=== PATIENT | female | born 1940 | race Caucasian/White ===

== ENCOUNTER 2016-09-22 23:35 | Inpatient (IN) | payer OTHER, MEDICARE ==
[~2016-09-22] VITALS: Ht 160 cm; Wt 118.4 kg
--- NOTE | 2016-09-22 23:45 | NUR ---
76 YO FEMALE BIBRA WITH C/C ABD PAIN FOR 2 DAYS. PATIENT IS ALERT ORIENTED X3, REPORTING SEVERE SHARP PAIN ON LOWER ABDL AREA. TENDER UPON PALPATION AND AGGRAVATED WITH MOVEMENT. GOWNED PATIENT UP. PLACED ON MONITOR. INITIATED COMFORT MEASURES.
--- NOTE | 2016-09-22 23:45 | NUR ---
DR CROWELL AT BEDSIDE FOR EVAL. IV ACCESS PLACED ON RIGHT FOREARM G18, GOOD BLOOD RETURN NOTED.
--- NOTE | 2016-09-22 23:46 | NUR ---
LAB AT BEDSIDE
[2016-09-22] MEDS ORDERED: IV SET PRIMARY PUMP SET 1 EA INFUS.SET MC ONE (23:52)
[2016-09-22] MEDS ORDERED: ONDANSETRON HCL/PF 4 MG/2 ML VIAL ONE (23:53)
[2016-09-22] MEDS ORDERED: HYDROMORPHONE 1 MG/1 ML DISP.SYRIN ONE (23:53)
[2016-09-23] VITALS (59 sets, daily range): BP systolic 37–167; BP diastolic 17–87
[2016-09-23] MEDS ORDERED: HYDROMORPHONE INJ 2 MG/ML DISP.SYRIN IV ONE
[2016-09-23] MEDS ORDERED: ONDANSETRON HCL/PF 4 MG/2 ML VIAL IVP ONE
--- NOTE | 2016-09-23 00:02 | NUR ---
MEDICATED ORDERED BY DR CROWELL.
[2016-09-23 00:10] LABS: BASOPHILS % (AUTO) 0.1 % (0.0-2.0); EOSINOPHILS % (AUTO) 0.1 % (0.0-6.0); HEMATOCRIT 40 % (33-45); HEMOGLOBIN 13.3 g/dL (11.5-14.8); LYMPHOCYTES # (AUTO) 0.9 /CMM (0.8-4.8); LYMPHOCYTES % (AUTO) 6.2 % (20.0-44.0); MEAN CORPUSCULAR HEMOGLOBIN 30 PG (26.0-33.0); MEAN CORPUSCULAR HGB CONC 34 g/dl (31.0-36.0); MEAN CORPUSCULAR VOLUME 89 fL (82-100); MONOCYTES # (AUTO) 0.5 /CMM (0.1-1.30); MONOCYTES % (AUTO) 3.3 % (2.0-12.0); NEUTROPHILS # (AUTO) 12.7 /CMM (1.8-8.9); NEUTROPHILS % (AUTO) 90.3 % (43.0-81.0); PLATELET COUNT (AUTO) 442 /CMM (150-450); RDW COEFFICIENT OF VARIATION 14.8 (11.5-15.0); RED BLOOD CELL COUNT(AUTO) 4.44 MIL/uL (4.0-5.2)
--- NOTE | 2016-09-23 00:11 | NUR ---
patient to ct
[2016-09-23 00:19] LABS: CALCIUM, SERUM 8.9 mg/dL (8.5-10.1); CREATININE 1.7 mg/dL (0.6-1.3); POTASSIUM 4.2 mmol/L (3.5-5.1)
[2016-09-23 00:24] LABS: ALBUMIN 2.6 g/dL (3.4-5.0); BILIRUBIN,TOTAL 2.2 mg/dL (0.2-1.0); TOTAL PROTEIN, SERUM 6.2 g/dL (6.4-8.2)
--- NOTE | 2016-09-23 00:27 | NUR ---
BACK FROM CT
[2016-09-23 00:30] LABS: INR 0.94 (0.87-1.13); PROTHROMBIN TIME 10.1 SECS (9.5-12.7)
[2016-09-23 00:44] LABS: BAND % (MANUAL) 2 % (0.0-5.0); LYMPHOCYTES % (MANUAL) 7 % (16-48); MONOCYTES % (MANUAL) 4 % (0-11.0); NEUTROPHILS % (MANUAL) 87 (42-76)
[2016-09-23 00:45] LABS: PLATELET ESTIMATE ADEQUATE
--- NOTE | 2016-09-23 00:46 | NUR ---
Soo brooks in [facility] - 09/23/16 at 0228 by JOSEP [phone]
--- NOTE | 2016-09-23 00:47 | NUR ---
Soo brooks in [facility] - 09/23/16 at 0228 by OJSEP [phone]
[2016-09-23] MEDS ORDERED: CEFTRIAXONE 1GM BAG (ER ONLY) 1 GM/50 ML PIGGYBACK IV ONE (01:00)
[2016-09-23] MEDS ORDERED: CEFTRIAXONE 1GM BAG (ER ONLY) 50 ML IV ONE (01:07)
[2016-09-23] MEDS ORDERED: SECONDARY IV SET 1 EA INFUS.SET MC ONE ×2 (01:07→04:16)
[2016-09-23] MEDS ORDERED: IV SET PRIMARY PUMP SET 1 EA INFUS.SET MC ONE ×9 (01:10→20:46)
[2016-09-23] MEDS ORDERED: IV NS 0.9% 1,000 ML BAG IV ONE ×3 (01:30→06:30)
[2016-09-23] MEDS ORDERED: HYDROMORPHONE 1 MG/1 ML DISP.SYRIN IV ONE (01:30)
[2016-09-23] MEDS ORDERED: HYDROMORPHONE 1 MG/1 ML DISP.SYRIN ONE (01:33)
[2016-09-23] MEDS ORDERED: IV NS 0.9% 1,000 ML IV PRN ×2 (01:38→21:30)
--- NOTE | 2016-09-23 01:42 | NUR ---
EKG TAKEN AT BEDSIDE.
[2016-09-23] MEDS ORDERED: IV NS 0.9% 1,000 ML ONE ×3 (02:18→20:46)
[2016-09-23] MEDS ORDERED: IV SET PRIMARY 1 EA INFUS.SET MC ONE (02:18)
--- NOTE | 2016-09-23 02:30 | NUR ---
4TH NS BOLUS GIVEN PER VERBAL ORDER OF DR CROWELL BP IS 88/55
--- NOTE | 2016-09-23 02:30 | NUR ---
Report given to CDL B DRIVER in ICU for ALYCE.
--- NOTE | 2016-09-23 02:38 | NUR ---
INSERTED RUIZ CATHETER 16G, URINE SAMPLE COLLECTED.
--- NOTE | 2016-09-23 02:50 | NUR ---
Trasported to ICU Rm 255 under als protocol. No incident noted.
[2016-09-23 03:11] LABS: APPEARANCE,URINE CLEAR (CLEAR); BILIRUBIN,URINE NEGATIVE (NEGATIVE); BLOOD, URINE NEGATIVE Ery/uL (NEGATIVE); COLOR,URINE YELLOW (YELLOW); KETONES,URINE TRACE (NEGATIVE); LEUKOCYTE ESTERASE ,URINE NEGATIVE (NEGATIVE); NITRITE, URINE NEGATIVE (NEGATIVE); PROTEIN,URINE TRACE mg/dl (NEGATIVE); UGLUCOSE NEGATIVE (NEGATIVE)
[2016-09-23 03:20] LABS: ADD URINE CULTURE NO; BACTERIA,URINE Rare /HPF (None Seen); RBC,URINE 0-2 /HPF (0-2); SQUAMOUS EPITHELIAL CELL,UR Few /HPF (None Seen)
[2016-09-23] MEDS: MORPHINE SULFATE INJ 2 MG/ML DISP.SYRIN IV PRN ×3 (03:43→17:53)
[2016-09-23] MEDS ORDERED: IV D5W 50 ML IV ONE (04:15)
[2016-09-23] MEDS ORDERED: PIPERACILLIN /TAZOBACTAM 2.25 G VIAL IV ONE (04:15)
[2016-09-23] MEDS ORDERED: PIPERACILLIN /TAZOBACTAM 4.5 G in IV D5W 50 ML IV SCH (05:00)
--- NOTE | 2016-09-23 05:50 | NUR ---
ACCOUNTS COLLECTOR PT WAS ADMITTED FROM ER WITH DIAGNOSIS OF PERFORATED VISCUS. PT IS AWAKE, ALERT, ORIENTED X 3. SPEECH IS CLEAR, MOVES ALL EXTREMITIES, LEFT LEG IS WEAK-2 WEEKS AGO PT GOT LEFT KNEE ARTHROPLASTY SURGERY. PT C/O SEVERE ABDOMINAL PAIN, MOSTLY IN RIGHT UPPER QUADRANT. ABDOMEN IS DISTENDED,TENDER WITH MUSCLE GUARDING AND REBOUND SYNDROME. NO BOWEL SOUNDS. 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 PT RECEIVED 4 L IV NS BOLUS IN ER. MAIN IV NS @ 125 ML/H. ZOSYN 4.5 G IVPB GIVEN. PT GOT HYPOTENSIVE. SBP DROPPED TO LOW 80'S. AFEBRILE. SCOPE-SR-ST. F/C WAS INSERTED AND DRAINS SUFFICIENT AMT. OF CLEAR URINE. FOR PAIN PT WAS GIVEN MORPHINE 2 MG IVP. PAIN LEVEL REDUCED FROM 10/10 TO 5/10. PT IS NPO. PT IS SUPPOSED TO HAVE SURGERY PERFORMED BY Ahsan WADSWORTH AT 8 A.M. Ahsan CHUN [facility] WAS CALLED TWICE FOR PT'S LOW BP- NO RESPONSE. WILL FOLLOW CLOSE MONITORING.
[2016-09-23] MEDS ORDERED: NOREPINEPHRINE 4 MG/4 ML AMPUL IV ONE (06:03)
[2016-09-23] MEDS ORDERED: IV D5W 500 ML IV ONE (06:04)
--- NOTE | 2016-09-23 06:19 | NUR ---
SVP PROGRAMMATIC TV Ahsan CHUN GAVE ORDER FOR LEVOPHED DRIP. I MIXED, LABELED AND STARTED REGULAR CONCENTRATION LEVOPHED DRIP. TITRATED TO KEEP SBP >90. PT IS STILL IN ABDOMINAL PAIN. MEDICATED ORDERED.
[2016-09-23] MEDS ORDERED: MORPHINE SULFATE INJ 2 MG/ML DISP.SYRIN ONE (06:29)
[2016-09-23] MEDS ORDERED: NOREPINEPHRINE 8 MG in IV D5W 500 ML IV PRN (06:30)
--- NOTE | 2016-09-23 07:10 | NUR ---
COOLER TENDER PT HAS A SEVERE SEPSIS D/T PERITONITIS. LEVOPHED DRIP TITRATED UP TO 12 MCG/KG/MIN TO KEEP SBP>90. ABDOMEN IS DISTENDED, REBOUND SYNDROME IS POSITIVE, NO BOWEL SOUNDS. C/O SEVERE ABDOMINAL PAIN. MORPHINE 2 MG IVP IS NOT EFFECTIVE. PT GOT OLIGURIC. SMALL AMT. OF HOSEA URINE. REMAINS TACHYCARDIC, HYPOTENSIVE. PT NEEDS STAT ABDOMINAL SURGERY TO BE DONE. SURGEON & ANESTHESIOLOGIST DID NOT DISCUSS WITH PATIENT AND CONSENT FOR SURGERY WAS NOT SIGNED YET. REPORT GIVEN TO NESTOR CALVERT, DAY SHIFT RN.
[2016-09-23] MEDS ORDERED: LIDOCAINE HCL/PF 1% 30 ML SDV ONE (07:15)
[2016-09-23] MEDS ORDERED: BUPIVACAINE MPF W/EPI 0.25% 30 ML VIAL ONE (07:15)
--- NOTE | 2016-09-23 07:30 | NUR ---
THREAD REELER; ASSESSMENT RECEIVED PT AWAKE AND ORIENTED X4. PT C/O RIGHT UPPER ABDOMINAL PAIN 04/30. MEDICATIONS REVIEWED LAST MORPHINE GIVEN AT 0630. DISCUSSED WITH PT REGARDING MEDIACTION NOT DUE YET AND SHE UNDERSTANDS. PT IS CONSERN TO WHEN SURGERY WILL HAPPEN. WILL F/U WITH SURGERY REGARDING TIME. PT ON LEVOPHED AT 12MCH/MIN INFUSING INTO RIGHT WRIST 18G. MARÍA TO OBTAIN CONSENT FOR PICC LINE INSERTION. RUIZ CATH INTACT DRAINING TO GRAVITY HOSEA COLOR URINE. WILL CONTINUE TO MONITOR CLOSELY, AND F/U WITH SURGERY.
[2016-09-23] MEDS ORDERED: SUCCINYLCHOLINE CHLORIDE 20 MG/ML VIAL ONE (07:52)
[2016-09-23] MEDS ORDERED: FENTANYL PF 250MCG/5ML AMPUL ONE (07:53)
[2016-09-23] MEDS ORDERED: CALCIUM CHLORIDE 1,000 MG/10 ML DISP.SYRIN ONE (07:53)
[2016-09-23] MEDS ORDERED: ROCURONIUM BROMIDE 50 MG/5 ML ONE ×4 (07:53→11:17)
--- NOTE | 2016-09-23 08:02 | NUR ---
FRAME TABLE OPERATOR HELPER; OR OR TEAM AT BEDSIDE TO TRANSFER PT TO OR. 0745: I WAS ABLE TO OBTAIN CONSENT FOR BLOOD TRANSFUSION AND ANESTHESIA DR. OQUENDO AT BEDSIDE EXPLAINED THE RISK AND BENEFITS OF ANESTHESIA. PT WAS ABLE TO GIVE VERBALIZE CONSENT, Edna MARTINEZ RN WITNESS WELL.
[2016-09-23] MEDS ORDERED: ALBUMIN 5% 250 ML IV ONE ×3 (08:25→09:17)
[2016-09-23] MEDS ORDERED: PIPERACILLIN /TAZOBACTAM 3.375 G in IV D5W 50 ML IV SCH (09:00)
[2016-09-23 09:11] LABS: ABG BASE EXCESS -5.6 mmol/L; ABG OXYGEN SATURATION 97.1 % (92.0-98.5); ABG PCO2 42.1 mmHg (35.0-45.0); ABG PH 7.304 (7.350-7.450); ABG PO2 111.3 mmHg (75.0-100.0); ABG TOTAL HEMOGLOBIN 12.3 G/dL (12.0-16.0); AaDO2 559.6 mmHg; COHb 1.2 % (0.5-1.5); MetHb 1.1 % (0.0-1.5); O2Hb 94.9 % (94.0-97.0); PEEP,BG 9 cm H2O; SITE, ABG A-Line; VT, ABG 475 mL
[2016-09-23] MEDS ORDERED: MIDAZOLAM HCL 2 MG/2ML VIAL ONE ×2 (09:56→12:37)
[2016-09-23] MEDS ORDERED: VASOPRESSIN INJ 20 UNIT/ML VIAL IM ONE (10:30)
[2016-09-23] MEDS ORDERED: VASOPRESSIN INJ 50 UNIT in IV D5W 497.5 ML IV PRN ×2 (10:30→15:00)
[2016-09-23] MEDS ORDERED: LANOLIN/MIN OIL/PETROLAT,WHT 3.5 GM TUBE ONE (10:33)
[2016-09-23] MEDS ORDERED: BACITRACIN 50000 UNITS/VIAL ONE (11:28)
[2016-09-23] MEDS ORDERED: PIPERACILLIN /TAZOBACTAM 2.25 G in IV D5W 50 ML IV SCH (12:00)
--- NOTE | 2016-09-23 14:00 | NUR ---
ELECTRIC MOTOR REPAIRER; POST-OP RECEIVED PT POST OP VIA BED. PT VENTED VIA ETT, AC 14, TV 480, 100% PEEP 10. ETT AT 23CM AT LIP LINE, 7.5 TUBE. PT ON LEVOPHED AT 25MCG/MIN INFUSING INTO RIGHT SUBCLAVIAN TLC, KARRIE TO RIGHT RADIAL ARTERY. RUIZ CATH INTACT DRAINING MINIMAL AMOUNT OF HOSEA COLOR URINE. WILL CONTINUE TO MONITOR CLOSELY TO MAINTAIN KARRIE BP ABOVE 90.
[2016-09-23 14:08] LABS: ABG OXYGEN SATURATION 95.4 % (92.0-98.5); ABG PCO2 51.6 mmHg (35.0-45.0); ABG PH 7.137 (7.350-7.450); ABG PO2 94.1 mmHg (75.0-100.0); AaDO2 567.3 mmHg; O2Hb 93.5 % (94.0-97.0); PEEP,BG 10 cm H2O; SITE, ABG A-Line; VENT MODE, BG AC 14 480 +10; VT, ABG 480 mL
[2016-09-23] MEDS ORDERED: ANESTHESIA TRAY IN PYXIS 1 EA TRAY MC ONE (14:11)
[2016-09-23] MEDS ORDERED: SODIUM BICARBONATE SYR 50 MEQ/50 ML DISP.SYRIN IV ONE (14:30)
[2016-09-23] MEDS: IV NS 0.9% 1,000 ML IV PRN (14:41)
[2016-09-23] MEDS: Sodium Bicarbonate 100 MEQ in IV D5W 1,000 ML IV PRN (14:50)
[2016-09-23] MEDS ORDERED: CALCIUM CHLORIDE 1,000 MG/10 ML DISP.SYRIN IV ONE (14:56)
[2016-09-23] MEDS ORDERED: FEE EMEERGENCY 1 MIN EA MC ONE (14:56)
[2016-09-23] MEDS ORDERED: ENOXAPARIN SODIUM 30 MG/0.3 ML DISP.SYRIN SQ SCH (15:00)
[2016-09-23 15:30] LABS: HEMATOCRIT 35 % (33-45); HEMOGLOBIN 11.4 g/dL (11.5-14.8); LYMPHOCYTES # (AUTO) 0.5 /CMM (0.8-4.8); LYMPHOCYTES % (AUTO) 3.8 % (20.0-44.0); MEAN CORPUSCULAR HEMOGLOBIN 30 PG (26.0-33.0); MEAN CORPUSCULAR HGB CONC 33 g/dl (31.0-36.0); MEAN CORPUSCULAR VOLUME 92 fL (82-100); MONOCYTES # (AUTO) 0.5 /CMM (0.1-1.30); MONOCYTES % (AUTO) 3.8 % (2.0-12.0); NEUTROPHILS # (AUTO) 11.5 /CMM (1.8-8.9); NEUTROPHILS % (AUTO) 92.4 % (43.0-81.0); PLATELET COUNT (AUTO) 357 /CMM (150-450); RDW COEFFICIENT OF VARIATION 15.4 (11.5-15.0); RED BLOOD CELL COUNT(AUTO) 3.79 MIL/uL (4.0-5.2); WHITE BLOOD COUNT (AUTO) 12.4 K/uL (4.3-11.0)
[2016-09-23 15:33] LABS: CALCIUM, SERUM 8.1 mg/dL (8.5-10.1); CREATININE 1.5 mg/dL (0.6-1.3); POTASSIUM 4.6 mmol/L (3.5-5.1)
[2016-09-23] MEDS: PROPOFOL 100 ML IV PRN ×3 (15:35→21:41)
[2016-09-23] MEDS: PANTOPRAZOLE 40 MG VIAL IV SCH (15:42)
[2016-09-23] MEDS ORDERED: FEE PK DOSING 1 MIN EA MC ONE (16:14)
[2016-09-23 16:42] LABS: ABG BASE EXCESS -8.4 mmol/L; ABG OXYGEN SATURATION 98.8 % (92.0-98.5); ABG PCO2 25.9 mmHg (35.0-45.0); ABG PH 7.381 (7.350-7.450); ABG PO2 265.2 mmHg (75.0-100.0); ABG TOTAL HEMOGLOBIN 12.9 G/dL (12.0-16.0); AaDO2 421.9 mmHg; MetHb 0.9 % (0.0-1.5); O2Hb 96.9 % (94.0-97.0); PEEP,BG 10 cm H2O; SITE, ABG A-Line; VENT MODE, BG AC 20 600 +10 100%; VT, ABG 600 mL
--- NOTE | 2016-09-23 16:52 | NUR ---
SPUTUM COLLECTED VIA ETT PER ORDER.
[2016-09-23] MEDS ORDERED: DOPamine 400 MG in IV D5W 250 ML IV PRN (17:00)
[2016-09-23] MEDS: NOREPINEPHRINE 16 MG in IV D5W 500 ML IV PRN (17:04)
[2016-09-23] MEDS: VANCOMYCIN 1 GM in IV D5W 250 ML IV SCH (17:12)
[2016-09-23 17:21] LABS: BASOPHILS % (MANUAL) 1 % (0.0-2.0); LYMPHOCYTES % (MANUAL) 2 % (16-48); METAMYELOCYTES % 18 % (0-0); MONOCYTES % (MANUAL) 10 % (0-11.0); NEUTROPHILS % (MANUAL) 25 (42-76)
[2016-09-23 17:22] LABS: BAND % (MANUAL) 44 % (0.0-5.0)
[2016-09-23 17:23] LABS: ANISOCYTOSIS 1+; PLATELET ESTIMATE ADEQU
[2016-09-23] MEDS: MICAFUNGIN SODIUM 100 MG in IV NS 0.9% 100 ML IV SCH (18:26)
--- NOTE | 2016-09-23 18:30 | NUR ---
HEALTH INFORMATION ADMINISTRATOR; OUTPUT JPRATT MIDLINE 60ML JPRATT RIGHT UPPER QUAD 45ML. NG SUCTION 100ML
--- NOTE | 2016-09-23 19:00 | NUR ---
SCARFER; VASOPRESSOR PT NOW ON 3 PRESSORS. PT BLOOD PRESSURE FLUCTUATES FROM 80'S TO 160'S. DOPAMINE 1MCG/KG/MIN, LEVOPHED 40MCG/MIN, VASOPRESSIN 0.01UNITS. WILL ENDORSE TO GEOLOGY FACULTY MEMBER NURSE
[2016-09-23] MEDS ORDERED: IV D5W 250 ML IV ONE ×2 (19:36→23:16)
[2016-09-23] MEDS: PHENYLEPHRINE 80 MG in IV D5W 250 ML IV PRN ×2 (19:48→23:26)
[2016-09-23] MEDS: MEROPENEM 1 G in IV NS 0.9% 100 ML IV SCH (20:00)
[2016-09-23] MEDS ORDERED: IV NS 0.9% 1,000 ML IV ONE (21:00)
[2016-09-23] MEDS ORDERED: MEROPENEM 1 G in IV NS 0.9% 100 ML IV SCH (21:00)
--- NOTE | 2016-09-23 21:25 | NUR ---
ALTERATIONS SEWER. INITIAL ASSESSMENT. RECEIVED THE PT REST ON THE BED. ORALLY INTUBATED. SEDATED WITH DIPRIVAN. ETT 7.5CMS,LIP 23CMS,AC 20,TV 600,FIO2 100%, PEEP 10. SAT 99%. RESIDENT CARE AIDE SHOWING S TACH. IV RT IJ TRIPLE LUMEN RT RADIAL KARRIE. LT NARE NGT LOW INTERMITTENT SUCTION FC PATENT. SURGICAL INCISION INTACT. 2 YANIRA INTACT. FC PATENT. IV LEVOPHED 30MCG/MIN,ANA 300MCG/MIN, VASO 0.04U DIPRIVAN 30MCG/KG/MIN,IVF D5W WITH 2AMP BICAR 150 ML/H. PT IS UNSTABLE. WILL CONTINUE TO MONITOR.
[2016-09-23 21:26] LABS: ABG BASE EXCESS -7.7 mmol/L; ABG OXYGEN SATURATION 98.2 % (92.0-98.5); ABG PH 7.385 (7.350-7.450); ABG PO2 143.8 mmHg (75.0-100.0); ABG TOTAL HEMOGLOBIN 13.1 G/dL (12.0-16.0); AaDO2 542.2 mmHg; COHb 0.1 % (0.5-1.5); O2Hb 97.1 % (94.0-97.0); SITE, ABG Left Radial; VENT MODE, BG AC 20 600 100%
--- NOTE | 2016-09-23 21:44 | NUR ---
CUSTOMER EXPERIENCE SPECIALIST.DR HINSON CALLED. UP DATE GIVEN. ORDER IL NS BOLOS, 2 UNITS FFP , ABG STAT, CBC AND CMP
[2016-09-23 21:55] LABS: BASOPHILS % (AUTO) 0.1 % (0.0-2.0); HEMATOCRIT 37 % (33-45); HEMOGLOBIN 11.9 g/dL (11.5-14.8); LYMPHOCYTES # (AUTO) 0.9 /CMM (0.8-4.8); LYMPHOCYTES % (AUTO) 4.2 % (20.0-44.0); MEAN CORPUSCULAR HEMOGLOBIN 30 PG (26.0-33.0); MEAN CORPUSCULAR HGB CONC 33 g/dl (31.0-36.0); MEAN CORPUSCULAR VOLUME 92 fL (82-100); MONOCYTES # (AUTO) 0.2 /CMM (0.1-1.30); MONOCYTES % (AUTO) 0.8 % (2.0-12.0); NEUTROPHILS # (AUTO) 20.6 /CMM (1.8-8.9); NEUTROPHILS % (AUTO) 94.9 % (43.0-81.0); PLATELET COUNT (AUTO) 391 /CMM (150-450); RDW COEFFICIENT OF VARIATION 15.6 (11.5-15.0); RED BLOOD CELL COUNT(AUTO) 3.98 MIL/uL (4.0-5.2); WHITE BLOOD COUNT (AUTO) 21.7 K/uL (4.3-11.0)
--- NOTE | 2016-09-23 21:59 | NUR ---
CLAM DREDGE BOAT CAPTAIN.DR HINSON ORDERED NEPHRO CONSULT. I CALLED DR HOLCOMB. NO ORDER.
[2016-09-23 22:07] LABS: CALCIUM, SERUM 7.4 mg/dL (8.5-10.1); CREATININE 1.8 mg/dL (0.6-1.3); POTASSIUM 4.6 mmol/L (3.5-5.1)
--- NOTE | 2016-09-23 22:07 | NUR ---
AUTOMOTIVE POWER ELECTRONICS ENGINEER. G DONE.
[2016-09-23] MEDS ORDERED: IV NS 0.9% 250 ML IV ONE (22:12)
[2016-09-23 22:50] LABS: BAND % (MANUAL) 48 % (0.0-5.0); LYMPHOCYTES % (MANUAL) 4 % (16-48); MONOCYTES % (MANUAL) 9 % (0-11.0); NEUTROPHILS % (MANUAL) 20 (42-76)
[2016-09-23 22:51] LABS: ANISOCYTOSIS 1+; METAMYELOCYTES % 19 % (0-0); PLATELET ESTIMATE ADEQUATE
[2016-09-23] MEDS ORDERED: PHENYLEPHRINE 10 MG/ML VIAL ONE ×2 (23:15→23:16)
--- NOTE | 2016-09-23 23:42 | NUR ---
FOOD PREPARATION SUPERVISOR. PT NOT RESPONDING. FRANSICO TURNER
[2016-09-24] VITALS (78 sets, daily range): BP systolic 58–130; BP diastolic 42–97
[2016-09-24] MEDS ORDERED: FUROSEMIDE 40 MG/4 ML VIAL ONE (01:05)
[2016-09-24] MEDS ORDERED: NOREPINEPHRINE 4 MG/4 ML AMPUL IV ONE (01:20)
[2016-09-24] MEDS ORDERED: FUROSEMIDE 40 MG/4 ML VIAL IV SCH (01:30)
[2016-09-24] MEDS ORDERED: FUROSEMIDE 40 MG/4 ML VIAL IV ONE (01:30)
[2016-09-24] MEDS: NOREPINEPHRINE 16 MG in IV D5W 500 ML IV PRN ×2 (01:33→16:36)
[2016-09-24] MEDS: PROPOFOL 100 ML IV PRN ×5 (01:43→18:29)
--- NOTE | 2016-09-24 02:02 | NUR ---
GREEN HIDE INSPECTOR. DR HINSON CALLED. PT UPDATE GIVEN. NEW ORDER RECEIVED. LASIX 40 MG ONCE. WILL CONTINUE TO MONITOR.
--- NOTE | 2016-09-24 02:03 | NUR ---
SENIOR LOAN OFFICER. PT SABRA UPPER EXTREMITIES MOVING. DIPRIVAN RESTARTED
--- NOTE | 2016-09-24 02:26 | NUR ---
DIAGNOSTIC RADIOLOGIST. 2UNITS FFP GIVEN. DURING SHIFT NO COMPLICATION NOTED.
[2016-09-24] MEDS: Sodium Bicarbonate 100 MEQ in IV D5W 1,000 ML IV PRN ×2 (02:31→10:11)
--- NOTE | 2016-09-24 03:38 | NUR ---
TREER. AM CARE. ORAL CARE, BED BATH GIVEN. LINEN CHANGED. REMAINING SAME VENT SETTINGS TOLERATED WELL SAT 98 %. NO ACUTE DISTRESS NOTED. ELEVATOR BUILDER SHOWING S TACH. IV RT IJ. DIPRIVAN 30 MCG/KG/MIN, LEVO 15MCG/MIN, ANA 200MCG/ MIN. VASO 0.04UNITS/M,BICARB DRIP 150ML/H. RT RADIAL A LINE. RT IJ CVP LINE. LT NARE NGT LOW INTERMITTENT SUCTIONABDOMINAL DRESSING INTACT. LT LEG DRESSING INTACT. MID ABDOMEN YANIRA TUBE AND RT UPPER YANIRA INTACT. TEMPERATURE 99.9. NPO. TURN AND REPOSITION. VITALS UNSTABLE, FC PATENT, NO URINE OUT PUT. WILL CONTINUE TO MONITOR VITALS.
[2016-09-24 04:50] LABS: BASOPHILS % (AUTO) 0.2 % (0.0-2.0); HEMATOCRIT 34 % (33-45); HEMOGLOBIN 11.2 g/dL (11.5-14.8); LYMPHOCYTES # (AUTO) 1.1 /CMM (0.8-4.8); LYMPHOCYTES % (AUTO) 4.1 % (20.0-44.0); MEAN CORPUSCULAR HEMOGLOBIN 31 PG (26.0-33.0); MEAN CORPUSCULAR HGB CONC 33 g/dl (31.0-36.0); MEAN CORPUSCULAR VOLUME 92 fL (82-100); MONOCYTES # (AUTO) 0.6 /CMM (0.1-1.30); MONOCYTES % (AUTO) 2.2 % (2.0-12.0); NEUTROPHILS # (AUTO) 24.2 /CMM (1.8-8.9); NEUTROPHILS % (AUTO) 93.5 % (43.0-81.0); PLATELET COUNT (AUTO) 323 /CMM (150-450); RDW COEFFICIENT OF VARIATION 15.6 (11.5-15.0); RED BLOOD CELL COUNT(AUTO) 3.66 MIL/uL (4.0-5.2); WHITE BLOOD COUNT (AUTO) 25.9 K/uL (4.3-11.0)
[2016-09-24 05:15] LABS: BAND % (MANUAL) 51 % (0.0-5.0); NEUTROPHILS % (MANUAL) 18 (42-76)
[2016-09-24 05:16] LABS: LYMPHOCYTES % (MANUAL) 6 % (16-48); METAMYELOCYTES % 15 % (0-0); MONOCYTES % (MANUAL) 10 % (0-11.0); PLATELET ESTIMATE ADEQUATE
[2016-09-24 05:17] LABS: THYROID STIMULATING HORMONE 0.721 uIU/mL (0.358-3.74)
[2016-09-24 05:18] LABS: CALCIUM, SERUM 7.8 mg/dL (8.5-10.1); CREATININE 1.9 mg/dL (0.6-1.3); PHOSPHORUS 4.2 mg/dL (2.5-4.9); POTASSIUM 4.3 mmol/L (3.5-5.1)
[2016-09-24 05:20] LABS: MAGNESIUM 1.2 mg/dL (1.8-2.4)
--- NOTE | 2016-09-24 06:15 | NUR ---
PRODUCT TEST ENGINEER. YANIRA DRAIN MIDDLE 30ML RT YANIRA 10ML
--- NOTE | 2016-09-24 07:06 | NUR ---
DEPUTY SHERIFF CHIEF. LAB CALLED FOR MAGNESIUM 1.2, TROPONIN O.918. [address] DICKERSON NOT CALL BACK. ENDORSE TO DAY SHIFT.
[2016-09-24] MEDS: PHENYLEPHRINE 80 MG in IV D5W 250 ML IV PRN ×3 (07:41→20:35)
[2016-09-24] MEDS ORDERED: IV SET PRIMARY PUMP SET 1 EA INFUS.SET MC ONE ×3 (07:57→19:47)
--- NOTE | 2016-09-24 07:59 | NUR ---
RT PATIENT REC'D ORALLY INTUBATED WITH A 7.5 ETT SECURED AT 23CM MID LIP VIA ANCHOR FAST. ON [facility] VENTILATION WITH SETTINGS SET PER MD TOLERATED WELL. VENT ALARMS CHECKED + AUDIBLE. CUFF PRESSURE CHECKED MANAGER BEVERAGE. SX'D WITH SMALL AMT PALE SEMITHICK SECRETIONS. AMBU BAG AT HOB Addendum: 09/24/16 at 0803 by MAYTE ARELLANO RT Amended: Links added.
--- NOTE | 2016-09-24 08:00 | NUR ---
CARBON SETTER; ASSESSMENT RECEIVED PT VENTED VIA ETT, SEE FLOW SHEET FOR VENT SETTINGS. PT IS SEDATED ON DIPRIVAN DRIP AT 20MCG/KG/MIN, NOTED PT AWAKE, RESTLESS AND LIFTING SABRA ARMS, WILL INCREASE DIPRIVAN FOR PT SAFETY AND COMFORT. PT ON VASOPRESSIN 0.04 UNITS/HR WILL TITRATE TO KEEP SBP (KARRIE) ABOVE 90. LEVOPHED AT 10MCG/MIN, ANA-SYNEPHRINE AT 200MCG/MCG INFUSING INTO RIGHT IJ TLC. KARRIE INTO RIGHT RADIAL ARTERY. CVP MONITOR SHOWING 12. RUIZ CATH INTACT DRAINING TO GRAVITY CLEAR YELLOW URINE. NG TUBE TO LEFT NARE UNABLE TO AUSCULTATE NG TUBE PLACEMENT ATTEMPTED TO REPOSITION NG TUBE UNABLE TO. NEW NG TUBE PLACED TO RIGHT NARE VERIFIED WITH SECOND NURSE. Marysol PYLE RN POSITIVE FOR AUSCULTATION AND ASPIRATION. ABLE TO OBTAIN ABOUT 1L OF GREEN COLOR FLUID. WILL CONTINUE TO MONITOR CLOSELY. PT 1:1 NURSING CARE.
[2016-09-24] MEDS: PANTOPRAZOLE 40 MG VIAL IV SCH (08:03)
[2016-09-24] MEDS ORDERED: SECONDARY IV SET 1 EA INFUS.SET MC ONE ×2 (08:03→19:47)
[2016-09-24] MEDS: Magnesium 1GM/D5W 100ML PREMIX 100 ML IV SCH ×2 (08:03→09:11)
[2016-09-24] MEDS ORDERED: IV NS 0.9% 250 ML IV ONE (08:04)
[2016-09-24] MEDS: MEROPENEM 1 G in IV NS 0.9% 100 ML IV SCH ×2 (08:12→19:45)
[2016-09-24 08:36] LABS: ABG BASE EXCESS -4.6 mmol/L; ABG OXYGEN SATURATION 93.6 % (92.0-98.5); ABG PH 7.446 (7.350-7.450); ABG PO2 65.6 mmHg (75.0-100.0); ABG TOTAL HEMOGLOBIN 11.7 G/dL (12.0-16.0); AaDO2 260.5 mmHg; COHb 0.4 % (0.5-1.5); MetHb 0.8 % (0.0-1.5); O2Hb 92.5 % (94.0-97.0); PEEP,BG 0 cm H2O; SITE, ABG A-Line
--- NOTE | 2016-09-24 09:20 | NUR ---
DRUM STOCK CLERK; PRIMARY DR. JOSEPH CHUN AT BEDSIDE UPDATE WAS GIVEN DISCUSSED MAGNESIUM LEVEL OF 1.2 AND PT RECEIVING 2GM OF MAGNESIUM SULFATE IV. NO NEW ORDERS GIVEN WILL CONTINUE TO MONITOR
[2016-09-24] MEDS ORDERED: Z GUARD REMEDY 2 OZ OINT TP PRN (10:00)
--- NOTE | 2016-09-24 10:30 | NUR ---
SECOND CUTTER; PULMONARY DR. HALE AT BEDSIDE UPDATE WAS GIVEN. DISCUSSED ABG RESULTS.CHEST XRAY REVIEWED NEW ORDERS GIVEN TO PULL ETT OUT 2CM. ORDERS ENTERED AND RT NOTIFIED.
--- NOTE | 2016-09-24 11:12 | NUR ---
RT PER DR GEOFFREY OSBORNE ETT PULLED OUT 2CM AND SECURED AT 21CM TOP LIP Addendum: 09/24/16 at 1112 by MAYTE ARELLANO RT Amended: Links added.
--- NOTE | 2016-09-24 11:14 | NUR ---
ELECTRICIAN SUBSTATION SUPERVISOR; TEMP PT HAS LOW GRADE TEMP OF 100.6. COOLING MEASURES APPLIED. WILL CONTINUE TO MONITOR.
--- NOTE | 2016-09-24 11:30 | NUR ---
BILL CLERK; ANESTHESIOLOGIST DR. HUDSON AT BEDSIDE UPDATE WAS GIVEN. DISCUSSED REGARDING TLC CATH TIP ENTERING RIGHT ATRIUM. NO NEW ORDERS GIVEN. STATES THAT LONG PT IS NOT HAVING ANY DYSRHYTHMIAS HE WILL NOT ADJUST. WILL CONTINUE TO MONITOR CARDIAC RHYTHM.
[2016-09-24] MEDS: Z GUARD REMEDY 2 OZ OINT TP SCH (11:50)
--- NOTE | 2016-09-24 12:51 | NUR ---
TIPPING MACHINE OPERATOR AUTOMATIC; DRESSING SURGICAL DRESSING REMOVED PER ORDERS. PICTURES TAKEN. WOUND CARE DONE ORDERED. WET TO DRY DRESSING. ABLE TO NOTE PLACEMENT OF JPRATT JPRATT #1 RIGHT LOWER QUADRANT. JPRATT #2 RIGHT UPPER QUADRANT.
--- NOTE | 2016-09-24 13:00 | NUR ---
INSOLE COVERER; SURGEON DR. CAAL CALLED UPDATE WAS GIVEN NO NEW ORDERS GIVEN AT THIS TIME.
[2016-09-24] MEDS: IV NS 0.9% 1,000 ML IV PRN (14:09)
--- NOTE | 2016-09-24 15:00 | NUR ---
SEISMOGRAPH OBSERVER; BP WILL CONTINUE TO MONITOR KARRIE FOR B/P AND ADJUST VASOPRESSORS ACCORDING TO KARRIE READINGS. WILL CHECK AUTOMATIC B/P Q1HR.
[2016-09-24] MEDS: MICAFUNGIN SODIUM 100 MG in IV NS 0.9% 100 ML IV SCH (16:14)
[2016-09-24] MEDS: MORPHINE SULFATE INJ 2 MG/ML DISP.SYRIN IV PRN (16:47)
--- NOTE | 2016-09-24 16:50 | NUR ---
MANUFACTURING ENGINEER ASSEMBLY; PAIN NOTED PT HAVING SOME FACIAL GRIMACING, CLOSING EYES TIGHT, MORPHINE 2MG GIVEN IVP ORDERED. WILL CONTINUE TO MONITOR CLOSELY
--- NOTE | 2016-09-24 17:11 | NUR ---
REST ROOM ATTENDANT; OUTPUT JPRATT #1 RIGHT LOWER QUAD = 20ML OUTPUT JPRATT #2 RIGHT UPPER QUAD = 90ML OITPUT NGTUBE TOTAL OF 1150 ML OF GASTRIC CONTENT
[2016-09-24] MEDS ORDERED: IV NS 0.9% 500 ML IV ONE (17:21)
[2016-09-24] MEDS: VANCOMYCIN 1 GM in IV D5W 250 ML IV SCH (17:25)
[2016-09-24] MEDS: HEPARIN SODIUM, PORCINE 5000 UNITS/1 ML VIAL SQ SCH (19:46)
--- NOTE | 2016-09-24 20:00 | NUR ---
SENIOR ELECTRICAL ENGINEER: RECEIVED PT VENTED VIA ETT, SEE FLOW SHEET FOR VENT SETTINGS. PT IS SEDATED ON DIPRIVAN DRIP AT 20MCG/KG/MIN, . LEVOPHED AT 14 MCG/MIN, ANA-SYNEPHRINE AT 160MCG/MCG INFUSING INTO RIGHT IJ TLC. ART LINE INTO RIGHT RADIAL ARTERY. CVP MONITOR SHOWING 2. RUIZ CATH INTACT DRAINING TO GRAVITY CLEAR YELLOW URINE. NG TUBE TO LEFT NOSTRIL, POSITIVE FOR AUSCULTATION AND ASPIRATION. FULL ASSESSMENT SEE ON FLOW SHEET. ONGOING MONITORING.
[2016-09-25] VITALS (57 sets, daily range): BP systolic 86–145; BP diastolic 51–87
[2016-09-25] MEDS: PROPOFOL 100 ML IV PRN ×4 (01:24→17:14)
[2016-09-25] MEDS: IV NS 0.9% 1,000 ML IV PRN ×2 (02:34→11:45)
[2016-09-25] MEDS: PHENYLEPHRINE 80 MG in IV D5W 250 ML IV PRN ×3 (04:21→17:14)
[2016-09-25 04:39] LABS: HEMATOCRIT 37 % (33-45); HEMOGLOBIN 12.3 g/dL (11.5-14.8); LYMPHOCYTES # (AUTO) 0.7 /CMM (0.8-4.8); LYMPHOCYTES % (AUTO) 2.2 % (20.0-44.0); MEAN CORPUSCULAR HEMOGLOBIN 31 PG (26.0-33.0); MEAN CORPUSCULAR HGB CONC 34 g/dl (31.0-36.0); MEAN CORPUSCULAR VOLUME 91 fL (82-100); MONOCYTES # (AUTO) 0.2 /CMM (0.1-1.30); MONOCYTES % (AUTO) 0.6 % (2.0-12.0); NEUTROPHILS # (AUTO) 30.5 /CMM (1.8-8.9); NEUTROPHILS % (AUTO) 97.2 % (43.0-81.0); PLATELET COUNT (AUTO) 271 /CMM (150-450); RED BLOOD CELL COUNT(AUTO) 4.01 MIL/uL (4.0-5.2)
[2016-09-25 04:45] LABS: WHITE BLOOD COUNT (AUTO) 31.4 K/uL (4.3-11.0)
[2016-09-25 05:11] LABS: CALCIUM, SERUM 7.5 mg/dL (8.5-10.1); CREATININE 1.1 mg/dL (0.6-1.3); MAGNESIUM 1.7 mg/dL (1.8-2.4); PHOSPHORUS 2.9 mg/dL (2.5-4.9); POTASSIUM 3.6 mmol/L (3.5-5.1)
[2016-09-25 05:41] LABS: ANISOCYTOSIS 1+; BAND % (MANUAL) 58 % (0.0-5.0); LYMPHOCYTES % (MANUAL) 2 % (16-48); MONOCYTES % (MANUAL) 3 % (0-11.0); NEUTROPHILS % (MANUAL) 37 (42-76); PLATELET ESTIMATE ADEQUATE
--- NOTE | 2016-09-25 05:52 | NUR ---
YARN WORKER: YANIRA DRAINAGE # 1 OUTPUT 30 ML YANIRA DRAINAGE # 2 OUTPUT 60 ML
--- NOTE | 2016-09-25 07:05 | NUR ---
RN INITIAL NOTES RECEIVED PT [facility]UBATED. [facility] WITH FF SETTINGS: AC20, TV600, FI02 60%, PEEP 0. ETT IN PLACE. HOB ELEVATED. NGT, RIGHT NARE IN PLACE, CONNECTED TO LOW INTERMITTENT SUCTION. RIJ TLC IN PLACE. ON DIPRIVAN AT 20MCG/KG/MIN, ANA AT 160MCG/MIN AND LEVO AT 10MCG/MIN. BP CLOSELY MONITORED. RW G#[address] ON NS AT 100ML/HR. ABDOMINAL INCISION CLEAN AND DRY, DRESSING ON. NO SIGNS OF BLEEDING NOTED. 2 YANIRA DRAINS INTACT. FC IN PLACE. WILL MONITOR FOR OUTPUT. BLE ELEVATED. WILL CLOSELY MONITOR.
--- NOTE | 2016-09-25 07:55 | NUR ---
WOUND CARE CONSULT PATIENT SEEN AND SKIN INTEGRITY ASSESSMENT VERY LIMITED PATIENT ON 3 PRESSORS AND UNSTABLE TO TURN FOR ME TO ASSESS HER BACK. PATIENT PRESENTS WITH ABDOMINAL OPEN POST OP INCISION WHICH IS CURRENTLY PACKED AND HAS DRY DRESSING IN PLACE, DRESSING INTACT WITH NO DRAINAGE. WILL DEFER CARE OF THIS TO THE PRIMARY SURGEON THERE ARE CURRENT TREATMENT ORDERS IN PLACE BY SURGEON. PATIENT ALSO PRESENT WITH LEFT KNEE POST OP INCISION, THERE IS SMALL AMOUNT OF SEROUS DRNG NOTED TO THE DRY DRESSING. THERE ARE NO S/S OF INFECTION NOTED AT THIS TIME. RECOMMEND CONTINUE WITH DRY DRESSING TO THIS AREA. RECOMMEND TURNING SCHED Q 2 HOURS PATIENT CONDITION PERMITS, RECOMMEND BILATERAL HEEL FLOATING, RECOMMEND USE OF Z GUARD TO PERINEAL AND BUTTOCKS FOR MOISTURE MANAGEMENT. PATIENT CURRENTLY HAS RUIZ AND COLOSTOMY. CURRENT NOREEN AT 13. ALL DISCUSSED WITH NURSING AT THE BEDSIDE. GARY MAX 2 BED WITH ETS AIR IN PLACE FOR SKIN MANAGEMENT.
--- NOTE | 2016-09-25 08:00 | NUR ---
RN NOTES SEEN AND EXAMINED BY DR. CHERY. AWARE OF CURRENT LAB RESULTS. AWARE OF TROPONIN 14.109. MD AWARE PT IS ON LEVO AT 10MCG/MIN, ANA 160MCG/MIN AND DIPRIVAN AT 20MCG/KG/MIN. ON CVP MONITORING. A-LINE IN PLACE. MD ORDERED MAGNESIUM REPLACEMENT. WILL CONTINUE TO MONITOR HEMODYNAMIC STATUS
[2016-09-25] MEDS ORDERED: SECONDARY IV SET 1 EA INFUS.SET MC ONE (08:12)
[2016-09-25] MEDS: PANTOPRAZOLE 40 MG VIAL IV SCH (08:17)
[2016-09-25] MEDS: Magnesium 1GM/D5W 100ML PREMIX 100 ML IV SCH ×2 (08:17→09:18)
[2016-09-25] MEDS: Z GUARD REMEDY 2 OZ OINT TP SCH (08:18)
[2016-09-25] MEDS: HEPARIN SODIUM, PORCINE 5000 UNITS/1 ML VIAL SQ SCH ×2 (08:21→21:40)
[2016-09-25] MEDS: MEROPENEM 1 G in IV NS 0.9% 100 ML IV SCH ×2 (08:22→21:39)
--- NOTE | 2016-09-25 08:30 | NUR ---
RN NOTES SEDATION VACATION DONE. PT OPENED EYES, NO TRACKING. UNABLE TO FOLLOW SIMPLE COMMANDS. PLACED BACK ON SEDATION AFTER 15MINS
[2016-09-25 08:47] LABS: ABG OXYGEN SATURATION 95.6 % (92.0-98.5); ABG PCO2 24.9 mmHg (35.0-45.0); ABG PH 7.544 (7.350-7.450); ABG PO2 73.3 mmHg (75.0-100.0); ABG TOTAL HEMOGLOBIN 12.9 G/dL (12.0-16.0); AaDO2 255.2 mmHg; COHb 0.8 % (0.5-1.5); MetHb 0.6 % (0.0-1.5); O2Hb 94.3 % (94.0-97.0); SITE, ABG Right Radial; VT, ABG 600 mL
--- NOTE | 2016-09-25 09:55 | NUR ---
RN NOTES SEEN AND EXAMINED BY DR. JOSEPH PRASAD. AWARE OF CURRENT LABS WBC 31.4. ON IV ATB. WITH LOW GRADE TEMP-99.4. SODIUM 135, MAGNESIUM 1.7, REPLACED. TROPONIN 12.109, DR. CHERY AWARE. ALSO AWARE OF CXR AND ABG RESULT. ORDERED LABS IN AM. NOTED AND CARRIED OUT. WILL MONITOR.
[2016-09-25] MEDS ORDERED: Magnesium 1GM/D5W 100ML PREMIX 100 ML IV SCH (11:23)
[2016-09-25] MEDS ORDERED: IV NS 0.9% 500 ML IV ONE (11:39)
[2016-09-25] MEDS: NOREPINEPHRINE 16 MG in IV D5W 500 ML IV PRN (11:46)
[2016-09-25 14:22] LABS: HEPATITIS A AB, IgM Negative (Negative); HEPATITIS B CORE AB, IgM Negative (Negative); HEPATITIS C VIRUS AB <0.1 s/co ratio (0.0-0.9)
[2016-09-25] MEDS: MORPHINE SULFATE INJ 2 MG/ML DISP.SYRIN IV PRN (16:34)
[2016-09-25] MEDS: MICAFUNGIN SODIUM 100 MG in IV NS 0.9% 100 ML IV SCH (16:34)
[2016-09-25] MEDS: VANCOMYCIN 1 GM in IV D5W 250 ML IV SCH (17:13)
--- NOTE | 2016-09-25 18:55 | NUR ---
RN CLOSING NOTES PT REMAINS INTUBATED. TOLERATING VENT. NO RESPIRATORY DISTRESS NOTED. NO SOB NOTED. NO SIGNS OF PAIN NOTED. IV LINES IN PLACE. NGT IN PLACE. ON LEVO AND ANA, TITRATED. ON DIPRIVAN. DRESSING CHANGED ON ABDOMINAL INCISION SITE. KEPT CLEAN AND DRY. 2 YANIRA DRAINS INTACT. FC IN PLACE. KEPT CLEAN AND DRY. REPOSITIONED Q2. KEPT BLE ELEVATED. WILL ENDORSE FOR CONTINUITY OF CARE.
--- NOTE | 2016-09-25 20:00 | NUR ---
FLIGHT READINESS TECHNICIAN: RECEIVED PT INTUBATED. ON [facility] VENT WITH FF SETTINGS: AC 16, TV550, FI02 50%, PEEP 0. ETT IN PLACE. HOB ELEVATED. NGT, RIGHT NARE IN PLACE, CONNECTED TO LOW INTERMITTENT SUCTION. RIJ TLC IN PLACE. ON DIPRIVAN AT 20MCG/KG/MIN, ANA AT 110MCG/MIN AND LEVO AT 10MCG/MIN. BP CLOSELY MONITORED. RW G#[address] ON NS AT 100ML/HR. ABDOMINAL INCISION CLEAN AND DRY, DRESSING ON. NO SIGNS OF BLEEDING NOTED. 2 YANIRA DRAINS INTACT. FC IN PLACE. WILL MONITOR FOR OUTPUT. BLE ELEVATED. KEEP MONITORING.
[2016-09-25] MEDS ORDERED: IV SET PRIMARY PUMP SET 1 EA INFUS.SET MC ONE (21:43)
--- NOTE | 2016-09-25 23:43 | NUR ---
POST SECONDARY PROFESSIONAL: BEDSIDE REPORT GIVEN TO MINISTERIO/RN, MADE AWARE ALL ORDERS.
[2016-09-26] VITALS (57 sets, daily range): BP systolic 91–136; BP diastolic 50–77
[2016-09-26] MEDS: IV NS 0.9% 1,000 ML IV PRN ×2 (00:20→14:21)
[2016-09-26] MEDS: PROPOFOL 100 ML IV PRN ×4 (00:21→19:01)
[2016-09-26 05:02] LABS: BASOPHILS # (AUTO) 0.1 /CMM (0.0-0.2); BASOPHILS % (AUTO) 0.5 % (0.0-2.0); EOSINOPHILS # (AUTO) 0.1 /CMM (0.0-0.7); EOSINOPHILS % (AUTO) 0.4 % (0.0-6.0); HEMATOCRIT 33 % (33-45); HEMOGLOBIN 11.3 g/dL (11.5-14.8); LYMPHOCYTES # (AUTO) 1.1 /CMM (0.8-4.8); LYMPHOCYTES % (AUTO) 3.8 % (20.0-44.0); MEAN CORPUSCULAR HEMOGLOBIN 31 PG (26.0-33.0); MEAN CORPUSCULAR HGB CONC 34 g/dl (31.0-36.0); MEAN CORPUSCULAR VOLUME 89 fL (82-100); MONOCYTES # (AUTO) 0.9 /CMM (0.1-1.30); NEUTROPHILS # (AUTO) 27.1 /CMM (1.8-8.9); NEUTROPHILS % (AUTO) 92.3 % (43.0-81.0); PLATELET COUNT (AUTO) 243 /CMM (150-450); RDW COEFFICIENT OF VARIATION 14.8 (11.5-15.0); WHITE BLOOD COUNT (AUTO) 29.3 K/uL (4.3-11.0)
[2016-09-26 05:19] LABS: CALCIUM, SERUM 7.6 mg/dL (8.5-10.1); CREATININE 0.8 mg/dL (0.6-1.3); MAGNESIUM 2.2 mg/dL (1.8-2.4); PHOSPHORUS 2.9 mg/dL (2.5-4.9); POTASSIUM 3.4 mmol/L (3.5-5.1)
[2016-09-26] MEDS: VANCOMYCIN 0.75 GM in IV D5W 250 ML IV SCH ×2 (05:56→17:52)
[2016-09-26] MEDS: PHENYLEPHRINE 80 MG in IV D5W 250 ML IV PRN (06:00)
[2016-09-26 06:11] LABS: BAND % (MANUAL) 6 % (0.0-5.0); LYMPHOCYTES % (MANUAL) 3 % (16-48); MONOCYTES % (MANUAL) 5 % (0-11.0); NEUTROPHILS % (MANUAL) 85 (42-76); PLATELET ESTIMATE ADEQUATE; REACTIVE LYMPHOCYTES 1 % (0-0)
--- NOTE | 2016-09-26 06:50 | NUR ---
CAMPAIGN MANAGER - REC'D REPORT FROM HARLAN RN AT [place]. REC'D PT. S/P SB RESECTION/COLOSTOMY SURGERY W/ABD WOUND DEHEISENCED. (GAPED OPEN). SURGICAL WOUND DRSG CHANGED AT 5AM W/PARTIAL BEDBATH. CVP IS RANGING 4-6MMHG. RT.RADIAL KARRIE PRESSURES ARE READING IN THE LOW 90'S TO TEENS. NIBP PRESSURES ARE READING ALITTLE HIGHER. PT. IS ON LEVOPHED GTT. AT 6 MCG/MIN. & NEOSYNEPHRINE GTT. AT 90MCG/MIN. HEART MONITOR SHOWS ST/LOW 100'S. RIJ-TLC HAS ANA & LEVOPHED GTTS TO A PORT, DIPRIVAN GTT TO A SINGLE PORT (INFUSING AT 20 MCG/MIN. ). AND MIV OF 0.9%NS AND CVP TO 3RD PORT. CORE TEMPS ARE READING LOW 99'S. COOLING MEASURES NOTED. PT.IS OBESE W/LITTLE EDEMA. LEFT SIDED COLOSTOMY HAS VERY LITTLE CLEAR LIQUID STOOL EXPLELLING. RT.NARE NGT HAS VERY LITTLE GREEN FLUID EXPELLED. NGT TO LIWS. 2 YANIRA RT. ABD. YANIRA DRAINS ARE COMPRESSED TO BULB SX. REPORT GIVEN TO MICHELLE Rush CONT. POC.
--- NOTE | 2016-09-26 08:00 | NUR ---
BETTING CLERK NOTE: RECEIVED PT INTUBATED ETT 7.5. 21CMS AND ON [facility] VENT WITH FF SETTINGS: AC 16, TV550, FI02 50%, PEEP 0. PATIENT SEDATED ON 20MCG/KG/MIN OF DIPRIVAN. NGT, RIGHT NARE IN PLACE, CONNECTED TO LOW INTERMITTENT SUCTION RESIDUAL NOTED TO BE GREEN. RIJ TLC IN PLACE. ON DIPRIVAN AT 20MCG/KG/MIN, ANA AT 90MCG/MIN AND LEVO AT 6MCG/MIN. BP CLOSELY MONITORED. RW G#[address] ON NS AT 100ML/HR. RIGHT RADIAL KARRIE IN PLACE FOR BP MONITORING. CVP CHECKED AND NTOED TO BE 5. ABDOMINAL INCISION CLEAN AND DRY, DRESSING ON. NO SIGNS OF BLEEDING NOTED. 2 YANIRA DRAINS INTACT NOTED WITH SEROUS DRAINAGE. RUIZ CATHETER DRAINING TO GRAVITY. PATIENT TURNED AND REPOSITIONED AND EXTREMITIES OFFLOADED. ONGOING MONITORING
[2016-09-26] MEDS: PANTOPRAZOLE 40 MG VIAL IV SCH (08:30)
[2016-09-26] MEDS: POTASSIUM CL. PREMIX PERIPHER. 50 ML IV SCH ×2 (08:30→09:32)
[2016-09-26] MEDS: MEROPENEM 1 G in IV NS 0.9% 100 ML IV SCH ×2 (08:31→20:35)
[2016-09-26] MEDS: HEPARIN SODIUM, PORCINE 5000 UNITS/1 ML VIAL SQ SCH ×2 (08:31→20:39)
[2016-09-26] MEDS: Z GUARD REMEDY 2 OZ OINT TP SCH (08:32)
--- NOTE | 2016-09-26 08:45 | NUR ---
COMPUTER ARTIST NOTE: SEDATION VACATION PROVIDED. DIPRIVAN TITRATED DOWN AND TURNED OFF. PATIENT NOTED TO BE AWAKE AND ALERT TO SELF, ABLE TO FOLLOW COMMANDS HOWEVER NOTED TO BE WEAK. HR NOTED TO BE ELEVATED. BP STABLE. DR. HALE MADE AWARE. DIPRIVAN INITIATED AND TITRATED UP TO 25MCG/KG/MIN. ONGOING MONITORING
--- NOTE | 2016-09-26 09:00 | NUR ---
WATCH INSPECTOR FINAL MOVEMENT NOTE: NEOSYNEPHRINE TITRATED DOWN AND TURNED OFF. PATIENT ON LEVOPHED AT 6MCG/MIN. SBP MAINTAINED. VS STABLE AT THIS TIME. ONGOING MONITORING.
[2016-09-26] MEDS ORDERED: IV NS 0.9% 500 ML IV ONE (12:00)
--- NOTE | 2016-09-26 12:00 | NUR ---
COPY EDITOR NOTE: PATIENTS AND SISTER AT BEDSIDE, WOULD LIKE TO TALK TO DR. RUIZ REGARDING PATIENT STATUS. DR. RUIZ PAGED AND ON FLOOR TALKING TO FAMILY. ONGOING MONITORING.
[2016-09-26 12:04] LABS: ABG BASE EXCESS -0.7 mmol/L; ABG OXYGEN SATURATION 95.1 % (92.0-98.5); ABG PCO2 30.5 mmHg (35.0-45.0); ABG PH 7.477 (7.350-7.450); ABG PO2 78.8 mmHg (75.0-100.0); ABG TOTAL HEMOGLOBIN 11.7 G/dL (12.0-16.0); AaDO2 243.4 mmHg; COHb 0.7 % (0.5-1.5); MetHb 0.8 % (0.0-1.5); O2Hb 93.7 % (94.0-97.0); PEEP,BG 0 cm H2O; SITE, ABG Left Radial; VT, ABG 550 mL
[2016-09-26] MEDS ORDERED: IV SET PRIMARY PUMP SET 1 EA INFUS.SET MC ONE (12:14)
[2016-09-26] MEDS: NOREPINEPHRINE 16 MG in IV D5W 500 ML IV PRN ×2 (12:19→16:23)
--- NOTE | 2016-09-26 15:00 | NUR ---
FOUNDRY WORKER NOTE: DR. TEN LOJA (SURGEON) CALLED INFORMED HIM THAT PATIENT REMAINS AFEBRILE. CURRENTLY ON ONE PRESSOR- LEVOPHED, DRESSING CLEAN DRY AND INTACT, NGTUBE TO LIS RESIDUAL NOTED TO BE GREEN 900ML AT THIS TIME, VS AND LAB WORK RELAYED TO MD. DISCUSSED THAT PATIENT WILL HAVE ILUES FOR NEXT COUPLE OF DAYS AND SHOULD NOT BE FED. ONGOING MONITORING
[2016-09-26] MEDS: MICAFUNGIN SODIUM 100 MG in IV NS 0.9% 100 ML IV SCH (16:23)
--- NOTE | 2016-09-26 19:12 | NUR ---
GEOPHYSICAL ENGINEER NOTE: PATIENT IN BED, SEDATED ON 20MCG/KG/MIN OF DIPRIVAN, NOTED TO BE CALM AND COOPERATIVE, FOLLOWING COMMANDS. ANESTHESIOLOGIST AT BEDSIDE INFORMED ME THAT I MAY ADMINISTER MORPHINE AND TITRATE DIPRIVAN NEEDED FOR BP MAINTENANCE. RIJ TLC RUNNING DIPRIVAN, LEVOPHED AT 12MCG/MIN AND NS AT 100ML/HR. RIGHT RADIAL KARRIE DRESSING CHANGED, PATENT AND INTACT. RIGHT NGT RESIDUAL NOTED TO BE 1100ML, 2 YANIRA DRAINS NOTED, YANIRA #2 NOTED WITH 100ML OF OUTPUT. ALL DRESSINGS CHANGED. PATIENT KEPT CLEAN AND DRY, TURNED AND REPOSITIONED AND EXTREMITIES OFFLOADED. SAFETY MEASURES OBSERVED. VS STABLE NO DISTRESS NOTED. WILL ENDORSE FOR CONTINUITY OF CARE.
[2016-09-27] VITALS (53 sets, daily range): BP systolic 71–137; BP diastolic 39–96
[2016-09-27] MEDS: PROPOFOL 100 ML IV PRN ×4 (02:30→19:36)
[2016-09-27] MEDS ORDERED: IV SET PRIMARY PUMP SET 1 EA INFUS.SET MC ONE ×2 (02:35→13:48)
[2016-09-27] MEDS ORDERED: IV NS 0.9% 500 ML IV ONE (02:55)
[2016-09-27] MEDS: IV NS 0.9% 1,000 ML IV PRN ×2 (02:56→13:54)
[2016-09-27] MEDS: MORPHINE SULFATE INJ 2 MG/ML DISP.SYRIN IV PRN ×2 (03:30→16:39)
[2016-09-27] MEDS: VANCOMYCIN 0.75 GM in IV D5W 250 ML IV SCH ×2 (05:01→17:13)
[2016-09-27 05:04] LABS: BASOPHILS # (AUTO) 0.1 /CMM (0.0-0.2); BASOPHILS % (AUTO) 0.4 % (0.0-2.0); EOSINOPHILS # (AUTO) 0.1 /CMM (0.0-0.7); EOSINOPHILS % (AUTO) 0.6 % (0.0-6.0); HEMATOCRIT 32 % (33-45); HEMOGLOBIN 10.7 g/dL (11.5-14.8); LYMPHOCYTES % (AUTO) 4.8 % (20.0-44.0); MEAN CORPUSCULAR HEMOGLOBIN 31 PG (26.0-33.0); MEAN CORPUSCULAR HGB CONC 34 g/dl (31.0-36.0); MEAN CORPUSCULAR VOLUME 90 fL (82-100); MONOCYTES # (AUTO) 1.3 /CMM (0.1-1.30); MONOCYTES % (AUTO) 6.3 % (2.0-12.0); NEUTROPHILS # (AUTO) 18.3 /CMM (1.8-8.9); NEUTROPHILS % (AUTO) 87.9 % (43.0-81.0); PLATELET COUNT (AUTO) 228 /CMM (150-450); RDW COEFFICIENT OF VARIATION 15.2 (11.5-15.0); RED BLOOD CELL COUNT(AUTO) 3.51 MIL/uL (4.0-5.2); WHITE BLOOD COUNT (AUTO) 20.9 K/uL (4.3-11.0)
[2016-09-27 05:09] LABS: BILIRUBIN,URINE 1+ (NEGATIVE); BLOOD, URINE NEGATIVE Ery/uL (NEGATIVE); COLOR,URINE YELLOW (YELLOW); KETONES,URINE NEGATIVE (NEGATIVE); LEUKOCYTE ESTERASE ,URINE NEGATIVE (NEGATIVE); NITRITE, URINE NEGATIVE (NEGATIVE); PROTEIN,URINE 1+ mg/dl (NEGATIVE); UGLUCOSE NEGATIVE (NEGATIVE)
[2016-09-27 05:10] LABS: BILIRUBIN,TOTAL 1.5 mg/dL (0.2-1.0); CALCIUM, SERUM 7.5 mg/dL (8.5-10.1); CREATININE 0.7 mg/dL (0.6-1.3); MAGNESIUM 2.1 mg/dL (1.8-2.4); POTASSIUM 3.5 mmol/L (3.5-5.1); TOTAL PROTEIN, SERUM 4.4 g/dL (6.4-8.2)
[2016-09-27 05:29] LABS: ALBUMIN 1.1 g/dL (3.4-5.0)
[2016-09-27 05:55] LABS: APPEARANCE,URINE HAZY (CLEAR)
[2016-09-27 05:57] LABS: ADD URINE CULTURE NO; BACTERIA,URINE None seen /HPF (None Seen); MUCUS,URINE Rare /LPF (None Seen); RBC,URINE 0-2 /HPF (0-2); SQUAMOUS EPITHELIAL CELL,UR Rare /HPF (None Seen); WBC,URINE 0-2 /HPF (0-3)
[2016-09-27] MEDS ORDERED: ALBUMIN 25% 100 ML IV ONE (05:58)
[2016-09-27] MEDS ORDERED: ALBUMIN 25% 12.5 GM in PREMIX 1 EA IV SCH (06:00)
[2016-09-27] MEDS ORDERED: ALBUMIN 25% 25 GM in PREMIX 1 EA IV ONE (06:41)
--- NOTE | 2016-09-27 06:50 | NUR ---
LEARNING DESIGNER - NO CHANGES FROM PREVIOUS ASSESSMENTS. PT. REMAINS ON LEVOPHED AT 10 MCG/MIN. DIPRIVAN GTT. AT 20 MCG/ KG/MIN. AND 0.9%NS AT 100CC/HR. BRANDON BRODERICK PAINT PREPARER WAS NOTIFIED THIS AM OF ALBUMIN LEVEL AT 1.1. ORDERS REC'D AND 2 BOTTLES OF 25%/12.5 GM ALBUMIN WAS ADM. NIBP PRESSURES ARE HIGHER THAN RT.RADIAL KARRIE PRESSURES. PT.WAS ADM. A COMPLETE BEDBATH W/SURGICAL INCISION DRSG CHANGED. REPORT GIVEN TO MICHELLE BRENNER POC.
[2016-09-27 07:21] LABS: EOSINOPHIL,URINE None Seen
--- NOTE | 2016-09-27 08:00 | NUR ---
BEEF SPLITTER NOTE: RECEIVED PT INTUBATED ETT 7.5. 21CMS AND ON [facility] VENT WITH FF SETTINGS: AC 16, TV550, FI02 50%, PEEP 0. PATIENT SEDATED ON 20MCG/KG/MIN OF DIPRIVAN. NGT, RIGHT NARE IN PLACE, CONNECTED TO LOW INTERMITTENT SUCTION RESIDUAL NOTED TO BE GREEN. RIJ TLC IN PLACE. ON DIPRIVAN AT 20MCG/KG/MIN, LEVO AT 10MCG/MIN TITRATED DOWN TO 8MCG/MIN KARRIE PRESSURE WNL. BP CLOSELY MONITORED. ON NS AT 100ML/HR. RIGHT RADIAL KARRIE IN PLACE FOR BP MONITORING. CVP ZEROED AND NOTED. ABDOMINAL INCISION CLEAN AND DRY, DRESSING ON. NO SIGNS OF BLEEDING NOTED. 2 YANIRA DRAINS INTACT NOTED ON RIGHT SIDE OF ABDOMEN WITH SEROUS DRAINAGE. LEFT ABDOMEN COLOSTOMY NOTED BAG CLEAN AND DRY. RUIZ CATHETER DRAINING TO GRAVITY. PATIENT TURNED AND REPOSITIONED AND EXTREMITIES OFFLOADED. ONGOING MONITORING
[2016-09-27] MEDS: MEROPENEM 1 G in IV NS 0.9% 100 ML IV SCH ×2 (08:28→20:44)
[2016-09-27] MEDS: PANTOPRAZOLE 40 MG VIAL IV SCH (08:28)
[2016-09-27] MEDS: HEPARIN SODIUM, PORCINE 5000 UNITS/1 ML VIAL SQ SCH ×2 (08:29→20:45)
[2016-09-27] MEDS: Z GUARD REMEDY 2 OZ OINT TP SCH (08:29)
--- NOTE | 2016-09-27 09:00 | NUR ---
CONCRETE PRODUCTS MACHINE OPERATOR NOTE: PATIENT NOTED TO BE CALM AND COOPERATIVE ON 20 MCG/KG/MIN OF DIPRIVAN. PATIENT RESTING COMFORTABLE IN BED, HOWEVER UPON STIMULATION SHE FOLLOWS COMMANDS. SHE DENIES PAIN. AWARE. ONGOING MONITOR
[2016-09-27 09:38] LABS: ABG BASE EXCESS -0.8 mmol/L; ABG OXYGEN SATURATION 96.2 % (92.0-98.5); ABG PCO2 31.4 mmHg (35.0-45.0); ABG PH 7.469 (7.350-7.450); ABG PO2 86.3 mmHg (75.0-100.0); ABG TOTAL HEMOGLOBIN 10.7 G/dL (12.0-16.0); AaDO2 234.9 mmHg; COHb 0.3 % (0.5-1.5); MetHb 0.9 % (0.0-1.5); SITE, ABG Right Radial; VT, ABG 550 mL
[2016-09-27] MEDS: ALBUMIN 25% 25 GM in PREMIX 1 EA IV SCH ×2 (10:43→17:13)
--- NOTE | 2016-09-27 12:00 | NUR ---
CHYRON OPERATOR NOTE: PATIENTS AND SISTER AT BEDSIDE, UPDATED WITH PATIENT'S CONDITION. PATIENT IN STABLE CONDITION. ON LEVOPHED AT 4MCG/MIN, TOLERATING VENT SETTINGS WELL. PATIENT CLEAN AND DRY, TURNED AND REPOSITIONED AND EXTREMITIES OFFLOADED. ORAL CARE RENDERED. ONGOING MONITORING
--- NOTE | 2016-09-27 13:00 | NUR ---
OIL GAUGER NOTE: DR. PURVI CAAL AT BEDSIDE. SURGICAL DRESSING ASSESSED. YANIRA DRAIN #2 DRAINAGE SENT FOR URINE CREATINE PER ORDER. PATIENT AFEBRILE. VS STABLE. ONGOING MONITORING.
[2016-09-27] MEDS: NOREPINEPHRINE 16 MG in IV D5W 500 ML IV PRN (13:56)
--- NOTE | 2016-09-27 15:00 | NUR ---
CESSPOOL CLEANER NOTE: PATIENT NOTED TO WITH STABLE BP, LEVOPHED TITRATED AND TURNED. OFF. VITAL SIGNS STABLE. PATIENT RESTING COMFORTABLY IN BED. ONGOING MONITORING.
--- NOTE | 2016-09-27 16:00 | NUR ---
DEICER TESTER NOTE: BED BATH GIVEN, ABDOMINAL WOUND DRESSING WET TO DRY CHANGED. PATIENT IN STABLE CONDITION. TURNED AND REPOSITIONED. EXTREMITIES OFFLOADED. ONGOING MONITORING.
[2016-09-27] MEDS: MICAFUNGIN SODIUM 100 MG in IV NS 0.9% 100 ML IV SCH (16:16)
--- NOTE | 2016-09-27 18:00 | NUR ---
DRAFTER MARINE NOTE: 2ND DOSE OF ALBUMIN ADMINISTERED OF 3 DOSES. THIRD DOSE TO BE ADMINISTERED DURING COMPUTER SERVICE TECHNICIAN. WILL ENDORSE.
--- NOTE | 2016-09-27 19:00 | NUR ---
CHRONIC SPECIALIST NOTE: PATIENT IN BED, INTUBATED AND SEDATED ON 22MCG/KG/MIN OF DIPRIVAN, NOTED TO BE CALM AND COOPERATIVE, FOLLOWING COMMANDS. RIJ TLC RUNNING DIPRIVAN, LEVOPHED OFF AND NS AT 100ML/HR. RIGHT RADIAL KARRIE, PATENT AND INTACT. RIGHT NARE NGT RESIDUAL NOTED TO BE 300ML, 2 YANIRA DRAINS NOTED, YANIRA #2 NOTED WITH 375ML OF OUTPUT. LEFT ABDOMEN COLOSTOMY NOTED WITH 15ML DRAINAGE. ALL DRESSINGS CHANGED. PATIENT KEPT CLEAN AND DRY, TURNED AND REPOSITIONED AND EXTREMITIES OFFLOADED. SAFETY MEASURES OBSERVED. VS STABLE NO DISTRESS NOTED. WILL ENDORSE FOR CONTINUITY OF CARE.
--- NOTE | 2016-09-27 19:14 | NUR ---
RT RECEIVED PT INTUBATED WITH 7.5, 21 CM @ LIP ON MECHANICAL VENTILATOR. VENT SETTINGS PER MD. PT BREATH SOUNDS CLEAR ON AUSCULTATION. SUCTIONED MODERATE AMOUNT OF WHITE THICK SECRETIONS. ALARMS AUDIBLE AND FUNCTIONING. AMBU BAG AT BEDSIDE. WILL CONTINUE TO MONITOR PT. Addendum: 09/27/16 at 1930 by JASKARAN FLOOD RT Amended: Links added.
--- NOTE | 2016-09-27 20:00 | NUR ---
PRICING CLERK NOTES RECEIVED PT IN BED, SEDATED, CALM AND RELAXED. ABLE TO COMMUNICATE WITH HEAD NODS. DENIES PAIN AT THIS TIME. TELE READS ST AT 105 BPM. ON [facility] VENT SUPPORT VIA ETT 7.5 AT 21 CM AT LIP, SETTINGS OF AC 16 TV 550 FIO2 50% PEEP 0, DAMASO WELL. NGT AT RIGHT NARE TO LIS. RUIZ CATH IN PLACE, DRAINING TO [place] URINE. LEFT ABDOMINAL COLOSTOMY, VERTICAL SURGICAL INCISION AT MEDIAL ABDOMEN WITH PACKING. TWO YANIRA DRAINS AT RIGHT ABDOMINAL SIDE. HX OF RECENT LEFT TOTAL KNEE REPLACEMENT WITH DRESSING. CVC AT [facility] RUNNING DIPRIVAN AT 22 MCQ/KG/MIN, NS AT 100 ML/HR. CVP MONITORING Q4H. RIGHT RADIAL ART-LINE WITH BP MONITORING. ON BARIMAXX MATTRESS. HOB ELEVATED. CALL LIGHT WITHIN REACH.
[2016-09-28] VITALS (56 sets, daily range): BP systolic 96–142; BP diastolic 40–76
[2016-09-28] MEDS ORDERED: IV SET PRIMARY PUMP SET 1 EA INFUS.SET MC ONE (00:56)
[2016-09-28] MEDS: ALBUMIN 25% 25 GM in PREMIX 1 EA IV SCH (01:04)
[2016-09-28] MEDS: IV NS 0.9% 1,000 ML IV PRN (01:05)
[2016-09-28] MEDS: PROPOFOL 100 ML IV PRN ×4 (01:06→18:21)
[2016-09-28 04:51] LABS: BASOPHILS % (AUTO) 0.1 % (0.0-2.0); EOSINOPHILS # (AUTO) 0.2 /CMM (0.0-0.7); EOSINOPHILS % (AUTO) 1.1 % (0.0-6.0); HEMATOCRIT 27 % (33-45); HEMOGLOBIN 8.9 g/dL (11.5-14.8); LYMPHOCYTES % (AUTO) 6.5 % (20.0-44.0); MEAN CORPUSCULAR HEMOGLOBIN 30 PG (26.0-33.0); MEAN CORPUSCULAR HGB CONC 34 g/dl (31.0-36.0); MEAN CORPUSCULAR VOLUME 89 fL (82-100); MONOCYTES # (AUTO) 0.7 /CMM (0.1-1.30); MONOCYTES % (AUTO) 4.3 % (2.0-12.0); NEUTROPHILS # (AUTO) 14.1 /CMM (1.8-8.9); PLATELET COUNT (AUTO) 222 /CMM (150-450); RDW COEFFICIENT OF VARIATION 15.6 (11.5-15.0); RED BLOOD CELL COUNT(AUTO) 2.98 MIL/uL (4.0-5.2)
[2016-09-28] MEDS ORDERED: IV NS 0.9% 500 ML IV ONE (05:07)
[2016-09-28 05:09] LABS: ALBUMIN 2.1 g/dL (3.4-5.0); CALCIUM, SERUM 7.6 mg/dL (8.5-10.1); CREATININE 0.6 mg/dL (0.6-1.3); MAGNESIUM 2.2 mg/dL (1.8-2.4); PHOSPHORUS 3.1 mg/dL (2.5-4.9); POTASSIUM 3.6 mmol/L (3.5-5.1); TOTAL PROTEIN, SERUM 4.6 g/dL (6.4-8.2)
[2016-09-28] MEDS: VANCOMYCIN 0.75 GM in IV D5W 250 ML IV SCH ×2 (05:14→17:40)
[2016-09-28] MEDS: MORPHINE SULFATE INJ 2 MG/ML DISP.SYRIN IV PRN (05:14)
[2016-09-28] MEDS ORDERED: FUROSEMIDE 40 MG/4 ML VIAL IV SCH (08:00)
--- NOTE | 2016-09-28 08:00 | NUR ---
ASSISTANT SITE MANAGER NOTE: RECEIVED PT INTUBATED ETT 7.5. 21CMS AND ON MECH VENT WITH FF SETTINGS: AC 16, TV550, FI02 50%, PEEP 0. PATIENT SEDATED ON 24MCG/KG/MIN OF DIPRIVAN. NGT, RIGHT NARE IN PLACE, CONNECTED TO LOW INTERMITTENT SUCTION RESIDUAL NOTED TO BE GREEN. RIJ TLC IN PLACE. ON DIPRIVAN AT 24MCG/KG/MIN, ON NS AT 100ML/HR. RIGHT RADIAL KARRIE IN PLACE FOR BP MONITORING. CVP ZEROED AND NOTED. ABDOMINAL INCISION DRESSING CLEAN AND DRY. NO SIGNS OF BLEEDING NOTED. 2 YANIRA DRAINS INTACT NOTED ON RIGHT SIDE OF ABDOMEN WITH SEROUS DRAINAGE. LEFT ABDOMEN COLOSTOMY NOTED BAG INTACT, CLEAN AND DRY. RUIZ CATHETER DRAINING TO GRAVITY. PATIENT TURNED AND REPOSITIONED AND EXTREMITIES OFFLOADED. ONGOING MONITORING
--- NOTE | 2016-09-28 08:05 | NUR ---
LINER INSERTER NOTE: RECEIVED CRITICAL FROM LAB OF [facility] OF 1.931. DR. CHERY AWARE, TRENDING DOWN. ONGOING MONITORING
[2016-09-28] MEDS: POTASSIUM CL. PREMIX PERIPHER. 50 ML IV SCH ×4 (08:31→11:44)
[2016-09-28] MEDS: MEROPENEM 1 G in IV NS 0.9% 100 ML IV SCH ×2 (08:31→21:11)
[2016-09-28] MEDS: PANTOPRAZOLE 40 MG VIAL IV SCH (08:34)
[2016-09-28] MEDS: HEPARIN SODIUM, PORCINE 5000 UNITS/1 ML VIAL SQ SCH ×2 (08:36→21:11)
--- NOTE | 2016-09-28 08:40 | NUR ---
PURCHASING CLERK NOTE: PER DR. CHERY'S ORDER, LASIX 40MG ADMINISTERED IV NOW. UNABLE TO SCAN MEDICATION BEEN REMOVED FROM EMAR. CALL MADE TO PHARMACY AND BOWEN MADE AWARE. MEDICATION ADMINISTERED ORDERED. Addendum: 09/28/16 at 1835 by DEVIN FREGOSO RN IVF NS AT 100ML/HR STOPPED PER ORDER.
[2016-09-28] MEDS: Z GUARD REMEDY 2 OZ OINT TP SCH (09:00)
--- NOTE | 2016-09-28 10:00 | NUR ---
TAX ACCOUNTING ASSISTANT NOTE; SEDATION VACATION PROVIDED. PATIENT NOTED TO BE ALERT AND ORIENTED X3 ABLE TO FOLLOW COMMANDS. VS STABLE. AWAITING WEANING TRIALS. ONGOING MONITORING
--- NOTE | 2016-09-28 12:00 | NUR ---
TERRITORY REPRESENTATIVE NOTE; PER ORDER PATIENT PLACED ON SIMV 4 PS 12 PEEP [address] HOWEVER AFTER [address] HALE ASSESSED PATIENT AND REQUESTED FOR PATIENT TO BE PLACED BACK ON AC MODE. PATIENT PLACED BACK ON AC MODE, AND DIPRIVAN RESTARTED TO KEEP PATIENT CALM AND COMFORTABLE. VS STABLE. ONGOING MONITORING.
[2016-09-28] MEDS: MICAFUNGIN SODIUM 100 MG in IV NS 0.9% 100 ML IV SCH (17:40)
--- NOTE | 2016-09-28 18:40 | NUR ---
RADIO SALES ACCOUNT EXECUTIVE NOTE: PATIENT IN BED, INTUBATED AND SEDATED ON 20MCG/KG/MIN OF DIPRIVAN, TOLERATING VENT SETTINGS WELL. NOTED TO BE CALM AND COOPERATIVE, FOLLOWING COMMANDS. RIJ TLC RUNNING DIPRIVAN AT 20MCG/KG/MIN, RIGHT RADIAL KARRIE, PATENT AND INTACT. RIGHT NARE NGT RESIDUAL NOTED TO BE 300ML, 2 YANIRA DRAINS NOTED, YANIRA #2 NOTED WITH 550ML OF OUTPUT. LEFT ABDOMEN COLOSTOMY NOTED WITH MINIMAL DRAINAGE. ALL DRESSINGS CHANGED. PATIENT KEPT CLEAN AND DRY, TURNED AND REPOSITIONED AND EXTREMITIES OFFLOADED. SAFETY MEASURES OBSERVED. VS STABLE NO DISTRESS NOTED. WILL ENDORSE FOR CONTINUITY OF CARE.
--- NOTE | 2016-09-28 20:00 | NUR ---
HANDKERCHIEF MAKER NOTES RECEIVED PT IN BED, SEDATED, CALM AND RELAXED. ABLE TO COMMUNICATE WITH HEAD NODS. DENIES PAIN AT THIS TIME. TELE READS SR AT 98 BPM. [facility] VIA ETT 7.5 AT 21 CM AT LIP, SETTINGS OF AC 16 TV 550 FIO2 50% PEEP 0, DAMASO WELL. NGT AT RIGHT NARE TO LIS. RUIZ CATH IN PLACE, DRAINING TO HAZY HOSEA URINE. LEFT ABDOMINAL COLOSTOMY, VERTICAL SURGICAL INCISION AT MEDIAL ABDOMEN WITH PACKING. TWO YANIRA DRAINS AT RIGHT ABDOMINAL SIDE. HX OF RECENT LEFT TOTAL KNEE REPLACEMENT WITH DRESSING. CVC AT RIJ RUNNING DIPRIVAN AT 20 MCQ/KG/MIN, NS AT TKO. CONTINUOUS CVP MONITORING. RIGHT RADIAL ART-LINE WITH BP MONITORING. ON BARIMAXX MATTRESS. HOB ELEVATED. CALL LIGHT WITHIN REACH.
[2016-09-28] MEDS ORDERED: SECONDARY IV SET 1 EA INFUS.SET MC ONE (21:12)
[2016-09-29] VITALS (55 sets, daily range): BP systolic 72–127; BP diastolic 41–76
[2016-09-29] MEDS: MORPHINE SULFATE INJ 2 MG/ML DISP.SYRIN IV PRN ×2 (01:40→15:32)
[2016-09-29] MEDS: PROPOFOL 100 ML IV PRN ×4 (01:42→18:19)
--- NOTE | 2016-09-29 03:00 | NUR ---
HIDE SHAKER NOTES PT GIVEN PAIN MEDS PRIOR BED BATH. LINENS CHANGED. COLOSTOMY BAG CHANGED. VSS.
[2016-09-29] MEDS ORDERED: IV NS 0.9% 500 ML IV ONE (05:17)
[2016-09-29] MEDS ORDERED: IV NS 0.9% 250 ML IV ONE (05:17)
[2016-09-29] MEDS: VANCOMYCIN 0.75 GM in IV D5W 250 ML IV SCH ×2 (05:25→16:48)
[2016-09-29 05:29] LABS: BASOPHILS % (AUTO) 0.1 % (0.0-2.0); EOSINOPHILS # (AUTO) 0.1 /CMM (0.0-0.7); EOSINOPHILS % (AUTO) 0.6 % (0.0-6.0); HEMATOCRIT 29 % (33-45); HEMOGLOBIN 9.7 g/dL (11.5-14.8); LYMPHOCYTES # (AUTO) 1.2 /CMM (0.8-4.8); LYMPHOCYTES % (AUTO) 5.4 % (20.0-44.0); MEAN CORPUSCULAR HEMOGLOBIN 31 PG (26.0-33.0); MEAN CORPUSCULAR HGB CONC 34 g/dl (31.0-36.0); MEAN CORPUSCULAR VOLUME 89 fL (82-100); MONOCYTES # (AUTO) 1.1 /CMM (0.1-1.30); MONOCYTES % (AUTO) 4.7 % (2.0-12.0); NEUTROPHILS # (AUTO) 19.8 /CMM (1.8-8.9); NEUTROPHILS % (AUTO) 89.2 % (43.0-81.0); PLATELET COUNT (AUTO) 301 /CMM (150-450); RDW COEFFICIENT OF VARIATION 15.9 (11.5-15.0); RED BLOOD CELL COUNT(AUTO) 3.18 MIL/uL (4.0-5.2); WHITE BLOOD COUNT (AUTO) 22.2 K/uL (4.3-11.0)
[2016-09-29 05:42] LABS: CALCIUM, SERUM 7.7 mg/dL (8.5-10.1); CREATININE 0.6 mg/dL (0.6-1.3); PHOSPHORUS 3.6 mg/dL (2.5-4.9); POTASSIUM 3.8 mmol/L (3.5-5.1)
--- NOTE | 2016-09-29 06:50 | NUR ---
TOLL LINE MECHANIC NOTES PT REMAINS STABLE. VSS. NO ACUTE DISTRESS NOTED AT THIS TIME. WILL ENDORSE TO AM NURSE FOR CONTINUITY OF CARE IN STABLE CONDITION.
--- NOTE | 2016-09-29 07:58 | NUR ---
PATIENT REC'D ORALLY INTUBATED WITH A 7.5 ETT SECURED AT 23CM MID LIP ON [facility] VENTILATION WITH SETTINGS SET PER MD TOLERATED WELL. VENT ALARMS CHECKED + AUDIBLE. CUFF PRESSURE CHECKED PROFESSOR OF BUSINESS. SX'D WITH SMALL AMT PALE SEMITHICK SECRETIONS. AMBU BAG AT HOB Addendum: 09/29/16 at 0759 by KRISTY YEE RT Amended: Links added.
--- NOTE | 2016-09-29 08:00 | NUR ---
ICU/RN PT IS INTUBATED ON THE VENT AC MODE,FIO2-100%.SAT O2-100%.V/S STABLE ,AFEBRILE.OFF LEVOPHED.SEDATED ON 20 MCG OF PROPOFOL.RIGHT IJ TLC.CVP-12.RIGHT RADIAL A-LINE.RIGHT NG TUBE DRAINING WITH BROWN SECRETION.F/C DRAINING WITH HOSEA URINE.PT HAS 2 YANIRA DRAINING WITH YELLOW GASTRIC FLUIDS.PT HAS LEFT SIDE COLOSTOMY BAG.ABDOMINAL SURGICAL WOUND COVERED WITH DRESSING.LEFT KNEE HAS SURGICAL DRESSING.BRUISES NOTED ALL OVER THE BODY .LABS REVIEW MD NOTIFIED.
[2016-09-29] MEDS: MEROPENEM 1 G in IV NS 0.9% 100 ML IV SCH ×2 (08:14→20:07)
[2016-09-29] MEDS: PANTOPRAZOLE 40 MG VIAL IV SCH (08:16)
[2016-09-29] MEDS: HEPARIN SODIUM, PORCINE 5000 UNITS/1 ML VIAL SQ SCH ×2 (08:16→20:10)
[2016-09-29] MEDS: Z GUARD REMEDY 2 OZ OINT TP SCH (08:16)
[2016-09-29] MEDS ORDERED: BUMETANIDE INJ 0.25 MG/ML VIAL IV ONE (09:00)
--- NOTE | 2016-09-29 09:30 | NUR ---
ICU/RN DUE MEDS ARE GIVEN ORDERED,SEDATION VACATION PROVIDED.PROPOFOL STOP.PT IS AWAKE,ALERT FOLLOWS COMMANDS,VERY WEAK.UNABLE TO WEAN.
[2016-09-29] MEDS ORDERED: IV SET PRIMARY PUMP SET 1 EA INFUS.SET MC ONE (13:04)
[2016-09-29] MEDS ORDERED: SECONDARY IV SET 1 EA INFUS.SET MC ONE (16:41)
[2016-09-29] MEDS: MICAFUNGIN SODIUM 100 MG in IV NS 0.9% 100 ML IV SCH (16:49)
--- NOTE | 2016-09-29 17:00 | NUR ---
ICU/RN PM CARE PROVIDED.WOUND DRESSING DONE ORDERED.REPOSITION FOR COMFORT.
--- NOTE | 2016-09-29 18:00 | NUR ---
ICU/RN DUE MEDS ARE GIVEN ORDERED.PT IS SEDATED ON PROPOFOL.YANIRA DRAIN 300 ML.FOR 12 HRS.NG TUBE DRAINAGE 200 ML.F/C -700ML.SUCTION PROVIDED.REPOSITION FOR COMFORT.
--- NOTE | 2016-09-29 20:00 | NUR ---
ICU/RN- INITIAL NOTES RECEIVED PT IN BED SEDATED, OPENS EYES W/ NAME. NO ACUTE DISTRESS NOTED. ON MONITOR W/ TACHYCARDIA 103 BPM. PT IS ORALLY INTUBATED W/ 7.5/21CM. [facility]/ AC 16 TV 550 FIO2 50 P 0. RESP EVEN AND UNLABORED. SUCTION ETT FOR CLEARANCE. RIJ TLC PRESENT W/ DIPRIVAN AT 20MCG/KG MIN. TOLERATING WELL. WILL TITRATE FOR SEDATION. A-LINE IN R WRIST AND CVP ZEROED AND CALIBRATED. YANIRA DRAIN X 2 LOCATED IN RUQ AND RLQ OF ABD W/ CLEAR AND YELLOW SEROUS DRAINAGE. ABD DRESSING INTACT. WILL CHANGE ORDERED. R NGT TO LOW INT SUCTION. GREENISH SECRETION NOTED. REPOSITIONED PT. HI PRIORITY ALARMS CHECKED AND WORKING AT THIS TIME. WILL MONITOR PT ACCORDINGLY.
[2016-09-30] VITALS (58 sets, daily range): BP systolic 93–128; BP diastolic 40–77
[2016-09-30] MEDS ORDERED: IV SET PRIMARY PUMP SET 1 EA INFUS.SET MC ONE ×3 (00:54→23:52)
[2016-09-30] MEDS: PROPOFOL 100 ML IV PRN ×4 (01:18→17:51)
[2016-09-30 05:20] LABS: BASOPHILS % (AUTO) 0.1 % (0.0-2.0); EOSINOPHILS # (AUTO) 0.2 /CMM (0.0-0.7); EOSINOPHILS % (AUTO) 0.8 % (0.0-6.0); HEMATOCRIT 28 % (33-45); HEMOGLOBIN 9.3 g/dL (11.5-14.8); LYMPHOCYTES # (AUTO) 1.4 /CMM (0.8-4.8); LYMPHOCYTES % (AUTO) 5.5 % (20.0-44.0); MEAN CORPUSCULAR HEMOGLOBIN 29 PG (26.0-33.0); MEAN CORPUSCULAR HGB CONC 33 g/dl (31.0-36.0); MEAN CORPUSCULAR VOLUME 88 fL (82-100); MONOCYTES % (AUTO) 3.9 % (2.0-12.0); NEUTROPHILS # (AUTO) 23.3 /CMM (1.8-8.9); NEUTROPHILS % (AUTO) 89.7 % (43.0-81.0); PLATELET COUNT (AUTO) 387 /CMM (150-450); RDW COEFFICIENT OF VARIATION 15.9 (11.5-15.0); RED BLOOD CELL COUNT(AUTO) 3.19 MIL/uL (4.0-5.2)
[2016-09-30] MEDS: VANCOMYCIN 0.75 GM in IV D5W 250 ML IV SCH ×2 (05:32→17:04)
[2016-09-30 05:37] LABS: ALANINE AMINOTRANSFERASE 15 U/L (12-78); ALKALINE PHOSPHATASE 127 U/L (46-116); ASPARTATE AMINOTRANSFERASE 33 U/L (15-37); BILIRUBIN,TOTAL 1.4 mg/dL (0.2-1.0); CALCIUM, SERUM 7.7 mg/dL (8.5-10.1); CARBON DIOXIDE 27 mmol/L (21-32); CHLORIDE 108 mmol/L (98-107); CREATININE 0.5 mg/dL (0.6-1.3); GLUCOSE 81 mg/dL (74-106); PHOSPHORUS 4.1 mg/dL (2.5-4.9); POTASSIUM 3.8 mmol/L (3.5-5.1); SODIUM SERUM 141 mmol/L (136-145); TOTAL PROTEIN, SERUM 4.6 g/dL (6.4-8.2); UREA NITROGEN, BLOOD 26 mg/dL (7-18)
[2016-09-30 05:41] LABS: CHOLESTEROL 97 mg/dL (<200); HDL CHOLESTEROL < 10 mg/dL (40-60); LDL 46 mg/dL (0-99); TRIGLYCERIDES 214 mg/dL (30-150)
[2016-09-30 05:51] LABS: ALBUMIN 1.4 g/dL (3.4-5.0)
--- NOTE | 2016-09-30 06:46 | NUR ---
ICU/RN - CLOSING NOTES NO ACUTE DISTRESS NOTED AT THIS TIME. ALL NEEDS ATTENDED AND MET. WILL ENDORSE TO AM SHIFT FOR CONTINUATION OF CARE.
--- NOTE | 2016-09-30 08:00 | NUR ---
ICU/RN INITIAL NOTES,AM RECEIVED REPORT FROM NIGHT NURSE.PT INTUBATED ETT 7.5, 23 AT [facility]ON [facility] WITH SETTINGS ORDERED, NO ACUTE DISTRESS NOTED AT THIS TIME. PATIENT SEDATED ON 20MCG/KG/MIN OF DIPRIVAN. NGT, RIGHT NARE IN PLACE, CONNECTED TO LOW INTERMITTENT SUCTION RESIDUAL NOTED TO BE GREEN. RIGHT IJ TLC IN PLACE. RADIAL KARRIE IN PLACE FOR BP MONITORING. CVP AND KARRIE ZEROED AND CALIBRATED. ABDOMINAL INCISION DRESSING CLEAN AND DRY. NO SIGNS OF BLEEDING NOTED. [address] AND INTACT, SEROUS DRAINAGE NOTED/ LEFT ABDOMEN COLOSTOMY INTACT, CLEAN AND DRY. RUIZ CATHETER DRAINING HOSEA URINE.PATIENT TURNED AND REPOSITIONED AND EXTREMITIES OFFLOADED. ALL NEEDS WILL BE MET, SAFETY MEASURE TAKEN, BED IN LOW POSITION, SIDE RAILS UP, CALL LIGHT WITHIN REACH. WILL CONTINUE TO CARE AND MONITOR.
[2016-09-30] MEDS ORDERED: BUMETANIDE INJ 8 MG in IV NS 0.9% 48 ML IV ONE (08:30)
[2016-09-30] MEDS ORDERED: SECONDARY IV SET 1 EA INFUS.SET MC ONE (09:42)
[2016-09-30] MEDS: POTASSIUM CL. PREMIX PERIPHER. 50 ML IV SCH ×2 (09:48→12:25)
[2016-09-30] MEDS: MEROPENEM 1 G in IV NS 0.9% 100 ML IV SCH ×2 (09:48→20:26)
[2016-09-30] MEDS: HEPARIN SODIUM, PORCINE 5000 UNITS/1 ML VIAL SQ SCH ×2 (09:49→20:27)
[2016-09-30] MEDS: PANTOPRAZOLE 40 MG VIAL IV SCH (09:49)
[2016-09-30] MEDS: Z GUARD REMEDY 2 OZ OINT TP SCH (09:50)
--- NOTE | 2016-09-30 10:00 | NUR ---
ICU/RN MD ROUNDS PT SEEN AND ASSESSED BY . NO ACUTE DISTRESS NOTED AT THIS. ADDRESSED THE DRAINAGE NOTED FROM YANIRA DRAIN NUMBER 2. WILL FOLLOW UP WITH SURGEON.
--- NOTE | 2016-09-30 14:37 | NUR ---
ICU/RN: VENT CHANGES DONE, PT TOLERATING WELL, NO DISTRESS NOTED.
[2016-09-30 16:21] LABS: ABG BASE EXCESS -1.2 mmol/L; ABG OXYGEN SATURATION 97.7 % (92.0-98.5); ABG PCO2 28.9 mmHg (35.0-45.0); ABG PH 7.487 (7.350-7.450); ABG TOTAL HEMOGLOBIN 10.6 G/dL (12.0-16.0); COHb 0.6 % (0.5-1.5); MetHb 0.9 % (0.0-1.5); O2Hb 96.2 % (94.0-97.0); PEEP,BG 0 cm H2O; SITE, ABG A-Line; VT, ABG 550 mL
--- NOTE | 2016-09-30 16:32 | NUR ---
VENT CHANGES MADE PER MD ORDER: AC 12, VT 500 DUE TO PH 7.48, PCO2 28, PO2 115,HCO3 21 Addendum: 09/30/16 at 1633 by JESSA BEARD RT Amended: Links added.
[2016-09-30] MEDS: MICAFUNGIN SODIUM 100 MG in IV NS 0.9% 100 ML IV SCH (17:04)
--- NOTE | 2016-09-30 19:18 | NUR ---
ICU/RN ENDING NOTES,AM REPORT ENDORSED TO NIGHT NURSE. PT ON VENT SETTINGS ORDERED BY MD, NO ACUTE DISTRESS NOTED AT THIS TIME. PT SINUS ON TELE. CVP AND ART LINE INTACT, GOOD WAVE FORM NOTED. PT SEDATED ON DIPRIVAN, 20MCG. ABLE TO RESPOND TO STIMULI, FOLLOWS COMMANDS. COMPLETE WOUND CARE DONE, PT TURNED AND REPOSITIONED, ALL NEEDS MET, SAFETY MEASURES TAKEN,BED IN LOW POSITION, SIDE RAILS UP, CALL LIGHT WITHIN REACH. RUIZ DRAINING URINE.
--- NOTE | 2016-09-30 20:00 | NUR ---
ICU/RN- INITIAL NOTES RECEIVED PT IN BED SEDATED, OPENS EYES W/ NAME. NO ACUTE DISTRESS NOTED. ON MONITOR W/ TACHYCARDIA 103 BPM. PT IS ORALLY INTUBATED W/ 7.5/21CM. ON MECH VENT W/ AC 12 TV 500 FIO2 50 P 0. RESP EVEN AND UNLABORED. SUCTION ETT FOR CLEARANCE. RIJ TLC PRESENT W/ DIPRIVAN AT 20MCG/KG MIN. TOLERATING WELL. WILL TITRATE FOR SEDATION. A-LINE IN R WRIST AND CVP ZEROED AND CALIBRATED. YANIRA DRAIN X 2 LOCATED IN RUQ AND RLQ OF ABD W/ CLEAR AND YELLOW SEROUS DRAINAGE. ABD DRESSING INTACT. WILL CHANGE ORDERED. R NGT TO LOW INT SUCTION. GREENISH SECRETION NOTED. REPOSITIONED PT. HI PRIORITY ALARMS CHECKED AND WORKING AT THIS TIME. WILL MONITOR PT ACCORDINGLY.
[2016-10-01] VITALS (57 sets, daily range): BP systolic 91–150; BP diastolic 32–103
[2016-10-01] MEDS: PROPOFOL 100 ML IV PRN ×4 (00:03→18:11)
[2016-10-01] MEDS: MORPHINE SULFATE INJ 2 MG/ML DISP.SYRIN IV PRN ×2 (00:40→14:48)
[2016-10-01 05:05] LABS: CALCIUM, SERUM 7.2 mg/dL (8.5-10.1); CREATININE 0.6 mg/dL (0.6-1.3); POTASSIUM 3.8 mmol/L (3.5-5.1)
[2016-10-01] MEDS: VANCOMYCIN 0.75 GM in IV D5W 250 ML IV SCH ×2 (05:24→17:21)
[2016-10-01] MEDS ORDERED: IV SET PRIMARY PUMP SET 1 EA INFUS.SET MC ONE ×4 (06:00→21:12)
--- NOTE | 2016-10-01 06:00 | NUR ---
ICU/RN- STARTED PT ON LEVOPHED 1 MCG/MIN DUE TO A-LINE BP OF 87/38. WILL TITRATE PER PROTOCOL.
[2016-10-01] MEDS: NOREPINEPHRINE 16 MG in IV D5W 500 ML IV PRN (06:07)
[2016-10-01] MEDS ORDERED: IV NS 0.9% 250 ML IV ONE (06:46)
[2016-10-01] MEDS: IV NS 0.9% 250 ML IV PRN (07:06)
--- NOTE | 2016-10-01 07:30 | NUR ---
RT PATIENT REC'D ORALLY INTUBATED ON [facility] VENT WITH ORDERED SETTINGS SET PER MD TOLERATED WELL. VENT ALARMS CHECKED + AUDIBLE. PATIENT NON RESPONSIVE, NO DISTRESS NOTED. SX'D WITH SMALL AMT PALE SEMITHICK SECRETIONS. B/S DIM. CONDE BAG AT HOB Addendum: 10/01/16 at 1756 by MAYTE ARELLANO RT Amended: Links added.
--- NOTE | 2016-10-01 07:30 | NUR ---
ICU/RN - CLOSING NOTES NO ACUTE DISTRESS NOTED AT THIS TIME. ALL NEEDS ATTENDED AND MET. WILL ENDORSE TO AM SHIFT FOR CONTINUATION OF CARE.
--- NOTE | 2016-10-01 07:45 | NUR ---
ICU/RN - Initial Notes Received pt in bed, sedated. On tele SR 90's. Orally intubated 7.5, 21 at the lip to mechanical vent with settings as ordered. NG tube on right nare to low intermittent suction with dark greenish drainage noted. Left lower quadrant colostomy with colostomy bag intact. RLQ Ricardo drain #1 and RUQ Ricardo drain #2 intact with drainage noted. RIJ TLC in place, on Diprivan @ 20 mcg/kg/min and Levophed @ 2mcg/min infusing. CVP monitoring and A-Line on right wrist zero balanced and in place. Mckeon catheter draining urine to gravity. Abdominal wound dressing intact. Left knee dressing intact. Safety and comfort measures in place. Will continue to monitor pt closely.
[2016-10-01] MEDS: Z GUARD REMEDY 2 OZ OINT TP SCH (08:33)
[2016-10-01] MEDS: PANTOPRAZOLE 40 MG VIAL IV SCH (08:33)
[2016-10-01] MEDS: MEROPENEM 1 G in IV NS 0.9% 100 ML IV SCH ×3 (08:33→21:27)
[2016-10-01] MEDS: HEPARIN SODIUM, PORCINE 5000 UNITS/1 ML VIAL SQ SCH (08:34)
[2016-10-01] MEDS ORDERED: NOREPINEPHRINE 8 MG in IV D5W 500 ML IV PRN (10:00)
[2016-10-01 10:12] LABS: ABG OXYGEN SATURATION 97.3 % (92.0-98.5); ABG PCO2 32.1 mmHg (35.0-45.0); ABG PH 7.461 (7.350-7.450); ABG PO2 110.3 mmHg (75.0-100.0); ABG TOTAL HEMOGLOBIN 9.8 G/dL (12.0-16.0); AaDO2 210.1 mmHg; COHb 0.2 % (0.5-1.5); MetHb 1.2 % (0.0-1.5); O2Hb 95.9 % (94.0-97.0); SITE, ABG A-Line
--- NOTE | 2016-10-01 10:45 | NUR ---
ICU/RN - Notes Dr Cárdenas called and made aware for pt's follow up per Dr Minor. CT Abdomen with contrast ordered per .
[2016-10-01] MEDS ORDERED: IV NS 0.9% 1,000 ML IV ONE (11:00)
[2016-10-01] MEDS ORDERED: CELLULOSE,OXIDIZED 1 PKT EACH MC ONE (11:21)
[2016-10-01] MEDS ORDERED: IOHEXOL-300 100 ML VIAL IV ONE (11:21)
[2016-10-01] MEDS ORDERED: CT SWABBABLE VALVE TRANS SET 1 EA INFUS.SET MC ONE (11:21)
--- NOTE | 2016-10-01 12:30 | NUR ---
ICU/RN - Notes Pt accompanied to CT via ACLS protocol for CT scan of abdomen.
--- NOTE | 2016-10-01 14:48 | NUR ---
ICU/RN - Notes Pt medicated with Morphine 2mg IVP to ensure comfort as pt is orally intubated. Pt noted to be restless with increase in BP. Will continue to monitor.
--- NOTE | 2016-10-01 16:40 | NUR ---
ICU/RN - Notes Dr Cárdenas at bedside for evaluation. Bedside wound treatment done by MD. New orders received to start Reglan and TPN for pt. Will carry out MD orders.
[2016-10-01] MEDS: MICAFUNGIN SODIUM 100 MG in IV NS 0.9% 100 ML IV SCH (16:42)
[2016-10-01] MEDS ORDERED: TPN/PPN PER PHARMACY XX PRN (17:00)
[2016-10-01] MEDS: METOCLOPRAMIDE HCL 10 MG/2 ML VIAL IV SCH ×2 (17:21→23:49)
[2016-10-01] MEDS ORDERED: FEE TPN 1 MIN EA MC ONE (17:30)
[2016-10-01] MEDS ORDERED: TPN BAG #2 IV PRN ×7 (18:00)
[2016-10-01] MEDS ORDERED: IV NS 0.9% 500 ML IV ONE (18:06)
--- NOTE | 2016-10-01 19:30 | NUR ---
ICU/RN- INITIAL NOTES RECEIVED PT IN BED SEDATED, OPENS EYES W/ NAME. NO ACUTE DISTRESS NOTED. ON MONITOR W/ TACHYCARDIA 100'S. PT IS ORALLY INTUBATED W/ 7.5/21CM. [facility]/ AC 12 TV 500 FIO2 40 P 0. RESP EVEN AND UNLABORED. SUCTION ETT FOR CLEARANCE. RIJ TLC PRESENT W/ DIPRIVAN AT 20MCG/KG MIN. TOLERATING WELL. WILL TITRATE FOR SEDATION NS INFUSING @ 60ML/HR. . A-LINE IN R WRIST AND CVP ZEROED AND CALIBRATED. YANIRA DRAIN X 2 LOCATED IN RUQ AND RLQ OF ABD W/ CLEAR AND YELLOW SEROUS DRAINAGE. ABD DRESSING INTACT. WILL CHANGE ORDERED. R NGT TO LOW INT SUCTION. GREENISH SECRETION NOTED. REPOSITIONED PT. HI PRIORITY ALARMS CHECKED AND WORKING AT THIS TIME. WILL MONITOR PT ACCORDINGLY.
--- NOTE | 2016-10-01 19:42 | NUR ---
ICU/RN- TALKED W/ BRANDON BRODERICK ACNP TO CLARIFY ORDERS ABOUT IVF. ASKED IF IT IS OK TO DC NS @ 60ML/HR AND START ON TPN BAG #1. HOSPITALIST OK TO DISCONTINUE NS. ORDERS CARRIED OUT.
[2016-10-01] MEDS ORDERED: TPN BAG #1 IV PRN ×7 (20:00)
[2016-10-01] MEDS ORDERED: FILTER SET SAVER IV SET 1 EA INFUS.SET MC ONE (21:11)
[2016-10-01] MEDS ORDERED: SECONDARY IV SET 1 EA INFUS.SET MC ONE (21:18)
[2016-10-01] MEDS: BLOOD SUGAR DIAGNOSTIC 1 EACH STRIP IN SCH (23:49)
[2016-10-02] VITALS (40 sets, daily range): BP systolic 92–153; BP diastolic 39–105
[2016-10-02] MEDS ORDERED: INSULIN REGULAR, HUMAN 100 UNIT/ML 3 ML VIAL SQ PRN
[2016-10-02] MEDS: IV NS 0.9% 250 ML IV PRN (00:10)
[2016-10-02] MEDS: PROPOFOL 100 ML IV PRN ×5 (00:11→23:01)
[2016-10-02 04:36] LABS: BASOPHILS % (AUTO) 0.2 % (0.0-2.0); EOSINOPHILS # (AUTO) 0.2 /CMM (0.0-0.7); EOSINOPHILS % (AUTO) 0.8 % (0.0-6.0); HEMATOCRIT 26 % (33-45); HEMOGLOBIN 8.7 g/dL (11.5-14.8); LYMPHOCYTES # (AUTO) 1.1 /CMM (0.8-4.8); LYMPHOCYTES % (AUTO) 5.6 % (20.0-44.0); MEAN CORPUSCULAR HEMOGLOBIN 29 PG (26.0-33.0); MEAN CORPUSCULAR HGB CONC 34 g/dl (31.0-36.0); MEAN CORPUSCULAR VOLUME 88 fL (82-100); MONOCYTES # (AUTO) 1.2 /CMM (0.1-1.30); MONOCYTES % (AUTO) 6.3 % (2.0-12.0); NEUTROPHILS # (AUTO) 16.7 /CMM (1.8-8.9); NEUTROPHILS % (AUTO) 87.1 % (43.0-81.0); PLATELET COUNT (AUTO) 453 /CMM (150-450); RDW COEFFICIENT OF VARIATION 15.9 (11.5-15.0); RED BLOOD CELL COUNT(AUTO) 2.96 MIL/uL (4.0-5.2); WHITE BLOOD COUNT (AUTO) 19.2 K/uL (4.3-11.0)
[2016-10-02] MEDS: MEROPENEM 1 G in IV NS 0.9% 100 ML IV SCH ×3 (04:55→21:11)
[2016-10-02] MEDS: METOCLOPRAMIDE HCL 10 MG/2 ML VIAL IV SCH ×4 (04:55→22:29)
[2016-10-02 04:58] LABS: BILIRUBIN,TOTAL 1.2 mg/dL (0.2-1.0); CALCIUM, SERUM 7.4 mg/dL (8.5-10.1); CREATININE 0.6 mg/dL (0.6-1.3); MAGNESIUM 1.7 mg/dL (1.8-2.4); PHOSPHORUS 3.8 mg/dL (2.5-4.9); POTASSIUM 3.4 mmol/L (3.5-5.1); TOTAL PROTEIN, SERUM 4.7 g/dL (6.4-8.2)
[2016-10-02 05:06] LABS: ALBUMIN 1.2 g/dL (3.4-5.0)
[2016-10-02] MEDS: BLOOD SUGAR DIAGNOSTIC 1 EACH STRIP IN SCH ×4 (05:54→17:06)
[2016-10-02] MEDS: VANCOMYCIN 0.75 GM in IV D5W 250 ML IV SCH ×2 (05:54→17:28)
--- NOTE | 2016-10-02 06:52 | NUR ---
ICU/RN- ALL NEED ATTENDED AND MET. NO ACUTE DISTRESS NOTED. WILL ENDORSE TO AM ASHLEY T FOR CONTINUATION OF CARE.
--- NOTE | 2016-10-02 07:41 | NUR ---
ICU/RN - Initial Notes Received pt in bed, sedated. On tele SR 89. Orally intubated 7.5, 21 at the lip to mechanical vent with settings as ordered. NG tube on right nare to low intermittent suction with dark greenish drainage noted. Left lower quadrant colostomy with colostomy bag intact. RLQ Ricardo drain #1 and RUQ Ricardo drain #2 intact with drainage minimum noted. RIJ TLC in place, on Diprivan @ 25 mcg/kg/min. CVP monitoring and A-Line on right wrist zero balanced and in place. Mckeon catheter draining urine to gravity. Abdominal wound dressing intact. Left knee dressing intact. Safety and comfort measures in place. Will continue to monitor pt closely.
[2016-10-02] MEDS: PANTOPRAZOLE 40 MG VIAL IV SCH (08:40)
[2016-10-02] MEDS: Z GUARD REMEDY 2 OZ OINT TP SCH (08:40)
[2016-10-02] MEDS: Magnesium 1GM/D5W 100ML PREMIX 100 ML IV SCH ×2 (10:03→11:02)
--- NOTE | 2016-10-02 10:21 | NUR ---
WOUND CARE CONSULT: PT SEEN FOR ABDOMINAL WOUND. NO ODOR NOTED. PINK/RED GRANULATION TISSUE NOTED WITH SOME ADIPOSE TISSUE. RETENTION SUTURES NOTED TO LOWER PORTION OF WOUND WHICH ARE LOOSE. PT MAY BENEFIT FROM VAC THERAPY ONCE SUTURES ARE REMOVED. DISCUSSED WITH NURSING STAFF. CONTINUE PACKING ORDERED BY SURGEON. PT ON BARIMAX BED. WILL SEE PRN. Addendum: 10/02/16 at 1023 by SAKINA RAMIREZ WNDNU Amended: Links added.
--- NOTE | 2016-10-02 10:40 | NUR ---
ICU/RN - Notes Diprivan drip stopped to provide pt with sedation vacation per protocol. Pt awake and alert, able to nod yes or no, follows commands, able to churn operator margarine hands and move bilateral upper extremities purposefully. Denies pain and SOB. Spontaneous breathing trials in process per rubber vulcanizing machine operator. RT Frantz at bedside. Will continue to monitor.
[2016-10-02] MEDS ORDERED: DEXTROSE 50%-WATER 50 ML DISP.SYRIN IV PRN ×2 (12:00)
[2016-10-02] MEDS ORDERED: TPN BAG #2 IV PRN ×6 (12:00)
[2016-10-02 12:10] LABS: ABG BASE EXCESS 1.5 mmol/L; ABG OXYGEN SATURATION 94.5 % (92.0-98.5); ABG PCO2 34.7 mmHg (35.0-45.0); ABG PH 7.474 (7.350-7.450); ABG PO2 74.3 mmHg (75.0-100.0); ABG TOTAL HEMOGLOBIN 9.7 G/dL (12.0-16.0); AaDO2 134.9 mmHg; MetHb 1.4 % (0.0-1.5); O2Hb 92.2 % (94.0-97.0); PEEP,BG 5 cm H2O; SITE, ABG A-Line; VENT MODE, BG CPAP PSV 14
[2016-10-02] MEDS ORDERED: TPN BAG #3 IV PRN ×8 (12:30)
[2016-10-02] MEDS ORDERED: FUROSEMIDE 40 MG/4 ML VIAL IV SCH (13:00)
[2016-10-02] MEDS ORDERED: ALBUMIN 25% 25 GM in PREMIX 1 EA IV ONE (13:00)
--- NOTE | 2016-10-02 13:40 | NUR ---
ICU/RN - Notes Pt tolerating spontaneous breathing trial, in no respiratory acute distress. Denies pain or discomfort. Able to communicate needs, watching TV at this time.
[2016-10-02] MEDS ORDERED: IV SET PRIMARY PUMP SET 1 EA INFUS.SET MC ONE ×3 (13:53→22:56)
--- NOTE | 2016-10-02 15:14 | NUR ---
ICU/RN - Notes Per Dr Fritz, Sales Operations Specialist, place pt on SIMV mode and keep pt mildly sedated. RT Vanush at bedside. Diprivan drip resumed.
--- NOTE | 2016-10-02 15:55 | NUR ---
ICU/RN - Notes Retention sutures removed as instructed by Dr Cárdenas.
[2016-10-02] MEDS: MICAFUNGIN SODIUM 100 MG in IV NS 0.9% 100 ML IV SCH (16:00)
[2016-10-02] MEDS ORDERED: FILTER SET SAVER IV SET 1 EA INFUS.SET MC ONE (17:03)
[2016-10-02] MEDS: INSULIN REGULAR, HUMAN 100 UNIT/ML 3 ML VIAL SQ PRN (17:09)
--- NOTE | 2016-10-02 18:32 | NUR ---
ICU/RN - Notes Frantz Hess NP notified regarding CXR and central line retraction (still recommends 9cm of retraction), per DOT COMPLIANCE MANAGER will take care of it tomorrow. Pt resting comfortably in bed in no acute distress, tolerating vent settings well.
[2016-10-02] MEDS ORDERED: IV NS 0.9% 500 ML IV ONE (18:41)
--- NOTE | 2016-10-02 19:59 | NUR ---
RN/ICU- RECEIVED PT. POST SEDATED ON DIPRIVAN DRIP AT 25MCG/KG/MIN. NO BEDOYA, ON THE VENT PER ETT, ON AC MODE, SATS.-97%, EKG SR W/ HR-96, BP-116/48. W/ RIGHT RADIAL KARRIE INTACT W/ GOOD WAVEFORM THAT CORRELATES W/ NIBP. CVP-12.PT. W/ ABDOMINAL WOUND INTACT W/ OCCLUSIVE DRESSING.. NGT HOOKED UP TO LOW INTERMITTENT SUCTION DRAINING TO MODERATE AMOUNT OF GREENISH GI CONTENTS. U/O ADEQUATE PER FC.AFEBRILE. NO S/S OF DISTRESS OR PAIN.PT. IS A FULL CODE. Addendum: 10/03/16 at 0639 by JASKARAN EAST RN RN/ICU- PT. RECEIVED ON SIMV MODE.
--- NOTE | 2016-10-02 22:32 | NUR ---
RN/ICU- PT. REMAINS ON DIPRIVAN DRIP AT 25MCG/KG/MIN. [place]/ [place] OF 3. WILL CONTINUE TO MONITOR PT. CLOSELY AND WILL TITRATE DIPRIVAN NEEDED PER PROTOCOL.
[2016-10-03] VITALS (37 sets, daily range): BP systolic 91–200; BP diastolic 47–192
[2016-10-03] MEDS: BLOOD SUGAR DIAGNOSTIC 1 EACH STRIP IN SCH ×4 (00:23→18:46)
[2016-10-03] MEDS: MORPHINE SULFATE INJ 2 MG/ML DISP.SYRIN IV PRN (01:46)
--- NOTE | 2016-10-03 01:46 | NUR ---
RN/ICU- PT.PREMEDICATED W/ MORPHINE 2MG SIVP PRIOR TO ABDOMINAL DRESSING CHANGE.
--- NOTE | 2016-10-03 02:00 | NUR ---
RN/ICU- ABDOMINAL INCISION OPEN TO AIR, W/ PINKISH BASE AND LOWER PORTION BLACKISH, NO ODOR AND NO DRAINAGE NOTED. IRRIGATED W/ NS/BETADINE SOLUTION(50/50 CONCENTRATION.) PACKED W/ WET TO DRY DRESSING W/ KERLIX(NS/BETADINE-50/50 CONCENTRATION). COVERED W/ ABD. THEN PAPER TAPE.NO S/S OF PAIN.
[2016-10-03 04:18] LABS: BASOPHILS % (AUTO) 0.2 % (0.0-2.0); EOSINOPHILS # (AUTO) 0.2 /CMM (0.0-0.7); HEMATOCRIT 26 % (33-45); HEMOGLOBIN 8.7 g/dL (11.5-14.8); LYMPHOCYTES # (AUTO) 1.4 /CMM (0.8-4.8); LYMPHOCYTES % (AUTO) 9.1 % (20.0-44.0); MEAN CORPUSCULAR HEMOGLOBIN 30 PG (26.0-33.0); MEAN CORPUSCULAR HGB CONC 34 g/dl (31.0-36.0); MEAN CORPUSCULAR VOLUME 87 fL (82-100); MONOCYTES # (AUTO) 1.4 /CMM (0.1-1.30); MONOCYTES % (AUTO) 9.4 % (2.0-12.0); NEUTROPHILS # (AUTO) 12.3 /CMM (1.8-8.9); NEUTROPHILS % (AUTO) 80.3 % (43.0-81.0); PLATELET COUNT (AUTO) 479 /CMM (150-450); RED BLOOD CELL COUNT(AUTO) 2.92 MIL/uL (4.0-5.2); WHITE BLOOD COUNT (AUTO) 15.4 K/uL (4.3-11.0)
[2016-10-03] MEDS: PROPOFOL 100 ML IV PRN ×4 (04:24→23:13)
[2016-10-03] MEDS: MEROPENEM 1 G in IV NS 0.9% 100 ML IV SCH ×3 (04:25→20:43)
[2016-10-03] MEDS: METOCLOPRAMIDE HCL 10 MG/2 ML VIAL IV SCH ×4 (04:26→23:14)
[2016-10-03 05:22] LABS: CALCIUM, SERUM 7.8 mg/dL (8.5-10.1); POTASSIUM 3.5 mmol/L (3.5-5.1)
[2016-10-03 05:23] LABS: CREATININE 0.6 mg/dL (0.6-1.3); MAGNESIUM 2.1 mg/dL (1.8-2.4); PHOSPHORUS 3.2 mg/dL (2.5-4.9)
[2016-10-03] MEDS: VANCOMYCIN 0.75 GM in IV D5W 250 ML IV SCH ×2 (05:23→23:14)
[2016-10-03] MEDS: IV NS 0.9% 250 ML IV PRN ×2 (05:23→16:04)
[2016-10-03] MEDS: INSULIN REGULAR, HUMAN 100 UNIT/ML 3 ML VIAL SQ PRN (06:31)
[2016-10-03] MEDS ORDERED: TPN BAG #3 IV PRN ×8 (07:10)
[2016-10-03] MEDS ORDERED: TPN BAG #4 IV PRN ×8 (07:30)
--- NOTE | 2016-10-03 07:30 | NUR ---
ICU/RN: PT RECEIVED, INTUBATED ON SIMV 12, TV 500 FIO2 40% PEEP 5 PS 10; BREATHING EVEN AND UNLABORED WITH O2 SAT >98%. NGT SET TO LIS WITH GREENISH OUTPUT. AUSCULTATED WITH + PLACEMENT. HYPOACTIVE BS NOTED. RHONCHI AND DIMINISHED LUNG SOUNDS NOTED THROUGHOUT. FC DRAINING CLEAR HOSEA URINE TO GRAVITY. R RADIAL ART LINE AND CVP ZERO'D AND FLUSHED WITH GOOD WAVEFORM NOTED. DIPRIVAN AND TPN INFUSING WELL THROUGH R IJ TLC. ABD DRESSING C/D/I. L KNEE DRSG WITH SCANT SANGUINOUS DRAINAGE. BARIMAXXX BED SET TO CONTINUOUS TURNING FOR SKIN PROTECTION. BILAT HEELS OFFLOADED. ALARM SOUNDS AUDIBLE, SAFETY MEASURES IN PLACE, WILL CONT TO MONITOR PT. Addendum: 10/03/16 at 1056 by ALDEN FITCH RN NO BOWEL SOUNDS AUSCULTATED X5MINS
[2016-10-03] MEDS ORDERED: IV SET PRIMARY PUMP SET 1 EA INFUS.SET MC ONE ×3 (08:04→23:05)
[2016-10-03] MEDS: Z GUARD REMEDY 2 OZ OINT TP SCH (08:08)
[2016-10-03] MEDS: PANTOPRAZOLE 40 MG VIAL IV SCH (08:08)
--- NOTE | 2016-10-03 08:15 | NUR ---
ICU/RN: SEDATION VACATION; OFF DIPRIVAN, PT CALM, A&OX3, FOLLOWS SIMPLE COMMANDS, TRACKS, PERRLA, MILD BILAT UPPER EX WEAKNESS NOTED, ABLE TO MOVE ALL 4 EXTREMITIES. COUGH AND GAG REFLEX PRESENT. ORIENTED TO UNIT AND POC. ASSESSED FOR PAIN, SHAKES HEAD NO. DISCUSSED POC WITH PT, FOR POSSIBLE WEAN TRIAL TODAY. REQUESTED TO BE PLACED BACK ON MILD SEDATION. RE-STARTED DIPRIVAN AT PREVIOUS RATE.
--- NOTE | 2016-10-03 09:12 | NUR ---
ICU/RN: DR HUDDLESTON AT THE BEDSIDE FOR ID CONSULT; LABS, WOUNDS AND DRAINAGE DW WITH MD.
--- NOTE | 2016-10-03 09:32 | NUR ---
ICU/RN: BALJIT CURIEL NP AT THE BEDSIDE, NOTIFIED OF CXR RESULTS AND R IJ TRIPLE LUMEN CATH RETRACTION RECOMMENDATION, PER BUCKET OPERATOR "I ALREADY RETRACTED IT YESTERDAY BECAUSE IT WAS TOO CLOSE TO THE TRICUSPID VALVE, IT IS NOW IN THE R [facility], IT'S NOT CAUSING ANY ARRHYTHMIAS SO WE CAN JUST LEAVE IT IT IS." ABN LABS, WOUNDS, MEDS DW BUCKET OPERATOR. NEW ORDERS NOTED AND CARRIED OUT.
[2016-10-03] MEDS ORDERED: VASOPRESSIN INJ 50 UNIT in IV D5W 497.5 ML IV PRN (10:00)
[2016-10-03] MEDS ORDERED: FILTER SET SAVER IV SET 1 EA INFUS.SET MC ONE (10:04)
--- NOTE | 2016-10-03 11:13 | NUR ---
ICU/RN: DR VÁSQUEZ AT THE BEDSIDE; PT OFF SEDATION. ORDERS TO CHANGE SETTINGS TO C-PAP PS 10. PT AWAKE AND ALERT, RT AND RN EDUCATED PT ON WEANING TRIAL PT NODDED HEAD IN AGREEMENT
[2016-10-03] MEDS ORDERED: ACETAMINOPHEN 650 MG/SUPP.RECT RC PRN (12:30)
[2016-10-03 12:44] LABS: ABG BASE EXCESS 2.8 mmol/L; ABG OXYGEN SATURATION 97.2 % (92.0-98.5); ABG PCO2 28.8 mmHg (35.0-45.0); ABG PH 7.552 (7.350-7.450); ABG TOTAL HEMOGLOBIN 9.9 G/dL (12.0-16.0); AaDO2 153.1 mmHg; COHb 0.7 % (0.5-1.5); O2Hb 95.5 % (94.0-97.0); PEEP,BG 5 cm H2O; SITE, ABG Left Radial; VENT MODE, BG CPAP PS 10
--- NOTE | 2016-10-03 12:59 | NUR ---
ICU/RN: DR VÁSQUEZ NOTIFIED OF ABG RESULTS; PER MD, PLACE PT BACK ON PREVIOUS SIMV MODE. NOTED AND CARRIED OUT.
[2016-10-03] MEDS: MICAFUNGIN SODIUM 100 MG in IV NS 0.9% 100 ML IV SCH (16:05)
--- NOTE | 2016-10-03 18:11 | NUR ---
RT END OF THE SHIFT REPORT: PT. 76 Y OLD FEMALE REMAIN ORALLY INTUBATED ETT #7.5 @ 21CM LIP ON VENT WITH NOTED SIMV SETTING, ALARMS ARE SET AND FUNCTIONAL, NO DISTRESS NOTED T/O SHIFT, VENT PLUGGED INTO RED OUTLET EQUAL CHEST RISE NOTED CHIN'X FOR MINIMAL WHITE/POWELL SECRETIONS, B/S BILATERALLY RALES. (WEANING PER MD STARTED AND PLACED BACK ON SIMV PER MD ORDER ), HME CHANGED AMBU BAG REMAIN AT THE BEDSIDE. REPORT WILL PASS ON TO PM SHIFT Addendum: 10/03/16 at 1812 by GORDON CHIANG RT Amended: Links added.
--- NOTE | 2016-10-03 19:26 | NUR ---
ICU/RN: PT IN STABLE CONDITION, LIGHTLY SEDATED ON 25 MCG/MIN DIPRIVAN, BREATHING EVEN AND UNLABORED. DRESSINGS REMAIN C/D/I. FC DRAINING WELL TO GRAVITY. CVP AND A-LINE READINGS NOTED WITH GOOD WAVEFORM. REMAINS HEMODYNAMICALLY STABLE. CARE ENDORSED TO PM RN FOR ALYCE.
--- NOTE | 2016-10-03 20:50 | NUR ---
STOCK WORKER: PT RECEIVED, INTUBATED ON WANING MODE SIMV 12, TV 500 FIO2 40% PEEP 5 PS 10; BREATHING EVEN AND UNLABORED WITH O2 SAT 96-98%. NGT SET TO LIS WITH GREENISH OUTPUT. AUSCULTATED WITH + PLACEMENT. HYPOACTIVE BS NOTED. RHONCHI AND DIMINISHED LUNG SOUNDS NOTED THROUGHOUT. FC DRAINING CLEAR HOSEA URINE TO GRAVITY. R RADIAL ART LINE AND CVP ZERO'D AND FLUSHED WITH GOOD WAVEFORM NOTED. DIPRIVAN INFUSING AT 25 MCG/KG/MIN DECREASED TO 20 MCG DUE TO BP IN LOW SIDE. TPN INFUSING WELL THROUGH R IJ TLC. ABD DRESSING C/D/I. L KNEE DRSG WITH SCANT SANGUINOUS DRAINAGE. ON BARIATRIC BED SET TO CONTINUOUS TURNING FOR SKIN PROTECTION. BILAT HEELS OFFLOADED. SAFETY MEASURES IN PLACE, ONGOING MONITORING..
--- NOTE | 2016-10-03 21:33 | NUR ---
PT RECEIVED INTUBATED WITH 7.5 ETT SECURED AT 21CM AT THE LIP. NO DISTRESS NOTED. PT TOLERATING VENT SETTINGS. SX'D FOR MOD AMT OF THICK PALE SECREIONS. VENT ALARMS SET AND AUDIBLE. AMBU BAG AT BEDSIDE. VENT PLUGGED INTO RED OUTLET. WILL CONTINUE TO MONITOR. Addendum: 10/03/16 at 3224 by JAYDON WEI RT Amended: Links added.
[2016-10-04] VITALS (43 sets, daily range): BP systolic 89–147; BP diastolic 48–87
[2016-10-04] MEDS: BLOOD SUGAR DIAGNOSTIC 1 EACH STRIP IN SCH ×5 (00:28→23:15)
[2016-10-04] MEDS: IV NS 0.9% 250 ML IV PRN (04:00)
[2016-10-04] MEDS ORDERED: FILTER SET SAVER IV SET 1 EA INFUS.SET MC ONE (04:15)
[2016-10-04] MEDS ORDERED: IV SET PRIMARY PUMP SET 1 EA INFUS.SET MC ONE ×2 (04:15→08:30)
[2016-10-04] MEDS: MEROPENEM 1 G in IV NS 0.9% 100 ML IV SCH ×2 (04:16→13:35)
[2016-10-04 05:21] LABS: CALCIUM, SERUM 7.7 mg/dL (8.5-10.1); CREATININE 0.5 mg/dL (0.6-1.3); POTASSIUM 3.4 mmol/L (3.5-5.1)
[2016-10-04] MEDS: METOCLOPRAMIDE HCL 10 MG/2 ML VIAL IV SCH ×4 (05:28→23:15)
[2016-10-04] MEDS: PROPOFOL 100 ML IV PRN (05:29)
[2016-10-04 07:53] LABS: MAGNESIUM 1.9 mg/dL (1.8-2.4); PHOSPHORUS 3.3 mg/dL (2.5-4.9)
--- NOTE | 2016-10-04 08:00 | NUR ---
PRODUCT TEST SPECIALIST; ASSESSMENT RECEIVED PT VENTED VIA ETT, ON WEANING MODE SEE FLOWSHEET FOR VENT SETTINGS. PT IS ABLE TO OPEN EYES SPONTANEOUSLY AND ABLE TO FOLLOW SIMPLE COMMANDS. PT ON DIPRIVAN 15MCG/KG/MIN. NOTED KARRIE BP READING MID 80'S SBP. DIPRIVAN DECREASED TO 10MCG/KG/MIN. TPN RUNNING AT 60ML/HR INFUSING INTO RIGH IJ TLC. CVP TO RIGHT IJ ZEROED AND LEVELED READING 6. KARRIE TO RIGHT RADIAL ARTERY ZEROED. SEE FLOW SHEET FOR READINGS. RUIZ CATH INTACT DRAINING TO GRAVITY. HOSEA COLOR URINE. NOTED ABD INCISION INTACT WITH DRESSING. NOTED RIGHT UPPER AND LOWER QUAD JPRATT MINIMAL AMOUNT OF YELLOW FLUID. COLOSTOMY TO LEFT QUADRANT INTACT. NG TUBE TO RIGHT NARE INTACT POSITIVE FOR AUSCULTATION SET TO LOW INTERMEDIATE SUCTION, NOTED GREEN FLUID DRAINING. NO ACUTE DISTRESS AT THIS TIMPE PT MARÍA TO NOD NO FOR PAIN. WILL CONTINUE TO MONITOR CLOSELY
[2016-10-04 08:12] LABS: BASOPHILS # (AUTO) 0.1 /CMM (0.0-0.2); BASOPHILS % (AUTO) 0.7 % (0.0-2.0); EOSINOPHILS # (AUTO) 0.3 /CMM (0.0-0.7); EOSINOPHILS % (AUTO) 1.7 % (0.0-6.0); HEMATOCRIT 27 % (33-45); HEMOGLOBIN 8.8 g/dL (11.5-14.8); LYMPHOCYTES # (AUTO) 1.6 /CMM (0.8-4.8); LYMPHOCYTES % (AUTO) 9.9 % (20.0-44.0); MEAN CORPUSCULAR HEMOGLOBIN 30 PG (26.0-33.0); MEAN CORPUSCULAR HGB CONC 33 g/dl (31.0-36.0); MEAN CORPUSCULAR VOLUME 89 fL (82-100); MONOCYTES # (AUTO) 1.2 /CMM (0.1-1.30); MONOCYTES % (AUTO) 7.9 % (2.0-12.0); NEUTROPHILS # (AUTO) 12.6 /CMM (1.8-8.9); NEUTROPHILS % (AUTO) 79.8 % (43.0-81.0); PLATELET COUNT (AUTO) 506 /CMM (150-450); RDW COEFFICIENT OF VARIATION 16.3 (11.5-15.0); RED BLOOD CELL COUNT(AUTO) 2.98 MIL/uL (4.0-5.2); WHITE BLOOD COUNT (AUTO) 15.8 K/uL (4.3-11.0)
[2016-10-04] MEDS ORDERED: POTASSIUM CL. PREMIX PERIPHER. 50 ML IV SCH (08:30)
[2016-10-04] MEDS: POTASSIUM CL. PREMIX PERIPHER. 50 ML IV SCH ×2 (08:41→09:20)
[2016-10-04] MEDS: PANTOPRAZOLE 40 MG VIAL IV SCH (08:41)
[2016-10-04] MEDS: Z GUARD REMEDY 2 OZ OINT TP SCH (08:42)
[2016-10-04] MEDS ORDERED: DC PROPOFOL WHEN EXTUBATED XX PRN (09:00)
[2016-10-04] MEDS: FUROSEMIDE 40 MG/4 ML VIAL IV SCH ×2 (10:19→17:37)
--- NOTE | 2016-10-04 11:49 | NUR ---
VIVEK received a call from [place] [employer] requesting a verification of admission letter for a temporary visa for pt's 's family to visit from [place]. VIVEK met with pt' Meti. SW completed requested letter and gave it to pt's Meti.
[2016-10-04 12:11] LABS: ABG BASE EXCESS 5.5 mmol/L; ABG OXYGEN SATURATION 96.2 % (92.0-98.5); ABG PCO2 37.4 mmHg (35.0-45.0); ABG PH 7.505 (7.350-7.450); ABG PO2 85.3 mmHg (75.0-100.0); ABG TOTAL HEMOGLOBIN 10.5 G/dL (12.0-16.0); AaDO2 156.9 mmHg; COHb 0.7 % (0.5-1.5); MetHb 0.9 % (0.0-1.5); O2Hb 94.7 % (94.0-97.0); PEEP,BG 5 cm H2O; SITE, ABG Left Radial; VENT MODE, BG CPAP PSV 10
--- NOTE | 2016-10-04 12:20 | NUR ---
PT EXTUBATED PER MD ORDER ZERO DISTRESS NOTED.
[2016-10-04] MEDS ORDERED: TPN BAG #5 IV PRN ×7 (12:30)
[2016-10-04] MEDS ORDERED: TPN BAG #6 IV PRN ×9 (12:30)
--- NOTE | 2016-10-04 12:30 | NUR ---
DRIVABILITY TECHNICIAN; RESP MD DR. HALE AT BEDSIDE UPDATE WAS GIVEN. ABG RESULTS GIVEN FOR WEANING MODE AT CPAP SETTINGS. PT IS AWAKE AND FOLLOWING COMMANDS. NEW ORDERS GIVEN TO EXTUBATE PT. RT NOTIFIED. Delicia YEE RT AT BEDSIDE EXTUBATED PT AND PLACED PT ON NASAL CANULA AT 3L/MIN. PT IS ABLE TO COUGH. ENCOURAGING DEEP BREATHING AND COUGH. WILL CONTINUE TO MONITOR CLOSELY.
[2016-10-04] MEDS ORDERED: LEVOFLOXACIN 500 MG /D5W 100ML 500 MG in PREMIX 1 EA IV SCH (14:00)
[2016-10-04] MEDS: METRONIDAZOLE 500MG/ NS 100ML 500 MG in PREMIX 1 EA IV SCH ×2 (15:38→20:53)
[2016-10-04] MEDS: LEVOFLOXACIN 500 MG /D5W 100ML 500 MG in PREMIX 1 EA IV SCH (15:38)
[2016-10-04] MEDS: MORPHINE SULFATE INJ 2 MG/ML DISP.SYRIN IV PRN (16:04)
--- NOTE | 2016-10-04 16:15 | NUR ---
WAYS OPERATOR; WOUND CARE WOUND CARE DONE TO SURGICAL INCISION, ORDERED. PRE-MEDICATED PT WITH MORPHINE 2MG IVP PRIOR TO WOUND CARE. WILL CONTINUE TO MONITOR CLOSELY.
[2016-10-04] MEDS: VANCOMYCIN 0.75 GM in IV D5W 250 ML IV SCH (17:37)
[2016-10-04] MEDS: MICAFUNGIN SODIUM 100 MG in IV NS 0.9% 100 ML IV SCH (17:37)
[2016-10-04] MEDS: INSULIN REGULAR, HUMAN 100 UNIT/ML 3 ML VIAL SQ PRN (18:11)
--- NOTE | 2016-10-04 20:44 | NUR ---
received pt from day shift, alert, follows commands, s/p extubation, SR, CVP and A line, receiving TPN, on 3L 02sat well, lungs congested, pitting edema all extremities, NG to ILS, surgical mid abd incision noted, no bleeding dressing intact, [address], f/c OK good output, L side colostomy intact, v/s stable, no pain, pt turned and repositioned.
[2016-10-05] VITALS (25 sets, daily range): BP systolic 117–151; BP diastolic 64–106
--- NOTE | 2016-10-05 | NUR ---
pt is resting in the bed, v/s stable, no pain, pt turned and repositioned q2hs.
[2016-10-05] MEDS: MORPHINE SULFATE INJ 2 MG/ML DISP.SYRIN IV PRN ×2 (01:35→12:12)
[2016-10-05] MEDS ORDERED: IV NS 0.9% 250 ML IV ONE ×2 (01:41→20:29)
[2016-10-05] MEDS: METRONIDAZOLE 500MG/ NS 100ML 500 MG in PREMIX 1 EA IV SCH ×3 (02:26→20:17)
[2016-10-05 05:10] LABS: BASOPHILS # (AUTO) 0.2 /CMM (0.0-0.2); BASOPHILS % (AUTO) 1.1 % (0.0-2.0); EOSINOPHILS # (AUTO) 0.2 /CMM (0.0-0.7); HEMATOCRIT 28 % (33-45); HEMOGLOBIN 9.1 g/dL (11.5-14.8); LYMPHOCYTES # (AUTO) 1.5 /CMM (0.8-4.8); LYMPHOCYTES % (AUTO) 9.9 % (20.0-44.0); MEAN CORPUSCULAR HEMOGLOBIN 29 PG (26.0-33.0); MEAN CORPUSCULAR HGB CONC 33 g/dl (31.0-36.0); MEAN CORPUSCULAR VOLUME 88 fL (82-100); MONOCYTES # (AUTO) 1.3 /CMM (0.1-1.30); MONOCYTES % (AUTO) 8.8 % (2.0-12.0); NEUTROPHILS # (AUTO) 12.2 /CMM (1.8-8.9); NEUTROPHILS % (AUTO) 79.2 % (43.0-81.0); PLATELET COUNT (AUTO) 581 /CMM (150-450); RDW COEFFICIENT OF VARIATION 15.8 (11.5-15.0); RED BLOOD CELL COUNT(AUTO) 3.14 MIL/uL (4.0-5.2); WHITE BLOOD COUNT (AUTO) 15.4 K/uL (4.3-11.0)
[2016-10-05 05:16] LABS: BILIRUBIN,TOTAL 0.9 mg/dL (0.2-1.0); CALCIUM, SERUM 7.7 mg/dL (8.5-10.1); CREATININE 0.6 mg/dL (0.6-1.3); MAGNESIUM 1.7 mg/dL (1.8-2.4); POTASSIUM 3.5 mmol/L (3.5-5.1); TOTAL PROTEIN, SERUM 5.6 g/dL (6.4-8.2)
[2016-10-05 05:20] LABS: ALBUMIN 1.4 g/dL (3.4-5.0)
[2016-10-05] MEDS: BLOOD SUGAR DIAGNOSTIC 1 EACH STRIP IN SCH ×4 (05:26→23:28)
[2016-10-05] MEDS: METOCLOPRAMIDE HCL 10 MG/2 ML VIAL IV SCH ×4 (05:26→23:28)
--- NOTE | 2016-10-05 05:44 | NUR ---
pt is resting in the bed, alert, follows commands, v/s stable, no pain, pt cleaned, changed and repositioned q2hrs.
[2016-10-05] MEDS ORDERED: TPN BAG #6 IV PRN ×9 (07:10)
[2016-10-05] MEDS ORDERED: TPN BAG #7 IV PRN ×6 (07:30)
[2016-10-05] MEDS ORDERED: acetaZOLAMIDE SODIUM 500 MG/VIAL VIAL IV ONE (08:00)
--- NOTE | 2016-10-05 08:00 | NUR ---
GIS SOFTWARE DEVELOPER OPENING NOTES: RECEIVED IN BED ALERT ORIENTED X2, REORIENTED TO TIME. PATIENT ON O2 VIA NC, NO DISTRESS NOTED, SPO2 WNL, NOTED TO BE SINUS TACHYCARDIA ON TELE MONITOR HR 104. RIGHT NARE NGTUBE TO LIS, NOTED WITH GREEN BILE. RUIZ CATHETER DRAINING TO GRAVITY. RIJ TLC RUNNING NS TKO AT 5ML/HR AND TPN BAG #5 AT 70ML/HR. PATIENT NOTED WITH MID ABDOMEN SURGICAL INCISION DRESSING CLEAN DRY AND INTACT. NOTED WITH RIGHT UPPER AND LOWER QUADRANT YANIRA DRAINS WITH YELLOW FLUID IN DRAINS. NOTED WITH LEFT QUADRANT COLOSTOMY. PATIENT S/P LEFT KNEE TKR, DRESSING CLEAN DRY AND INTACT. PATIENT TURNED AND REPOSITIONED, EXTREMITIES OFFLOADED. ORAL CARE PROVIDED. SAFETY MAINTAINED, ALL NEEDS MET. CALL LIGHT WITHIN REACH, ONGOING MONITORING
[2016-10-05] MEDS: DAKINS HALF STRENGTH (0.25%) 480 ML BOTTLE TOP SCH (08:50)
[2016-10-05] MEDS: PANTOPRAZOLE 40 MG VIAL IV SCH (08:50)
[2016-10-05] MEDS: Z GUARD REMEDY 2 OZ OINT TP SCH (08:50)
[2016-10-05] MEDS: VANCOMYCIN 0.75 GM in IV D5W 250 ML IV SCH (11:00)
[2016-10-05] MEDS: INSULIN REGULAR, HUMAN 100 UNIT/ML 3 ML VIAL SQ PRN (11:06)
[2016-10-05] MEDS ORDERED: SECONDARY IV SET 1 EA INFUS.SET MC ONE ×2 (11:10→20:30)
[2016-10-05] MEDS ORDERED: IV SET PRIMARY PUMP SET 1 EA INFUS.SET MC ONE ×2 (12:40→20:29)
[2016-10-05] MEDS ORDERED: FILTER SET SAVER IV SET 1 EA INFUS.SET MC ONE (12:41)
--- NOTE | 2016-10-05 13:00 | NUR ---
EMERGENCY SERVICE RESTORER NOTE: ABDOMINAL SURGICAL INCISION DRESSING CHANGED. MORPHINE ADMINISTERED PRIOR TO DRESSING CHANGE FOR PAIN MANAGEMENT. CLEAN TECHNIQUE OBSERVED PATIENT TOLERATED WELL. ONGOING MONITORING.
[2016-10-05] MEDS: LEVOFLOXACIN 500 MG /D5W 100ML 500 MG in PREMIX 1 EA IV SCH (15:45)
--- NOTE | 2016-10-05 17:00 | NUR ---
STRETCHING MACHINE OPERATOR NOTE: PATIENT CLEANED, BEDDING CHANGED. ALL NEEDS MET, ALL MEDICATIONS ADMINISTERED. ORAL CARE PROVIDED EVERY 2 HOURS. RANGE OF MOTION PROVIDED. SAFETY MAINTAINED. CALL LIGHT WITHIN REACH. ONGOING MONITORING
[2016-10-05] MEDS: MICAFUNGIN SODIUM 100 MG in IV NS 0.9% 100 ML IV SCH (17:58)
[2016-10-05] MEDS ORDERED: diphenhydrAMINE HCL 50 MG/ML VIAL ONE (20:16)
[2016-10-05] MEDS ORDERED: diphenhydrAMINE HCL 50 MG/ML VIAL IV ONE (20:30)
--- NOTE | 2016-10-05 20:45 | NUR ---
RN DF RECEIVED PT TO ROOM#255 PT S/P EXPLORATORY LAP WITH COLOSTOMY ON 09/23/16 POST OP DAY #12. PT A/OX4, DENIES PAIN.C/O ITCHING TO BACK. I WILL CONTACT AND ORDER RECEIVED FOR ONE TIME ORDER OF BENADRYL 25 MG IV. PT ON N/C @ 4LPM WITH GOOD SATURATION RESP RATE WNL. PT S/P EXTUBATION ON 10/04/16. PT HAS OPEN MIDLINE ABDOMINAL INCISION COVERED WITH DRESSINGS C/D/I WITH 2 RIGHT SIDED YANIRA,S DRAINING SEROSAINGOUS FLUID MINIMAL AMOUNT. NGT TO LIS DRAINING GREEN DARK BILIOUS COLORED FLUID PT HAD 400 ML DRAINED DURING AM SHIFT AND SO FAR 25ML DRAINED. PT DENIES ABDOMINAL PAIN, VSS AFERBILE. NAD NOTED.
[2016-10-06] VITALS (26 sets, daily range): BP systolic 98–153; BP diastolic 49–104
--- NOTE | 2016-10-06 01:30 | NUR ---
RN DF PT C/O NAUSEA NGT ASSESSED PATENT DRAINING MIN TO MOD AMOUNT OF FLUID SO FAR 100 ML SINCE 10/05. I OFFERED ANT NAUSEA MEDS AND PT REFUSED. PT ASSESSED NO CHANGES NOTED FROM PREVIOUS ASSESSMENTS VSS NAD NOTED. PT DENIES PAIN AT THIS TIME. PT AGREES TO BE MEDICATED WITH MORPHINE/ZOFRAN PRN PRIOR TO WOUND CARE TREATMENT AND AM CARE.
[2016-10-06] MEDS: ONDANSETRON HCL/PF 4 MG/2 ML VIAL IVP PRN (02:23)
[2016-10-06] MEDS: MORPHINE SULFATE INJ 2 MG/ML DISP.SYRIN IV PRN ×2 (02:24→17:14)
--- NOTE | 2016-10-06 02:24 | NUR ---
SEO SPECIALIST DF PT PREMEDICATED WITH MORPHINE 2MG IVP/ZOFRAN 4MG IVP PRIOR TO WOUND CARE. DRESSING CHANGES TO MID ABD INCISION FOLLOWING WOUND CARE ORDERS WITH DAKINS WET TO DRY COVERED WITH ABD PADS. PT TOLERATED PROCEDURE WELL. MINIMAL OUTPUT NOTED FROM COLOSTOMY BAG. VSS.NAD NOTED.
[2016-10-06] MEDS: METRONIDAZOLE 500MG/ NS 100ML 500 MG in PREMIX 1 EA IV SCH ×3 (04:17→21:47)
[2016-10-06] MEDS: VANCOMYCIN 1 GM in IV D5W 250 ML IV SCH ×2 (04:17→23:06)
[2016-10-06] MEDS: METOCLOPRAMIDE HCL 10 MG/2 ML VIAL IV SCH ×4 (04:17→23:06)
[2016-10-06 04:54] LABS: CALCIUM, SERUM 8.1 mg/dL (8.5-10.1); CREATININE 0.6 mg/dL (0.6-1.3); MAGNESIUM 2.1 mg/dL (1.8-2.4); PHOSPHORUS 3.5 mg/dL (2.5-4.9); POTASSIUM 3.5 mmol/L (3.5-5.1)
[2016-10-06] MEDS: INSULIN REGULAR, HUMAN 100 UNIT/ML 3 ML VIAL SQ PRN ×2 (06:16→18:35)
[2016-10-06] MEDS: BLOOD SUGAR DIAGNOSTIC 1 EACH STRIP IN SCH ×4 (06:35→23:07)
--- NOTE | 2016-10-06 06:35 | NUR ---
RN DF PT ACCU CHECK OF 144 COVERED WITH 2 UNITS REGULAR INSULIN PER SS. PT A/OX3 DENIES PAIN AT THIS TIME. VSS. NAD NOTED.
[2016-10-06 07:34] LABS: BASOPHILS % (AUTO) 0.3 % (0.0-2.0); EOSINOPHILS # (AUTO) 0.2 /CMM (0.0-0.7); EOSINOPHILS % (AUTO) 1.2 % (0.0-6.0); HEMATOCRIT 27 % (33-45); LYMPHOCYTES # (AUTO) 1.8 /CMM (0.8-4.8); LYMPHOCYTES % (AUTO) 12.4 % (20.0-44.0); MEAN CORPUSCULAR HEMOGLOBIN 30 PG (26.0-33.0); MEAN CORPUSCULAR HGB CONC 33 g/dl (31.0-36.0); MEAN CORPUSCULAR VOLUME 89 fL (82-100); MONOCYTES # (AUTO) 1.5 /CMM (0.1-1.30); NEUTROPHILS # (AUTO) 11.2 /CMM (1.8-8.9); NEUTROPHILS % (AUTO) 76.1 % (43.0-81.0); PLATELET COUNT (AUTO) 588 /CMM (150-450); RED BLOOD CELL COUNT(AUTO) 3.03 MIL/uL (4.0-5.2); WHITE BLOOD COUNT (AUTO) 14.7 K/uL (4.3-11.0)
--- NOTE | 2016-10-06 07:56 | NUR ---
HOGSHEAD HOOPER; ASSESSMENT RECEIVED PT AWAKE AND ORIENTED X3. PT AT THIS TIME DENIES ANY PAIN. S/P EXPLORATORY LAP 09/23/16, S/P EXTUBATION ON 10/04. PT TOLERATING NASAL CANULA AT 4L. NOTED MID LINE ABD INCISION DRESSING INTACT, RIGHT UPPER AND RIGHT LOWER ABD JPRAT DRAINS WITH SEROUS FLUID. COLOSTOMY TO LEFT ABD QUADRANT NOTED BROWN LIQUID. RUIZ CATH INTACT DRAINING TO GRAVITY CLEAR YELLOW URINE. NGT TO RIGHT NARE AT LIS, GREEN BILE NOTED. NO ACUTE DISTRESS NOTED. WILL CONTINUE WITH POC.
[2016-10-06] MEDS: PANTOPRAZOLE 40 MG VIAL IV SCH (08:13)
[2016-10-06] MEDS: Z GUARD REMEDY 2 OZ OINT TP SCH (08:13)
[2016-10-06] MEDS: DAKINS HALF STRENGTH (0.25%) 480 ML BOTTLE TOP SCH (08:14)
[2016-10-06] MEDS ORDERED: BUMETANIDE INJ 8 MG in IV NS 0.9% 48 ML IV ONE (09:00)
[2016-10-06] MEDS ORDERED: IV SET PRIMARY PUMP SET 1 EA INFUS.SET MC ONE ×2 (09:50→16:23)
[2016-10-06] MEDS: POTASSIUM CL. PREMIX PERIPHER. 50 ML IV SCH ×6 (09:58→16:06)
[2016-10-06] MEDS ORDERED: TPN BAG #8 IV PRN ×7 (11:00)
[2016-10-06] MEDS ORDERED: TPN BAG #9 IV PRN ×5 (11:00)
--- NOTE | 2016-10-06 14:30 | NUR ---
SAP SENIOR DEVELOPER; MD SURGEON DR. CAAL AT BEDSIDE UPDATE WAS GIVEN. WOUND CARE TO ABD SURGICAL INCISION DONE ORDERED. DR. CAAL D/C NG TUBE OUT PUT WAS 50ML. NEW ORDERS GIVEN TO START FULL LIQUID DIET. WILL CONTINUE TO MONITOR CLOSELY
[2016-10-06] MEDS: LEVOFLOXACIN 500 MG /D5W 100ML 500 MG in PREMIX 1 EA IV SCH (15:52)
[2016-10-06] MEDS ORDERED: FILTER SET SAVER IV SET 1 EA INFUS.SET MC ONE (16:23)
[2016-10-06] MEDS: MICAFUNGIN SODIUM 100 MG in IV NS 0.9% 100 ML IV SCH (17:25)
--- NOTE | 2016-10-06 19:11 | NUR ---
RN IUC; OUTPUT JPRATT #2 OUT PUT 60ML. NO PUT PUT FROM #1
[2016-10-07] VITALS (26 sets, daily range): BP systolic 84–158; BP diastolic 47–137
[2016-10-07] MEDS: METOCLOPRAMIDE HCL 10 MG/2 ML VIAL IV SCH ×4 (04:30→23:07)
[2016-10-07] MEDS: METRONIDAZOLE 500MG/ NS 100ML 500 MG in PREMIX 1 EA IV SCH ×3 (04:30→21:39)
[2016-10-07] MEDS: MORPHINE SULFATE INJ 2 MG/ML DISP.SYRIN IV PRN ×3 (04:30→18:30)
[2016-10-07 04:50] LABS: CALCIUM, SERUM 7.9 mg/dL (8.5-10.1); CREATININE 0.7 mg/dL (0.6-1.3); PHOSPHORUS 3.9 mg/dL (2.5-4.9); POTASSIUM 3.9 mmol/L (3.5-5.1)
[2016-10-07] MEDS: INSULIN REGULAR, HUMAN 100 UNIT/ML 3 ML VIAL SQ PRN ×2 (05:54→11:16)
[2016-10-07] MEDS: BLOOD SUGAR DIAGNOSTIC 1 EACH STRIP IN SCH ×4 (05:57→23:08)
--- NOTE | 2016-10-07 07:35 | NUR ---
CONVEYOR TENDER RECEIVED PATIENT FROM THE PREVIOUS SHIFT. PATIENT IN BED. RESTING COMFORTABLY. AFEBRILE. ALERT AND ORIENTED X 4. NO ACUTE DISTRESS NOTED. ON 2L NASAL CANNULA. NO ACUTE RESPIRATORY DISTRESS. ELECTROLYTES MONITORED. TPN RUNNING AT THIS TIME.
[2016-10-07] MEDS ORDERED: IV NS 0.9% 250 ML IV ONE (08:02)
[2016-10-07] MEDS: Z GUARD REMEDY 2 OZ OINT TP SCH (08:06)
[2016-10-07] MEDS: PANTOPRAZOLE 40 MG VIAL IV SCH (08:06)
[2016-10-07] MEDS: DAKINS HALF STRENGTH (0.25%) 480 ML BOTTLE TOP SCH (08:07)
[2016-10-07] MEDS ORDERED: BUMETANIDE INJ 8 MG in IV NS 0.9% 48 ML IV ONE (09:00)
[2016-10-07] MEDS ORDERED: TPN BAG #11 IV PRN ×6 (13:30)
[2016-10-07] MEDS ORDERED: TPN BAG #10 IV PRN ×8 (13:30)
[2016-10-07] MEDS: LEVOFLOXACIN 500 MG /D5W 100ML 500 MG in PREMIX 1 EA IV SCH (14:04)
[2016-10-07] MEDS: MICAFUNGIN SODIUM 100 MG in IV NS 0.9% 100 ML IV SCH (18:16)
[2016-10-07] MEDS: VANCOMYCIN 1 GM in IV D5W 250 ML IV SCH (18:16)
[2016-10-07] MEDS ORDERED: IV SET PRIMARY PUMP SET 1 EA INFUS.SET MC ONE (18:31)
[2016-10-07] MEDS ORDERED: FILTER SET SAVER IV SET 1 EA INFUS.SET MC ONE (18:32)
--- NOTE | 2016-10-07 20:00 | NUR ---
received pt from day shift, alert, follows commands, ST, SR, receiving TPN at 75 cc/hr, SR, on 3L NC, sat well, lungs partially congested, pitting edema all extremities, f/c good output, L side colostomy intact, R side 2 JPs intact draining minimal amount or drainage, abdominal incision dressing intact, v/s stable, no pain, pt turned and repositioned.
[2016-10-08] VITALS (25 sets, daily range): BP systolic 91–151; BP diastolic 54–80
--- NOTE | 2016-10-08 00:45 | NUR ---
pt is resting in the bed, v/s stable, no pain, pt turned and repositioned q2hrs.
[2016-10-08] MEDS ORDERED: IV NS 0.9% 250 ML IV ONE (01:41)
[2016-10-08] MEDS: MORPHINE SULFATE INJ 2 MG/ML DISP.SYRIN IV PRN ×6 (02:02→20:42)
--- NOTE | 2016-10-08 04:27 | NUR ---
pt is resting in the bed, alert, follows commands, v/s stable, no pain, pt cleaned, changed and repositioned q2hrs.
[2016-10-08] MEDS: METRONIDAZOLE 500MG/ NS 100ML 500 MG in PREMIX 1 EA IV SCH ×3 (04:32→20:43)
[2016-10-08] MEDS: METOCLOPRAMIDE HCL 10 MG/2 ML VIAL IV SCH ×4 (04:32→22:40)
[2016-10-08 04:46] LABS: CREATININE 0.7 mg/dL (0.6-1.3); MAGNESIUM 1.7 mg/dL (1.8-2.4); PHOSPHORUS 4.6 mg/dL (2.5-4.9); POTASSIUM 3.8 mmol/L (3.5-5.1)
[2016-10-08] MEDS: BLOOD SUGAR DIAGNOSTIC 1 EACH STRIP IN SCH ×3 (05:12→17:10)
[2016-10-08 07:42] LABS: BASOPHILS # (AUTO) 0.1 /CMM (0.0-0.2); BASOPHILS % (AUTO) 0.5 % (0.0-2.0); EOSINOPHILS # (AUTO) 0.2 /CMM (0.0-0.7); EOSINOPHILS % (AUTO) 1.3 % (0.0-6.0); HEMATOCRIT 27 % (33-45); HEMOGLOBIN 8.7 g/dL (11.5-14.8); LYMPHOCYTES # (AUTO) 2.4 /CMM (0.8-4.8); LYMPHOCYTES % (AUTO) 13.3 % (20.0-44.0); MEAN CORPUSCULAR HEMOGLOBIN 29 PG (26.0-33.0); MEAN CORPUSCULAR HGB CONC 33 g/dl (31.0-36.0); MEAN CORPUSCULAR VOLUME 89 fL (82-100); MONOCYTES # (AUTO) 1.6 /CMM (0.1-1.30); MONOCYTES % (AUTO) 8.8 % (2.0-12.0); NEUTROPHILS # (AUTO) 13.5 /CMM (1.8-8.9); NEUTROPHILS % (AUTO) 76.1 % (43.0-81.0); PLATELET COUNT (AUTO) 559 /CMM (150-450); RDW COEFFICIENT OF VARIATION 15.9 (11.5-15.0); RED BLOOD CELL COUNT(AUTO) 2.99 MIL/uL (4.0-5.2); WHITE BLOOD COUNT (AUTO) 17.7 K/uL (4.3-11.0)
--- NOTE | 2016-10-08 07:45 | NUR ---
FRAME CATCHER RECEIVED PATIENT FROM THE PREVIOUS SHIFT. PATIENT IN BED. RESTING COMFORTABLY. NO DISTRESS. ON 3L NC AT THIS TIME. ALERT AND ORIENTED X 4. AFEBRILE. VITAL SINGS STABLE. SINUS TACH ON MONITOR. SURGICAL WOUND DRESSING INTACT. TURNED AND REPOSITIONED FOR COMFORT AND WOUND PREVENTION. WILL CONTINUE TO MONITOR AND PROVIDE CARE.
[2016-10-08] MEDS ORDERED: IV NS 0.9% 500 ML IV ONE (08:17)
[2016-10-08] MEDS ORDERED: BUMETANIDE INJ 8 MG in IV NS 0.9% 48 ML IV ONE (08:30)
[2016-10-08] MEDS: Z GUARD REMEDY 2 OZ OINT TP SCH (08:52)
[2016-10-08] MEDS ORDERED: SECONDARY IV SET 1 EA INFUS.SET MC ONE (08:53)
[2016-10-08] MEDS ORDERED: IV SET PRIMARY PUMP SET 1 EA INFUS.SET MC ONE (08:53)
[2016-10-08] MEDS: DAKINS HALF STRENGTH (0.25%) 480 ML BOTTLE TOP SCH (08:53)
[2016-10-08] MEDS: Magnesium 1GM/D5W 100ML PREMIX 100 ML IV SCH ×2 (08:57→10:10)
[2016-10-08] MEDS: PANTOPRAZOLE 40 MG VIAL IV SCH (08:57)
--- NOTE | 2016-10-08 09:27 | NUR ---
DIRECTOR STAFFING RN ENCOURAGED THE PATIENT TO EAT MORE. RN ENCOURAGED THE PATIENT TO USE INCENTIVE SPIROMETRY.
[2016-10-08] MEDS ORDERED: TPN BAG #11 IV PRN ×6 (10:15)
[2016-10-08] MEDS ORDERED: IV FILTER 5 MICRON 1 EA INFUS.SET MC ONE (11:05)
--- NOTE | 2016-10-08 11:14 | NUR ---
FABRIC CUTTER PATIENT NOW READY FOR WOUND VAC THERAPY PER SURGEON. WOUND CLEANSED WITH NS, PAT DRY, BLACK GRANUFOAM PLACED IN THE ABDOMINAL WOUND, 3 PIECES, SKIN PREP TO THE OUTSIDE EDGES OF THE WOUND, VAC DRAPE APPLIED, TRAC PAD APPLIED, VAC THERAPY ON CONTINUOUS AT 125MMHG WITH GOOD SEAL, NO LEAKS AND NO BLOCKAGE NOTED. VAC DEVICE WORKING WELL AT PRESCIRBED SETTINGS. THE ABDOMINAL WOUND MEASURES 25CM X 11CM X 11CM WITH 90% PINK/RED GRANULATION TISSUE WITH 10% NECROSIS WHICH IS YELLOW IN COLOR. THERE IS NO ODOR NOTED. SMALL AMOUNTS OF SEROUS DRAINAGE NOTED TO THE REMOVED DRESSING. PATIENT WAS GIVEN PRE-MEDICATION BY ICU NURSE IV (SEE ICU MEDICATION SHEET AND DOCUMENTATION) PRIOR TO THE PROCEDURE AND TOLERATED THE DRESSING PROCEDURE VERY WELL. WILL CHANGE DRESSINGS Q -- AND PRN SOILING/DISLODGEMENT. ALL DISCUSSED WITH NURSING AND THE PATIENT AT THE BEDSIDE WITH GOOD UNDERSTANDING VERBALIZED BY PATIENT.
[2016-10-08] MEDS: VANCOMYCIN 1 GM in IV D5W 250 ML IV SCH (11:15)
[2016-10-08] MEDS: INSULIN REGULAR, HUMAN 100 UNIT/ML 3 ML VIAL SQ PRN (11:23)
[2016-10-08 11:59] LABS: APPEARANCE,URINE CLEAR (CLEAR); BILIRUBIN,URINE NEGATIVE (NEGATIVE); BLOOD, URINE NEGATIVE Ery/uL (NEGATIVE); COLOR,URINE YELLOW (YELLOW); KETONES,URINE NEGATIVE (NEGATIVE); LEUKOCYTE ESTERASE ,URINE NEGATIVE (NEGATIVE); NITRITE, URINE NEGATIVE (NEGATIVE); PROTEIN,URINE NEGATIVE (NEGATIVE); UGLUCOSE NEGATIVE (NEGATIVE); UROBILINOGEN,URINE 0.2 EU/dL (0.2)
--- NOTE | 2016-10-08 12:45 | NUR ---
ZONING ADMINISTRATOR PATIENT IN BED. RESTING COMFORTABLY. NO DISTRESS. EVEN NON LABORED BREATHING PATTERN. RN ENCOURAGED THE PATIENT TO USE THE INCENTIVE SPIROMETRY. MODERATE COMPLIANCE. AFEBRILE. SINUS TACH ON MONITOR. STABLE BP. TPN AND BUMEX DRIP RUNNING. WOUND VAC WITHOUT COMPLICATIONS. TURNED AND REPOSITIONED FOR COMFORT AND WOUND PREVENTION. WILL CONTINUE TO MONITOR AND PROVIDE CARE.
[2016-10-08] MEDS ORDERED: TPN BAG #13 IV PRN ×5 (14:00)
[2016-10-08] MEDS ORDERED: TPN BAG #12 IV PRN ×7 (14:00)
--- NOTE | 2016-10-08 15:10 | NUR ---
TUBULAR SPLITTING MACHINE TENDER WITH PHYSICAL THERAPY, PATIENT SAT AT THE EDGE OF THE BED, DANGLED HER FEET FOR A FEW MINUTES. NO ACUTE DISTRESS NOTED DURING THERAPY.
[2016-10-08] MEDS: LEVOFLOXACIN 500 MG /D5W 100ML 500 MG in PREMIX 1 EA IV SCH (15:11)
[2016-10-08] MEDS: MICAFUNGIN SODIUM 100 MG in IV NS 0.9% 100 ML IV SCH (17:11)
--- NOTE | 2016-10-08 18:25 | NUR ---
CHAPERON PATIENT IN BED. RESTING COMFORTABLY. NO DISTRESS. AFEBRILE. SINUS TACH ON MONITOR. TURNED AND REPOSITIONED FOR COMFORT AND WOUND PREVENTION. WILL CONTINUE TO MONITOR AND PROVIDE CARE.
[2016-10-08] MEDS: BOOST FOOD- BERRY 237 ML BOX PO SCH (18:36)
--- NOTE | 2016-10-08 19:31 | NUR ---
PROJECT ENGINEERING DIRECTOR CALLED AND ASKED TO BRING PATIENT'S HOME MEDICATIONS PER SURGEON REQUEST TO RESTART THE PATIENT ON HOME MEDS.
[2016-10-08] MEDS ORDERED: LAMO200T39 PO (20:27)
[2016-10-08] MEDS ORDERED: URSO300C12 PO (20:29)
[2016-10-08] MEDS ORDERED: BENA40TA2 PO (20:30)
[2016-10-08] MEDS ORDERED: [UNRECOGNIZED DRUG - CODE] PO (20:33)
[2016-10-08] MEDS ORDERED: HYDR25TA4 PO (21:02)
[2016-10-08] MEDS ORDERED: LMFO1TAB PO (21:02)
[2016-10-08] MEDS ORDERED: ERGO400C PO (21:02)
[2016-10-08] MEDS ORDERED: LORA0.5T PO (21:03)
[2016-10-08] MEDS ORDERED: CETI-102 PO (21:04)
[2016-10-08] MEDS ORDERED: CARV20CP PO (21:05)
[2016-10-08] MEDS ORDERED: EZET10TA PO (21:05)
[2016-10-09] VITALS (24 sets, daily range): BP systolic 87–140; BP diastolic 36–73
--- NOTE | 2016-10-09 | NUR ---
FLAKEBOARD LINE TENDER - REC'D PT. A&O X 4. HERE ASSESSING PT. BROUGHT IN PT'S HOME MEDS. FLAME CUTTER - JASKARAN DID MED. RECON. PT.REC'D MORPHINE SULFATE 2 MG SLOW IVP AT 20:42 FOR GEN. DISCOMFORT. WOUND VAC TO ABD.SURGICAL SITE IS CDI. CVP ATTACHED TO RIJ-TLC IS READING 8-11. CVP IS ZEROED & CALIBRATED Q 4HRS. TPN IS INFUSING AT 75CC/HR. THIS IS BAG #11. VSS. AFEBRILE. PT.IS ON O2/4L/NC & IS SATTING >95%. PT.IS ON FLIQ DIET. 2 YANIRA'S TO ABD. ARE COMPRESSED TO BULB SX. RUIZ CATH TO GRAVITY. PT.IS OBESE, BUT CAN MOVE BUE'S WELL. BANDABE TO LEFT KNEE IS CDI FROM PREVIOUS TOTAL KNEE REPLACEMENT PRIOR TO ADMISSION. CONT. POC.
[2016-10-09] MEDS: INSULIN REGULAR, HUMAN 100 UNIT/ML 3 ML VIAL SQ PRN ×4 (00:24→23:59)
[2016-10-09] MEDS: BLOOD SUGAR DIAGNOSTIC 1 EACH STRIP IN SCH ×5 (00:27→23:57)
[2016-10-09] MEDS ORDERED: FILTER SET SAVER IV SET 1 EA INFUS.SET MC ONE ×2 (01:31→14:51)
[2016-10-09] MEDS ORDERED: IV SET PRIMARY PUMP SET 1 EA INFUS.SET MC ONE ×2 (01:32→14:51)
[2016-10-09] MEDS: METRONIDAZOLE 500MG/ NS 100ML 500 MG in PREMIX 1 EA IV SCH ×3 (04:25→20:40)
[2016-10-09] MEDS: METOCLOPRAMIDE HCL 10 MG/2 ML VIAL IV SCH ×4 (04:25→23:01)
[2016-10-09 04:33] LABS: BASOPHILS % (AUTO) 0.2 % (0.0-2.0); EOSINOPHILS # (AUTO) 0.1 /CMM (0.0-0.7); EOSINOPHILS % (AUTO) 0.8 % (0.0-6.0); HEMATOCRIT 26 % (33-45); HEMOGLOBIN 8.3 g/dL (11.5-14.8); MEAN CORPUSCULAR HEMOGLOBIN 28 PG (26.0-33.0); MEAN CORPUSCULAR HGB CONC 32 g/dl (31.0-36.0); MEAN CORPUSCULAR VOLUME 88 fL (82-100); MONOCYTES # (AUTO) 1.8 /CMM (0.1-1.30); MONOCYTES % (AUTO) 9.8 % (2.0-12.0); NEUTROPHILS # (AUTO) 14.3 /CMM (1.8-8.9); NEUTROPHILS % (AUTO) 78.2 % (43.0-81.0); PLATELET COUNT (AUTO) 547 /CMM (150-450); RED BLOOD CELL COUNT(AUTO) 2.92 MIL/uL (4.0-5.2); WHITE BLOOD COUNT (AUTO) 18.3 K/uL (4.3-11.0)
[2016-10-09 04:49] LABS: CREATININE 0.7 mg/dL (0.6-1.3); MAGNESIUM 1.7 mg/dL (1.8-2.4); POTASSIUM 3.6 mmol/L (3.5-5.1)
[2016-10-09 05:18] LABS: EOSINOPHILS % (MANUAL) 1 % (0-4); LYMPHOCYTES % (MANUAL) 12 % (16-48); MONOCYTES % (MANUAL) 6 % (0-11.0); NEUTROPHILS % (MANUAL) 80 (42-76); REACTIVE LYMPHOCYTES 1 % (0-0)
[2016-10-09 05:19] LABS: PLATELET ESTIMATE INCREASED
[2016-10-09 05:20] LABS: HYPOCHROMASIA 1+
[2016-10-09] MEDS: VANCOMYCIN 1 GM in IV D5W 250 ML IV SCH ×2 (05:46→23:03)
[2016-10-09] MEDS: MORPHINE SULFATE INJ 2 MG/ML DISP.SYRIN IV PRN ×4 (05:47→20:41)
[2016-10-09] MEDS: BOOST FOOD- BERRY 237 ML BOX PO SCH ×2 (08:42→17:33)
[2016-10-09] MEDS ORDERED: SECONDARY IV SET 1 EA INFUS.SET MC ONE ×3 (09:15→17:20)
[2016-10-09] MEDS: Magnesium 1GM/D5W 100ML PREMIX 100 ML IV SCH ×2 (09:22→10:27)
[2016-10-09] MEDS: PANTOPRAZOLE 40 MG TABLET.DR PO SCH (09:22)
[2016-10-09] MEDS: Z GUARD REMEDY 2 OZ OINT TP SCH (09:23)
--- NOTE | 2016-10-09 10:36 | NUR ---
BOWLING PIN SETTERS INSTALLER NOTE 0720: Received patient resting well, able to arouse easily. A/Ox4. No respiratory distress noted,on 3LPM of O2via NC tolerated well. No c/o any discomfort at this time. SR 90's on the monitor. Able to use IS, will encourage to do q2 while awake. With RIJ TLC intact, TPN infusing as ordered, also connected to CVP reading 7 at this time.. With right abdomen 2JP drains intact. With medial abdomen SP Sx site on wound vac, noted with serosanguineous drainage noted. Mckeon cath intact, noted with whitney colored urine drained to BSD. S/E by Dr. Persaud, with order for Mg 2 bags and ok to transfer to [facility], made CN aware. 0830: Noted patient with poor appetite, encouraged to drink boost. 0930: S/E by Dr. Franco, no new order at this time. S/E by Dr. Mancera, cultures still pending. 1030: S/E by PT, able to sit on the edge of the bed for 10min, per PT, better than yesterday,premedicated patient with Morphine, patient tolerated therapy well. With abdominal binder on while on PT.
[2016-10-09] MEDS ORDERED: Magnesium 1GM/D5W 100ML PREMIX 100 ML IV SCH (12:00)
[2016-10-09] MEDS ORDERED: TPN BAG #15 IV PRN ×20 (15:00→16:00)
[2016-10-09] MEDS ORDERED: SODIUM CHLORIDE IV PRN ×5 (15:00)
[2016-10-09] MEDS ORDERED: TPN BAG #14 IV PRN ×8 (15:00)
[2016-10-09] MEDS ORDERED: TPN ADDITIVES IV PRN ×5 (15:00)
[2016-10-09] MEDS ORDERED: POTASSIUM CHLORIDE IV PRN ×5 (15:00)
[2016-10-09] MEDS ORDERED: [UNRECOGNIZED DRUG - OTHER] IV PRN ×5 (15:00)
[2016-10-09] MEDS: LEVOFLOXACIN 500 MG /D5W 100ML 500 MG in PREMIX 1 EA IV SCH (15:05)
[2016-10-09] MEDS: MICAFUNGIN SODIUM 100 MG in IV NS 0.9% 100 ML IV SCH (17:21)
--- NOTE | 2016-10-09 20:00 | NUR ---
HOTEL AND DINING ROOM CASHIER - NOTES - PT RECEIVED IN BED, AWAKE ALERT ORIENTED X4, PT HAS SOME ABD PAIN. PT IS IN SR/ST 90S-100S, BP WNL. PT IS ON 4L NC TOLERATING WELL 02SAT 99%, PT ENCOURAGED TO USE INCENTIVE SPIROMETER Q2H. PT IS ON FULL LIQUID DIET PT WAS ABLE TO EAT JELLO WELL, PT IS ON TPN VIA RIJ TLC, ACCUCHECK Q6. PT HAS F/C DRAINING ADEQUATE URINE. PT HAS MID ABDOMEN INCISION AND LEFT KNEE SX INCISION. VSS, NAD, WILL CONTINUE TO MONITOR
[2016-10-09] MEDS ORDERED: POTASSIUM CL. PREMIX PERIPHER. 50 ML IV SCH (23:00)
[2016-10-10] VITALS (13 sets, daily range): BP systolic 60–136; BP diastolic 52–79
[2016-10-10] MEDS: MORPHINE SULFATE INJ 2 MG/ML DISP.SYRIN IV PRN ×5 (01:01→20:04)
[2016-10-10 04:29] LABS: BASOPHILS % (AUTO) 0.1 % (0.0-2.0); EOSINOPHILS # (AUTO) 0.2 /CMM (0.0-0.7); EOSINOPHILS % (AUTO) 1.2 % (0.0-6.0); HEMATOCRIT 25 % (33-45); HEMOGLOBIN 8.3 g/dL (11.5-14.8); LYMPHOCYTES # (AUTO) 1.8 /CMM (0.8-4.8); LYMPHOCYTES % (AUTO) 9.5 % (20.0-44.0); MEAN CORPUSCULAR HEMOGLOBIN 29 PG (26.0-33.0); MEAN CORPUSCULAR HGB CONC 33 g/dl (31.0-36.0); MEAN CORPUSCULAR VOLUME 88 fL (82-100); MONOCYTES # (AUTO) 2.1 /CMM (0.1-1.30); MONOCYTES % (AUTO) 10.9 % (2.0-12.0); NEUTROPHILS # (AUTO) 14.9 /CMM (1.8-8.9); NEUTROPHILS % (AUTO) 78.3 % (43.0-81.0); PLATELET COUNT (AUTO) 570 /CMM (150-450); RED BLOOD CELL COUNT(AUTO) 2.84 MIL/uL (4.0-5.2); WHITE BLOOD COUNT (AUTO) 19.1 K/uL (4.3-11.0)
[2016-10-10 04:45] LABS: CREATININE 0.6 mg/dL (0.6-1.3); PHOSPHORUS 3.8 mg/dL (2.5-4.9); POTASSIUM 4.3 mmol/L (3.5-5.1)
[2016-10-10] MEDS: METOCLOPRAMIDE HCL 10 MG/2 ML VIAL IV SCH ×4 (05:05→23:22)
[2016-10-10] MEDS: METRONIDAZOLE 500MG/ NS 100ML 500 MG in PREMIX 1 EA IV SCH ×3 (05:05→20:10)
[2016-10-10] MEDS ORDERED: FILTER SET SAVER IV SET 1 EA INFUS.SET MC ONE ×2 (05:17→20:31)
[2016-10-10] MEDS ORDERED: IV SET PRIMARY PUMP SET 1 EA INFUS.SET MC ONE ×2 (05:17→20:30)
[2016-10-10] MEDS: BLOOD SUGAR DIAGNOSTIC 1 EACH STRIP IN SCH ×4 (06:13→23:22)
[2016-10-10] MEDS: INSULIN REGULAR, HUMAN 100 UNIT/ML 3 ML VIAL SQ PRN ×3 (06:14→23:28)
[2016-10-10] MEDS ORDERED: BUMETANIDE INJ 16 MG in IV NS 0.9% 16 ML IV ONE (06:30)
[2016-10-10] MEDS: BOOST FOOD- BERRY 237 ML BOX PO SCH ×2 (07:56→16:16)
--- NOTE | 2016-10-10 08:05 | NUR ---
BOX BLANK MACHINE OPERATOR PATIENT GIVEN PRE-MEDICATION FOR PAIN PRIOR TO VAC DRESSING CHANGE PROCEDURE BY STAFF GROUNDS CLEANER. VAC DRESSING REMOVED, 3 PIECES OF BLACK GRANUFOAM REMOVED, WOUND CLEANSED WITH NS, PAT DRY, BLACK GRANUFOAM APPLIED TO THE WOUND BED (4 PIECES TOTAL) AND INTO THE DEPTH OF THE WOUND, SKIN PREP TO ALL JULIA WOUND EDGES WITH VAC DRAPE, ALL COVERED WITH VAC DRAPE, TRAC PAD APPLIED AND VAC THERAPY RESTARTED AT CONTINUOUS SETTING AT 125MMHG. PATIENT TOLERATED THE PROCEDURE WELL. WOUND MEASURED 25CM X 11CM X 11CM. THERE IS 80% RED GRANULATION,WITH APPROX 20% NECROTIC TISSUE. THERE WAS 350CC'S OF DRAINAGE IN THE CANNISTER WHICH WAS NOTED TO BE LIGHT SERO SANGUINOUS. DRAINAGE IS MODERATE. WOUND CARE WILL CONTINUE TO FOLLOW FOR VAC DRESSING CHANGES. Addendum: 10/10/16 at 0830 by BRADLEY HOWARD WNDNU BOX BLANK MACHINE OPERATOR CONTINUATION OF NOTE VAC FUNCTIONING WELL WITH NO LEAKS NOTED. PATIENT NOW TRANSFERRED TO [facility]. PHOTOS TAKEN OF THE WOUND AND PLACED IN CHART PRIOR TO THE DRESSING CHANGE.
--- NOTE | 2016-10-10 08:33 | NUR ---
FACILITY SERVICE MANAGER NOTE 0720: Received patient awake, A/Ox4. No respiratory distress noted at this time, tolerated 4LPM of O2 via NC. Morphine given for discomfort and will have abdominal wound vac dressing change. With RIJ TLC intact., on TPN infusing as ordered. With Mckeon cath intact, noted with whitney colored urine drained to BSD. With abdominal wound vac,noted with serosanguineous drainage. With right abdomen 2 YANIRA drains noted with serous drainage. With left abdomen colostomy, noted with soft greenish stool. With abdominal binder on. 0740: Wound nurses at bedside for mid abdomen wound vac dressing change. 0810: Patient tolerated dressing change, transferred patient via bed to [facility] and using ACLS protocol. No any changes during the transfer. Endorsed care to Lonnie WAGONER.
[2016-10-10] MEDS: Z GUARD REMEDY 2 OZ OINT TP SCH (08:34)
[2016-10-10] MEDS: PANTOPRAZOLE 40 MG TABLET.DR PO SCH (08:34)
--- NOTE | 2016-10-10 08:35 | NUR ---
[facility]/RN - Notes Received pt from ICU. Pt awake aox4. No acute distress. Respirations are even and unlabored. States that pain level is 5/10. On tele ST 103. Abdominal binder in place, wound vac to mid abdomen intact. 2 YANIRA drains noted with serous drainage. Colostomy on left side abdomen with brownish greenish stool. Mckeon catheter intact draining urine to gravity. RIJ TLC in place, TPN and Bumex drip infusing. Safety and comfort measures in place. Oriented pt to room. Will continue to monitor pt closely.
[2016-10-10] MEDS ORDERED: CT SWABBABLE VALVE TRANS SET 1 EA INFUS.SET MC ONE (11:14)
[2016-10-10] MEDS ORDERED: IV NS 0.9% 250 ML IV ONE (11:14)
[2016-10-10] MEDS ORDERED: IOHEXOL-300 100 ML VIAL IV ONE (11:15)
--- NOTE | 2016-10-10 11:42 | NUR ---
[facility]/RN - Notes Pt taken to radiology for CT scan and returned to room. Pt complains of abdominal pain, administered Morphine 2mg IVP as ordered for PRN pain. Comfort measures rendered. Will reassess pain accordingly.
[2016-10-10] MEDS: LEVOFLOXACIN 500 MG /D5W 100ML 500 MG in PREMIX 1 EA IV SCH (14:38)
[2016-10-10] MEDS: MICAFUNGIN SODIUM 100 MG in IV NS 0.9% 100 ML IV SCH (16:16)
[2016-10-10] MEDS: IV NS 0.9% 250 ML IV PRN (16:16)
--- NOTE | 2016-10-10 16:21 | NUR ---
[facility]/RN - Notes Pt complains of abdominal pain on pain scale 8 out of 10. Administered Morphine 2mg IVP as ordered for PRN pain. Comfort measures in place. Will reassess pain accordingly.
[2016-10-10] MEDS: VANCOMYCIN 1 GM in IV D5W 250 ML IV SCH (17:17)
--- NOTE | 2016-10-10 18:45 | NUR ---
[facility]/RN - Closing Notes PT at bedside for therapy. Pt in no acute distress. All needs met and attended. Safety and comfort measures in place. Will endorse to night nurse for continuity of care.
--- NOTE | 2016-10-10 19:00 | NUR ---
RN- PT IN THE STATION PACING, DEMANDING FOR PAIN MEDICATION. STATES "I NEED TWO ASPIRINS". WHEN ASKED WHERE PAIN IS, PT REPEATS DEMANDS. CALMING MEASURES RENDERED. INFORMED PT THAT HE IS STILL BEING PROCESSED W/ ADMISSION AND MEDICATIONS ARE NOT YET UPDATED W/ SYSTEM. CALLED ADMITTING, ADMITTING STATED THAT "WE ARE WORKING ON IT". CALLED ROADS AND PARKING LOTS SWEEPER OPERATOR AND INFORMED ABOUT SITUATION. ORDERS, PER AM NURSE, WERE FAXED TO PHARMACY ALREADY. UNABLE TO PULL PT'S INFORMATION IN COMPUTER AT THIS TIME. APOLOGIZED TO PT AND REQUESTED PT TO [facility] WAIT IN BED. Addendum: 10/10/16 at 2201 by LASHONDA BORGES RN PLEASE DISREGARD NOTE. INTENDED FOR DIFFERENT PATIENT.USER ERROR
[2016-10-10] MEDS ORDERED: FLUCONAZOLE IN NS 200 MG in PREMIX 1 EA IV SCH ×2 (21:30)
[2016-10-10] MEDS ORDERED: FLUCONAZOLE IN NS 100 ML IV ONE (21:54)
[2016-10-11] VITALS (10 sets, daily range): BP systolic 94–137; BP diastolic 37–83
[2016-10-11] MEDS: MORPHINE SULFATE INJ 2 MG/ML DISP.SYRIN IV PRN ×3 (00:04→22:28)
[2016-10-11] MEDS: BLOOD SUGAR DIAGNOSTIC 1 EACH STRIP IN SCH ×4 (05:29→23:43)
[2016-10-11] MEDS: METRONIDAZOLE 500MG/ NS 100ML 500 MG in PREMIX 1 EA IV SCH ×3 (05:31→21:06)
[2016-10-11] MEDS: METOCLOPRAMIDE HCL 10 MG/2 ML VIAL IV SCH ×4 (05:31→22:27)
[2016-10-11] MEDS: ONDANSETRON HCL/PF 4 MG/2 ML VIAL IVP PRN (06:20)
--- NOTE | 2016-10-11 06:39 | NUR ---
RN- PT CO NAUSEA, NO EMESIS NOTED. PRN ZOFRAN 4 MG GIVEN IVP FOR NAUSEA. TOLERATED WELL. NO S/SX OF ADVERSE REACTION NOTED. ALL NEEDS ATTENDED AND MET. WILL ENDORSE TO AM SHIFT FOR CONTINUATION OF CARE.
[2016-10-11 07:06] LABS: CALCIUM, SERUM 8.2 mg/dL (8.5-10.1); CREATININE 0.6 mg/dL (0.6-1.3); MAGNESIUM 1.7 mg/dL (1.8-2.4); PHOSPHORUS 4.5 mg/dL (2.5-4.9); POTASSIUM 3.9 mmol/L (3.5-5.1)
--- NOTE | 2016-10-11 07:30 | NUR ---
[facility]/RN: PT RECEIVED IN BED, ON O2 4L/MIN VIA NC, BREATHING EVEN AND UNLABORED, NO S/S DISTRESS NOTED. R IJ TLC FLUSHED, PATENT AND INTACT WITH GOOD BLOOD RETURN. AWAITING ORDERS FOR PICC LINE REPLACEMENT PER ID RECOMMENDATION PRIOR TO DC OF LINE. FC DRAINING CLEAR YELLOW URINE TO GRAVITY. PT DENIES PAIN AND DISCOMFORT TO ABD. WOUND VAC SET TO PRESCRIBED SETTINGS; NO AIR LEAKS NOTED, YANIRA DRAIN X2 WITH NO OUTPUT NOTED. ALARM SOUNDS AUDIBLE. SAFETY MEASURES IN PLACE. WILL CONT TO MONITOR PT.
[2016-10-11] MEDS: BOOST FOOD- BERRY 237 ML BOX PO SCH ×2 (08:00→16:15)
[2016-10-11 08:05] LABS: BASOPHILS # (AUTO) 0.1 /CMM (0.0-0.2); BASOPHILS % (AUTO) 0.4 % (0.0-2.0); EOSINOPHILS # (AUTO) 0.2 /CMM (0.0-0.7); HEMATOCRIT 24 % (33-45); HEMOGLOBIN 7.9 g/dL (11.5-14.8); LYMPHOCYTES # (AUTO) 1.6 /CMM (0.8-4.8); LYMPHOCYTES % (AUTO) 9.4 % (20.0-44.0); MEAN CORPUSCULAR HEMOGLOBIN 29 PG (26.0-33.0); MEAN CORPUSCULAR HGB CONC 33 g/dl (31.0-36.0); MEAN CORPUSCULAR VOLUME 87 fL (82-100); MONOCYTES # (AUTO) 1.9 /CMM (0.1-1.30); MONOCYTES % (AUTO) 11.1 % (2.0-12.0); NEUTROPHILS # (AUTO) 13.6 /CMM (1.8-8.9); NEUTROPHILS % (AUTO) 78.1 % (43.0-81.0); PLATELET COUNT (AUTO) 531 /CMM (150-450); RDW COEFFICIENT OF VARIATION 16.1 (11.5-15.0); RED BLOOD CELL COUNT(AUTO) 2.74 MIL/uL (4.0-5.2); WHITE BLOOD COUNT (AUTO) 17.5 K/uL (4.3-11.0)
[2016-10-11] MEDS: PANTOPRAZOLE 40 MG TABLET.DR PO SCH (08:14)
[2016-10-11] MEDS: Z GUARD REMEDY 2 OZ OINT TP SCH (08:51)
[2016-10-11] MEDS ORDERED: NALOXONE PREFILLED SYRINGE 2 MG/2 ML SYRINGE IV ONE (09:30)
[2016-10-11] MEDS ORDERED: NALOXONE HCL 0.4 MG/ML AMPUL IV PRN (09:30)
[2016-10-11] MEDS ORDERED: FENTANYL PF 100MCG/2ML AMPUL IV PRN (09:30)
[2016-10-11] MEDS ORDERED: MIDAZOLAM HCL 5MG/ML VIAL 25 MG/5 ML VIAL IV PRN (09:30)
[2016-10-11] MEDS ORDERED: MIDAZOLAM HCL 2 MG/2ML VIAL IV PRN (09:30)
[2016-10-11] MEDS ORDERED: NALOXONE PREFILLED SYRINGE 2 MG/2 ML SYRINGE IV PRN (09:30)
[2016-10-11] MEDS ORDERED: FENTANYL PF 250MCG/5ML AMPUL IV PRN (09:30)
[2016-10-11 10:10] LABS: INR 1.23 (0.87-1.13); PROTHROMBIN TIME 13.3 SECS (9.5-12.7)
--- NOTE | 2016-10-11 10:40 | NUR ---
RN/NOTE: Pt sent to Radiology in stable condition, no distress noted. All consents signed. Pt in agreement with POC.
[2016-10-11] MEDS ORDERED: LIDOCAINE HCL/PF 1% 30 ML SDV ONE (11:02)
--- NOTE | 2016-10-11 11:25 | NUR ---
RN/NOTE: Dr. Dotson updated on pt status, abn labs, increased R pleural effusion from 10/11/16. Pt undergoing CT and US guided drainage of hepatic abscess. Informed MD of Dr. Cárdenas's plan - D/C TPN; place on full liquid diet. MD in agreement. Per ok to "D/C the TLC and replace with PICC line." Noted and carried out.
[2016-10-11] MEDS ORDERED: BOOST PLUS FOOD-VANILLA 237 ML BOX PO SCH (12:00)
[2016-10-11] MEDS ORDERED: SECONDARY IV SET 1 EA INFUS.SET MC ONE (13:13)
[2016-10-11 13:15] LABS: RETICULOCYTE COUNT 3.3 % (0.6-2.5)
--- NOTE | 2016-10-11 13:20 | NUR ---
[facility]/RN: PT RECEIVED FROM PROCEDURE; NEW R LQ DRAIN PLACED, DRESSING C/D/I. VS WNL. DENIES PAIN AND DISCOMFORT. NEW ORDERS NOTED AND CARRIED OUT. LATE ADMIN FOR MEDS - PT OFF UNIT FOR PROCEDURE. WILL ADMINISTER ORDERED.
[2016-10-11] MEDS: VANCOMYCIN 1 GM in IV D5W 250 ML IV SCH (13:26)
[2016-10-11] MEDS: Magnesium 1GM/D5W 100ML PREMIX 100 ML IV SCH ×3 (13:26→15:34)
[2016-10-11] MEDS ORDERED: IV SET PRIMARY PUMP SET 1 EA INFUS.SET MC ONE ×2 (13:43→14:18)
[2016-10-11 14:02] LABS: THYROID STIMULATING HORMONE 6.487 uIU/mL (0.358-3.74); URIC ACID 4.7 mg/dL (2.6-7.2)
[2016-10-11] MEDS: LEVOFLOXACIN 500 MG /D5W 100ML 500 MG in PREMIX 1 EA IV SCH (15:15)
--- NOTE | 2016-10-11 16:00 | NUR ---
[facility]/RN: PT REFUSING BED BATH AT THIS TIME. PER PT "I JUST WANT TO REST RIGHT NOW, I'LL LET YOU KNOW WHEN IM READY." WOUND VAC REMAINS SET TO ORDERED SETTINGS, NO LEAKS NOTED, YANIRA X2 IN PLACE, BULB SET TO SUCTION, RLQ PERCUTANEOUS DRAIN PATENT AND INTACT. RUIZ CATH CARE RENDERED.
[2016-10-11] MEDS: MICAFUNGIN SODIUM 100 MG in IV NS 0.9% 100 ML IV SCH (16:15)
--- NOTE | 2016-10-11 17:00 | NUR ---
[facility]/RN: DUE MEDS ADMINISTERED. EDUCATED, VERBALIZED UNDERSTANDING. R IJ TRIPLE LUMEN CATH DC'D; BLUE CATHETER TIP INTACT. PRESSURE APPLIED [id number]; EDUCATED PT, VERBALIZED UNDERSTANDING. NO MORE ACTIVE BLEEDING NOTED.
[2016-10-11] MEDS ORDERED: IV NS 0.9% 250 ML IV ONE (17:58)
[2016-10-11] MEDS ORDERED: BLOOD IV SET 1 EA INFUS.SET MC ONE (17:58)
[2016-10-11] MEDS: IV NS 0.9% 250 ML IV PRN (18:04)
--- NOTE | 2016-10-11 18:44 | NUR ---
[facility]/RN: PT RESTING COMFORTABLY IN BED, NO S/S ACUTE DISTRESS, TOLERATING ONGOING BLOOD TRANSFUSION, NO AE NOTED. BREATHING EVEN AND UNLABORED, ENCOURAGE PT TO PERFORM INCENTIVE SPIROMETRY. DINNER TOLERATED WELL, 100% CONSUMED, NO N/V NOTED. COLOSTOMY WITH SMALL AMOUNT OF SOFT FORMED GREEN STOOL. DRAINS AND DRESSINGS REMAIN C/D/I. WOUND VAC SET TO ORDERED SETTINGS. PT WATCHING TV. DENIES DISCOMFORT. WILL ENDORSE CARE TO PM RN FOR ALYCE.
--- NOTE | 2016-10-11 20:00 | NUR ---
received pt from day shift, alert, follows commands, SR, on 4L 02 sat well, lungs partially congested, some edema all extremities, wound van mid abdomen intact, [address], Davol drain intact, f/c good output, L side colostomy intact, v/s stable, no pain, pt turned and repositioned. Family at the bedside. 1 unit PRBCs transfused, v/s stable, no transfusion reactions.
[2016-10-12] VITALS: BP 127/54
[2016-10-12] MEDS ORDERED: IV NS 0.9% 250 ML IV ONE (02:46)
[2016-10-12 04:00] VITALS: BP 128/56
[2016-10-12] MEDS: METOCLOPRAMIDE HCL 10 MG/2 ML VIAL IV SCH ×4 (04:07→23:35)
[2016-10-12] MEDS: METRONIDAZOLE 500MG/ NS 100ML 500 MG in PREMIX 1 EA IV SCH ×3 (04:07→21:11)
--- NOTE | 2016-10-12 04:28 | NUR ---
pt is resting in the bed, v/s stable, no pain, pt cleaned, changed and repositioned q2hrs.
[2016-10-12 04:37] LABS: BASOPHILS % (AUTO) 0.2 % (0.0-2.0); EOSINOPHILS # (AUTO) 0.1 /CMM (0.0-0.7); EOSINOPHILS % (AUTO) 0.6 % (0.0-6.0); HEMATOCRIT 26 % (33-45); HEMOGLOBIN 8.9 g/dL (11.5-14.8); LYMPHOCYTES # (AUTO) 1.6 /CMM (0.8-4.8); MEAN CORPUSCULAR HEMOGLOBIN 30 PG (26.0-33.0); MEAN CORPUSCULAR HGB CONC 34 g/dl (31.0-36.0); MEAN CORPUSCULAR VOLUME 88 fL (82-100); MONOCYTES # (AUTO) 1.9 /CMM (0.1-1.30); MONOCYTES % (AUTO) 11.8 % (2.0-12.0); NEUTROPHILS # (AUTO) 12.4 /CMM (1.8-8.9); NEUTROPHILS % (AUTO) 77.4 % (43.0-81.0); PLATELET COUNT (AUTO) 514 /CMM (150-450); RDW COEFFICIENT OF VARIATION 15.6 (11.5-15.0); RED BLOOD CELL COUNT(AUTO) 3.01 MIL/uL (4.0-5.2); WHITE BLOOD COUNT (AUTO) 16.1 K/uL (4.3-11.0)
[2016-10-12 04:51] LABS: CALCIUM, SERUM 8.1 mg/dL (8.5-10.1); CREATININE 0.6 mg/dL (0.6-1.3); MAGNESIUM 1.7 mg/dL (1.8-2.4); PHOSPHORUS 4.8 mg/dL (2.5-4.9); POTASSIUM 3.8 mmol/L (3.5-5.1)
[2016-10-12] MEDS: BLOOD SUGAR DIAGNOSTIC 1 EACH STRIP IN SCH ×3 (05:27→17:32)
[2016-10-12] MEDS: VANCOMYCIN 1 GM in IV D5W 250 ML IV SCH (05:27)
--- NOTE | 2016-10-12 07:15 | NUR ---
[facility]/RN: PT RECEIVED IN BED, NO S/S ACUTE DISTRESS, DENIES PAIN AND DISCOMFORT, A&OX4. NATALY ML PATENT AND INTACT, L WRIST #22 HL PATENT AND INTACT; FC DRAINING CLEAR YELLOW URINE TO GRAVITY. WOUND VAC SET TO ORDERED SETTINGS, NO LEAKS PRESENT. YANIRA X2 SET TO SUCTION, RLQ PERCUTANEOUS DRAIN WITH THICK SEROSANGUINEOUS DRAINAGE NOTED; BULB SET TO SUCTION. POC DW PT. ON BARIMAXX BED, SET TO CONTINUOUS TURNING FOR WOUND PREVENTION. ALARM SOUNDS SET AND AUDIBLE. WILL CONT TO MONITOR PT.
[2016-10-12 08:00] VITALS: BP 109/61
[2016-10-12] MEDS: PANTOPRAZOLE 40 MG TABLET.DR PO SCH (08:25)
[2016-10-12] MEDS: Z GUARD REMEDY 2 OZ OINT TP SCH (08:25)
[2016-10-12] MEDS: BOOST FOOD- BERRY 237 ML BOX PO SCH (08:25)
[2016-10-12] MEDS ORDERED: BUMETANIDE INJ 16 MG in IV NS 0.9% 16 ML IV ONE (09:30)
[2016-10-12 09:32] LABS: VIT D, 25-HYDROXY 21.4 ng/mL (30.0-100.0)
[2016-10-12] MEDS: POTASSIUM CHLORIDE 20 MEQ TAB.PRT.SR PO SCH ×3 (09:37→10:42)
[2016-10-12] MEDS: MORPHINE SULFATE INJ 2 MG/ML DISP.SYRIN IV PRN ×2 (09:52→12:52)
[2016-10-12] MEDS ORDERED: IV SET PRIMARY PUMP SET 1 EA INFUS.SET MC ONE ×2 (10:36→14:44)
--- NOTE | 2016-10-12 10:46 | NUR ---
BANBURY OPERATOR FOLLOW UP AND VAC DRESSING CHANGE PATIENT WAS GIVEN PRE-MEDICATION BY GAS TECHNICIAN PRIOR TO THIS PROCEDURE. SEE MEDICATION SHEET. VAC DRESSING REMOVED, 4 PIECES OF BLACK GRANUFOAM REMOVED, WOUND CLEANSED WITH NS, PAT DRY, APPLY SKIN PREP TO OUTSIDE EDGES OF THE WOUND, PHOTO TAKES, VAC DRAPE PLACED TO THE OUTER EDGES OF THE WOUND FOR PROTECTION, BLACK GRANUFOAM PLACED INTO THE WOUND TO THE DEPTH, USING 3 PIECES TOTAL, THEN COVERED WITH VAC DRAPE, TRAC PAD APPLIED AND VAC ON CONTINUOUS AT 125MMHG WITH GOOD SEAL, NO LEAK NOTED AND VAC FUNCTIONING WELL AT THIS TIME. THERE WAS 300CC' OF PINK SEROUS DRAINAGE IN THE CANISTER FROM THE LAST DRESSING CHANGE. THERE WAS NO ODOR NOTED. THE WOUND MEASURED 24CM X 11CM X 11CM WITH 95% GRANULATION TISSUE AND 5% YELLOW SLOUGH NOTED TO THE WOUND BED. PATIENT TOLERATED THE PROCEDURE WELL. WOUND CARE WILL CONTINUE TO FOLLOW AND MONITOR WOUND PROGRESS. PATIENT HAD CT GUIDED DRAINAGE OF HEPATIC ABSCESS YESTERDAY, DRAIN PRESENT AND DRAINING. ID IN TO SEE PATIENT.
--- NOTE | 2016-10-12 11:07 | NUR ---
MARKET MASTER WOULD RECOMMEND OVER HEAD BED TRAPEZE TO ASSIST PATIENT WITH MOVEMENT AND REPOSITIONING. PATIENT ABLE TO USE BILATERAL UPPER EXTREMITIES WELL. CALL PLACED TO SURGEON TO SEE IF WE CAN ORDER. MSG LEFT, WILL AWAIT CALL BACK FROM SURGEON FOR OK.
[2016-10-12] MEDS ORDERED: SECONDARY IV SET 1 EA INFUS.SET MC ONE ×2 (11:16→12:11)
[2016-10-12] MEDS: Magnesium 1GM/D5W 100ML PREMIX 100 ML IV SCH ×2 (11:21→12:16)
[2016-10-12 12:00] VITALS: BP 117/43
[2016-10-12] MEDS ORDERED: Magnesium 1GM/D5W 100ML PREMIX 100 ML IV SCH ×2 (13:00)
[2016-10-12] MEDS ORDERED: diphenhydrAMINE HCL 50 MG/ML VIAL IV PRN (13:30)
--- NOTE | 2016-10-12 13:30 | NUR ---
[facility]/RN: PT CO 04/30 ABD PAIN; PRN MORPHINE 2 MG IV ADMINISTERED ORDERED WITH LITTLE TO NO RELIEF. PROVIDED HOT PACK. DR POWERS AT THE BEDSIDE. UPDATED ON PT CO "HORRIBLE CRAMPS AND PAIN" TO LUQ NEAR COLOSTOMY SITE. PER MD "LET'S HOLD OFF AN US FOR NOW, WE'LL INCREASE YOUR PAIN MEDS AND GO FROM THERE." ABN LABS AND POOR PO INTAKE DW . KEEP ON FULL LIQUID DIET FOR NOW.
[2016-10-12] MEDS: MORPHINE SULFATE INJ 4 MG/ML DISP.SYRIN IV PRN ×2 (14:01→20:01)
[2016-10-12] MEDS: LEVOFLOXACIN 500 MG /D5W 100ML 500 MG in PREMIX 1 EA IV SCH (14:48)
[2016-10-12] MEDS: SOD FERRIC GLUC 125 MG in IV NS 0.9% 100 ML IV SCH (14:48)
--- NOTE | 2016-10-12 15:00 | NUR ---
[facility]/RN: PT REFUSED LAST DOSE OF PO POTASSIUM. DESPITE EDUCATION. WILL TRY AGAIN LATER. DR POWERS AWARE.
--- NOTE | 2016-10-12 15:14 | NUR ---
[facility]/RN: PAIN MANAGEMENT EFFECTIVE, PT EYES CLOSED, NO FACIAL GRIMACING NOTED. WILL CONT TO MONITOR PT
[2016-10-12 16:00] VITALS: BP 131/50
[2016-10-12] MEDS: BOOST PLUS FOOD-CHOCLATE 237 ML BOX PO SCH (17:21)
[2016-10-12] MEDS: MICAFUNGIN SODIUM 100 MG in IV NS 0.9% 100 ML IV SCH (17:32)
--- NOTE | 2016-10-12 19:13 | NUR ---
[facility]/RN: PT IN STABLE CONDITION, NO S/S ACUTE DISTRESS. CARE ENDORSED TO PM RN FOR ALYCE.
[2016-10-12 20:00] VITALS: BP 106/43
--- NOTE | 2016-10-12 20:03 | NUR ---
TELE-1/VAULT SERVICE MECHANIC DR. CAAL AT BEDSIDE TO EVAL PT. NEW ORDERS RECEIVED AND CARRIED OUT. WILL CONTINUE TO MONITOR.
[2016-10-12 20:29] LABS: BASOPHILS # (AUTO) 0.1 /CMM (0.0-0.2); BASOPHILS % (AUTO) 0.5 % (0.0-2.0); EOSINOPHILS # (AUTO) 0.2 /CMM (0.0-0.7); EOSINOPHILS % (AUTO) 1.1 % (0.0-6.0); HEMATOCRIT 29 % (33-45); HEMOGLOBIN 9.7 g/dL (11.5-14.8); LYMPHOCYTES # (AUTO) 1.5 /CMM (0.8-4.8); LYMPHOCYTES % (AUTO) 8.7 % (20.0-44.0); MEAN CORPUSCULAR HEMOGLOBIN 30 PG (26.0-33.0); MEAN CORPUSCULAR HGB CONC 34 g/dl (31.0-36.0); MEAN CORPUSCULAR VOLUME 87 fL (82-100); MONOCYTES # (AUTO) 1.9 /CMM (0.1-1.30); MONOCYTES % (AUTO) 10.6 % (2.0-12.0); NEUTROPHILS # (AUTO) 13.8 /CMM (1.8-8.9); NEUTROPHILS % (AUTO) 79.1 % (43.0-81.0); PLATELET COUNT (AUTO) 503 /CMM (150-450); RDW COEFFICIENT OF VARIATION 14.4 (11.5-15.0); RED BLOOD CELL COUNT(AUTO) 3.28 MIL/uL (4.0-5.2); WHITE BLOOD COUNT (AUTO) 17.5 K/uL (4.3-11.0)
--- NOTE | 2016-10-12 20:35 | NUR ---
MED NOTE: PER PHARMACY GIVE LOVENOX 40MG Q24H FOR DVT PROPHYLAXIS.
[2016-10-12 20:38] LABS: CALCIUM, SERUM 8.1 mg/dL (8.5-10.1); CREATININE 0.6 mg/dL (0.6-1.3); POTASSIUM 3.6 mmol/L (3.5-5.1)
[2016-10-12] MEDS ORDERED: ENOXAPARIN SODIUM 30 MG/0.3 ML DISP.SYRIN SQ SCH (21:00)
[2016-10-12] MEDS: ENOXAPARIN SODIUM 40 MG/0.4 ML DISP.SYRIN SQ SCH (21:12)
[2016-10-13] VITALS: BP 126/67
[2016-10-13] MEDS: MORPHINE SULFATE INJ 4 MG/ML DISP.SYRIN IV PRN ×2 (03:37→16:00)
[2016-10-13 04:00] VITALS: BP_SYST 111; BP_SYST 128; BP_DIAS 49; BP_DIAS 64
[2016-10-13] MEDS: METOCLOPRAMIDE HCL 10 MG/2 ML VIAL IV SCH ×4 (04:24→22:05)
[2016-10-13] MEDS: METRONIDAZOLE 500MG/ NS 100ML 500 MG in PREMIX 1 EA IV SCH ×3 (04:24→20:19)
[2016-10-13] MEDS: IV NS 0.9% 250 ML IV PRN (04:41)
[2016-10-13] MEDS: VANCOMYCIN 1 GM in IV D5W 250 ML IV SCH (05:40)
[2016-10-13] MEDS: BOOST PLUS FOOD-CHOCLATE 237 ML BOX PO SCH ×2 (07:55→17:43)
[2016-10-13 07:57] LABS: BASOPHILS % (AUTO) 0.3 % (0.0-2.0); EOSINOPHILS # (AUTO) 0.2 /CMM (0.0-0.7); EOSINOPHILS % (AUTO) 1.1 % (0.0-6.0); HEMATOCRIT 27 % (33-45); HEMOGLOBIN 9.1 g/dL (11.5-14.8); LYMPHOCYTES # (AUTO) 1.7 /CMM (0.8-4.8); LYMPHOCYTES % (AUTO) 10.9 % (20.0-44.0); MEAN CORPUSCULAR HEMOGLOBIN 29 PG (26.0-33.0); MEAN CORPUSCULAR HGB CONC 33 g/dl (31.0-36.0); MEAN CORPUSCULAR VOLUME 87 fL (82-100); MONOCYTES # (AUTO) 1.7 /CMM (0.1-1.30); NEUTROPHILS # (AUTO) 11.8 /CMM (1.8-8.9); NEUTROPHILS % (AUTO) 76.7 % (43.0-81.0); PLATELET COUNT (AUTO) 520 /CMM (150-450); RDW COEFFICIENT OF VARIATION 15.9 (11.5-15.0); RED BLOOD CELL COUNT(AUTO) 3.12 MIL/uL (4.0-5.2); WHITE BLOOD COUNT (AUTO) 15.4 K/uL (4.3-11.0)
[2016-10-13 08:00] VITALS: BP 102/42
[2016-10-13] MEDS: PANTOPRAZOLE 40 MG TABLET.DR PO SCH (08:02)
[2016-10-13] MEDS: Z GUARD REMEDY 2 OZ OINT TP SCH (08:05)
[2016-10-13 08:28] LABS: ALBUMIN 1.5 g/dL (3.4-5.0); BILIRUBIN,TOTAL 0.5 mg/dL (0.2-1.0); CALCIUM, SERUM 8.3 mg/dL (8.5-10.1); CREATININE 0.8 mg/dL (0.6-1.3); MAGNESIUM 1.4 mg/dL (1.8-2.4); PHOSPHORUS 4.7 mg/dL (2.5-4.9); POTASSIUM 3.8 mmol/L (3.5-5.1); TOTAL PROTEIN, SERUM 5.7 g/dL (6.4-8.2)
--- NOTE | 2016-10-13 09:10 | NUR ---
SURGICAL SCRUB TECH NOTE Pt resting in bed. AOx4. VSS on 4L NC. Wound vac at 125mmHg cont. Accordian drain drsg CDI, minimal output. 2 YANIRA drains with minimal output. NATALY midline TKO. Colostomy patent, brown stool. Mckeon patent with whitney urine. On full liquid diet, encourage pt to eat breakfast. No s/s distress. Had CXR done. Denies pain. Will cont to monitor. Addendum: 10/13/16 at 1048 by DARNELL SANTO RN Denies n/v. DVT pumps on.
[2016-10-13] MEDS ORDERED: IV SET PRIMARY PUMP SET 1 EA INFUS.SET MC ONE ×2 (10:58→13:27)
[2016-10-13] MEDS ORDERED: SECONDARY IV SET 1 EA INFUS.SET MC ONE ×3 (10:58→16:04)
[2016-10-13] MEDS ORDERED: acetaZOLAMIDE SODIUM 500 MG/VIAL VIAL IV ONE (11:00)
[2016-10-13] MEDS: Magnesium 1GM/D5W 100ML PREMIX 100 ML IV SCH ×6 (11:20→17:42)
[2016-10-13 12:00] VITALS: BP 108/51
[2016-10-13] MEDS ORDERED: Magnesium 1GM/D5W 100ML PREMIX 100 ML IV SCH (13:30)
[2016-10-13] MEDS: SOD FERRIC GLUC 125 MG in IV NS 0.9% 100 ML IV SCH (14:58)
[2016-10-13 16:00] VITALS: BP 93/23
[2016-10-13] MEDS: LEVOFLOXACIN 500 MG /D5W 100ML 500 MG in PREMIX 1 EA IV SCH (16:01)
[2016-10-13] MEDS: MICAFUNGIN SODIUM 100 MG in IV NS 0.9% 100 ML IV SCH (17:43)
--- NOTE | 2016-10-13 18:30 | NUR ---
MOTORBOAT MECHANIC NOTE All needs met. Minimal output in colostomy, liquid stool. About 100cc output in wound vac, <15ml in myriam and accordian drains. 600cc UO in cook. 1600 BP 93/23, MD aware, cont to monitor. Morphine 4mg IV given for pain. Pt requested home medication of emsam patch, pt's brought box of patches, sent to pharmacy. 6mg Mg replacement given. Diamox x1 given. Will endorse to next RN.
--- NOTE | 2016-10-13 19:30 | NUR ---
PLATE GRAINER APPRENTICE INITIAL NOTES RECEIVED PATIENT AWAKE A/OX3, ABLE TO MAKE NEEDS KNOWN. NO RESPIRATORY DISTRESS NOTED. DENIES PAIN OR DISCOMFORT. NO RESPIRATORY DISTRESS NOTED ON 4LPMO2 VIA NC. SKIN WARM AND DRY TO TOUCH. WITH NATALY MIDLINE PATENT AND INTACT, TKO. F/C DRAINING BY GRAVITY. WITH WOUND VAC PATENT AND INTACT. YANIRA DRAINS IN PLACE. ON TELE MONITOR SINUS RHYTHM WITH INVERTED TWAVES. HOB ELEVATED. SIDE RAILS UP AND LOCKED. BED KEPT AT LOWEST POSITION. CALL LIGHT KEPT WITHIN EASY REACH. WILL CONTINUE TO MONITOR.
[2016-10-13 20:00] VITALS: BP 118/42
[2016-10-13] MEDS: SIMETHICONE 80 MG TAB.CHEW PO PRN (20:19)
[2016-10-13] MEDS: ENOXAPARIN SODIUM 40 MG/0.4 ML DISP.SYRIN SQ SCH (20:23)
[2016-10-13] MEDS: LamoTRIgine 100 MG TABLET PO SCH (22:06)
[2016-10-14] VITALS: BP 136/57
[2016-10-14 04:00] VITALS: BP 125/45
[2016-10-14] MEDS: VANCOMYCIN 1 GM in IV D5W 250 ML IV SCH (04:47)
[2016-10-14] MEDS: METRONIDAZOLE 500MG/ NS 100ML 500 MG in PREMIX 1 EA IV SCH ×3 (04:47→21:08)
[2016-10-14] MEDS: METOCLOPRAMIDE HCL 10 MG/2 ML VIAL IV SCH ×4 (04:49→23:22)
[2016-10-14] MEDS: IV NS 0.9% 250 ML IV PRN (06:06)
[2016-10-14] MEDS: MORPHINE SULFATE INJ 2 MG/ML DISP.SYRIN IV PRN ×3 (06:11→20:43)
[2016-10-14 07:12] LABS: BASOPHILS # (AUTO) 0.1 /CMM (0.0-0.2); BASOPHILS % (AUTO) 0.4 % (0.0-2.0); EOSINOPHILS # (AUTO) 0.2 /CMM (0.0-0.7); EOSINOPHILS % (AUTO) 1.2 % (0.0-6.0); HEMATOCRIT 26 % (33-45); HEMOGLOBIN 8.5 g/dL (11.5-14.8); LYMPHOCYTES # (AUTO) 1.7 /CMM (0.8-4.8); LYMPHOCYTES % (AUTO) 10.5 % (20.0-44.0); MEAN CORPUSCULAR HEMOGLOBIN 29 PG (26.0-33.0); MEAN CORPUSCULAR HGB CONC 33 g/dl (31.0-36.0); MEAN CORPUSCULAR VOLUME 88 fL (82-100); MONOCYTES # (AUTO) 1.4 /CMM (0.1-1.30); MONOCYTES % (AUTO) 9.1 % (2.0-12.0); NEUTROPHILS # (AUTO) 12.4 /CMM (1.8-8.9); NEUTROPHILS % (AUTO) 78.8 % (43.0-81.0); PLATELET COUNT (AUTO) 478 /CMM (150-450); RDW COEFFICIENT OF VARIATION 16.1 (11.5-15.0); RED BLOOD CELL COUNT(AUTO) 2.95 MIL/uL (4.0-5.2); WHITE BLOOD COUNT (AUTO) 15.7 K/uL (4.3-11.0)
--- NOTE | 2016-10-14 07:29 | NUR ---
REGISTERED NURSE CARDIOVASCULAR ICU CLOSING NOTES NO SIGNIFICANT CHANGES OVERNIGHT. ALL NEEDS ANTICIPATED AND MET. PAIN MANAGED NEEDED. ALL DUE MEDS GIVEN. PATIENT HAD MINIMAL DRAINING AT YANIRA DRAINS. SINUS RHYTHM ON TELE. NO SOB. WOUND VAC DRAINING. F/C DRAINING. KEPT CLEAN AND DRY. TURNED AND REPOSITIONED Q2 AND PRN. CALL LIGHT KEPT WITHIN EASY REACH. CONTINUITY OF CARE ENDORSED TO AM NURSE.
[2016-10-14 08:00] VITALS: BP 122/58
--- NOTE | 2016-10-14 08:00 | NUR ---
RN INITIAL NOTE PT RECEIVED IN BED RESTING COMFORTABLY. NO S/S OF PAIN OR DISCOMFORT. NO S/S OF RESPIRATORY DISTRESS OR SOB. SKIN WARM AND DRY TO TOUCH. IV SITE FLUSHED AND PATENT. SAFETY MEASURES IMPLEMENTED. CALL LIGHT WITHIN REACH. WILL CONTINUE TO MONITOR.
[2016-10-14] MEDS: BOOST PLUS FOOD-CHOCLATE 237 ML BOX PO SCH ×2 (08:22→16:40)
[2016-10-14] MEDS: SELEGILINE 6 MG/24 HR MC SCH (08:22)
[2016-10-14] MEDS: PANTOPRAZOLE 40 MG TABLET.DR PO SCH (08:23)
[2016-10-14] MEDS: Z GUARD REMEDY 2 OZ OINT TP SCH (08:23)
[2016-10-14] MEDS ORDERED: SELEGILINE 6 MG/24 HR MC SCH (09:00)
[2016-10-14 09:09] LABS: CALCIUM, SERUM 8.2 mg/dL (8.5-10.1); CREATININE 0.7 mg/dL (0.6-1.3); PHOSPHORUS 4.9 mg/dL (2.5-4.9); POTASSIUM 3.4 mmol/L (3.5-5.1)
[2016-10-14] MEDS ORDERED: POTASSIUM CHLORIDE 20 MEQ TAB.PRT.SR PO ONE (11:30)
[2016-10-14 12:00] VITALS: BP 123/67
[2016-10-14] MEDS: POTASSIUM CHLORIDE 20 MEQ TAB.PRT.SR PO SCH ×3 (12:14→16:05)
[2016-10-14] MEDS: SOD FERRIC GLUC 125 MG in IV NS 0.9% 100 ML IV SCH (14:08)
[2016-10-14] MEDS: LEVOFLOXACIN 500 MG /D5W 100ML 500 MG in PREMIX 1 EA IV SCH (15:33)
[2016-10-14 16:00] VITALS: BP 144/70
[2016-10-14] MEDS ORDERED: POTASSIUM CHLORIDE 20 MEQ TAB.PRT.SR PO SCH (16:00)
[2016-10-14] MEDS: MICAFUNGIN SODIUM 100 MG in IV NS 0.9% 100 ML IV SCH (16:10)
--- NOTE | 2016-10-14 16:11 | NUR ---
RN NOTE KDUR 3/3 DOSES GIVE 20mEq. ORDER REENTERED BY PHARMACY. ORDER FELL OUT.
[2016-10-14 20:00] VITALS: BP 130/53
--- NOTE | 2016-10-14 20:40 | NUR ---
RN NOTES RECEIVED PX FROM APRIL CHARLES RN FOR CONTINUITY OF CARE; PX AWAKE, ALERT, ORIENTED X 3, ON NC A T 3 LPM, RT UA MIDLINE AND LEFT WRIST G22 BOTH PATENT AND INTACT; WITH WOUND VAC MID ABDOMEN TO SUCTION, DRESSING CLEAN, DRY, INTACT, 2 YANIRA'S ON THE RT ABDOMEN, BOTH SECURED WITH TAPE TO THE SIDE AND TO NEG SUCTION, RIGHT UPPER ABD ACORDION TO DRAINAGE WITH NEG SUCTION; RIUZ CATH TO GRAVITY; BOTH HEELS OFF BED; REPOSITIONED PX TO THE RIGHT SIDE WITH HOB AT 30 ANGLE, ON BARIATRIC BED; COMPLAINED OF ACHING 8/10 ABD PAIN, MORPHINE GIVEN, DISCUSSED PLAN OF CARE.
[2016-10-14] MEDS: ENOXAPARIN SODIUM 40 MG/0.4 ML DISP.SYRIN SQ SCH (21:07)
[2016-10-14] MEDS: LamoTRIgine 100 MG TABLET PO SCH (21:07)
[2016-10-15] MEDS: MORPHINE SULFATE INJ 4 MG/ML DISP.SYRIN IV PRN (03:26)
[2016-10-15 04:00] VITALS: BP 123/47
[2016-10-15] MEDS: IV NS 0.9% 250 ML IV PRN (04:45)
[2016-10-15] MEDS: VANCOMYCIN 1 GM in IV D5W 250 ML IV SCH (04:45)
[2016-10-15] MEDS: METRONIDAZOLE 500MG/ NS 100ML 500 MG in PREMIX 1 EA IV SCH ×3 (04:45→21:34)
[2016-10-15] MEDS: METOCLOPRAMIDE HCL 10 MG/2 ML VIAL IV SCH ×3 (04:51→16:09)
--- NOTE | 2016-10-15 05:09 | NUR ---
NOTES BED BATH AND PERICARE RENDERED, PROVIDED ORAL CARE, RUIZ CARE; NO PRESSURE ULCER NOTED, SKIN ON THE BACK INTACT; CLEANED SURGICAL CATHETERS USING STERILE SALINE THEN PAT DRY; ALL PROCEDURES TOLERATED.
--- NOTE | 2016-10-15 06:42 | NUR ---
RN NOTES CONDITION AND NEURO STATUS UNCHANGED; DENIED PAIN, SOB, N/V; REPOSITIONED; ON NC AT 2 LPM, RESP EVEN AND UNLABORED; SKIN REMAINED INTACT, SURGICAL DRAINS REMAINED INTACT AND SECURED; PIV AND MIDLINE PATENT AND INTACT; WILL ENDORSE TO NEXT RN.
[2016-10-15 07:06] LABS: CALCIUM, SERUM 8.2 mg/dL (8.5-10.1); CREATININE 0.7 mg/dL (0.6-1.3); POTASSIUM 4.1 mmol/L (3.5-5.1)
--- NOTE | 2016-10-15 07:10 | NUR ---
RN INITIAL NOTES RECEIVED PT IN BED, ASLEEP, EASY TO AROUSE, ABLE TO MAKE NEEDS KNOWN, PT IS ON 3L NC, SATING WELL, NO S/S OF RESP. DISTRESS OR SOB NOTED AT THIS TIME, BREATHING IS UNLABORED AND EVEN, PT HAS COLOSTOMY INTACT/PATENT, NO LEAKAGE, PT HAS F/C INTACT/PATENT, DRAINING HOSEA URINE TO GRAVITY, ALL DRAINS ARE INTACT/ PATENT, DRAINING FLUIDS, PT HAS WOUND VAC IN PLACE, PT HAS MULTIPLE SKIN ISSUES NOTED, PT HAS NATALY MIDLINE, TKO, C/D/I/PATENT, FLUSHING WELL, LT WRIST #22G,SL, C/D/I/PATENT, FLUSHING WELL, NO S/S OF INFECTION/ INFILTRATION NOTED AT THIS TIME, ALL SAFETY MEASURES IN PLACE AT ALL TIMES, CALL LIGHT WITHIN EASY REACH, ALL NEEDS MET AT THIS TIME, WILL CLOSELY MONITOR PT CLOSELY
[2016-10-15 08:00] VITALS: BP 130/60
[2016-10-15 08:33] LABS: BASOPHILS % (AUTO) 0.3 % (0.0-2.0); EOSINOPHILS # (AUTO) 0.2 /CMM (0.0-0.7); EOSINOPHILS % (AUTO) 1.1 % (0.0-6.0); HEMATOCRIT 26 % (33-45); HEMOGLOBIN 8.6 g/dL (11.5-14.8); LYMPHOCYTES # (AUTO) 1.7 /CMM (0.8-4.8); LYMPHOCYTES % (AUTO) 11.1 % (20.0-44.0); MEAN CORPUSCULAR HEMOGLOBIN 29 PG (26.0-33.0); MEAN CORPUSCULAR HGB CONC 33 g/dl (31.0-36.0); MEAN CORPUSCULAR VOLUME 89 fL (82-100); MONOCYTES # (AUTO) 1.4 /CMM (0.1-1.30); MONOCYTES % (AUTO) 8.9 % (2.0-12.0); NEUTROPHILS # (AUTO) 12.3 /CMM (1.8-8.9); NEUTROPHILS % (AUTO) 78.6 % (43.0-81.0); PLATELET COUNT (AUTO) 479 /CMM (150-450); RDW COEFFICIENT OF VARIATION 16.3 (11.5-15.0); RED BLOOD CELL COUNT(AUTO) 2.95 MIL/uL (4.0-5.2); WHITE BLOOD COUNT (AUTO) 15.6 K/uL (4.3-11.0)
[2016-10-15] MEDS: BOOST PLUS FOOD-CHOCLATE 237 ML BOX PO SCH ×2 (08:41→16:10)
[2016-10-15] MEDS: SELEGILINE 6 MG/24 HR MC SCH (08:42)
[2016-10-15] MEDS: PANTOPRAZOLE 40 MG TABLET.DR PO SCH (08:42)
[2016-10-15] MEDS: Z GUARD REMEDY 2 OZ OINT TP SCH (08:43)
[2016-10-15] MEDS: MORPHINE SULFATE INJ 2 MG/ML DISP.SYRIN IV PRN ×4 (10:08→21:55)
[2016-10-15] MEDS ORDERED: DAKINS QUARTER STRENGTH (0.125%) 480 ML BOTTLE TOP PRN (11:00)
[2016-10-15] MEDS ORDERED: HYDROGEL DRESSING 90 GM TUBE TP PRN (11:00)
[2016-10-15] MEDS ORDERED: SECONDARY IV SET 1 EA INFUS.SET MC ONE (12:10)
[2016-10-15] MEDS: SOD FERRIC GLUC 125 MG in IV NS 0.9% 100 ML IV SCH (13:37)
--- NOTE | 2016-10-15 13:49 | NUR ---
ORDER BUILDER PER SURGEON NOTES, HE WOULD LIKE TO EXAMINE THE ABDOMINAL WOUND. ORDER BUILDER LEFT MESSAGE WITH DR LOJA ON [employer], THAT PATIENT WAS DUE TO HAVE HER VAC DRESSING CHANGE DONE TODAY, WE WILL AWAIT HIS VISIT SO HE CAN REMOVE THE VAC DRESSING TO EXAMINE HER ABDOMINAL WOUND. VAC DRESSING NOTED TO BE INTACT, WITH GOOD SEAL, NO LEAK, 250CC'S OF SEROUS DRNG NOTED IN CANNISTER. WE WILL PLAN ON DOING VAC DRESSING CHANGE TOMORROW UNLESS SURGEON PLACES VAC DRESSING WITH HIS VISIT. ALL DISCUSSED WITH NURSING STAFF, IF NO VAC DRESSING CHANGE BY SURGEON, NURSING HAS ORDERS TO PACK THE WOUND WITH HYDROGEL AND 1/4STRENGTH DAKINS AND COVER WITH ABD UNTIL TOMORROW WHEN WOUND NURSES WILL REPLACE WOUND VAC DRESSING.
[2016-10-15] MEDS: LEVOFLOXACIN 500 MG /D5W 100ML 500 MG in PREMIX 1 EA IV SCH (14:51)
[2016-10-15 16:00] VITALS: BP 132/58
[2016-10-15] MEDS: MICAFUNGIN SODIUM 100 MG in IV NS 0.9% 100 ML IV SCH (16:10)
--- NOTE | 2016-10-15 18:29 | NUR ---
RN NOTES PT REMAINED STABLE DURING SHIFT, ALL ORDERS CARRIED OUT, ALL MEDICATIONS GIVEN, IV C/D/I/PATENT, PT KEPT CLEAN AND DRY, ALL TREATMENTS CARRIED OUT, WOUND VAC IN PLACE, ALL DRAINS INTACT/ PATENT, DRAINING WELL, F/C DRAINING WELL TO GRAVITY, ALL SAFETY MEASURES IN PLACE AT ALL TIMES, CALL LIGHT WITHIN EASY REACH, ALL NEEDS MET AT THIS TIME, REPORT WILL BE GIVEN TO PM RN FOR ALYCE
--- NOTE | 2016-10-15 19:15 | NUR ---
RN INITIAL NOTES RECEIVED PATIENT IN BED, AWAKE AND ALERT. PATIENT ON 3LPM OF O2 VIA NC, RESPIRATION IS EVEN AND UNLABORED WITH NO DISTRESS NOTED. PATIENT IS COMFORTABLY, NO C/O PAIN AND DISCOMFORT AT THIS TIME. NOTED PATIENT WITH L MEDIAL ABDOMINAL WOUND VAC, NOTED WITH TEAR ON WOUND VAC, REINFORCED NEEDED AT THIS TIME, WILL MONITOR FOR DRAINAGE. WOUND VAC SETTINGS CHECKED. WITH 2 YANIRA DRAIN ON R UPPER AND LOWER ABDOMINAL AREA, NOTED WITH SEROUS DRAINAGE AT THIS TIME. R UPPER, LATERAL ABDOMINAL AREA WITH ACCORDION DRAIN, INTACT, WILL MONITOR FOR ANY DRAINAGE. NATALY MIDLINE, FLUSHED AND PATENT, ON TKO. L WRIST G22, FLUSHED AND PATENT, NO SIGNS OF INFILTRATION. PATIENT'S NEEDS ANTICIPATED AND MET. SAFETY AND COMFORT ENSURED. CALL LIGHT IN REACH. WILL MONITOR CLOSELY.
[2016-10-15 20:00] VITALS: BP 127/54
--- NOTE | 2016-10-15 20:00 | NUR ---
RN NOTES PATIENT'S WOUND VAC REASSESSED. SECURED INTACT SEAL. NOTED WITH MINIMAL SEROUS DRAINAGE ON WOUND VAC TUBING AT THIS TIME. WILL MONITOR OUTPUT.
[2016-10-15] MEDS: LamoTRIgine 100 MG TABLET PO SCH (21:34)
[2016-10-15] MEDS: ENOXAPARIN SODIUM 40 MG/0.4 ML DISP.SYRIN SQ SCH (21:43)
--- NOTE | 2016-10-15 22:30 | NUR ---
RN NOTES PATIENT SEEN AND EXAMINED BY DR. CAAL. NO WOUND VAC CHANGE/REMOVAL DONE BY MD. WOUND CARE NURSE MAY CHANGE THE WOUND VAC SCHEDULED. MD REQUESTING FOR THE BASE OF THE WOUND BE IRRIGATED WITH BETADINE, DILUTED WITH NS; PICTURE OF THE BASE OF THE WOUND TO BE TAKEN AND SENT TO MD FOR REASSESSMENT. WILL ENDORSE ACCORDINGLY. PATIENT UPDATED WITH PLAN OF CARE.
--- NOTE | 2016-10-15 22:58 | NUR ---
RN NOTES PATIENT WAS MEDICATED FOR ABDOMINAL PAIN, 02/28, PER PATIENT'S REQUEST AT 2200. PATIENT AT THIS TIME REPORTS RELIEF FROM PAIN, NOT IN ANY DISTRESS. SAFETY AND COMFORT ENSURED. CALL LIGHT IN REACH.
--- NOTE | 2016-10-16 | NUR ---
RN NOTE RECEIVED PT FROM [facility] FOR CONTINUITY OF CARE. PT IS IN STABLE CONDITION.
[2016-10-16] MEDS: METOCLOPRAMIDE HCL 10 MG/2 ML VIAL IV SCH ×5 (00:10→22:10)
--- NOTE | 2016-10-16 01:54 | NUR ---
RN NOTES PATIENT IN BED, SLEEPING COMFORTABLY. NOT IN ANY FORM OF DISTRESS. ENDORSED PATIENT'S CARE TO CIARAN GILL.
[2016-10-16 04:00] VITALS: BP 143/64
[2016-10-16] MEDS: MORPHINE SULFATE INJ 2 MG/ML DISP.SYRIN IV PRN ×3 (04:16→23:26)
[2016-10-16] MEDS: METRONIDAZOLE 500MG/ NS 100ML 500 MG in PREMIX 1 EA IV SCH ×3 (04:16→21:07)
[2016-10-16] MEDS ORDERED: SECONDARY IV SET 1 EA INFUS.SET MC ONE ×3 (05:32→21:07)
[2016-10-16] MEDS: VANCOMYCIN 1 GM in IV D5W 250 ML IV SCH (05:45)
[2016-10-16] MEDS: MORPHINE SULFATE INJ 4 MG/ML DISP.SYRIN IV PRN (06:23)
[2016-10-16 07:13] LABS: CALCIUM, SERUM 8.9 mg/dL (8.5-10.1); CREATININE 0.7 mg/dL (0.6-1.3); POTASSIUM 4.1 mmol/L (3.5-5.1)
--- NOTE | 2016-10-16 07:42 | NUR ---
RN CLOSING NOTE PT REMAINS IN NO ACUTE DISTRESS IN BED. PT DID NOT HAVE ANY SIGNIFICANT CHANGE IN CONDITION DURING SHIFT. WILL ENDORSE CARE TO AM RN FOR CONTINUITY OF CARE.
[2016-10-16 08:00] VITALS: BP 153/66
--- NOTE | 2016-10-16 08:00 | NUR ---
MS RN NOTE PATENT IN BED , ON ESPINO MAX V BED, ALL NEEDS ATTENDED ON3L NC, NO SOB NOTED , WITH COLOSTOMY BAG IN ,PLACE KEEP CLEAN DRY , WITH F\C TO GRAVITY WITH YELLOW COLOR URINE , WITH ABD DRESSING WITH VAC WOUND INTACT, RT UPPER ABDOMEN WITH YANIRA AND RT LOWER ABDOMEN YANIRA DRAIN AND RT WITH ACCORDION DRAIN, KEEP CLEAN DRY , RT UPPER ARM MID LINE IN PLACE NO S\S INFECTION NOTED , LT WRIST HL INTACT , BED IN ,LOWEST AND LOCKED POSITION , SEEN BY PT, ABLE TO SIT AT EDGE OF BED , ALL NEEDS ATTENDED , PLAN OF CARE DISCUSSED WITH PATIENT WILL CONT TO HARRY CLOSELY
[2016-10-16 08:37] LABS: BASOPHILS # (AUTO) 0.1 /CMM (0.0-0.2); BASOPHILS % (AUTO) 0.4 % (0.0-2.0); EOSINOPHILS # (AUTO) 0.2 /CMM (0.0-0.7); HEMATOCRIT 32 % (33-45); HEMOGLOBIN 10.7 g/dL (11.5-14.8); LYMPHOCYTES # (AUTO) 1.8 /CMM (0.8-4.8); LYMPHOCYTES % (AUTO) 9.8 % (20.0-44.0); MEAN CORPUSCULAR HEMOGLOBIN 29 PG (26.0-33.0); MEAN CORPUSCULAR HGB CONC 33 g/dl (31.0-36.0); MEAN CORPUSCULAR VOLUME 87 fL (82-100); MONOCYTES # (AUTO) 1.7 /CMM (0.1-1.30); MONOCYTES % (AUTO) 9.6 % (2.0-12.0); NEUTROPHILS # (AUTO) 14.1 /CMM (1.8-8.9); NEUTROPHILS % (AUTO) 79.2 % (43.0-81.0); PLATELET COUNT (AUTO) 475 /CMM (150-450); RDW COEFFICIENT OF VARIATION 16.4 (11.5-15.0); WHITE BLOOD COUNT (AUTO) 17.9 K/uL (4.3-11.0)
[2016-10-16] MEDS: BOOST PLUS FOOD-CHOCLATE 237 ML BOX PO SCH ×2 (09:10→17:03)
[2016-10-16] MEDS: Z GUARD REMEDY 2 OZ OINT TP SCH (09:10)
[2016-10-16] MEDS: PANTOPRAZOLE 40 MG TABLET.DR PO SCH (09:10)
[2016-10-16] MEDS: SELEGILINE 6 MG/24 HR MC SCH (09:10)
--- NOTE | 2016-10-16 11:15 | NUR ---
MS RN NOTE TRANSFERRED TO ROOM 205 REQUESTED BY PATIENT, REPORT GIVEN TP CHRISTINE WAGONER
--- NOTE | 2016-10-16 11:28 | NUR ---
BALCONY WORKER WOUND VAC DRESSING REMOVED, 3 PIECES OF BLACK GRANUFOAM REMOVED, WOUND IRRIGATED WITH 1/4 STRENGTH DAKINS SOLUTION, PHOTO TAKEN AND PLACE IN CHART, SKIN PREP TO ALL OUTSIDE EDGES OF THE WOUND, VAC DRAPE TO OUTSIDE EDGES OF THE WOUND FOR SKIN PROTECTION, BLACK GRANUFOAM APPLIED TO THE WOUND 3 PIECES, COVERED WITH VAC DRAPE, TRAC PAD APPLIED, WOUND VAC ON AT 125MMHG CONTINUOUS WITH GOOD SEAL AND NO LEAK NOTED. PATIENT WAS GIVEN PAIN MEDICATION IV PRE-MED BY SEAM PRESSER. SEE MED PROFILE FOR THIS ADMINISTRATION. PATIENT DAMASO THE PROCEDURE WELL, NO S/S OF PAIN. I SPOKE TO SURGEON AND HE WOULD LIKE TO POSSIBLY PERFORM DEBRIDEMENT OF THE WOUND. HE WILL LET WOUND CARE KNOW WHEN HE WILL PERFORM. NEXT VAC DRESSING CHANGE TO BE DONE Saturday10/19/16 AND PRN SOILING/DISLODGEMENT. ALL DISCUSSED WITH NURSING STAFF. Addendum: 10/17/16 at 1215 by BRADLEY HOWARD WNLUISU LATE ENTRY ADDENDUM MEASUREMENTS DONE WITH VAC DRESSING CHANGE ON 10/16/16 WERE 23CM X 11CM X 10CM THERE WAS 90% GRANULATION TISSUE AND 10% NECROTIC SLOUGH TO BASE AND ONE SMALL AREA ON THE RIGHT OUTER EDGD. THERE WAS 250CC'S OF PINK TINGED SEROUS DRAINAGE IN THE CANNISTER. THERE WAS NO ODOR NOTED.
--- NOTE | 2016-10-16 11:28 | NUR ---
MS/sheep killer from MS[facility] Patient received from [facility], report given by Swathi. Oriented to new surroundings, educated front end web designer light and television remote use. Will continue to monitor and ensure safety.
[2016-10-16] MEDS: LEVOFLOXACIN 500 MG /D5W 100ML 500 MG in PREMIX 1 EA IV SCH (14:42)
[2016-10-16 16:00] VITALS: BP 136/74
[2016-10-16] MEDS ORDERED: SET RED CAP 1 EA INFUS.SET MC ONE (16:20)
[2016-10-16] MEDS: MICAFUNGIN SODIUM 100 MG in IV NS 0.9% 100 ML IV SCH (16:25)
[2016-10-16] MEDS: SOD FERRIC GLUC 125 MG in IV NS 0.9% 100 ML IV SCH (17:03)
--- NOTE | 2016-10-16 18:05 | NUR ---
MS/RN Drainage All drains emptied: -abdominal wound with vac - 25ml -right upper abdominal accordion drain - 10ml -right upper abdominal YANIRA - 5ml -right lower abdominal YANIRA - 5ml
--- NOTE | 2016-10-16 18:31 | NUR ---
MS/RN End note Patient remains comfortable, denies pain. updated as to plan of care, requesting that his be left alone to sleep as has not been resting well the last couple of nights. All needs attended, patient clean and dry, call light within reach. Will endorse to nightshift.
--- NOTE | 2016-10-16 19:30 | NUR ---
RN NOTE; RECEIVED PT IN BED SLEEPING, AROUSES EASILY. BREATHING EVENLY. NO SOB. NO DISTRESS. SKIN WARM AND DRY TO TOUCH. WOUND DRAINAGES IN PLACE DRAINING WELL. F/C IN PLACE DRAINING CLEAR YELLOW URINE. NO S/S OR C/O PAIN OR DISCOMFORT. BED LOW LOCKED. CALL LIGHT WITHIN REACH. WILL CONT TO MONITOR .
[2016-10-16 20:00] VITALS: BP 139/64
[2016-10-16] MEDS: ENOXAPARIN SODIUM 40 MG/0.4 ML DISP.SYRIN SQ SCH (21:07)
[2016-10-16] MEDS: LamoTRIgine 100 MG TABLET PO SCH (21:07)
[2016-10-16] MEDS ORDERED: ACETAMINOPHEN 325 MG TABLET ONE (21:29)
[2016-10-16] MEDS: ACETAMINOPHEN 325 MG TABLET PO PRN (21:33)
--- NOTE | 2016-10-16 21:40 | NUR ---
PT W/ C/O MILD ABD PAIN. REQUESTING TYLENOL. W/ AN EXISTING ORDER FOR TYLENOL SUPP. PLACED A CALL TO DR. EMERY AND GOT AN ORDER FOR PO TYLENOL PRN. NEW ORDER NOTED . MEDICATION F=GIVEN ORDERED. WILL CONT TO MONITOR
--- NOTE | 2016-10-16 23:26 | NUR ---
MORPHINE GIVEN FOR C/O SEVERE ABD PAIN. WILL CONT TO MONITOR
[2016-10-17] MEDS: METRONIDAZOLE 500MG/ NS 100ML 500 MG in PREMIX 1 EA IV SCH ×3 (04:39→20:32)
[2016-10-17] MEDS: METOCLOPRAMIDE HCL 10 MG/2 ML VIAL IV SCH ×4 (04:39→23:16)
[2016-10-17] MEDS: MORPHINE SULFATE INJ 4 MG/ML DISP.SYRIN IV PRN ×4 (05:47→16:40)
--- NOTE | 2016-10-17 05:48 | NUR ---
morphine 4mg given as ordered for c/o severe abd pain. will cont to monitor
[2016-10-17] MEDS ORDERED: SECONDARY IV SET 1 EA INFUS.SET MC ONE ×2 (05:49→20:30)
[2016-10-17] MEDS: VANCOMYCIN 1 GM in IV D5W 250 ML IV SCH (05:50)
--- NOTE | 2016-10-17 06:21 | NUR ---
RN NOTE; PT IN BED AWAKE AND ALERT. BREATHING EVENLY. NO SOB. NO DISTRESS. SKIN WARM AND DRY TO TOUCH. NO ACUTE CHANGES OVER THE NIGHT . DRAINAGES IN PLACE ON ABD AREA. WOUND VAC IN PLACE DRAINING WELL. NO LEAKAGE. F/C AND COLOSTOMY IN PLACE. PAIN MEDICATION GIVEN ORDERED PER PT'S REQUEST. CLEANED AND DRIED. BED BATH GIVEN . CALL LIGHT WITHIN REACH. WILL CONT TO MONITOR AND WILL ENDORSE TO AM SHIFT FOR ALYCE.
--- NOTE | 2016-10-17 07:05 | NUR ---
MS RN INITIAL NOTES REPORT RECEIVED AT THE BEDSIDE. PATIENT IS RESTING COMFORTABLY IN BED. NO SOB OR DISTRESS NOTED AT THIS TIME. PATIENT COMPLAINING OF CHRONIC PAIN IN THE LEFT LATERAL ABDOMEN. WILL FOLLOW UP WITH PAIN MEDICATIONS WHEN ABLE. IV FLUIDS INFUSING WELL. BED IN A LOW POSITION, CALL LIGHT WITHIN PATIENT REACH. WILL CONTINUE TO MONITOR.
--- NOTE | 2016-10-17 07:59 | NUR ---
DIRECTOR OF ACCOUNTING PER DISCUSSION WITH SURGEON YESTERDAY, WOUND VAC THERAPY TO BE PLACED ON HOLD AND ABDOMINAL WOUND TREATMENT ORDERS OBTAINED FROM SURGEON FOR BID TREATMENTS STARTING 10/17/16. SURGEON WANTS TO DEBRIDE THE WOUND AND THE BASE OF THE WOUND. WOUND TREATMENT AND ORDERS DISCUSSED WITH NURSING STAFF.
[2016-10-17] MEDS: Z GUARD REMEDY 2 OZ OINT TP SCH (08:05)
[2016-10-17] MEDS: BOOST PLUS FOOD-CHOCLATE 237 ML BOX PO SCH ×2 (08:05→17:30)
[2016-10-17] MEDS: SELEGILINE 6 MG/24 HR MC SCH (08:06)
[2016-10-17] MEDS: PANTOPRAZOLE 40 MG TABLET.DR PO SCH (08:06)
[2016-10-17 08:14] LABS: CALCIUM, SERUM 8.7 mg/dL (8.5-10.1); CREATININE 0.6 mg/dL (0.6-1.3)
[2016-10-17] MEDS: SIMETHICONE 80 MG TAB.CHEW PO PRN ×3 (08:35→20:58)
[2016-10-17 08:46] VITALS: BP 134/88
--- NOTE | 2016-10-17 09:08 | NUR ---
MS RN NOTES CALLED PHARMACY FOR GENTIMYCIN OINT FOR DRESSING CHANGE. STILL WAITING FOR MEDICATION. WILL CALL WOUND NURSE AND CHANGE DRESSINGS ONCE MEDICATION IS AVAILABLE.
[2016-10-17 11:24] LABS: ERYTHROPOIETIN 19.7 mIU/mL (2.6-18.5)
[2016-10-17] MEDS: GENTAMICIN 0.1% OINT 15 GM TUBE TP SCH ×2 (11:29→17:31)
--- NOTE | 2016-10-17 12:03 | NUR ---
MS RN NOTES REMOVED WOUND VAC DRESSING WITH SAKINA WOUND RN. WOUND CLEANSED WITH NS, GENTAMICIN CREAM APPLIED, AND DAKINS SOAKED KERLIX APPLIED. COVERED DAKINS SOAKED KERLIX WITH THREE 4X4 BERTO AND TWO ABD PADS. APPLIED PAPER TAPE TO ABD EDGES. DRESSING WILL BE CHANGED BID AND PRN SOILING. PATIENT TOLERATED PROCEDURE WELL. WILL CONTINUE TO MONITOR.
--- NOTE | 2016-10-17 14:13 | NUR ---
WOUND CARE: DRESSING CHANGE DONE TODAY WITH RN. 3 PIECES OF BLACK GRANUFOAM REMOVED DURING DRESSING CHANGE. PT TOLERATED WELL. Addendum: 10/17/16 at 1417 by SAKINA RAMIREZ WNDNU [facility] VAC NOW ON HOLD, SENT TO [facility]. CANISTER DISCARDED WITH 150cc SEROSANGUINOUS DRAINAGE.
[2016-10-17] MEDS: SOD FERRIC GLUC 125 MG in IV NS 0.9% 100 ML IV SCH (14:31)
[2016-10-17] MEDS: LEVOFLOXACIN 500 MG /D5W 100ML 500 MG in PREMIX 1 EA IV SCH (15:46)
[2016-10-17 16:00] VITALS: BP 143/79
[2016-10-17 16:42] VITALS: BP 143/79
[2016-10-17] MEDS: MICAFUNGIN SODIUM 100 MG in IV NS 0.9% 100 ML IV SCH (17:30)
--- NOTE | 2016-10-17 19:33 | NUR ---
MS RN CLOSING NOTES NO SIGNIFICANT CHANGES IN PATIENT CONDITION THROUGHOUT THE SHIFT. NO SOB OR DISTRESS NOTED AT THIS TIME. PATIENT DENIES PAIN. BED IN A LOW POSITION, CALL LIGHT WITHIN PATIENT REACH. WILL ENDORSE FOR ALYCE.
[2016-10-17 20:00] VITALS: BP 140/73
--- NOTE | 2016-10-17 21:00 | NUR ---
RN NOTES COMPLAINED OF GAS PAINA DN ASKED FOR SIMETHICONE- SIMETHICONE 1 TAB PO GIVEN ORDERED
--- NOTE | 2016-10-17 21:00 | NUR ---
RN NOTES COMPLAINED OF ABDOMINAL PAIN- MORPHINE 3MG IV GIVEN ORDERED, V/S STABLE
[2016-10-17] MEDS: LamoTRIgine 100 MG TABLET PO SCH (21:08)
[2016-10-17] MEDS: ENOXAPARIN SODIUM 40 MG/0.4 ML DISP.SYRIN SQ SCH (21:08)
[2016-10-17] MEDS: MORPHINE SULFATE INJ 2 MG/ML DISP.SYRIN IV PRN (21:19)
[2016-10-18] MEDS: SIMETHICONE 80 MG TAB.CHEW PO PRN ×3 (02:02→17:25)
[2016-10-18] MEDS: METOCLOPRAMIDE HCL 10 MG/2 ML VIAL IV SCH ×4 (04:26→23:34)
[2016-10-18] MEDS: METRONIDAZOLE 500MG/ NS 100ML 500 MG in PREMIX 1 EA IV SCH ×4 (04:26→21:29)
[2016-10-18] MEDS: MORPHINE SULFATE INJ 2 MG/ML DISP.SYRIN IV PRN ×3 (05:12→15:08)
--- NOTE | 2016-10-18 05:16 | NUR ---
RN NOTES COMPLAINED OF ABDOMINAL PAIN- MORPHINE 3MG IV GIVEN ORDERED, V/S STABLE
[2016-10-18] MEDS ORDERED: SECONDARY IV SET 1 EA INFUS.SET MC ONE (05:21)
[2016-10-18] MEDS: VANCOMYCIN 1 GM in IV D5W 250 ML IV SCH (05:54)
--- NOTE | 2016-10-18 05:54 | NUR ---
RN NOTES PT. COMPLAINED OF FEELING ANXIOUS-CALLED DR. RUPERT GOLDMAN AND GOT AN ORDER OF ATIVAN 1MG IV PRN ORDER NOTED AND CARRIED OUT
[2016-10-18] MEDS ORDERED: LORAZEPAM INJ 2 MG/ML VIAL ONE (05:56)
[2016-10-18] MEDS: LORAZEPAM INJ 2 MG/ML VIAL IV PRN (06:02)
--- NOTE | 2016-10-18 06:04 | NUR ---
RN NOTES COMPLAINED OF FEELING ANXIOUS- ATIVAN 1MG IV GIVEN ORDERED, V/S STABLE
--- NOTE | 2016-10-18 06:12 | NUR ---
RN NOTES RECEIVED PT. SLEEPING BUT AROUSABLE, F/C DRAINING CLEAR YELLOW URINE, WITH 2 YANIRA DRAINAGE, WELL DAVOL DRAINAGE, PICC LINE IN PLACE, A/OX4, PT IS IN BIG BOY BED, DRESSING ON THE ABDOMEN DRY AND INTACT, COLOSTOMY BAG IN PLACE, CALL LIGHT WITHIN REACH, SIDERAILS UPX2 CONTINUE TO MONITOR Addendum: 10/18/16 at 0615 by DORA CANTU RN RIGHT TIME 1929
--- NOTE | 2016-10-18 06:29 | NUR ---
RN NOTES SLEEPING BUT AROUSABLE, DRESSING DRY AND INTACT, P REFUSED TO CHANGE HER BED LINEN, BUT MORNING CARE WAS RENDERED, CALL LIGHT WITHIN REACH, SIDERAILS UPX2 , PT. NEEDS ATTENDED
[2016-10-18 07:17] LABS: BASOPHILS # (AUTO) 0.1 /CMM (0.0-0.2); BASOPHILS % (AUTO) 0.5 % (0.0-2.0); EOSINOPHILS # (AUTO) 0.2 /CMM (0.0-0.7); EOSINOPHILS % (AUTO) 1.1 % (0.0-6.0); HEMATOCRIT 24 % (33-45); LYMPHOCYTES # (AUTO) 1.4 /CMM (0.8-4.8); LYMPHOCYTES % (AUTO) 10.3 % (20.0-44.0); MEAN CORPUSCULAR HEMOGLOBIN 30 PG (26.0-33.0); MEAN CORPUSCULAR HGB CONC 33 g/dl (31.0-36.0); MEAN CORPUSCULAR VOLUME 90 fL (82-100); MONOCYTES # (AUTO) 1.4 /CMM (0.1-1.30); MONOCYTES % (AUTO) 9.7 % (2.0-12.0); NEUTROPHILS % (AUTO) 78.4 % (43.0-81.0); PLATELET COUNT (AUTO) 455 /CMM (150-450); RDW COEFFICIENT OF VARIATION 16.8 (11.5-15.0); RED BLOOD CELL COUNT(AUTO) 2.72 MIL/uL (4.0-5.2)
--- NOTE | 2016-10-18 07:30 | NUR ---
PT RECEIVED RESTING COMFORTABLY IN BED WITH EYES CLOSED. NO S/S OR C/O PAIN OR DISTRESS NOTED. SIDE RAILS UP X2, CALL LIGHT LEFT WITHIN REACH. WILL CONTINUE PLAN OF CARE.
[2016-10-18 08:00] VITALS: BP 135/64
[2016-10-18 08:44] LABS: CALCIUM, SERUM 8.2 mg/dL (8.5-10.1); CREATININE 0.6 mg/dL (0.6-1.3); MAGNESIUM 1.3 mg/dL (1.8-2.4); POTASSIUM 3.9 mmol/L (3.5-5.1)
[2016-10-18] MEDS ORDERED: IOHEXOL-300 100 ML VIAL IV ONE (08:45)
[2016-10-18] MEDS ORDERED: IV NS 0.9% 250 ML IV ONE (08:45)
[2016-10-18] MEDS ORDERED: CT SWABBABLE VALVE TRANS SET 1 EA INFUS.SET MC ONE (08:45)
[2016-10-18] MEDS: GENTAMICIN 0.1% OINT 15 GM TUBE TP SCH ×2 (09:35→16:44)
[2016-10-18] MEDS: PANTOPRAZOLE 40 MG TABLET.DR PO SCH (09:35)
[2016-10-18] MEDS: SELEGILINE 6 MG/24 HR MC SCH (09:35)
[2016-10-18] MEDS: BOOST PLUS FOOD-CHOCLATE 237 ML BOX PO SCH ×2 (09:35→16:46)
[2016-10-18] MEDS: Z GUARD REMEDY 2 OZ OINT TP SCH (09:44)
--- NOTE | 2016-10-18 11:59 | NUR ---
METAL MOCKUP MAKER PATIENT NOW S/P BEDSIDE DEBRIDEMENT OF ABDOMINAL SURGICAL WOUND BY SURGEON YESTERDAY 10/17/16. WOUND CARE WILL PLACE VAC BACK ON THIS Saturday10/19/16 TO RESUME NEGATIVE PRESSURE WOUND THERAPY. WILL CONTINUE WITH BID DRESSINGS CURRENTLY ORDERED WITH GENT AND DAKINS SOLUTION TO THE WOUND. DISCUSSED WITH NURSING STAFF.
[2016-10-18 12:23] LABS: EOSINOPHILS # (AUTO) 0.2 /CMM (0.0-0.7); EOSINOPHILS % (AUTO) 1.3 % (0.0-6.0); HEMATOCRIT 28 % (33-45); HEMOGLOBIN 9.6 g/dL (11.5-14.8); LYMPHOCYTES # (AUTO) 1.6 /CMM (0.8-4.8); LYMPHOCYTES % (AUTO) 9.8 % (20.0-44.0); MEAN CORPUSCULAR HEMOGLOBIN 30 PG (26.0-33.0); MEAN CORPUSCULAR HGB CONC 34 g/dl (31.0-36.0); MEAN CORPUSCULAR VOLUME 88 fL (82-100); MONOCYTES # (AUTO) 1.6 /CMM (0.1-1.30); MONOCYTES % (AUTO) 9.7 % (2.0-12.0); NEUTROPHILS # (AUTO) 12.9 /CMM (1.8-8.9); NEUTROPHILS % (AUTO) 79.2 % (43.0-81.0); PLATELET COUNT (AUTO) 566 /CMM (150-450); RDW COEFFICIENT OF VARIATION 16.8 (11.5-15.0); RED BLOOD CELL COUNT(AUTO) 3.22 MIL/uL (4.0-5.2); WHITE BLOOD COUNT (AUTO) 16.2 K/uL (4.3-11.0)
[2016-10-18] MEDS: LEVOFLOXACIN 500 MG /D5W 100ML 500 MG in PREMIX 1 EA IV SCH (15:08)
[2016-10-18 16:00] VITALS: BP 107/57
[2016-10-18] MEDS: SOD FERRIC GLUC 125 MG in IV NS 0.9% 100 ML IV SCH (16:41)
[2016-10-18] MEDS: MICAFUNGIN SODIUM 100 MG in IV NS 0.9% 100 ML IV SCH (17:59)
--- NOTE | 2016-10-18 18:59 | NUR ---
CHANGE OF SHIFT REPORT PT RESTING COMFORTABLY IN BED. NO S/S OR C/O PAIN OR DISTRESS NOTED. SIDE RAILS UP X2, CALL LIGHT LEFT WITHIN REACH. PT KEPT CLEAN, DRY, AND COMFORTABLE. NO SIGNIFICANT CHANGES FROM PREVIOUS SHIFT. WILL GIVE REPORT TO VERONICA WAGONER.
[2016-10-18 20:15] VITALS: BP 112/52
[2016-10-18] MEDS: LamoTRIgine 100 MG TABLET PO SCH (21:30)
[2016-10-18] MEDS: ENOXAPARIN SODIUM 40 MG/0.4 ML DISP.SYRIN SQ SCH (21:35)
[2016-10-18] MEDS: MORPHINE SULFATE INJ 4 MG/ML DISP.SYRIN IV PRN ×2 (22:11→23:29)
--- NOTE | 2016-10-18 23:30 | NUR ---
MS/RN NOTES PATIENT IN BED, ALERT ET ORIENTED. RESPIRATION EVEN ET UNLABORED, ON O2@ 2LPM VIA NC. REFUSED DRESSING CHANGED ON THE ABDOMEN. MEDICATED WITH MORPHINE SULFATE IVP NEEDED FOR ABDOMINAL PAIN. WITH GOOD RESULTS. PATIENT NOTED WITH REDNESS ON HER LEFT EYE. CALLED AND SPOKE WITH DR. EMERY, NEW ORDER GIVEN AND CARRIED OUT. BED BATH GIVEN PER REQUEST. KEPT COMFORTABLE IN BED. NO CUTE DISTRESS NOTED. ALL NEEDS ATTENDED. WILL CONT. TO MONITOR
[2016-10-19] MEDS: METRONIDAZOLE 500MG/ NS 100ML 500 MG in PREMIX 1 EA IV SCH ×3 (04:26→22:31)
[2016-10-19] MEDS: MORPHINE SULFATE INJ 2 MG/ML DISP.SYRIN IV PRN (04:26)
--- NOTE | 2016-10-19 04:30 | NUR ---
MS/RN NOTES PATIENT COMPLAINED OF ABDOMINAL PAIN . MEDICATED WITH MORPHINE SULFATE 3 MG IVP ORDERED. WILL CONTINUE TO MONITOR.
[2016-10-19] MEDS: VANCOMYCIN 1 GM in IV D5W 250 ML IV SCH (06:05)
[2016-10-19] MEDS: METOCLOPRAMIDE HCL 10 MG/2 ML VIAL IV SCH ×4 (06:05→22:31)
--- NOTE | 2016-10-19 06:30 | NUR ---
MS/RN NOTES PATIENT IN BED, ALERT ET ORIENTED. RESPIRATION EVEN ET UNLABORED. NO COMPLAINTS OF PAIN AT THIS TIME. RELIEVED BY MORPHINE . ADMINISTERED ALL MEDS ORDERED. ALL NEEDS ATTENDED. WILL ENDORSE ACCORDINGLY.
[2016-10-19 07:00] LABS: BASOPHILS % (AUTO) 0.3 % (0.0-2.0); EOSINOPHILS # (AUTO) 0.2 /CMM (0.0-0.7); EOSINOPHILS % (AUTO) 1.3 % (0.0-6.0); HEMATOCRIT 28 % (33-45); HEMOGLOBIN 9.4 g/dL (11.5-14.8); LYMPHOCYTES # (AUTO) 1.8 /CMM (0.8-4.8); LYMPHOCYTES % (AUTO) 11.5 % (20.0-44.0); MEAN CORPUSCULAR HEMOGLOBIN 31 PG (26.0-33.0); MEAN CORPUSCULAR HGB CONC 34 g/dl (31.0-36.0); MEAN CORPUSCULAR VOLUME 90 fL (82-100); MONOCYTES # (AUTO) 1.7 /CMM (0.1-1.30); MONOCYTES % (AUTO) 10.5 % (2.0-12.0); NEUTROPHILS # (AUTO) 12.1 /CMM (1.8-8.9); NEUTROPHILS % (AUTO) 76.4 % (43.0-81.0); PLATELET COUNT (AUTO) 536 /CMM (150-450); RDW COEFFICIENT OF VARIATION 16.7 (11.5-15.0); RED BLOOD CELL COUNT(AUTO) 3.05 MIL/uL (4.0-5.2); WHITE BLOOD COUNT (AUTO) 15.8 K/uL (4.3-11.0)
[2016-10-19 07:08] LABS: CALCIUM, SERUM 8.1 mg/dL (8.5-10.1); CREATININE 0.6 mg/dL (0.6-1.3); MAGNESIUM 1.3 mg/dL (1.8-2.4); PHOSPHORUS 3.8 mg/dL (2.5-4.9); POTASSIUM 3.8 mmol/L (3.5-5.1)
[2016-10-19 08:00] VITALS: BP 109/48
--- NOTE | 2016-10-19 08:00 | NUR ---
MS/RN - OPENING NOTE PT. IS LYING IN SEMI FOWLERS POSITION ON [facility] BED WITH 4 BED RAILS UP, BED ALARM ON. PT. IS A&OX4, C/O SHORTNESS OF BREATH, PT. ON O2 AT 2 L/MIN. VIA NASAL CANNULA. O2 SAT RANGE 96%. PT. TEACHING DONE TO USE SPIROMETER WITHIN REACH AT BED SIDE. PT. REPORTS ABDOMINAL PAIN IS SHARP AND IS A PAIN 3 OUT OF 10. RUIZ CATHETER IN PLACE WITH CLEAR , YELLOW URINE 700ML OUTPUT. 2 PEG J TUBES ON RIGHT SIDE, AND PT. COLOSTOMY BAG EMPTY. 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 TURNED AND REPOSITIONED EVERY 2 HOURS. CALL LIGHT WITHIN REACH. NEEDS ATTENDED.
[2016-10-19] MEDS: PANTOPRAZOLE 40 MG TABLET.DR PO SCH (08:58)
[2016-10-19] MEDS: SELEGILINE 6 MG/24 HR MC SCH (08:59)
[2016-10-19] MEDS: POLYVINYL ALCOHOL 15 ML BOTTLE EACHEYE SCH ×2 (09:03→17:39)
[2016-10-19] MEDS: BOOST PLUS FOOD-CHOCLATE 237 ML BOX PO SCH ×2 (09:05→17:00)
[2016-10-19] MEDS: Z GUARD REMEDY 2 OZ OINT TP SCH (09:08)
[2016-10-19] MEDS: GENTAMICIN 0.1% OINT 15 GM TUBE TP SCH ×2 (09:11→19:50)
[2016-10-19] MEDS: MORPHINE SULFATE INJ 4 MG/ML DISP.SYRIN IV PRN (09:43)
[2016-10-19] MEDS: SIMETHICONE 80 MG TAB.CHEW PO PRN (09:50)
--- NOTE | 2016-10-19 10:00 | NUR ---
SYDNEY,BOTH WOUND SENIOR INSTRUCTIONAL DESIGNER RNS CAME TO APPLY WOUND VAC AT 125 MM/HG TO MID ABDOMINAL SURGICAL INCISION.PAIN MGT DONE.WILL MONITOR.
--- NOTE | 2016-10-19 10:43 | NUR ---
ARBORIST PATIENT S/P EXCISIONAL DEBRIDEMENT OF THE ABDOMINAL WOUND BY SURGEON DR HENDERSON. OK FOR WOUND VAC TO BE RE-APPLIED PER SURGEON. DRESSING REMOVED, SMALL AMOUNT OF SEROUS DRNG TO THE REMOVED KERLIX PACKING, WOUND CLEANSED AND IRRIGATED WITH NS, PAT DRY, APPLY SKIN PREP TO ALL OUTSIDE EDGES OF THE WOUND TO PROTECT SKIN, ALSO APPLIED VAC DRAPE TO ALL OUTSIDE EDGES, BLACK GRANUFOAM 3 PIECES APPLIED TO THE WOUND, COVERED WITH VAC DRAPE TRAC PAD APPLIED AND VAC ON AT CONTINUOUS SETTING AT 125MMHG. VAC FUNCTIONING WELL WITH GOOD SEAL NOTED. PATIENT WAS GIVEN PRE-MED BY XEROX MACHINE ASSEMBLER PRIOR TO THE PROCEDURE AND TOLERATED THE PROCEDURE WELL. THE WOUND MEASURED 23CM X 11CM X 10CM, THERE WAS APPROX 10% NECROTIC TISSUE TO THE BASE OF THE WOUND, WITH 90% RED GRANULATION TISSUE TO THE REST OF THE WOUND. THERE WAS NO ODOR NOTED. WOUND CARE WILL FOLLOW UP ON SATURDAY.
--- NOTE | 2016-10-19 10:50 | NUR ---
P.T. CAME TO SEE THE PT AND DID EXERCISE IN BED.DR BANGURA CAME DURING P.T. TX AND DR BANGURA STATED THAT THE PT IS C/O SOB.CHECKED PT'S O2 SAT RANGING FROM 92-94%WITH O2 AT 2L/MIN VIA N/C.ENCOURAGED PT TO DO INCENTIVE SPIROMETER BREATHING EXERCISES TO IMPROVE HER BREATHING AND EXPAND HER LUNGS.
--- NOTE | 2016-10-19 11:38 | NUR ---
TRISTIN OF NUCLEAR MED CALLED AND STATED THAT DR LAKE WANTS NM WBC LOCALIZATION SCAN PROCEDURE FOR PERSISTENT ELEVATION IN WBC CANCELLED AND CARRIED OUT.
--- NOTE | 2016-10-19 12:30 | NUR ---
AFTER EATING LUNCH,INSTRUCTED PTTHAT WE NEED TO REPOSITION HER.PT REFUSED TO BE REPOSITIONED ON HER SIDE INSPITE OF EXPLAINING ITS RISKS AND BENEFITS.WILL TRY LATER.
[2016-10-19] MEDS: Magnesium 1GM/D5W 100ML PREMIX 100 ML IV SCH ×3 (12:33→23:53)
[2016-10-19] MEDS ORDERED: POTASSIUM CHLORIDE 20 MEQ TAB.PRT.SR PO ONE (13:00)
[2016-10-19] MEDS ORDERED: BUMETANIDE INJ 4 MG in IV NS 0.9% 24 ML IV ONE (13:00)
--- NOTE | 2016-10-19 14:00 | NUR ---
INSTRUCTED PT THAT WE NEED TO REPOSITION HER.PT REFUSED TO BE REPOSITIONED ON HER SIDE INSPITE OF EXPLAINING ITS RISKS AND BENEFITS.WILL TRY AGAIN LATER.PT WENT BACK TO SLEEP.
[2016-10-19 16:00] VITALS: BP 127/66
--- NOTE | 2016-10-19 16:00 | NUR ---
PT FINALLY AGREED TO BE TURNED.DAILY SKIN CARE DONE.TURNED TO HER RT SIDE.COLOSTOMY BAG REMAINED EMPTY.EMPTIED YANIRA#1 10 ML YELLOW OUTPUT, YANIRA #2 25 ML OUTPUT YELLOW IN COLOR,WOUND VAC HAS 75 ML SEROSANGUINOUS DRAINAGE AND DAVOL 25 ML SEROSANGUINOUS OUTPUT.PT C/O SOB.O2 SAT 95% ON O2 AT 2L/MIN VIA N/C.CALL LIGHT PLACED WITHIN REACH.
[2016-10-19 16:09] VITALS: BP 127/66
[2016-10-19] MEDS: LEVOFLOXACIN 500 MG /D5W 100ML 500 MG in PREMIX 1 EA IV SCH (17:24)
[2016-10-19] MEDS ORDERED: IV SET PRIMARY PUMP SET 1 EA INFUS.SET MC ONE ×2 (18:53→21:59)
[2016-10-19] MEDS: ACETAMINOPHEN 325 MG TABLET PO PRN (19:07)
[2016-10-19] MEDS: LORAZEPAM INJ 2 MG/ML VIAL IV PRN ×2 (19:13→23:42)
--- NOTE | 2016-10-19 19:30 | NUR ---
MS RN OPENING NOTES: PATIENT IN BED, AOX4, ON O2 AT 2 LPM VIA NC. BREATHING AT RATE OF 22-24 PER MIN, BREATH SOUNDS CLEAR TO AUSCULTATION OVER APICES, BUT DIMINISHED AT BASES. KEPT HOB ELEVATED. PATIENT HAS NATALY MIDLINE, INTACT AND INFUSING WELL WITH LEVOFLOXACIN IV AT THIS TIME. PATIENT HAS WOUND VAC AT 125 MMHG OVER MID ABDOMINAL WOUND, NOTED SEROUS DRAINAGE AT 75 CC. PATIENT HAS 2 YANIRA DRAINS OVER R SIDE OF ABDOMEN, DRAINING CLOUDY SEROUS DRAINAGE. ANOTHER ACCORDION DRAIN INSERTED OVER R SIDE OF ABDOMEN DRAINING MILKY BROWNISH FLUID, NOTED AT 75 CC LEVEL IN COLLECTION BAG. COLOSTOMY BAG PLACED OVER LEFT SIDE OF ABDOMEN, CURRENTLY WITHOUT ANY BM AT THIS TIME. PROVIDED FOR COMFORT AND SAFETY. WILL CONT TO MONITOR.
[2016-10-19 20:00] VITALS: BP 112/64
[2016-10-19 20:11] VITALS: BP 112/64
--- NOTE | 2016-10-19 21:00 | NUR ---
RN NOTES: SPOKE TO SAUL OF PHARMACY REGARDING NOT BEING ABLE TO TAKE OUT REMAINING 3 BAGS OF MAGNESIUM IV FOR PATIENT TIME IS PAST. PER SAUL, MAKE NEW ORDER. NEW ORDER PUT IN FOR 3 BAGS OF MAGNESIUM, FIRST BAG FROM DR LAKE'S ORDER EARLIER ( TOTAL 4 BAGS ORDERED) WAS ADMINSTERED BY AM SHIFT ALREADY.
[2016-10-19] MEDS: MICAFUNGIN SODIUM 100 MG in IV NS 0.9% 100 ML IV SCH (21:06)
[2016-10-19] MEDS ORDERED: SECONDARY IV SET 1 EA INFUS.SET MC ONE ×2 (21:13→21:59)
[2016-10-19] MEDS ORDERED: Magnesium 1GM/D5W 100ML PREMIX PIGGYBACK IV ONE (21:30)
[2016-10-19] MEDS ORDERED: IV NS 0.9% 250 ML IV ONE (21:59)
[2016-10-19] MEDS: SOD FERRIC GLUC 125 MG in IV NS 0.9% 100 ML IV SCH (22:00)
--- NOTE | 2016-10-19 22:15 | NUR ---
RN NOTES: CALLED DR EMERY TO ASK IF OK TO GIVE LOVENOX, PREVIOUS COAGULATION STUDIES ARE ALL ELEVATED. PER DR EMERY, OK TO GIVE. ADMINISTERED LOVENOX SCHEDULED.
[2016-10-19] MEDS: LamoTRIgine 100 MG TABLET PO SCH (22:30)
[2016-10-19] MEDS: ENOXAPARIN SODIUM 40 MG/0.4 ML DISP.SYRIN SQ SCH (22:32)
[2016-10-20] VITALS: BP 109/60
--- NOTE | 2016-10-20 00:12 | NUR ---
RN NOTES: MAGNESIUM 4 BAGS WERE EARLIER ORDERED BY DR LAKE, HOWEVER, 2ND BAG WAS ONLY STARTED NOW OTHER IV MEDS WERE BEING INFUSED. ATTEMPTED TO INSERT ANOTHER IV LINE AT L ARM, BUT PATIENT DECLINED TO HAVE ANOTHER ATTEMPT MADE. NATALY MIDLINE ONLY VIABLE IV ACCESS AT THIS TIME.
[2016-10-20] MEDS: Magnesium 1GM/D5W 100ML PREMIX 100 ML IV SCH ×2 (01:01→02:15)
[2016-10-20] MEDS ORDERED: SECONDARY IV SET 1 EA INFUS.SET MC ONE ×3 (01:02→23:02)
[2016-10-20 03:30] VITALS: BP 131/78
[2016-10-20] MEDS: LORAZEPAM INJ 2 MG/ML VIAL IV PRN ×3 (03:40→19:52)
--- NOTE | 2016-10-20 03:40 | NUR ---
RN NOTES: PATIENT REQUESTING FOR ATIVAN IV, STATING THAT SHE FEELS THAT SHE NEEDS TO BE MORE RELAXED. PER PATIENT, SHE FEELS ANXIOUS AT THIS TIME. ADMINISTERED ATIVAN 1 MG PRN IV. WILL CONT TO MONITOR.
[2016-10-20] MEDS: METOCLOPRAMIDE HCL 10 MG/2 ML VIAL IV SCH ×4 (05:13→22:58)
[2016-10-20] MEDS: METRONIDAZOLE 500MG/ NS 100ML 500 MG in PREMIX 1 EA IV SCH ×3 (05:14→21:13)
[2016-10-20] MEDS: VANCOMYCIN 1 GM in IV D5W 250 ML IV SCH (06:26)
[2016-10-20 06:32] LABS: BASOPHILS % (AUTO) 0.3 % (0.0-2.0); EOSINOPHILS # (AUTO) 0.2 /CMM (0.0-0.7); EOSINOPHILS % (AUTO) 1.2 % (0.0-6.0); HEMATOCRIT 29 % (33-45); HEMOGLOBIN 9.8 g/dL (11.5-14.8); LYMPHOCYTES # (AUTO) 1.9 /CMM (0.8-4.8); LYMPHOCYTES % (AUTO) 14.3 % (20.0-44.0); MEAN CORPUSCULAR HEMOGLOBIN 31 PG (26.0-33.0); MEAN CORPUSCULAR HGB CONC 34 g/dl (31.0-36.0); MEAN CORPUSCULAR VOLUME 90 fL (82-100); MONOCYTES # (AUTO) 1.5 /CMM (0.1-1.30); MONOCYTES % (AUTO) 11.3 % (2.0-12.0); NEUTROPHILS # (AUTO) 9.8 /CMM (1.8-8.9); NEUTROPHILS % (AUTO) 72.9 % (43.0-81.0); PLATELET COUNT (AUTO) 564 /CMM (150-450); RDW COEFFICIENT OF VARIATION 17.2 (11.5-15.0); RED BLOOD CELL COUNT(AUTO) 3.21 MIL/uL (4.0-5.2); WHITE BLOOD COUNT (AUTO) 13.4 K/uL (4.3-11.0)
[2016-10-20 07:12] LABS: CALCIUM, SERUM 8.7 mg/dL (8.5-10.1); CREATININE 0.6 mg/dL (0.6-1.3); PHOSPHORUS 3.9 mg/dL (2.5-4.9); POTASSIUM 4.2 mmol/L (3.5-5.1)
--- NOTE | 2016-10-20 07:44 | NUR ---
MS RN CLOSING NOTES: PATIENT IN BED, AOX4, ON ROOM AIR, BREATHING EVEN AND UNLABORED. NATALY MIDLINE INTACT AND INFUSING WELL WITH VANCOMYCIN IV. DUE MEDS GIVEN. PROVIDED FOR COMFORT AND SAFETY. ENDORSED TO AM RN FOR ALYCE.
--- NOTE | 2016-10-20 07:45 | NUR ---
MS RN OPENING NOTES: RECEIVED PATIENT IN STABLE LYING BED, AOX4, ON ROOM AIR, BREATHING EVEN AND UNLABORED. NATALY MIDLINE INTACT AND INFUSING WELL WITH VANCOMYCIN IV. SECOND IV ON LEFT HAND, DRY INTACT AND PATENT. NO INFILTRATION OR REDNESS NOTED AT THIS TIME. FC INTACT AND DRAINING CLEAR YELLOW URINE. PATIENT HAS WOUND VAC AT 125 MMHG OVER MID ABDOMINAL WOUND, NOTED SEROUS DRAINAGE AT 75 CC. PATIENT HAS 2 YANIRA DRAINS OVER R SIDE OF ABDOMEN, DRAINING CLOUDY SEROUS DRAINAGE. ANOTHER ACCORDION DRAIN INSERTED OVER R SIDE OF ABDOMEN DRAINING MILKY BROWNISH FLUID, NOTED AT 75 CC LEVEL IN COLLECTION BAG. COLOSTOMY BAG PLACED OVER LEFT SIDE OF ABDOMEN, CURRENTLY WITHOUT ANY BM AT THIS TIME. WILL CONTINUE TO MONITOR.
[2016-10-20 08:00] VITALS: BP 116/70
[2016-10-20] MEDS: BOOST PLUS FOOD-CHOCLATE 237 ML BOX PO SCH ×2 (08:24→17:36)
[2016-10-20] MEDS: SELEGILINE 6 MG/24 HR MC SCH (08:24)
[2016-10-20] MEDS: GENTAMICIN 0.1% OINT 15 GM TUBE TP SCH ×2 (08:25→17:37)
[2016-10-20] MEDS: POLYVINYL ALCOHOL 15 ML BOTTLE EACHEYE SCH ×2 (08:25→17:39)
[2016-10-20] MEDS: PANTOPRAZOLE 40 MG TABLET.DR PO SCH (08:26)
[2016-10-20] MEDS: Z GUARD REMEDY 2 OZ OINT TP SCH (08:27)
--- NOTE | 2016-10-20 12:00 | NUR ---
RN NOTES DR. CAAL IN UNIT, REMOVED [facility] SITES NO ASE NOTED, WILL CONTINUE TO MONITOR
[2016-10-20] MEDS: SOD FERRIC GLUC 125 MG in IV NS 0.9% 100 ML IV SCH (14:56)
[2016-10-20] MEDS: NEOMY SULF/BACITRAC ZN/POLY 15 GM TUBE TP SCH (15:06)
[2016-10-20] MEDS ORDERED: BUMETANIDE INJ 4 MG in IV NS 0.9% 24 ML IV ONE (15:20)
[2016-10-20 16:00] VITALS: BP 114/76
[2016-10-20] MEDS: LEVOFLOXACIN 500 MG /D5W 100ML 500 MG in PREMIX 1 EA IV SCH (16:22)
[2016-10-20] MEDS ORDERED: IV SET PRIMARY PUMP SET 1 EA INFUS.SET MC ONE (16:29)
--- NOTE | 2016-10-20 18:41 | NUR ---
MS RN CLOSING NOTES: PATIENT IN BED, AOX4, ON ROOM AIR, BREATHING EVEN AND UNLABORED. NATALY MIDLINE INTACT AND INFUSING BUMIX AT 10ML/PER. PT TOLERATING IT WELL. FAMILY AT BEDSIDE. ALL PT NEEDS AND ORDERS CARRIED OUT THROUGHOUT SHIFT. WILL ENDORSE TO HYDROGEN OPERATOR NURSE FOR ALYCE.
[2016-10-20] MEDS: MICAFUNGIN SODIUM 100 MG in IV NS 0.9% 100 ML IV SCH (19:03)
--- NOTE | 2016-10-20 19:30 | NUR ---
MS RN OPENING NOTES: PATIENT IN BED, AOX4, ON O2 AT 2 LPM VIA NC. BREATHING EVEN AND UNLABORED. BREATH SOUNDS CLEAR AT UPPER LUNG DELA CRUZ, DIMINISHED AT BASES. APPEARS CALM AND IN NO DISTRESS. DENIES PAIN AT THIS TIME. NATALY MIDLINE INTACT AND CURRENTLY INFUSING WITH MYCAMINE ATB IV. PATIENT HAS RUQ ACCORDION DRAIN, NOTED WITH MILKY BROWNISH DRAINAGE AT LEVEL OF ABOUT 75 CC. PATIENT HAS MID ABDOMINAL WOUND WITH WOUND VAC AT 125 MMHG, NOTED SEROUS FLUID IN FLUID COLLECTION CHAMBER AT LEVEL OF 220 CC. PATIETN ALSO HAS RUZI CATHETER DRAINING CLEAR YELLOW URINE. PROVIDED FOR COMFORT AND SAFETY. WILL CONT TO MONITOR.
[2016-10-20 20:00] VITALS: BP 116/65
--- NOTE | 2016-10-20 20:00 | NUR ---
RN NOTES: PATIENT STATED THAT SHE FELT THAT SHE NEEDED HER ATIVAN TO HELP CALM HER AND RELAX HER. PRN ATIVAN 1 MG IV GIVEN. WILL CONT TO MONITOR.
[2016-10-20 20:06] VITALS: BP 116/65
[2016-10-20] MEDS: LamoTRIgine 100 MG TABLET PO SCH (21:13)
[2016-10-20] MEDS: ENOXAPARIN SODIUM 40 MG/0.4 ML DISP.SYRIN SQ SCH (21:14)
[2016-10-20] MEDS: VANCOMYCIN 1.25 GM in IV D5W 500 ML IV SCH (22:58)
[2016-10-20] MEDS: SIMETHICONE 80 MG TAB.CHEW PO PRN (22:58)
[2016-10-21] MEDS ORDERED: IV SET PRIMARY PUMP SET 1 EA INFUS.SET MC ONE ×3 (04:35→17:10)
[2016-10-21] MEDS ORDERED: IV NS 0.9% 250 ML IV ONE ×2 (04:35→11:42)
[2016-10-21] MEDS: METOCLOPRAMIDE HCL 10 MG/2 ML VIAL IV SCH ×4 (04:43→22:15)
[2016-10-21] MEDS: METRONIDAZOLE 500MG/ NS 100ML 500 MG in PREMIX 1 EA IV SCH ×3 (04:44→21:05)
[2016-10-21] MEDS: SIMETHICONE 80 MG TAB.CHEW PO PRN ×2 (05:02→18:46)
--- NOTE | 2016-10-21 05:02 | NUR ---
RN NOTES: PATIENT STATED THAT SHE FELT GASSINESS, AND ASKED FOR CHEWABLE SIMETHICONE. ADMINISTERED MYLICON PO PRN. WILL CONT TO MONITOR.
[2016-10-21 06:44] LABS: BASOPHILS # (AUTO) 0.1 /CMM (0.0-0.2); BASOPHILS % (AUTO) 0.3 % (0.0-2.0); EOSINOPHILS # (AUTO) 0.1 /CMM (0.0-0.7); EOSINOPHILS % (AUTO) 0.9 % (0.0-6.0); HEMATOCRIT 28 % (33-45); HEMOGLOBIN 9.5 g/dL (11.5-14.8); LYMPHOCYTES # (AUTO) 1.9 /CMM (0.8-4.8); LYMPHOCYTES % (AUTO) 12.6 % (20.0-44.0); MEAN CORPUSCULAR HEMOGLOBIN 31 PG (26.0-33.0); MEAN CORPUSCULAR HGB CONC 35 g/dl (31.0-36.0); MEAN CORPUSCULAR VOLUME 90 fL (82-100); MONOCYTES # (AUTO) 1.8 /CMM (0.1-1.30); MONOCYTES % (AUTO) 11.5 % (2.0-12.0); NEUTROPHILS # (AUTO) 11.4 /CMM (1.8-8.9); NEUTROPHILS % (AUTO) 74.7 % (43.0-81.0); PLATELET COUNT (AUTO) 521 /CMM (150-450); RDW COEFFICIENT OF VARIATION 17.5 (11.5-15.0); RED BLOOD CELL COUNT(AUTO) 3.05 MIL/uL (4.0-5.2); WHITE BLOOD COUNT (AUTO) 15.3 K/uL (4.3-11.0)
--- NOTE | 2016-10-21 06:58 | NUR ---
MS RN CLOSING NOTES: PATIENT IN BED, AOX4, ON O2 AT 2 LPM VIA NC. BREATHING EVEN AND UNLABORED. DENIES PAIN, BUT STATES THAT SHE FEELS "GASSY", BUT THE SIMETHICONE WAS ABLE TO HELP. DUE MEDS GIVEN. NATALY MIDLINE INTACT AND PATENT TO FLUSH. RUIZ CATHETER IN PLACE DRAINING CLEAR YELLOW URINE. MID ABDOMINAL WOUND VAC AT 125 MMHG DRAINING SEROUS FLUID. PROVIDED FOR COMFORT AND SAFETY. MORNING CARE RENDERED. NO ACUTE CHANGE IN CONDITION NOTED THROUGH SHIFT. WILL ENDORSE TO AM RN FOR ALYCE.
[2016-10-21 07:07] LABS: CALCIUM, SERUM 8.2 mg/dL (8.5-10.1); CREATININE 0.6 mg/dL (0.6-1.3); MAGNESIUM 1.3 mg/dL (1.8-2.4); PHOSPHORUS 3.9 mg/dL (2.5-4.9); POTASSIUM 3.5 mmol/L (3.5-5.1)
--- NOTE | 2016-10-21 07:35 | NUR ---
MS RN OPENING NOTES: RECEIVED PATIENT IN STABLE LYING BED, AOX4, ON ROOM AIR, BREATHING EVEN AND UNLABORED. NATALY MIDLINE INTACT AND INFUSING WELL WITH VANCOMYCIN IV. SECOND IV ON LEFT HAND, DRY INTACT AND PATENT. NO INFILTRATION OR REDNESS NOTED AT THIS TIME. FC INTACT AND DRAINING CLEAR YELLOW URINE. PATIENT HAS WOUND VAC AT 125 MMHG OVER MID ABDOMINAL WOUND, NOTED SEROUS DRAINAGE AT 75 CC. PT WITH ACCORDION DRAIN INSERTED OVER R SIDE OF ABDOMEN DRAINING MILKY BROWNISH FLUID, NOTED AT 75 CC LEVEL IN COLLECTION BAG. COLOSTOMY BAG PLACED OVER LEFT SIDE OF ABDOMEN, CURRENTLY WITHOUT ANY BM AT THIS TIME. WILL CONTINUE TO MONITOR.
[2016-10-21 08:00] VITALS: BP 119/74
[2016-10-21] MEDS: SELEGILINE 6 MG/24 HR MC SCH (08:25)
[2016-10-21] MEDS: BOOST PLUS FOOD-CHOCLATE 237 ML BOX PO SCH ×2 (08:25→17:16)
[2016-10-21] MEDS: PANTOPRAZOLE 40 MG TABLET.DR PO SCH (08:26)
[2016-10-21] MEDS: POLYVINYL ALCOHOL 15 ML BOTTLE EACHEYE SCH ×2 (08:26→17:16)
[2016-10-21] MEDS: NEOMY SULF/BACITRAC ZN/POLY 15 GM TUBE TP SCH (08:29)
[2016-10-21] MEDS: Z GUARD REMEDY 2 OZ OINT TP SCH (08:29)
[2016-10-21] MEDS: GENTAMICIN 0.1% OINT 15 GM TUBE TP SCH ×2 (08:29→17:17)
[2016-10-21] MEDS ORDERED: SECONDARY IV SET 1 EA INFUS.SET MC ONE ×2 (11:42→21:07)
[2016-10-21] MEDS: LORAZEPAM INJ 2 MG/ML VIAL IV PRN ×2 (11:51→22:15)
[2016-10-21] MEDS: Magnesium 1GM/D5W 100ML PREMIX 100 ML IV SCH ×4 (11:51→19:19)
[2016-10-21] MEDS: SOD FERRIC GLUC 125 MG in IV NS 0.9% 100 ML IV SCH (14:32)
[2016-10-21] MEDS: LEVOFLOXACIN 500 MG /D5W 100ML 500 MG in PREMIX 1 EA IV SCH (15:40)
[2016-10-21 16:00] VITALS: BP 107/62
[2016-10-21] MEDS: MICAFUNGIN SODIUM 100 MG in IV NS 0.9% 100 ML IV SCH (17:14)
--- NOTE | 2016-10-21 18:27 | NUR ---
MS RN CLOSING NOTES: PATIENT IN BED, AOX4, ON ROOM AIR, BREATHING EVEN AND UNLABORED. NATALY MIDLINE INTACT AND INFUSING NO REDNESS OR INFILTRATION NOTED. PT TOLERATING IT WELL. IN NO APPARENT PAIN OR DISCOMFORT. PT WITH NEED OF ONE MORE MAGNESIUM BAG WILL ENDORSE TO NEXT SHIFT FOR CONTINUITY PT WITH MULTIPLE IV INFUSIONS. ALL PT NEEDS AND ORDERS CARRIED OUT THROUGHOUT SHIFT, NO ACUTE CHANGE IN CONDITION NOTED THROUGHOUT SHIFT. WILL CONTINUE TO MONITOR AND ENDORSE TO PHYSICAL EDUCATION PROFESSOR NURSE FOR ALYCE
--- NOTE | 2016-10-21 19:30 | NUR ---
RN NOTE; RECEIVED PT IN BED DOZING INTERMITTENTLY. BREATHING EVENLY. O2 SUPPLEMENTAL O2 VIA NC. DAMASO WELL. NO SOB. NO DISTRESS, NO C/O PAIN OR DISCOMFORT. WOUND VAC IN PLACE. DRAINING WELL. THE LAST BAG OF MG WAS HUNG. IV SITE INTACT. NEEDS ATTENDED. CALL LIGHT WITHIN REACH. WILL CONT TO MONITOR.
[2016-10-21 20:00] VITALS: BP 133/74
[2016-10-21] MEDS: LamoTRIgine 100 MG TABLET PO SCH (21:05)
[2016-10-21] MEDS: ENOXAPARIN SODIUM 40 MG/0.4 ML DISP.SYRIN SQ SCH (21:07)
[2016-10-21] MEDS: VANCOMYCIN 1.25 GM in IV D5W 500 ML IV SCH (22:15)
[2016-10-22] MEDS: MORPHINE SULFATE INJ 2 MG/ML DISP.SYRIN IV PRN (01:42)
--- NOTE | 2016-10-22 01:42 | NUR ---
MORPHINE GIVEN FOR C/O ABD. PAIN. WILL CONT TO MONITOR
[2016-10-22] MEDS: METOCLOPRAMIDE HCL 10 MG/2 ML VIAL IV SCH ×4 (04:03→22:43)
[2016-10-22] MEDS: METRONIDAZOLE 500MG/ NS 100ML 500 MG in PREMIX 1 EA IV SCH ×3 (04:03→20:32)
--- NOTE | 2016-10-22 06:24 | NUR ---
RN NOTE; PT IN BED SLEEPING, AROUSES EASILY. BREATHING EVENLY. NO SOB. NO DISTRESS. SKIN WARM AND DRY TO TOUCH. WOUND VAC IN PLACE. NO LEAKING. F/C IN PLACE. DRAINING CLEAR YELLOW URINE. WOUND DRAINAGE DRAINING SEROSANGUINEOUS DRAINAGE . NO C/O PAIN OR DISCOMFORT , NEEDS ATTENDED. BED BATH GIVEN. TURNED AND REPOSITIONED. CALL LIGHT WITHIN REACH,. WILL CONT TO MONITOR AND WILL ENDORSE TO AM SHIFT FOR ALYCE.
[2016-10-22 06:43] LABS: BASOPHILS # (AUTO) 0.1 /CMM (0.0-0.2); BASOPHILS % (AUTO) 0.4 % (0.0-2.0); EOSINOPHILS # (AUTO) 0.1 /CMM (0.0-0.7); EOSINOPHILS % (AUTO) 0.5 % (0.0-6.0); HEMATOCRIT 28 % (33-45); HEMOGLOBIN 9.2 g/dL (11.5-14.8); LYMPHOCYTES # (AUTO) 2.1 /CMM (0.8-4.8); LYMPHOCYTES % (AUTO) 14.3 % (20.0-44.0); MEAN CORPUSCULAR HEMOGLOBIN 30 PG (26.0-33.0); MEAN CORPUSCULAR HGB CONC 34 g/dl (31.0-36.0); MEAN CORPUSCULAR VOLUME 90 fL (82-100); MONOCYTES # (AUTO) 1.6 /CMM (0.1-1.30); MONOCYTES % (AUTO) 11.2 % (2.0-12.0); NEUTROPHILS # (AUTO) 10.8 /CMM (1.8-8.9); NEUTROPHILS % (AUTO) 73.6 % (43.0-81.0); PLATELET COUNT (AUTO) 550 /CMM (150-450); RDW COEFFICIENT OF VARIATION 17.6 (11.5-15.0); RED BLOOD CELL COUNT(AUTO) 3.06 MIL/uL (4.0-5.2); WHITE BLOOD COUNT (AUTO) 14.6 K/uL (4.3-11.0)
[2016-10-22 07:18] LABS: CREATININE 0.7 mg/dL (0.6-1.3); MAGNESIUM 1.9 mg/dL (1.8-2.4); PHOSPHORUS 3.5 mg/dL (2.5-4.9); POTASSIUM 3.5 mmol/L (3.5-5.1)
[2016-10-22 08:00] VITALS: BP 119/71
--- NOTE | 2016-10-22 08:00 | NUR ---
MS 2 RN AM NOTES PT IN BED ALERT,AWAKE AND VERBALLY RESPONSIVE.BREATHING EVENLY. NO SOB WITH O2 AT 2L/MIN VIA N/C. NO DISTRESS. SKIN WARM AND DRY TO TOUCH. WOUND VAC IN PLACE WITH CLOUDY PINK DRAINAGE. NOT LEAKING. F/C IN PLACE. DRAINING CLEAR YELLOW URINE. WOUND DRAINAGE(DAVOL/ACCORDION) DRAINING SEROSANGUINEOUS DRAINAGE . NO C/O PAIN OR DISCOMFORT , NEEDS ATTENDED. BED BATH GIVEN. TURNED AND REPOSITIONED. CALL LIGHT WITHIN REACH,. WILL CONT TO MONITOR
[2016-10-22] MEDS: BOOST PLUS FOOD-CHOCLATE 237 ML BOX PO SCH ×2 (08:50→17:17)
[2016-10-22] MEDS: SELEGILINE 6 MG/24 HR MC SCH (08:51)
[2016-10-22] MEDS: POLYVINYL ALCOHOL 15 ML BOTTLE EACHEYE SCH ×2 (08:51→17:27)
[2016-10-22] MEDS: SIMETHICONE 80 MG TAB.CHEW PO PRN ×2 (09:04→18:25)
[2016-10-22] MEDS: PANTOPRAZOLE 40 MG TABLET.DR PO SCH (09:04)
[2016-10-22] MEDS: Z GUARD REMEDY 2 OZ OINT TP SCH (09:54)
[2016-10-22] MEDS: GENTAMICIN 0.1% OINT 15 GM TUBE TP SCH ×2 (09:55→17:16)
[2016-10-22] MEDS: NEOMY SULF/BACITRAC ZN/POLY 15 GM TUBE TP SCH (09:56)
[2016-10-22] MEDS: LORAZEPAM INJ 2 MG/ML VIAL IV PRN (10:03)
[2016-10-22] MEDS: SOD FERRIC GLUC 125 MG in IV NS 0.9% 100 ML IV SCH (14:19)
--- NOTE | 2016-10-22 14:38 | NUR ---
WOUND CARE NOTE: ABDOMINAL WOUND WITH [employer] VAC FUNCTIONING WELL AT 125mmHg CONTINUOUS SETTING. 450cc PINK DRAINAGE IN CANISTER. CANISTER CHANGED. PLAN FOR VAC DRESSING CHANGE IN AM. DISCUSSED WITH NURSING STAFF.
[2016-10-22] MEDS: LEVOFLOXACIN 500 MG /D5W 100ML 500 MG in PREMIX 1 EA IV SCH (15:46)
[2016-10-22 16:00] VITALS: BP 145/78
[2016-10-22] MEDS: MICAFUNGIN SODIUM 100 MG in IV NS 0.9% 100 ML IV SCH (17:19)
--- NOTE | 2016-10-22 18:17 | NUR ---
MS2/RN - CLOSING NOTE PT. IS IN SEMI FOWLERS POSITION, 2 SIDE RAILS UP, A&OX4, BREATHING EVENLY AND UNLABORED, NO SIGNS OF DISTRESS, AND DOES NOT C/O OF PAIN. PT. HAS CALL LIGHT WITHIN REACH. PT. HAS RUIZ CATHETER, 2 DRAIN SITES PRESENT, A WOUND VAC, AND A DOVEL ON HER RIGHT SIDE. PT. HAS COLOSTOMY. PT. C/O BLOATING AND NAUSEA. ZOFRAN WAS OFFERED FOR NAUSEA, BUT REFUSED. SIMETHICONE WAS GIVEN.
--- NOTE | 2016-10-22 19:30 | NUR ---
RN NOTE; RECEIVED PT IN BED AWAKE AND ALERT. W/ FAMILY AT THE BED SIDE. BREATHING EVENLY. O SOB. NO DISTRESS. SKIN WARM AND DRY. F/C , COLOSTOMY, WOUND VAC AND DRAINAGE IN PLACE. NO C/O PAIN OR DISCOMFORT .NEEDS ATTENDED. BED LOW Gena HASTINGS SRX2. CALL LIGHT WITHIN REACH,. WILL CONT TO MONITOR .
[2016-10-22 20:00] VITALS: BP 139/70
[2016-10-22] MEDS ORDERED: BUMETANIDE INJ 4 MG in IV NS 0.9% 24 ML IV ONE (20:00)
--- NOTE | 2016-10-22 20:04 | NUR ---
SEEN AND EXAMINED BY DR. CAAL. W/ SOME NEW ORDERS FOR BUMEX AND LOVENOX.
[2016-10-22] MEDS ORDERED: SECONDARY IV SET 1 EA INFUS.SET MC ONE (20:31)
[2016-10-22] MEDS ORDERED: IV SET PRIMARY PUMP SET 1 EA INFUS.SET MC ONE (21:21)
[2016-10-22] MEDS: LamoTRIgine 100 MG TABLET PO SCH (21:21)
[2016-10-22] MEDS: ENOXAPARIN SODIUM 30 MG/0.3 ML DISP.SYRIN SQ SCH (21:22)
[2016-10-22] MEDS: VANCOMYCIN 1.25 GM in IV D5W 500 ML IV SCH (23:55)
[2016-10-23] MEDS: SIMETHICONE 80 MG TAB.CHEW PO PRN ×3 (00:03→19:34)
--- NOTE | 2016-10-23 00:05 | NUR ---
SIMETHICONE GIVEN PER PT'S REQUEST FOR C/O GAS PAIN. WILL CONT TO MONITOR
[2016-10-23] MEDS: LORAZEPAM INJ 2 MG/ML VIAL IV PRN ×2 (03:41→10:12)
--- NOTE | 2016-10-23 03:41 | NUR ---
ATIVAN GIVEN PER PT'S REQUEST FOR C/O ANXIETY . WILL CONT TO MONITOR
[2016-10-23] MEDS: MORPHINE SULFATE INJ 2 MG/ML DISP.SYRIN IV PRN ×2 (04:45→15:40)
--- NOTE | 2016-10-23 04:45 | NUR ---
MORPHINE GIVEN ORDERED PER PT'S REQUEST FOR C/O ABD PAIN. WILL CONT TO MONITOR
[2016-10-23] MEDS: METRONIDAZOLE 500MG/ NS 100ML 500 MG in PREMIX 1 EA IV SCH ×3 (04:48→21:45)
[2016-10-23] MEDS: METOCLOPRAMIDE HCL 10 MG/2 ML VIAL IV SCH ×4 (04:48→22:00)
[2016-10-23 06:09] LABS: BASOPHILS % (AUTO) 0.2 % (0.0-2.0); EOSINOPHILS # (AUTO) 0.1 /CMM (0.0-0.7); EOSINOPHILS % (AUTO) 0.7 % (0.0-6.0); HEMATOCRIT 27 % (33-45); HEMOGLOBIN 9.3 g/dL (11.5-14.8); LYMPHOCYTES # (AUTO) 1.7 /CMM (0.8-4.8); LYMPHOCYTES % (AUTO) 12.2 % (20.0-44.0); MEAN CORPUSCULAR HEMOGLOBIN 30 PG (26.0-33.0); MEAN CORPUSCULAR HGB CONC 34 g/dl (31.0-36.0); MEAN CORPUSCULAR VOLUME 90 fL (82-100); MONOCYTES # (AUTO) 1.7 /CMM (0.1-1.30); NEUTROPHILS # (AUTO) 10.8 /CMM (1.8-8.9); NEUTROPHILS % (AUTO) 74.9 % (43.0-81.0); PLATELET COUNT (AUTO) 468 /CMM (150-450); RDW COEFFICIENT OF VARIATION 16.9 (11.5-15.0); RED BLOOD CELL COUNT(AUTO) 3.06 MIL/uL (4.0-5.2); WHITE BLOOD COUNT (AUTO) 14.4 K/uL (4.3-11.0)
[2016-10-23 06:26] LABS: CALCIUM, SERUM 8.1 mg/dL (8.5-10.1); CREATININE 0.7 mg/dL (0.6-1.3); MAGNESIUM 1.3 mg/dL (1.8-2.4); PHOSPHORUS 3.8 mg/dL (2.5-4.9); POTASSIUM 3.3 mmol/L (3.5-5.1)
--- NOTE | 2016-10-23 06:28 | NUR ---
RN NOTE; PT IN BED DOZING INTERMITTENTLY. BREATHING EVENLY. NO SOB. NO DISTRESS. NO C/O PAIN OR DISCOMFORT AT THIS TIME. WOUND VAC IN PLACE. F/C IN PLACE DRAINING CLEAR BRIGHT YELLOW URINE. NEEDS ATTENDED. ASSISTED W/ ADLS. BED BATH GIVEN . ASSISTED W/ REPOSITIONING. CALL LIGHT WITHIN REACH. WILL CONT TO MONITOR AND WILL ENDORSE TO AM SHIFT FOR ALYCE.
--- NOTE | 2016-10-23 07:01 | NUR ---
SIMETHICONE GIVEN PER PT'S REQUEST FOR C/O GAS PAIN. WILL CONT TO MONITOR
[2016-10-23 07:34] VITALS: BP 130/72
[2016-10-23 08:07] VITALS: BP 130/72
[2016-10-23] MEDS: POLYVINYL ALCOHOL 15 ML BOTTLE EACHEYE SCH ×2 (08:08→16:52)
[2016-10-23] MEDS: SELEGILINE 6 MG/24 HR MC SCH (08:08)
[2016-10-23] MEDS: ENOXAPARIN SODIUM 30 MG/0.3 ML DISP.SYRIN SQ SCH ×2 (08:08→21:45)
[2016-10-23] MEDS: Z GUARD REMEDY 2 OZ OINT TP SCH (08:09)
[2016-10-23] MEDS: PANTOPRAZOLE 40 MG TABLET.DR PO SCH (08:09)
[2016-10-23] MEDS: GENTAMICIN 0.1% OINT 15 GM TUBE TP SCH ×2 (08:09→16:53)
[2016-10-23] MEDS: NEOMY SULF/BACITRAC ZN/POLY 15 GM TUBE TP SCH (08:10)
[2016-10-23] MEDS: BOOST PLUS FOOD-CHOCLATE 237 ML BOX PO SCH ×2 (08:11→16:52)
--- NOTE | 2016-10-23 10:46 | NUR ---
WOUND VAC CHANGE DONE TODAY BY WOUND NET PROGRAMMER ANALYST RNS,[place].WITH GOOD WOUND HEALING PROGRESS.CLARIFIED WITH DR RODRIGUES IF WE CAN DC PT'S RUIZ CATH SINCE THE RUIZ HAS NO INDICATION FOR USE.DR RODRIGUES STATED THAT IT DEPENDS ON THE PATIENT.CLARIFIED WITH PT ABOUT RUIZ BEING DC'D, PT STATED THAT IT'S UP TO THE DOCTOR.WILL DO BLADDER TRAINING.CLAMPED RUIZ FOR NOW AND WILL RECHECK AFTER 2 HRS PT'S URGE TO VOID.
--- NOTE | 2016-10-23 11:54 | NUR ---
SOLUTION SALES SENIOR EXECUTIVE PATIENT SEEN AND AND VAC DRESSING CHANGE DONE FOLLOWS: PATIENT WAS GIVEN PRE-MEDICATION OF ATIVAN IV PRIOR TO THE PROCEDURE, PATIENT ONLY WANTED ATIVAN, NOT ANY PAIN PRE-MEDS AT THE TIME OF THE DRESSING CHANGE. BLACK GRANUFOAM MOISTENED AND REMOVED X 3 PIECES, WOUND CLEANSED WITH NS, PAT DRY, SKIN PREP AND VAC DRAPE APPLIED TO ALL OUTSIDE EDGES, WOUND MEASURED 23CM X 11CM X 9CM, 95% GRANULATION TISSUE WITH 5% NECROTIC YELLOW SLOUGH TO THE BASE OF THE WOUND. SEE PHOTO. BLACK GRANUFOAM PACKED INTO THE WOUND USING 3 PEICES, COVERED WITH VAC DRAPE, TRAC PAD CONNECTED, VAC ON CONTINUOUSLY AT 125MMHG WITH GOOD SEAL NOTED, NO LEAKS. THERE WAS 50CC'S OF SEROUS POWELL DRNG IN THE CANNISTER AT TIME OF THE DRESSING CHANGE. NO ODOR TO THE WOUND. PATIENT TOLERATED THE PROCEDURE WELL, NO COMPLAINTS OF PAIN TO THE ABDOMEN OR THE WOUND. OK WITH SURGEON TO BEGIN 2X WEEKLY DRESSING CHANGES THIS WEEK AND ORDERS RECEIVED. WOUND CARE WILL CONTINUE TO FOLLOW. PATIENT ENCOURAGED TO CONTINUE TO TRY TO GET OOB WITH PHYSICAL THERAPY AND THAT SHE NEEDS TO WEAR HER ABDOMINAL BINDER AT ALL TIMES WHEN WORKING WITH PHYSICAL THERAPY. PATIENT VERBALIZED GOOD UNDERSTANDING. PATIENT FAMILY CAME IN FOR VISIT AND REMAIN AT THE BEDSIDE.
[2016-10-23] MEDS ORDERED: POTASSIUM CHLORIDE 20 MEQ TAB.PRT.SR PO SCH (12:30)
[2016-10-23] MEDS: Magnesium 1GM/D5W 100ML PREMIX 100 ML IV SCH ×4 (13:27→20:52)
[2016-10-23 15:35] VITALS: BP 134/70
[2016-10-23] MEDS: LEVOFLOXACIN 500 MG /D5W 100ML 500 MG in PREMIX 1 EA IV SCH (15:41)
[2016-10-23 16:16] VITALS: BP 134/70
[2016-10-23] MEDS: MICAFUNGIN SODIUM 100 MG in IV NS 0.9% 100 ML IV SCH (16:57)
[2016-10-23] MEDS ORDERED: VANCOMYCIN 1.25 GM in IV D5W 500 ML IV SCH (17:00)
[2016-10-23] MEDS: IV NS 0.9% 250 ML IV PRN (17:52)
--- NOTE | 2016-10-23 18:07 | NUR ---
PT WORKED WITH P.T. SITTING ON THE EDGE OF THE BED AND BEDSHEETS WAS CHANGED.FAMILY AT BEDSIDE AND PT TOLERATED WELL.SEEN BY DR CAAL WITH NO NEW ORDERS.
[2016-10-23] MEDS: SOD FERRIC GLUC 125 MG in IV NS 0.9% 100 ML IV SCH (18:27)
[2016-10-23 19:00] VITALS: BP 126/76
--- NOTE | 2016-10-23 19:25 | NUR ---
PT RESTING IN BED SURROUNDED BY HER LOVED ONES WITH ONGOING IV FERRLICITT INFUSING WELL AND ENDORSED TO BRANCH OPERATIONS COORDINATOR RN.XIMENA WOUND DRAINAGE HAS NO OUTPUT.WOUND VAC AT 125 MM HG PRESSURE DRAINED 150 ML DURING THE SHIFT.RUIZ CATH DRAINED 550 ML CLEAR YELLOW URINE OUTPUT.COLOSTOMY BAG CHANGED WITH MODERATE BROWN SOFT STOOL.KEPT CLEAN AND DRY.PT DENIES ANY PAIN OR DISTRESS.CALL LIGHT PLACED WITHIN REACH.
--- NOTE | 2016-10-23 19:50 | NUR ---
MS RN NOTE: PATIENT RESTING IN BED, NO ACUTE DISTRESS NOTED. BREATHING EVEN AND UNLABORED NO SOB NOTED. MIDLINE TO NATALY IN PLACE, INFUSING FERRLECIT AT 110 ML/HR. WOUND VAC IN PLACE WITH 150ML OF DRAINAGE AT THIS TIME. RUIZ CATHETER IN PLACE, DRAINING CLEAR YELLOW URINE. BED LOCKED AND IN LOWEST POSITION, CALL LIGHT IN REACH. WILL CONTINUE TO MONITOR.
[2016-10-23] MEDS ORDERED: SECONDARY IV SET 1 EA INFUS.SET MC ONE (20:00)
[2016-10-23] MEDS: LamoTRIgine 100 MG TABLET PO SCH (21:44)
[2016-10-24] MEDS: SIMETHICONE 80 MG TAB.CHEW PO PRN ×5 (01:12→21:43)
--- NOTE | 2016-10-24 01:15 | NUR ---
MS RN NOTE: PATIENT COMPLAINS OF GAS PAIN AND REQUESTING FOR MYLICON. MYLICON 80MG ORAL GIVEN PER MD ORDER. WILL CONTINUE TO MONITOR.
[2016-10-24] MEDS: LORAZEPAM INJ 2 MG/ML VIAL IV PRN ×3 (02:23→22:50)
--- NOTE | 2016-10-24 02:29 | NUR ---
MS RN NOTE: PATIENT COMPLAINS OF FEELING ANXIOUS AND REQUESTING FOR ATIVAN. ATIVAN 1MG IV GIVEN PER MD ORDER. WILL CONTINUE TO MONITOR.
[2016-10-24] MEDS: METRONIDAZOLE 500MG/ NS 100ML 500 MG in PREMIX 1 EA IV SCH (04:36)
[2016-10-24] MEDS: METOCLOPRAMIDE HCL 10 MG/2 ML VIAL IV SCH ×4 (04:36→22:51)
--- NOTE | 2016-10-24 06:05 | NUR ---
MS RN NOTE: PATIENT RESTING IN BED, NO ACUTE DISTRESS NOTED. BREATHING EVEN AND UNLABORED NO SOB NOTED. MIDLINE TO NATALY IN PLACE. WOUND VAC IN PLACE WITH TOTAL OF 200ML OF DRAINAGE RUIZ CATHETER IN PLACE, DRAINED 1175 ML OF CLEAR YELLOW URINE. COLOSTOMY BAG EMPTY, NO STOOL AT THIS TIME. ACCORDION DRAINAGE IN PLACE, WITH NO ADDITIONAL DRAINAGE NOTED. BED LOCKED AND IN LOWEST POSITION, CALL LIGHT IN REACH. WILL ENDORSE TO DAY NURSE TO CONTINUE WITH PLAN OF CARE.
[2016-10-24] MEDS: MORPHINE SULFATE INJ 4 MG/ML DISP.SYRIN IV PRN ×2 (06:39→19:37)
--- NOTE | 2016-10-24 06:50 | NUR ---
MS RN NOTE: PATIENT COMPLAINS OF SEVERE PAIN 10/10 TO ABDOMEN. MORPHINE 4MG IV GIVEN PER MD ORDER. WILL CONTINUE TO MONITOR.
[2016-10-24 07:20] LABS: CALCIUM, SERUM 8.3 mg/dL (8.5-10.1); CREATININE 0.6 mg/dL (0.6-1.3); MAGNESIUM 1.9 mg/dL (1.8-2.4); PHOSPHORUS 3.5 mg/dL (2.5-4.9)
[2016-10-24 07:28] LABS: BASOPHILS % (AUTO) 0.3 % (0.0-2.0); EOSINOPHILS # (AUTO) 0.2 /CMM (0.0-0.7); EOSINOPHILS % (AUTO) 1.3 % (0.0-6.0); HEMATOCRIT 29 % (33-45); HEMOGLOBIN 10.1 g/dL (11.5-14.8); LYMPHOCYTES # (AUTO) 1.9 /CMM (0.8-4.8); LYMPHOCYTES % (AUTO) 14.5 % (20.0-44.0); MEAN CORPUSCULAR HEMOGLOBIN 31 PG (26.0-33.0); MEAN CORPUSCULAR HGB CONC 35 g/dl (31.0-36.0); MEAN CORPUSCULAR VOLUME 90 fL (82-100); MONOCYTES # (AUTO) 1.7 /CMM (0.1-1.30); MONOCYTES % (AUTO) 13.2 % (2.0-12.0); NEUTROPHILS # (AUTO) 9.3 /CMM (1.8-8.9); NEUTROPHILS % (AUTO) 70.7 % (43.0-81.0); PLATELET COUNT (AUTO) 446 /CMM (150-450); RED BLOOD CELL COUNT(AUTO) 3.23 MIL/uL (4.0-5.2); WHITE BLOOD COUNT (AUTO) 13.1 K/uL (4.3-11.0)
[2016-10-24 08:00] VITALS: BP 146/92
[2016-10-24] MEDS: BOOST PLUS FOOD-CHOCLATE 237 ML BOX PO SCH ×2 (08:00→16:49)
--- NOTE | 2016-10-24 08:00 | NUR ---
MS 2 RN AM NOTES PT IN BED ALERT,AWAKE AND VERBALLY RESPONSIVE.BREATHING EVENLY. NO SOB WITH O2 AT 2L/MIN VIA N/C. NO DISTRESS. SKIN WARM AND DRY TO TOUCH. WOUND VAC IN PLACE WITH SEROUS PINK DRAINAGE. NOT LEAKING. F/C IN PLACE. DRAINING CLEAR YELLOW URINE. WOUND DRAINAGE(DAVOL/ACCORDION) HAS NO OUTPUT FOR THE PAST 3 DAYS AND REMAINS INTACT. NO C/O PAIN OR DISCOMFORT , NEEDS ATTENDED. BED BATH GIVEN. TURNED AND REPOSITIONED. CALL LIGHT WITHIN REACH,. WILL CONT TO MONITOR
[2016-10-24 08:04] VITALS: BP 146/92
[2016-10-24] MEDS: PANTOPRAZOLE 40 MG TABLET.DR PO SCH (08:29)
[2016-10-24] MEDS: POLYVINYL ALCOHOL 15 ML BOTTLE EACHEYE SCH ×2 (08:30→17:12)
[2016-10-24] MEDS: ENOXAPARIN SODIUM 30 MG/0.3 ML DISP.SYRIN SQ SCH ×2 (08:30→20:59)
[2016-10-24] MEDS: SELEGILINE 6 MG/24 HR MC SCH (08:31)
[2016-10-24] MEDS: Z GUARD REMEDY 2 OZ OINT TP SCH (08:31)
[2016-10-24] MEDS: NEOMY SULF/BACITRAC ZN/POLY 15 GM TUBE TP SCH (08:32)
[2016-10-24] MEDS: GENTAMICIN 0.1% OINT 15 GM TUBE TP SCH ×2 (08:32→17:13)
--- NOTE | 2016-10-24 10:00 | NUR ---
RUIZ CATHETER CHANGED TODAY WITH A NEW RUIZ FR 16/10 CC DRAINING CLEAR YELLOW URINE.PT TOLERATED WELL.
[2016-10-24] MEDS: METRONIDAZOLE 500 MG TABLET PO SCH ×2 (12:38→20:59)
[2016-10-24] MEDS: VANCOMYCIN 1.25 GM in IV D5W 500 ML IV SCH (12:44)
[2016-10-24] MEDS: MORPHINE SULFATE INJ 2 MG/ML DISP.SYRIN IV PRN (14:25)
--- NOTE | 2016-10-24 15:00 | NUR ---
PT WAS SEEN BY P.T. AND PT SAT ON THE SIDE OF THE BED WITH FAMILY AT BEDSIDE.PT TOLERATED WELL WITH ONGOING O2 AT 2L/MIN VIA N/C.
[2016-10-24] MEDS: LEVOFLOXACIN 500 MG /D5W 100ML 500 MG in PREMIX 1 EA IV SCH (15:01)
[2016-10-24] MEDS: SOD FERRIC GLUC 125 MG in IV NS 0.9% 100 ML IV SCH (16:29)
[2016-10-24 16:56] VITALS: BP 139/66
[2016-10-24] MEDS: MICAFUNGIN SODIUM 100 MG in IV NS 0.9% 100 ML IV SCH (17:37)
--- NOTE | 2016-10-24 18:07 | NUR ---
PT RESTING IN BED EATING HER DINNER.PROPPED UP WITH HOB ELEVATED.PT'S DARVOL(ACCORDION)DRAINAGE HAS NO OUTPUT.COLOSTOMY BAG EMPTY AND THE WOUND VAC HAS 100 ML SEROUS OUTPUT.PT DENIES ANY PAIN OR DISTRESS.TURNED EVERY TWO HRS.EMPTIED RUIZ CATHETER BAG WITH 1000 ML YELLOW URINE OUTPUT.
[2016-10-24 20:00] VITALS: BP 115/65
[2016-10-24] MEDS: LamoTRIgine 100 MG TABLET PO SCH (22:40)
[2016-10-25] MEDS: LORAZEPAM INJ 2 MG/ML VIAL IV PRN ×2 (02:53→10:09)
[2016-10-25] MEDS: MORPHINE SULFATE INJ 4 MG/ML DISP.SYRIN IV PRN (05:20)
[2016-10-25] MEDS: METRONIDAZOLE 500 MG TABLET PO SCH ×3 (05:21→22:18)
[2016-10-25] MEDS: METOCLOPRAMIDE HCL 10 MG/2 ML VIAL IV SCH ×2 (05:21→11:58)
--- NOTE | 2016-10-25 06:50 | NUR ---
MS RN NOTES AWAKE & RESPONSIVE. NOT IN ANY DISTRESS. NO SOB NOTED. DENIES ANY PAIN OR DISCOMFORT AT THIS TIME. WITH MIDLINE PATENT & INTACT. MONITORED ACCORDINGLY. CALL LIGHT WITHIN REACH. BED IN LOWEST POSITION. SR UP X 3 WITH BED ALARM ON FOR SAFETY. WILL ENDORSE TO NEXT SHIFT.
[2016-10-25 06:51] LABS: CALCIUM, SERUM 8.4 mg/dL (8.5-10.1); CREATININE 0.6 mg/dL (0.6-1.3); POTASSIUM 4.1 mmol/L (3.5-5.1)
--- NOTE | 2016-10-25 07:30 | NUR ---
MS OPENING NOTES RECEIVED REPORT FROM NIGHT NURSE. PATIENT IS SUPINE IN BED WITH BOTH SIDE RAILS UP. NO SIGNS OF DISTRESS OR SOB. CALL LIGHT WITHIN REACH. WILL CONTINUE TO MONITOR, ASSESS, AND IMPLEMENT PLAN OF CARE.
[2016-10-25 08:00] VITALS: BP 128/73
[2016-10-25] MEDS: BOOST PLUS FOOD-CHOCLATE 237 ML BOX PO SCH ×2 (08:00→17:00)
[2016-10-25] MEDS: ENOXAPARIN SODIUM 30 MG/0.3 ML DISP.SYRIN SQ SCH ×2 (09:44→22:19)
[2016-10-25] MEDS: SELEGILINE 6 MG/24 HR MC SCH (09:45)
[2016-10-25] MEDS: SIMETHICONE 80 MG TAB.CHEW PO PRN ×3 (09:45→20:29)
[2016-10-25] MEDS: POLYVINYL ALCOHOL 15 ML BOTTLE EACHEYE SCH ×2 (09:52→17:23)
[2016-10-25] MEDS: PANTOPRAZOLE 40 MG TABLET.DR PO SCH (09:59)
[2016-10-25] MEDS: NEOMY SULF/BACITRAC ZN/POLY 15 GM TUBE TP SCH (10:44)
[2016-10-25] MEDS: GENTAMICIN 0.1% OINT 15 GM TUBE TP SCH ×2 (10:45→21:04)
[2016-10-25] MEDS: VANCOMYCIN 1.25 GM in IV D5W 500 ML IV SCH (11:58)
[2016-10-25] MEDS ORDERED: SECONDARY IV SET 1 EA INFUS.SET MC ONE (11:59)
[2016-10-25] MEDS ORDERED: BISACODYL SUPP (10 MG) 10 MG/SUPP.RECT SUPP.RECT RC PRN (12:30)
[2016-10-25] MEDS ORDERED: IV NS 0.9% 250 ML IV ONE (14:55)
[2016-10-25 16:00] VITALS: BP 122/60
[2016-10-25] MEDS: LEVOFLOXACIN 500 MG /D5W 100ML 500 MG in PREMIX 1 EA IV SCH (17:07)
[2016-10-25] MEDS: MICAFUNGIN SODIUM 100 MG in IV NS 0.9% 100 ML IV SCH (17:22)
[2016-10-25] MEDS: Z GUARD REMEDY 2 OZ OINT TP SCH (18:06)
--- NOTE | 2016-10-25 19:30 | NUR ---
MS RN NOTES RECEIVED PT IN BED, AWAKE, A/O X 4. ABLE TO VERBALIZE NEEDS. NO DISTRESS, NO SOB NOTED AT THIS TIME. RESPIRATION IS EVEN AND UNLABORED. NO C/O PAIN OR DISCOMFORT AT THIS TIME. NATALY MIDLINE INTACT AND PATENT, NO S/S OF INFECTION NOTED. FC DRAINING WELL WITH CLEAR YELLOW URINE. COLOSTOMY IS INTACT. ABDOMINAL WOUND CONNECTED TO WOUND VAC WITH SEROSANGUINEOUS OUTPUT NOTED. ALL NEEDS ATTENDED AND METT. KEPT COMFORTABLE. SAFETY PRECAUTIONS OBSERVED. CALL LIGHT WITHIN REACH. WILL CONT TO MONITOR.
--- NOTE | 2016-10-25 19:50 | NUR ---
MS NURSE CLOSING NOTES GAVE REPORT TO NIGHT NURSE. PATIENT HAS NO SOB OR SIGNS OF DISTRESS. PATIENT WAS SLEEPING IN BED WITH CALL LIGHT WITHIN REACH, SIDE RAILS UP X2, AND BED IN LOWEST POSITION.
[2016-10-25 20:00] VITALS: BP 132/78
[2016-10-25] MEDS: MORPHINE SULFATE INJ 2 MG/ML DISP.SYRIN IV PRN (22:06)
[2016-10-25] MEDS: LamoTRIgine 100 MG TABLET PO SCH (22:18)
[2016-10-26] MEDS: METOCLOPRAMIDE HCL 10 MG/2 ML VIAL IV SCH ×5 (01:52→23:00)
--- NOTE | 2016-10-26 01:52 | NUR ---
REGLAN 10 MG IV Q 6 HOURS GIVEN @ 5322, AWARE, WILL FF UP WITH PHARMACY IN AM. PT INFORMED.
[2016-10-26] MEDS: SIMETHICONE 80 MG TAB.CHEW PO PRN ×3 (04:30→19:02)
[2016-10-26] MEDS: METRONIDAZOLE 500 MG TABLET PO SCH ×3 (05:41→21:49)
[2016-10-26 06:23] LABS: BASOPHILS # (AUTO) 0.1 /CMM (0.0-0.2); BASOPHILS % (AUTO) 0.4 % (0.0-2.0); EOSINOPHILS # (AUTO) 0.1 /CMM (0.0-0.7); HEMATOCRIT 26 % (33-45); HEMOGLOBIN 8.9 g/dL (11.5-14.8); LYMPHOCYTES # (AUTO) 1.8 /CMM (0.8-4.8); MEAN CORPUSCULAR HEMOGLOBIN 31 PG (26.0-33.0); MEAN CORPUSCULAR HGB CONC 34 g/dl (31.0-36.0); MEAN CORPUSCULAR VOLUME 91 fL (82-100); MONOCYTES # (AUTO) 1.5 /CMM (0.1-1.30); MONOCYTES % (AUTO) 11.5 % (2.0-12.0); NEUTROPHILS # (AUTO) 9.4 /CMM (1.8-8.9); NEUTROPHILS % (AUTO) 73.1 % (43.0-81.0); PLATELET COUNT (AUTO) 467 /CMM (150-450); RDW COEFFICIENT OF VARIATION 17.3 (11.5-15.0); RED BLOOD CELL COUNT(AUTO) 2.89 MIL/uL (4.0-5.2); WHITE BLOOD COUNT (AUTO) 12.9 K/uL (4.3-11.0)
[2016-10-26 06:46] LABS: CALCIUM, SERUM 8.2 mg/dL (8.5-10.1); CREATININE 0.7 mg/dL (0.6-1.3); MAGNESIUM 1.4 mg/dL (1.8-2.4); PHOSPHORUS 3.7 mg/dL (2.5-4.9); POTASSIUM 3.6 mmol/L (3.5-5.1)
--- NOTE | 2016-10-26 07:41 | NUR ---
MS RN NOTES PT IN BED, AWAKE, A/O X 4. ABLE TO VERBALIZE NEEDS. NO DISTRESS, NO SOB NOTED AT THIS TIME. RESPIRATION IS EVEN AND UNLABORED. NO C/O PAIN OR DISCOMFORT AT THIS TIME. NATALY MIDLINE INTACT AND PATENT, NO S/S OF INFECTION NOTED. FC DRAINING WELL WITH CLEAR YELLOW URINE. COLOSTOMY IS INTACT. ABDOMINAL WOUND CONNECTED TO WOUND VAC WITH SEROSANGUINEOUS OUTPUT NOTED. DAVOL/ ACCORDION INTACT, NO OUTPUT NOTED. ALL NEEDS ATTENDED AND MET. KEPT COMFORTABLE. SAFETY PRECAUTIONS OBSERVED. CALL LIGHT WITHIN REACH. WILL ENDORSE TO NEXT SHIFT FOR ALYCE.
--- NOTE | 2016-10-26 07:47 | NUR ---
MS NURSE OPENING NOTES RECEIVED PATIENT IN BED, AWAKE, HOB ELEVATED. NO SOB/DISTRESS NOTED. PT ON O2 2LPM VIA NC AND TOLERATED WELL. NATALY MIDLINE 18G INTACT AND PATENT. A & O X4. VERBALLY RESPONSIVE AND ABLE TO MAKE NEEDS KNOWN. PATIENT ON BEDREST. KEPT PT CLEAN AND COMFORTABLE IN BED. CALL LIGHT WITHIN PATIENT REACH. WILL CONTINUE TO MONITOR ACCORDINGLY.
[2016-10-26 08:00] VITALS: BP 149/69
--- NOTE | 2016-10-26 09:00 | NUR ---
MS RN NOTES PT REFUSED HER PROTONIX TAB 40MG.
[2016-10-26] MEDS: BOOST PLUS FOOD-CHOCLATE 237 ML BOX PO SCH ×2 (09:07→17:26)
[2016-10-26] MEDS: ENOXAPARIN SODIUM 30 MG/0.3 ML DISP.SYRIN SQ SCH ×2 (09:08→21:50)
[2016-10-26] MEDS: SELEGILINE 6 MG/24 HR MC SCH (09:10)
[2016-10-26] MEDS: MORPHINE SULFATE INJ 2 MG/ML DISP.SYRIN IV PRN (09:10)
[2016-10-26] MEDS: LORAZEPAM INJ 2 MG/ML VIAL IV PRN ×2 (09:11→14:12)
[2016-10-26] MEDS: PANTOPRAZOLE 40 MG TABLET.DR PO SCH (09:11)
[2016-10-26] MEDS: Z GUARD REMEDY 2 OZ OINT TP SCH (09:12)
[2016-10-26] MEDS: POLYVINYL ALCOHOL 15 ML BOTTLE EACHEYE SCH ×2 (09:13→17:27)
[2016-10-26] MEDS: GENTAMICIN 0.1% OINT 15 GM TUBE TP SCH ×2 (09:29→17:26)
[2016-10-26] MEDS: NEOMY SULF/BACITRAC ZN/POLY 15 GM TUBE TP SCH (09:29)
[2016-10-26] MEDS ORDERED: SECONDARY IV SET 1 EA INFUS.SET MC ONE ×4 (10:25→18:06)
[2016-10-26] MEDS: Magnesium 1GM/D5W 100ML PREMIX 100 ML IV SCH ×4 (10:31→14:50)
[2016-10-26] MEDS ORDERED: MORPHINE SULFATE INJ 2 MG/ML DISP.SYRIN IV ONE (11:00)
--- NOTE | 2016-10-26 11:00 | NUR ---
ms rn notes Wound nurse came and wound vac changed. silvio COLEMAN came and examined the patient and ordered CT abdomen and pelvis with contrast. Consent signed by the patient. Ordered Morphine 2mg IVP once. Will continue to monitor patient accordingly.
--- NOTE | 2016-10-26 11:25 | NUR ---
NCR OPERATOR PATIENT SEEN AND WOUND VAC DRESSING CHANGE PERFORMED. PATIENT WAS GIVE PRE-MEDICATION BY NYLON MENDER PRIOR TO PROCEDURE. VAC DRESSING REMOVED, 3 PIECES OF BLACK GRANUFOAM WERE REMOVED FOR THE ABDOMINAL WOUND, WOUND CLEANSED WITH NS, PAT DRY, APPLIED SKIN PREP TO ALL OUTSIDE EDGES OF THE WOUND WITH VAC DRAPE TO PROTECT SKIN FROM MOISTURE, BLACK GRANUFOAM CUT TO SIZE 3 PIECES PACKED INTO WOUND BED TO BASE, COVERED WITH VAC DRAPE, TRAC PAD ATTACHED, VAC THERAPY ON CONTINUOUS AT 125MMHG WITH GOOD SEAL NO LEAKS NOTED. PATIENT TOLERATED THE PROCEDURE WELL. PATIENT CONTINUES TO COMPLAIN OF RIGHT UPPER QUADRANT PAIN AND RIGHT SIDED ABDOMINAL PAIN, SURGEON DR HENDERSON AND PRIMARY ACNP NOTIFIED AND CT OF ABD/PELVIS ORDERED. PER SURGEON OK TO CONTINUE WOUND VAC SCHEDULED. ALL DISCUSSED WITH NURSING STAFF AT THE BEDSIDE. NEXT SCHEDULED VAC DRESSING CHANGE Saturday10/30/16. PATIENT WILL NEED TO CONTINUE WOUND VAC THERAPY(NEGATIVE PRESSURE WOUND THERAPY) ONCE SHE IS DISCHARGED. CASE MANAGEMENT IS AWARE OF THIS. FOR TRANSFER OF PATIENT TO THE FACILITY UPON DISCHARGE OK TO DISCONNECT FROM HOSPITAL VAC, REMOVE VAC DRESSING, AND PERFORM WOUND CARE PER CURRENT WOUND TREATMENT ORDERS WRITTEN IN ANTICIPATION OF DISCHARGE FOR DISCHARGE FROM HOSPITAL. THE NEW FACILITY CAN ARRANGE FOR VAC THERAPY TO CONTINUE ONCE SHE IS THERE. PATIENT MUST WEAR ABDOMINAL BINDER AT ALL TIMES WHEN OUT OF BED OR WORKING WITH PHYSICAL THERAPY. Addendum: 10/26/16 at 1223 by BRADLEY HOWARD WNDNU NCR OPERATOR ADDENDUM WOUND MEASUREMENTS FROM TODAY 23CM X 11CM X 9CM, THERE IS 95% GRANULATION TISSUE AND 5% NECROTIC YELLOW SLOUGH TO THE BASE OF THE WOUND, NO ODOR AND THERE WAS 60CC'S OF SEROUS CLEAR DRNG IN THE CANNISTER FROM LAST NIGHT.
[2016-10-26] MEDS ORDERED: IV NS 0.9% 250 ML IV ONE (13:59)
[2016-10-26] MEDS ORDERED: CT SWABBABLE VALVE TRANS SET 1 EA INFUS.SET MC ONE (13:59)
[2016-10-26] MEDS ORDERED: IOHEXOL-300 100 ML VIAL IV ONE (14:00)
[2016-10-26] MEDS: VANCOMYCIN 1.25 GM in IV D5W 500 ML IV SCH (14:15)
[2016-10-26] MEDS ORDERED: IOHEXOL-350 100 ML VIAL IV ONE (14:44)
[2016-10-26] MEDS: SOD FERRIC GLUC 125 MG in IV NS 0.9% 100 ML IV SCH (15:44)
[2016-10-26 16:00] VITALS: BP 128/70
[2016-10-26] MEDS: LEVOFLOXACIN 500 MG /D5W 100ML 500 MG in PREMIX 1 EA IV SCH (16:45)
[2016-10-26] MEDS: MICAFUNGIN SODIUM 100 MG in IV NS 0.9% 100 ML IV SCH (18:12)
--- NOTE | 2016-10-26 19:30 | NUR ---
MSRN FULLY AWAKE, NO SOB, PAIN TOLERABLE. RUIZ TO GRAVITY, OUTPUT MONITORED.COLOSTOMY INTACT, MID ABD WOUND CONNECTED TO WOUND VAC, WITH SCANTY DRAINAGE. V/S STABLE, REMAINS AFEBRILE. POSSIBLE DISCHARGE TODAY ONCE CLEARED BY .
--- NOTE | 2016-10-26 19:36 | NUR ---
ms rn closing notes All needs provided, attended, and anticipated. Kept patient clean and comfortable in bed, call light with in patient reach, will continue to monitor accordingly. cook output of 1050, zero output n the wound vac. Endorsed to next shift RN to continue care.
[2016-10-26 20:00] VITALS: BP 143/76
[2016-10-26] MEDS: LamoTRIgine 100 MG TABLET PO SCH (21:49)
--- NOTE | 2016-10-26 23:00 | NUR ---
MSRN DUE MEDS GIVEN. NO N/V. VERBALIZES STOMACH GAS, SIMETHICONE NOT DUE YET. REGLAN IV GIVEN EARLY
[2016-10-27] MEDS: SIMETHICONE 80 MG TAB.CHEW PO PRN ×2 (01:18→06:26)
--- NOTE | 2016-10-27 03:55 | NUR ---
MSRN AM CARE DONE BY STAFF. REPOSITIONED FOR COMFORT.
[2016-10-27] MEDS: METRONIDAZOLE 500 MG TABLET PO SCH ×3 (04:54→21:35)
[2016-10-27] MEDS: METOCLOPRAMIDE HCL 10 MG/2 ML VIAL IV SCH ×4 (05:06→23:50)
[2016-10-27 06:33] LABS: BASOPHILS % (AUTO) 0.3 % (0.0-2.0); EOSINOPHILS # (AUTO) 0.2 /CMM (0.0-0.7); EOSINOPHILS % (AUTO) 1.8 % (0.0-6.0); HEMATOCRIT 27 % (33-45); HEMOGLOBIN 9.2 g/dL (11.5-14.8); LYMPHOCYTES # (AUTO) 1.7 /CMM (0.8-4.8); LYMPHOCYTES % (AUTO) 13.2 % (20.0-44.0); MEAN CORPUSCULAR HEMOGLOBIN 31 PG (26.0-33.0); MEAN CORPUSCULAR HGB CONC 34 g/dl (31.0-36.0); MEAN CORPUSCULAR VOLUME 90 fL (82-100); MONOCYTES # (AUTO) 1.4 /CMM (0.1-1.30); MONOCYTES % (AUTO) 11.4 % (2.0-12.0); NEUTROPHILS # (AUTO) 9.2 /CMM (1.8-8.9); NEUTROPHILS % (AUTO) 73.3 % (43.0-81.0); PLATELET COUNT (AUTO) 454 /CMM (150-450); RDW COEFFICIENT OF VARIATION 17.9 (11.5-15.0); WHITE BLOOD COUNT (AUTO) 12.5 K/uL (4.3-11.0)
--- NOTE | 2016-10-27 06:35 | NUR ---
MSRN RESTING QUIETLY. NO NEEDS MADE.
[2016-10-27 06:53] LABS: CALCIUM, SERUM 8.3 mg/dL (8.5-10.1); CREATININE 0.6 mg/dL (0.6-1.3); MAGNESIUM 1.8 mg/dL (1.8-2.4); PHOSPHORUS 3.7 mg/dL (2.5-4.9); POTASSIUM 3.8 mmol/L (3.5-5.1)
[2016-10-27 08:00] VITALS: BP 152/85
--- NOTE | 2016-10-27 08:00 | NUR ---
MS RN NOTE PT. AWAKE, ALERT AND ORIENTED X4. DENIED PAIN AND SOB. COLOSTOMY BAG HAS BEEN LEAKING. CHANGED IT. WOUND VAC IN PLACED. SIDE RAILS UP. CALL LIGHT WITHIN REACH. MONITOR CLOSELY.
[2016-10-27] MEDS: PANTOPRAZOLE 40 MG TABLET.DR PO SCH (08:03)
[2016-10-27] MEDS: POLYVINYL ALCOHOL 15 ML BOTTLE EACHEYE SCH ×2 (08:04→17:05)
[2016-10-27] MEDS: SELEGILINE 6 MG/24 HR MC SCH (08:04)
[2016-10-27] MEDS: BOOST PLUS FOOD-CHOCLATE 237 ML BOX PO SCH (08:04)
[2016-10-27] MEDS: ENOXAPARIN SODIUM 30 MG/0.3 ML DISP.SYRIN SQ SCH ×2 (08:07→21:44)
[2016-10-27] MEDS: NEOMY SULF/BACITRAC ZN/POLY 15 GM TUBE TP SCH (09:00)
[2016-10-27] MEDS: GENTAMICIN 0.1% OINT 15 GM TUBE TP SCH ×2 (09:00→17:05)
[2016-10-27] MEDS: Z GUARD REMEDY 2 OZ OINT TP SCH (09:21)
--- NOTE | 2016-10-27 10:00 | NUR ---
REMOVED DRAIN CATHETER BY [place] BRODERICK. APPLIED DRESSING.
--- NOTE | 2016-10-27 12:00 | NUR ---
TRIED TO TRANSFER TO THE [facility]. BUT BED IS UNAVAILABLE. SPOKE WITH PHOTOGRAPHIC EQUIPMENT INSPECTOR ([place]). SHE WILL CONTACT TO [facility].
[2016-10-27] MEDS: VANCOMYCIN 1.25 GM in IV D5W 500 ML IV SCH (12:16)
[2016-10-27] MEDS ORDERED: MICA100V IV (12:41)
[2016-10-27] MEDS ORDERED: DIPH50VI14 IV (12:41)
[2016-10-27] MEDS ORDERED: LAMO100T2 PO (12:41)
[2016-10-27] MEDS ORDERED: METO5VIA6 IV (12:41)
[2016-10-27] MEDS ORDERED: LORA2VIA11 IV (12:41)
[2016-10-27] MEDS ORDERED: Gel Dressing TP (12:41)
[2016-10-27] MEDS ORDERED: Ondansetron Hcl/Pf IVP (12:41)
[2016-10-27] MEDS ORDERED: Simethicone PO (12:41)
[2016-10-27] MEDS ORDERED: METR500T PO (12:41)
[2016-10-27] MEDS ORDERED: Lactose-Free Food PO (12:41)
[2016-10-27] MEDS ORDERED: ENOX30DI SQ (12:41)
[2016-10-27] MEDS ORDERED: RXVAN XX (12:41)
[2016-10-27] MEDS ORDERED: SODI473S8 TOP (12:41)
[2016-10-27] MEDS ORDERED: Morphine Sulfate IV (12:41)
[2016-10-27] MEDS ORDERED: ACET325T53 PO (12:41)
[2016-10-27] MEDS ORDERED: PANT40TA2 PO (12:41)
[2016-10-27] MEDS ORDERED: Gentamicin Sulfate TP (12:41)
[2016-10-27] MEDS ORDERED: ALLA266C2 TP (12:41)
[2016-10-27] MEDS ORDERED: NEOM15OI3 TP (12:41)
[2016-10-27] MEDS: LORAZEPAM INJ 2 MG/ML VIAL IV PRN (13:25)
[2016-10-27] MEDS: SOD FERRIC GLUC 125 MG in IV NS 0.9% 100 ML IV SCH (14:49)
[2016-10-27 16:00] VITALS: BP 131/72
[2016-10-27] MEDS: LEVOFLOXACIN 500 MG /D5W 100ML 500 MG in PREMIX 1 EA IV SCH (16:04)
[2016-10-27] MEDS: MICAFUNGIN SODIUM 100 MG in IV NS 0.9% 100 ML IV SCH (17:08)
--- NOTE | 2016-10-27 18:39 | NUR ---
CLOSING SHIFT PT. AWAKE, ALERT AND ORIENTED X4. TOLERATED ABDOMINAL PAIN. CHANGED COLOSTOMY DRESSING TWICE. WOUND VAC IN PLACED. DRESSING DRY AND INTACT. VS STABLE. SIDE RAILS UP. CALL LIGHT WITHIN REACH. MONITOR CLOSELY.
--- NOTE | 2016-10-27 19:30 | NUR ---
RN NOTES RECEIVED PT. AWAKE ON BED, A/OX4, ON BARIATRIC BED, F/C DRAINING CLEAR YELLOW URINE, WOUND VAC IN PLACE, COLOSTOMY IN PLACE, DENIES PAIN, NO SOB, CALL LIGHT WITHIN REACH, SIDERAILS UPX2 CONTINUE TO MONITOR
[2016-10-27 20:00] VITALS: BP 137/71
[2016-10-27] MEDS: LamoTRIgine 100 MG TABLET PO SCH (21:35)
--- NOTE | 2016-10-28 | NUR ---
RN NOTES SNACK WAS GIVEN
[2016-10-28] MEDS: LORAZEPAM INJ 2 MG/ML VIAL IV PRN ×2 (04:01→09:26)
[2016-10-28] MEDS: METRONIDAZOLE 500 MG TABLET PO SCH ×3 (04:04→21:32)
--- NOTE | 2016-10-28 04:24 | NUR ---
RN NOTES COMPLAINED OF FEELING ANXIOUS- ATIVAN 1 MG IV GIVEN ORDERED, V/S STABLE
--- NOTE | 2016-10-28 06:45 | NUR ---
RN NOTES PT ASKED FOR SIMETHICONE, SIMETHICONE 1 TAB PO GIVEN ORDERED
[2016-10-28] MEDS: SIMETHICONE 80 MG TAB.CHEW PO PRN ×3 (06:49→18:38)
[2016-10-28] MEDS: METOCLOPRAMIDE HCL 10 MG/2 ML VIAL IV SCH ×4 (06:49→23:17)
--- NOTE | 2016-10-28 07:04 | NUR ---
RN NOTES AWAKE, MIDLINE IN PLACE, COLOSTOMY BAG CHANGED, F/C DRAINING CLEAR YELLOW URINE, WOUND VAC IN PLACE, CALL LIGHT WITHIN REACH, SIDERAILS UPX2 PT. NEEDS ATTENDED
[2016-10-28 07:24] LABS: CALCIUM, SERUM 8.2 mg/dL (8.5-10.1); CREATININE 0.6 mg/dL (0.6-1.3); POTASSIUM 4.1 mmol/L (3.5-5.1)
[2016-10-28 08:00] VITALS: BP 142/83
--- NOTE | 2016-10-28 08:00 | NUR ---
MS RN NOTES RECEIVED PATIENT AWAKE RESTING COMFORTABLY ON BED, AOX3, BREATHING EVEN AND NON LABORED. DENIES ANY PAIN AT THIS TIME. WITH O2 VIA NC @ 2LPM, WITH NATALY MIDLINE INTACT AND PATENT, WITH ABDOMINAL AREA WOUND VAC IN PLACED, FC DRAINING TO YELLOWISH URINE OUTPUT. CALL LIGHT WITHIN REACH, WILL CONTINUE TO MONITOR.
[2016-10-28] MEDS: POLYVINYL ALCOHOL 15 ML BOTTLE EACHEYE SCH ×2 (08:42→16:42)
[2016-10-28] MEDS: SELEGILINE 6 MG/24 HR MC SCH (08:42)
[2016-10-28] MEDS: PANTOPRAZOLE 40 MG TABLET.DR PO SCH (08:42)
[2016-10-28] MEDS: GENTAMICIN 0.1% OINT 15 GM TUBE TP SCH ×2 (08:44→17:04)
[2016-10-28] MEDS: NEOMY SULF/BACITRAC ZN/POLY 15 GM TUBE TP SCH (08:44)
[2016-10-28] MEDS: Z GUARD REMEDY 2 OZ OINT TP SCH (08:46)
[2016-10-28] MEDS: ENOXAPARIN SODIUM 30 MG/0.3 ML DISP.SYRIN SQ SCH ×2 (08:51→21:33)
--- NOTE | 2016-10-28 09:00 | NUR ---
MS RN NOTES ALL DUE MEDS GIVEN
--- NOTE | 2016-10-28 10:30 | NUR ---
MS RN NOTES S/B DRY HOUSE WHEELER BRANDON WITH NEW ORDERS MADE. PATIENT FOR PSYCH CONSULT WITH DR. CALIX RELATED TO DEPRESSION AND ANXIETY.
[2016-10-28] MEDS: VANCOMYCIN 1.25 GM in IV D5W 500 ML IV SCH (11:51)
[2016-10-28] MEDS: SOD FERRIC GLUC 125 MG in IV NS 0.9% 100 ML IV SCH (13:57)
[2016-10-28] MEDS ORDERED: SECONDARY IV SET 1 EA INFUS.SET MC ONE (14:03)
[2016-10-28] MEDS: ONDANSETRON HCL/PF 4 MG/2 ML VIAL IVP PRN (14:53)
[2016-10-28] MEDS: LEVOFLOXACIN 500 MG /D5W 100ML 500 MG in PREMIX 1 EA IV SCH (14:58)
--- NOTE | 2016-10-28 15:00 | NUR ---
MS RN NOTES TURN AND REPOSITION DONE Q2H AND NEEDED FOR COMFORT. ALL NEEDS ATTENDED AND ANTICIPATED. WILL CONTINUE TO MONITOR.
[2016-10-28 16:00] VITALS: BP 138/70
[2016-10-28] MEDS: MICAFUNGIN SODIUM 100 MG in IV NS 0.9% 100 ML IV SCH (16:41)
[2016-10-28] MEDS: ACETAMINOPHEN 325 MG TABLET PO PRN (16:41)
--- NOTE | 2016-10-28 19:21 | NUR ---
MS RN NOTES ENDORSED TO INCOMING SHIFT FOR CONTINUITY OF CARE.
--- NOTE | 2016-10-28 19:50 | NUR ---
MS RN NOTE: PATIENT RESTING IN BED, NO ACUTE DISTRESS NOTED, FAMILY AT BEDSIDE. BREATHING EVEN AND UNLABORED NO SOB NOTED. MIDLINE TO NATALY IN PLACE. WOUND VAC IN PLACE WITH 300ML OF DRAINAGE AT THIS TIME. RUIZ CATHETER IN PLACE, DRAINING CLEAR YELLOW URINE. COLOSTOMY BAG IN PLACE. BED LOCKED AND IN LOWEST POSITION, CALL LIGHT IN REACH. WILL CONTINUE TO MONITOR.
[2016-10-28 20:06] VITALS: BP 121/78
[2016-10-28] MEDS: LamoTRIgine 100 MG TABLET PO SCH (21:32)
[2016-10-28] MEDS: LORAZEPAM 1 MG TABLET PO PRN (23:23)
--- NOTE | 2016-10-28 23:30 | NUR ---
MS RN NOTE: PATIENT REQUESTING FOR SOMETHING TO HELP RELAX AND TO GO TO SLEEP. ATIVAN 1MG ORAL GIVEN PER MD ORDER. WILL CONTINUE TO MONITOR.
[2016-10-29] MEDS: SIMETHICONE 80 MG TAB.CHEW PO PRN ×3 (03:38→15:14)
--- NOTE | 2016-10-29 03:45 | NUR ---
MS RN NOTE: PATIENT COMPLAINS OF GAS PAIN AND REQUESTING FOR MYLICON. MYLICON 80MG ORAL GIVEN PER MD ORDER. WILL CONTINUE TO MONITOR.
[2016-10-29] MEDS: METRONIDAZOLE 500 MG TABLET PO SCH ×2 (05:46→12:17)
[2016-10-29] MEDS: METOCLOPRAMIDE HCL 10 MG/2 ML VIAL IV SCH ×2 (05:46→12:49)
[2016-10-29] MEDS: LORAZEPAM 1 MG TABLET PO PRN ×2 (05:47→12:49)
--- NOTE | 2016-10-29 06:05 | NUR ---
MS RN NOTE: PATIENT RESTING IN BED, NO ACUTE DISTRESS NOTED. BREATHING EVEN AND UNLABORED NO SOB NOTED. MIDLINE TO NATALY IN PLACE. WOUND VAC IN PLACE WITH 350ML OF DRAINAGE AT THIS TIME. RUIZ CATHETER IN PLACE, DRAINED 800ML OF CLEAR YELLOW URINE. COLOSTOMY BAG IN PLACE. PATIENT REQUESTING FOR MEDICATION TO HELP HER RELAX. ATIVAN 1MG ORAL GIVEN PER MD ORDER. BED LOCKED AND IN LOWEST POSITION, CALL LIGHT IN REACH. WILL ENDORSE TO DAY NURSE TO CONTINUE WITH PLAN OF CARE.
[2016-10-29 07:22] LABS: CALCIUM, SERUM 8.4 mg/dL (8.5-10.1); CREATININE 0.6 mg/dL (0.6-1.3); POTASSIUM 4.1 mmol/L (3.5-5.1)
--- NOTE | 2016-10-29 07:30 | NUR ---
RN MS NOTES PT IN BED, AWAKE, ALERT AND ORIENTED, NO COMPLAINT OF PAIN OR ANY DISCOMFORT, RESPIRATIONS NORMAL AND NOT LABORED, CALL LIGHT WITHIN REACH, KEPT COMFORTABLE IN BED.
[2016-10-29 08:00] VITALS: BP 131/89
[2016-10-29] MEDS: PANTOPRAZOLE 40 MG TABLET.DR PO SCH ×2 (09:00→09:02)
[2016-10-29] MEDS: SELEGILINE 6 MG/24 HR MC SCH (09:02)
[2016-10-29] MEDS: POLYVINYL ALCOHOL 15 ML BOTTLE EACHEYE SCH (09:02)
[2016-10-29] MEDS: Z GUARD REMEDY 2 OZ OINT TP SCH (09:03)
[2016-10-29] MEDS: ENOXAPARIN SODIUM 30 MG/0.3 ML DISP.SYRIN SQ SCH (09:24)
--- NOTE | 2016-10-29 12:06 | NUR ---
RN MS NOTES PT IN BED, AWAKE, WATCHING TV, NO COMPLAINT OF PAIN, RESPIRATIONS NORMAL, SEEN BY PHYSICAL THERAPIST, TOLERATED EXERCISES WELL, PT SEEN BY BRANDON COLEMAN, PLAN OF CARE DISCUSSED WITH PT, VERBALIZED UNDERSTANDING, ASSISTED IN TURNING AND REPOSITIONING Q2HRS.
[2016-10-29] MEDS: VANCOMYCIN 1.25 GM in IV D5W 500 ML IV SCH (12:17)
[2016-10-29] MEDS: NEOMY SULF/BACITRAC ZN/POLY 15 GM TUBE TP SCH (12:54)
[2016-10-29] MEDS: GENTAMICIN 0.1% OINT 15 GM TUBE TP SCH (14:23)
[2016-10-29] MEDS: MORPHINE SULFATE INJ 4 MG/ML DISP.SYRIN IV PRN (15:01)
[2016-10-29 16:00] VITALS: BP 132/62
--- NOTE | 2016-10-29 18:00 | NUR ---
RN MS NOTES PT IN BED, AWAKE, ALERT AND ORIENTED, NOT IN DISTRESS, PAIN MEDICATION GIVEN FOR PAIN MANAGEMENT, VERBALIZED RELIEF AFTER 30 MINUTES, BED AVAILABLE NOW AT [facility], PT AND FAMILY INFORMED, WOUND VAC TO ABDOMINAL WOUND REMOVED ORDERED, CLEANSED WOUND AND DRESSING CHANGE DONE ORDERED, PT TOLERATED PROCEDURE WELL, COLOSTOMY CARE DONE, COLOSTOMY BAG CHANGED, REPORT GIVEN TO [facility], DISCHARGE AND MEDICATION INSTRUCTIONS PROVIDED TO PT AND TO RECEIVING FACILITY, VERBALIZED UNDERSTANDING, BELONGINGS ACCOUNTED FOR, PICKED UP BY 2 AMBULANCE PERSONNEL VIA [facility], LEFT IN STABLE CONDITION.
== END 2016-10-29 18:52 | DRG 853 ==
LOC: ER 23:37 → ICU 09-23 02:15 → TELE-TD 10-10 08:03 → TELE1 10-12 17:54 → MEDSG1 10-14 14:34 → MEDSG2 10-16 10:56
PROVIDERS: ADMIT Internal Medicine; ATTEND Internal Medicine
PROC: 0BH17EZ Insertion of Endotracheal Airway into Trachea, Via Natural or Artificial Opening (ICD-10-PCS; 2016-09-23)
PROC: 5A1955Z Respiratory Ventilation, Greater than 96 Consecutive Hours (ICD-10-PCS; 2016-09-23)
PROC: 02HV33Z Insertion of Infusion Device into Superior Vena Cava, Percutaneous Approach (ICD-10-PCS; 2016-09-23)
PROC: 0DNE0ZZ Release Large Intestine, Open Approach (ICD-10-PCS; principal; 2016-09-23 07:56)
PROC: 0DBN0ZZ Excision of Sigmoid Colon, Open Approach (ICD-10-PCS; principal; 2016-09-23 07:56)
PROC: 0D1L0Z4 Bypass Transverse Colon to Cutaneous, Open Approach (ICD-10-PCS; principal; 2016-09-23 07:56)
PROC: 30233K1 Transfusion of Nonautologous Frozen Plasma into Peripheral Vein, Percutaneous Approach (ICD-10-PCS; 2016-09-24)
PROC: 0HB7XZZ Excision of Abdomen Skin, External Approach (ICD-10-PCS; 2016-10-05)
PROC: 0JB80ZZ Excision of Abdomen Subcutaneous Tissue and Fascia, Open Approach (ICD-10-PCS; 2016-10-06)
PROC: 05H533Z Insertion of Infusion Device into Right Subclavian Vein, Percutaneous Approach (ICD-10-PCS; 2016-10-11)
PROC: 30233N1 Transfusion of Nonautologous Red Blood Cells into Peripheral Vein, Percutaneous Approach (ICD-10-PCS; 2016-10-11)
PROC: 0JB80ZZ Excision of Abdomen Subcutaneous Tissue and Fascia, Open Approach (ICD-10-PCS; 2016-10-16)
DX: A41.9 Sepsis, unspecified organism (principal); R65.21 Severe sepsis with septic shock; K63.1 Perforation of intestine (nontraumatic); N17.0 Acute kidney failure with tubular necrosis; E43 Unspecified severe protein-calorie malnutrition; J96.00 Acute respiratory failure, unspecified whether with hypoxia or hypercapnia; I50.23 Acute on chronic systolic (congestive) heart failure; I21.4 Non-ST elevation (NSTEMI) myocardial infarction; J96.01 Acute respiratory failure with hypoxia; J96.02 Acute respiratory failure with hypercapnia; K65.1 Peritoneal abscess; Z68.42 Body mass index [BMI] 45.0-49.9, adult; I13.0 Hypertensive heart and chronic kidney disease with heart failure and stage 1 through stage 4 chronic kidney disease, or unspecified chronic kidney disease; K56.7 Ileus, unspecified; E87.1 Hypo-osmolality and hyponatremia; E87.2 Acidosis; J98.11 Atelectasis; K66.0 Peritoneal adhesions (postprocedural) (postinfection); E66.01 Morbid (severe) obesity due to excess calories; Z96.652 Presence of left artificial knee joint; N18.3 Chronic kidney disease, stage 3 (moderate); K52.9 Noninfective gastroenteritis and colitis, unspecified; K74.5 Biliary cirrhosis, unspecified; K72.90 Hepatic failure, unspecified without coma; D64.9 Anemia, unspecified; D75.89 Other specified diseases of blood and blood-forming organs; E61.1 Iron deficiency; E83.42 Hypomagnesemia; E86.0 Dehydration; E87.6 Hypokalemia; I08.0 Rheumatic disorders of both mitral and aortic valves; I25.2 Old myocardial infarction; I25.5 Ischemic cardiomyopathy; I34.0 Nonrheumatic mitral (valve) insufficiency; I35.0 Nonrheumatic aortic (valve) stenosis; I70.8 Atherosclerosis of other arteries; K66.8 Other specified disorders of peritoneum; K74.60 Unspecified cirrhosis of liver; Z88.0 Allergy status to penicillin; Z90.710 Acquired absence of both cervix and uterus; L98.9 Disorder of the skin and subcutaneous tissue, unspecified
CPT/HCPCS: 31720; 36415; 36569; 36600; 71010-TC; 73560-TC; 75989; 75989-TC; 76604-TC; 80048-TC; 80053-TC; 80061-TC; 80074; 80076-TC; 80202-TC; 81000-TC; 82306; 82570-TC; 82668; 82728-TC; 82746; 82803-TC; 82962-TC; 83010; 83540-TC; 83615-TC; 83690-TC; 83735-TC; 84100-TC; 84145; 84443-TC; 84478-TC; 84484-TC; 84550-TC; 85025-TC; 85045-TC; 85610-TC; 85652-TC; 85730-TC; 86850-TC; 86921-TC; 87040-TC; 87070-TC; 87075-TC; 87081-TC; 87086-TC; 87102-TC; 87186-TC; 88305-TC; 88307-TC; 88312-TC; 93307-TC; 93971-TC; 94003-TC; 94760-TC; 94799-TC; 97001-TC; 97003-TC; 97110-TC; 97112-TC; 97530-TC; A4215; A4216; A4217; A4606; A6248; A6253; A6402; A6403; C1751; C9113; J0330; J0696; J1120; J1170; J1200; J1265; J1450; J1644; J1650; J1815; J1940; J1956; J2001; J2060; J2185; J2248; J2250; J2270; J2310; J2370; J2405; J2543; J2704; J2765; J2916; J3010; J3370; J3475; J3480; J3490; J7030; J7040; J7050; J7060; J7070; P9016-BL; P9017-BL; P9045; P9047; Q9967; Z7610

== ENCOUNTER 2017-02-04 10:49 | Outpatient (CLI) | payer OTHER, MEDICARE ==
[~2017-02-04 10:49] MED LIST: ACET325T53 PO; ALLA266C2 TP; CARV20CP PO; CETI-102 PO; DIPH50VI14 IV; ENOX30DI SQ; ERGO400C PO; EZET10TA PO; Gel Dressing TP; Gentamicin Sulfate TP; HYDR25TA4 PO; LAMO100T2 PO; LMFO1TAB PO; LORA2VIA11 IV; Lactose-Free Food PO; METO5VIA6 IV; METR500T PO; MICA100V IV; Morphine Sulfate IV; NEOM15OI3 TP; Ondansetron Hcl/Pf IVP; PANT40TA2 PO; RXVAN XX; SODI473S8 TOP; Simethicone PO; [UNRECOGNIZED DRUG - CODE] PO
[2017-02-04 11:21] LABS: BASOPHILS # (AUTO) 0.1 /CMM (0.0-0.2); BASOPHILS % (AUTO) 0.6 % (0.0-2.0); EOSINOPHILS # (AUTO) 0.2 /CMM (0.0-0.7); HEMATOCRIT 37 % (33-45); HEMOGLOBIN 12.6 g/dL (11.5-14.8); LYMPHOCYTES # (AUTO) 1.9 /CMM (0.8-4.8); LYMPHOCYTES % (AUTO) 21.8 % (20.0-44.0); MEAN CORPUSCULAR HEMOGLOBIN 31 PG (26.0-33.0); MEAN CORPUSCULAR HGB CONC 35 g/dl (31.0-36.0); MEAN CORPUSCULAR VOLUME 90 fL (82-100); MONOCYTES # (AUTO) 0.7 /CMM (0.1-1.30); MONOCYTES % (AUTO) 8.1 % (2.0-12.0); NEUTROPHILS % (AUTO) 67.5 % (43.0-81.0); PLATELET COUNT (AUTO) 322 /CMM (150-450); RDW COEFFICIENT OF VARIATION 15.5 (11.5-15.0); RED BLOOD CELL COUNT(AUTO) 4.07 MIL/uL (4.0-5.2); WHITE BLOOD COUNT (AUTO) 8.8 K/uL (4.3-11.0)
[2017-02-04 11:39] LABS: ALANINE AMINOTRANSFERASE 31 U/L (12-78); ALBUMIN 2.9 g/dL (3.4-5.0); ALKALINE PHOSPHATASE 287 U/L (46-116); ASPARTATE AMINOTRANSFERASE 26 U/L (15-37); BILIRUBIN,TOTAL 0.4 mg/dL (0.2-1.0); CALCIUM, SERUM 8.9 mg/dL (8.5-10.1); CARBON DIOXIDE 33 mmol/L (21-32); CHLORIDE 105 mmol/L (98-107); CREATININE 0.9 mg/dL (0.6-1.3); GLUCOSE 118 mg/dL (74-106); SODIUM SERUM 141 mmol/L (136-145); TOTAL PROTEIN, SERUM 6.9 g/dL (6.4-8.2); UREA NITROGEN, BLOOD 18 mg/dL (7-18)
== END 2017-02-04 23:59 | disposition home or self-care (01) ==
LOC: LAB 10:49
PROVIDERS: ATTEND Surgery
DX: Z01.818 Encounter for other preprocedural examination (principal); I70.0 Atherosclerosis of aorta; J90 Pleural effusion, not elsewhere classified; R94.31 Abnormal electrocardiogram [ECG] [EKG]
CPT/HCPCS: 36415; 71010-TC; 80053-TC; 85025-TC

== ENCOUNTER 2017-02-07 05:46 | Inpatient (IN) | payer OTHER, MEDICARE ==
[~2017-02-07] VITALS: Ht 157.5 cm; Wt 106.6 kg
--- NOTE | 2017-02-07 06:00 | NUR ---
PLZ SEE PRE OP NOTES FOR INFORMATION
[2017-02-07] MEDS ORDERED: SECONDARY IV SET 1 EA INFUS.SET MC ONE (06:09)
[2017-02-07] MEDS ORDERED: CLINDAMYCIN IV RTU IN D5W 50 ML ONE (06:09)
[2017-02-07] MEDS ORDERED: NEEDLELESS EST SET LARGE BORE 1 EA INFUS.SET MC ONE (06:16)
[2017-02-07] MEDS ORDERED: IV NS 0.9% 1,000 ML ONE (06:58)
[2017-02-07 07:45] LABS: INR 0.98 (0.87-1.13); PROTHROMBIN TIME 10.5 SECS (9.5-12.7)
[2017-02-07] MEDS ORDERED: CETI10TA18 PO (08:12)
[2017-02-07] MEDS ORDERED: CARV6.252 PO (08:12)
[2017-02-07] MEDS ORDERED: CARB15DR2 EACHEYE (08:12)
[2017-02-07] MEDS ORDERED: EZET1TAB6 PO (08:12)
[2017-02-07] MEDS ORDERED: MAGN400T6 PO (08:12)
[2017-02-07] MEDS ORDERED: FERR-58 PO (08:12)
[2017-02-07] MEDS ORDERED: ONDA4TAB11 PO (08:12)
[2017-02-07] MEDS ORDERED: HYDR-4076 PO (08:12)
[2017-02-07] MEDS ORDERED: MELA3TAB PO (08:12)
[2017-02-07] MEDS ORDERED: HYDR25PO MC (08:12)
[2017-02-07] MEDS ORDERED: SIME80TA15 PO (08:12)
[2017-02-07] MEDS ORDERED: UBID200C32 PO (08:12)
[2017-02-07] MEDS ORDERED: LAMO200T2 PO (08:12)
[2017-02-07] MEDS ORDERED: PANT40TA4 PO (08:12)
[2017-02-07] MEDS ORDERED: ASCO500C16 PO (08:12)
[2017-02-07] MEDS ORDERED: URSO300C12 PO (08:12)
--- NOTE | 2017-02-07 08:33 | NUR ---
PT WILL NEED HOME WOUND VAC DEVICE WHILE DISCHARGE HOME . WILL ENDORSED TO FLOOR RN
--- NOTE | 2017-02-07 08:46 | NUR ---
REPORT TO PRINTING PRESS MACHINIST FOR WOUND VAC DEVICE. AND WALKER WITH PT . NO OTHER BELONGING WITH PT .
--- NOTE | 2017-02-07 09:30 | NUR ---
MS/RN Patient received Patient received from recovery room nurse. S/P wound exploration, debridement with washout of wound by Dr Cárdenas. Vital signs upon return within normal range, wound vac noted (125 setting) with no output in canister. Oriented to surroundings, aware of how to call for nurse. Will continue to monitor.
[2017-02-07 10:00] VITALS: BP 151/68
[2017-02-07] MEDS ORDERED: MORPHINE SULFATE INJ 2 MG/ML DISP.SYRIN IV PRN (10:00)
[2017-02-07] MEDS ORDERED: ONDANSETRON HCL/PF 4 MG/2 ML VIAL IV PRN (10:00)
[2017-02-07] MEDS ORDERED: HYDROCODONE/APAP 5/325MG 1 EACH TABLET PO PRN (11:00)
--- NOTE | 2017-02-07 11:30 | NUR ---
RN NOTES REPORT RECEIVED FROM BOWEN WAGONER FOR CONTINUITY OF CARE. Addendum: 02/08/17 at 0142 by SY SYED RN WRONG TIME; RIGHT TIME [id number]
--- NOTE | 2017-02-07 11:58 | NUR ---
MS/RN Rounds Patient sleeping at this time, appears in no distress.
[2017-02-07] MEDS ORDERED: Z GUARD REMEDY 2 OZ OINT TP PRN (14:30)
[2017-02-07] MEDS ORDERED: Medication Not On Formulary EA (Melatonin 1 TAB) PO PRN (14:30)
[2017-02-07] MEDS ORDERED: SIMETHICONE 80 MG TAB.CHEW PO PRN (14:30)
[2017-02-07] MEDS ORDERED: ONDANSETRON 4 MG TAB.RAPDIS PO PRN (14:30)
--- NOTE | 2017-02-07 15:00 | NUR ---
MS/RN Room change Patient moved into room 310-1.
[2017-02-07] MEDS: IV LR 1000 ML 1,000 ML IV PRN (15:53)
[2017-02-07] MEDS: CLINDAMYCIN 900 MG in IV D5W 50 ML IV SCH (15:53)
[2017-02-07 16:00] VITALS: BP 149/63
--- NOTE | 2017-02-07 16:00 | NUR ---
MS/RN Heplock New heplock inserted on right forearm 22g.
[2017-02-07] MEDS: PANTOPRAZOLE 40 MG TABLET.DR PO SCH (16:17)
[2017-02-07] MEDS: hydrOXYzine PAMOATE 25 MG CAPSULE PO SCH (16:17)
[2017-02-07] MEDS: ASCORBIC ACID 500 MG TABLET PO SCH (16:17)
[2017-02-07] MEDS: MAGNESIUM OXIDE 400 MG TABLET PO SCH (16:18)
[2017-02-07] MEDS: CARBOXYMETHYLCELLULOSE SODIUM 0.4 ML DROPERETTE EACHEYE SCH (16:18)
[2017-02-07] MEDS: FERROUS SULFATE (325 MG) 325 MG/TAB TABLET PO SCH (16:18)
[2017-02-07] MEDS: URSODIOL 300 MG CAPSULE PO SCH (17:38)
[2017-02-07] MEDS: hydrALAZINE HCL 25 MG TABLET PO SCH (17:38)
--- NOTE | 2017-02-07 18:04 | NUR ---
MS/RN End note Patient remians stable, denies any pain or discomfort from surgical incision site. Wound vac remains dry and intact, 20ml drainage noted in canister. All medications administered as ordered, including IVAB. global regulatory affairs manager Trisha, made aware that patient will need home wound vac, home health and home PT arranged for possible discharge tomorrow. Will endorse to sql server bi developer.
--- NOTE | 2017-02-07 18:07 | NUR ---
MS/RN PT eval PT daliaal carried out - patient able to ambulate to nursing station and back using walker and standby assist.
[2017-02-07 20:00] VITALS: BP 140/59
[2017-02-07] MEDS: cetrizine 10 MG TABLET PO SCH (21:34)
[2017-02-07] MEDS: LamoTRIgine 100 MG TABLET PO SCH (21:34)
[2017-02-07] MEDS: EZETIMIBE 10 MG TABLET PO SCH (21:34)
[2017-02-07] MEDS: SIMVASTATIN 20 MG TABLET PO SCH (21:34)
[2017-02-07 22:51] VITALS: BP 140/59
--- NOTE | 2017-02-07 23:30 | NUR ---
RN NOTES REPORT RECEIVED FROM BOWEN WAGONER FOR CONTINUITY OF CARE.
[2017-02-08] MEDS: CLINDAMYCIN 900 MG in IV D5W 50 ML IV SCH ×4 (00:29→23:43)
[2017-02-08] MEDS: ACETAMINOPHEN 325 MG TABLET PO PRN ×3 (00:30→16:32)
--- NOTE | 2017-02-08 00:30 | NUR ---
RN NOTES PATIENT C/O MILD HEADACHE, REQUESTED FOR TYLENOL. TYLENOL GIVEN ORDERED. WILL CONTINUE TO MONITOR.
--- NOTE | 2017-02-08 06:13 | NUR ---
RN NOTES PATIENT AWAKE, RESPIRATIONS EVEN. DENIES ANY PAIN AT THIS TIME. NEEDS ATTENDED. WOUND VAC IN PLACE WITH MINIMAL DRAINAGE. SAFETY PRECAUTIONS AND COMFORT MEASURES IN PLACE. WILL GIVE REPORT TO DAY SHIFT FOR CONTINUITY OF CARE.
[2017-02-08 06:23] LABS: BASOPHILS % (AUTO) 0.2 % (0.0-2.0); EOSINOPHILS % (AUTO) 0.1 % (0.0-6.0); HEMATOCRIT 32 % (33-45); HEMOGLOBIN 11.2 g/dL (11.5-14.8); LYMPHOCYTES # (AUTO) 2.2 /CMM (0.8-4.8); LYMPHOCYTES % (AUTO) 18.2 % (20.0-44.0); MEAN CORPUSCULAR HEMOGLOBIN 31 PG (26.0-33.0); MEAN CORPUSCULAR HGB CONC 34 g/dl (31.0-36.0); MEAN CORPUSCULAR VOLUME 91 fL (82-100); MONOCYTES # (AUTO) 0.8 /CMM (0.1-1.30); NEUTROPHILS % (AUTO) 74.5 % (43.0-81.0); PLATELET COUNT (AUTO) 278 /CMM (150-450); RDW COEFFICIENT OF VARIATION 14.8 (11.5-15.0); RED BLOOD CELL COUNT(AUTO) 3.56 MIL/uL (4.0-5.2)
[2017-02-08 06:40] LABS: CALCIUM, SERUM 8.5 mg/dL (8.5-10.1); CARBON DIOXIDE 29 mmol/L (21-32); CHLORIDE 105 mmol/L (98-107); CREATININE 0.9 mg/dL (0.6-1.3); GLUCOSE 111 mg/dL (74-106); SODIUM SERUM 142 mmol/L (136-145); UREA NITROGEN, BLOOD 15 mg/dL (7-18)
[2017-02-08 08:00] VITALS: BP 127/57
--- NOTE | 2017-02-08 08:04 | NUR ---
RN NOTE RECEIVED PT. PT IS AWAKE IN BED. A & O X 4. NO S/S OF DISTRESS, SOB OR PAIN. WOUND VAC LOCATED ON ABDOMEN RUNNING AT 125 MMHG. IV ACCESS LOCATED ON RFA, 22G, RUNNING LR AT 40 ML/HR. WILL CONTINUE TO MONITOR.
[2017-02-08] MEDS: CARBOXYMETHYLCELLULOSE SODIUM 0.4 ML DROPERETTE EACHEYE SCH ×2 (08:53→16:38)
[2017-02-08] MEDS: ASCORBIC ACID 500 MG TABLET PO SCH ×2 (08:54→16:21)
[2017-02-08] MEDS: hydrALAZINE HCL 25 MG TABLET PO SCH (08:54)
[2017-02-08] MEDS: FERROUS SULFATE (325 MG) 325 MG/TAB TABLET PO SCH ×2 (08:54→16:21)
[2017-02-08] MEDS: PANTOPRAZOLE 40 MG TABLET.DR PO SCH ×2 (08:55→16:21)
[2017-02-08] MEDS: hydrOXYzine PAMOATE 25 MG CAPSULE PO SCH ×3 (08:55→16:21)
[2017-02-08] MEDS: URSODIOL 300 MG CAPSULE PO SCH ×3 (08:55→16:21)
[2017-02-08] MEDS: MAGNESIUM OXIDE 400 MG TABLET PO SCH ×2 (08:55→16:21)
[2017-02-08] MEDS ORDERED: EZETIMIBE PO SCH (09:00)
[2017-02-08] MEDS ORDERED: SIMVASTATIN PO SCH (09:00)
[2017-02-08] MEDS ORDERED: HYDROGEL DRESSING 90 GM TUBE TP PRN (11:00)
[2017-02-08] MEDS ORDERED: MAGNESIUM HYDROXIDE 30 ML UDC PO PRN ×2 (12:30→14:00)
[2017-02-08] MEDS: HYDROGEL DRESSING 90 GM TUBE TP SCH (13:38)
[2017-02-08 16:00] VITALS: BP 146/63
--- NOTE | 2017-02-08 18:32 | NUR ---
RN CLOSING NOTE PT IN BED RESTING. NO S/S OF SOB OR PAIN. BATTERY REPAIRER GAVE UPDATE REGARDING PT DISCHARGE. PT WILL BE DC HOME, WOUND VAC WILL BE DC, APPLY HYDROGEL AND A LOCAL DRESSING TO THE SITE. [facility] WILL PROVIDE WOUND VAC, BY APPROXIMATELY 02/12. ALL PATIENT NEEDS MET. SAFETY MEASURES IN PLACE. WILL ENDORSE TO ENVIRONMENTAL HEALTH TECHNICIAN FOR ALYCE.
--- NOTE | 2017-02-08 19:45 | NUR ---
RN OPENING NOTES PT. IS IN BED SITTING UP WATCHING TV, AWAKE, A&OX3. NO SOB, BREATHING ON ROOM AIR UNLABORED. NO S/S OF ACUTE DISTRESS. COLOSTOMY BAG INTACT, WOUND VAC INTACT AND DRAINING. PT IS MRSA POSITIVE, ISOLATION PRECAUTIONS HAVE BEEN INITIATED. IV FLUIDS RUNNING AT 45 ML/HR. BED IS IN LOW POSITION, 2 SIDE RAILS UP, AND CALL LIGHT WITHIN REACH. WILL CONTINUE TO ASSESS AND MONITOR.
[2017-02-08 20:00] VITALS: BP 149/65
[2017-02-08 20:40] VITALS: BP 149/65
[2017-02-08] MEDS: LamoTRIgine 100 MG TABLET PO SCH (21:07)
[2017-02-08] MEDS: EZETIMIBE 10 MG TABLET PO SCH (21:07)
[2017-02-08] MEDS: IV LR 1000 ML 1,000 ML IV PRN (21:07)
[2017-02-08] MEDS: cetrizine 10 MG TABLET PO SCH (21:07)
[2017-02-08] MEDS: SIMVASTATIN 20 MG TABLET PO SCH (21:07)
--- NOTE | 2017-02-08 22:53 | NUR ---
BACTROBAN WAS ORDERED
[2017-02-08] MEDS ORDERED: MUPIROCIN OINT 2% 22 GM TUBE SCH (23:00)
[2017-02-09] MEDS: ACETAMINOPHEN 325 MG TABLET PO PRN ×2 (03:04→12:55)
--- NOTE | 2017-02-09 06:40 | NUR ---
MS RN CLOSING NOTE PATIENT IS RESTING IN BED COMFORTABLY, NO S/S OF RESPIRATORY DISTRESS AND LOOKS RELAXED AT THIS TIME. MORNING CARE RENDERED AND NO ACUTE DISTRESS NOTED DURING THE SHANKER OUT. MRSA, CONTACT PRECAUTIONS WERE INITIATED AND CARRIED OUT. IV ACCESS RUNNING WITH LR @40 ML/HR. WILL ENDORSE TO DAY SHIFT NURSE.
[2017-02-09] MEDS ORDERED: MUPIROCIN OINT 2% 22 GM TUBE SCH (07:04)
--- NOTE | 2017-02-09 07:10 | NUR ---
MS RN NOTES RECEIVED PATIENT AWAKE, A/O X4. ON ROOM AIR, NO SOB. WOUND VAC IN PLACE AT 125mm/Hg CONTINUOUS SUCTION WITH FLUID DRAINAGE SANGUINEOUS TO WOUND CANISTER. NO C/O PAIN AT THIS TIME. CALL LIGHT WITHIN REACH. WILL CONT TO MONITOR.
[2017-02-09 08:00] VITALS: BP 144/69
[2017-02-09] MEDS: MAGNESIUM OXIDE 400 MG TABLET PO SCH (08:49)
[2017-02-09] MEDS: FERROUS SULFATE (325 MG) 325 MG/TAB TABLET PO SCH (08:49)
[2017-02-09] MEDS: hydrOXYzine PAMOATE 25 MG CAPSULE PO SCH ×2 (08:49→12:54)
[2017-02-09 08:50] VITALS: BP 144/69
[2017-02-09] MEDS: PANTOPRAZOLE 40 MG TABLET.DR PO SCH (08:50)
[2017-02-09] MEDS: hydrALAZINE HCL 25 MG TABLET PO SCH (08:50)
[2017-02-09] MEDS: ASCORBIC ACID 500 MG TABLET PO SCH (08:50)
[2017-02-09] MEDS: URSODIOL 300 MG CAPSULE PO SCH ×2 (08:51→12:54)
[2017-02-09] MEDS: CLINDAMYCIN 900 MG in IV D5W 50 ML IV SCH (08:55)
--- NOTE | 2017-02-09 11:07 | NUR ---
PATIENT TO BE DISCHARGED WITH HOME HEALTH TO FOLLOW ORDERED. PATIENT IS AWARE.
[2017-02-09] MEDS: HYDROGEL DRESSING 90 GM TUBE TP SCH (11:09)
[2017-02-09] MEDS: CARBOXYMETHYLCELLULOSE SODIUM 0.4 ML DROPERETTE EACHEYE SCH (11:09)
--- NOTE | 2017-02-09 11:10 | NUR ---
HYDROGEL NON ADMINISTERED, WOUND VAC IN PLACE. WILL APPLY HYDROGEL TO WOUND AFTER WOUND VAC IS REMOVE PRIOR DC.
--- NOTE | 2017-02-09 12:57 | NUR ---
C/O HEADACHE 09/28. GIVEN TYLENOL PO PRN, WILL RE ASSESS.
--- NOTE | 2017-02-09 13:37 | NUR ---
CALLED SPOKE TO DR. CAAL/SURGEONMD CLEARED PATIENT FOR DISCHARGE HOME TODAY 02/09/17.
--- NOTE | 2017-02-09 15:44 | NUR ---
MS HEALTH INSURANCE SPECIALIST NOTES PATIENT HAS BEEN CLEARED FOR DISCHARGE HOME WITH HOME HEALTH BY MD. PATIENT IS AMBULATORY WITH ASSIST. DISCONNECT WOUND VAC AND REMOVED VAC DRESSING, CLEANSE WOUND WITH NS PAT DRY, APPLY HYDROGEL TO THE WOUND AND GENTLY PACKED THE WOUND WITH NS MOISTENED KERLIX THEN COVER WITH ABD PAD AND SECURED WITH PAPER TAPE. WOUND MEASUREMENT 12.5cm X 4.0cm X 3.5cm. PATIENT TOLERATED PROCEDURE WELL, NO C/O PAIN. OBTAINED 50ML FLUID DRAINAGE FROM THE WOUND CANISTER. DISCHARGE INSTRUCTION GIVEN TO THE PATIENT AND INSTRUCTED TO FOLLOW UP WITH HER PRIMARY MD IN 1 WEEK, VERBALIZED UNDERSTANDING. PATIENT LEFT HOSP IN STABLE CONDITION VIA PRIVATE CAR ACCOMPANIED BY [employer]-.
== END 2017-02-09 15:33 | disposition home health service (06) | DRG 358 ==
LOC: DS 05:46 → MEDSG2 09:20 → MED 16:11
PROVIDERS: ADMIT Surgery; ATTEND Nurse Practitioner Acute Care
PROC: 0JB80ZZ Excision of Abdomen Subcutaneous Tissue and Fascia, Open Approach (ICD-10-PCS; principal; 2017-02-07 07:30)
DX: K63.2 Fistula of intestine (principal); I25.10 Atherosclerotic heart disease of native coronary artery without angina pectoris; E78.5 Hyperlipidemia, unspecified; I10 Essential (primary) hypertension; D64.9 Anemia, unspecified; F32.9 Major depressive disorder, single episode, unspecified; F41.9 Anxiety disorder, unspecified; Z96.659 Presence of unspecified artificial knee joint; Z88.0 Allergy status to penicillin; Z88.2 Allergy status to sulfonamides; Z93.3 Colostomy status
CPT/HCPCS: 36415; 80048-TC; 85025-TC; 85610-TC; 85730-TC; 87070-TC; 87075-TC; 87081-TC; 97001-TC; 97116-TC; 97530-TC; A6248; A6253; A6402; A6403; J3490; J7030; J7060; J7120; Q0177

== ENCOUNTER 2019-11-27 07:36 | Inpatient (IN) | payer OTHER, MEDICARE ==
[~2019-11-27] VITALS: Ht 157.5 cm; Wt 121.6 kg
[~2019-11-27 07:36] MED LIST changes: -ALLA266C2 TP; +ASCO500C16 PO; +CARB15DR2 EACHEYE; -CARV20CP PO; +CARV6.252 PO; -CETI-102 PO; +CETI10TA18 PO; -DIPH50VI14 IV; -ENOX30DI SQ; -ERGO400C PO; -EZET10TA PO; +EZET1TAB26 PO; +FERR325T23 PO; -Gel Dressing TP; -Gentamicin Sulfate TP; +HYDR-4076 PO; +HYDR25PO MC; -HYDR25TA4 PO; -LAMO100T2 PO; +LAMO200T2 PO; -LMFO1TAB PO; -LORA2VIA11 IV; -Lactose-Free Food PO; +MAGN400T8 PO; +MELA3TAB41 PO; -METO5VIA6 IV; -METR500T PO; -MICA100V IV; -Morphine Sulfate IV; -NEOM15OI3 TP; +ONDA4TAB11 PO; -Ondansetron Hcl/Pf IVP; -PANT40TA2 PO; +PANT40TA4 PO; -RXVAN XX; +SIME80TA15 PO; -SODI473S8 TOP; +UBID200C32 PO; +URSO300C12 PO; -[UNRECOGNIZED DRUG - CODE] PO
--- NOTE | 2019-11-27 08:14 | NUR ---
DR HAZEL AT BEDSIDE FOR EVAL.
--- NOTE | 2019-11-27 08:30 | NUR ---
IV LINE STARTED BLOOD DRAWN AND SENT TO LAB.
--- NOTE | 2019-11-27 08:35 | NUR ---
PT TO RADIOLOGY FOR HEAD AND C SPINE CT SCAN VIA [facility].
[2019-11-27 08:50] LABS: BASOPHILS # (AUTO) 0.1 /CMM (0.0-0.2); BASOPHILS % (AUTO) 0.9 % (0.0-2.0); EOSINOPHILS % (AUTO) 3.3 % (0.0-6.0); HEMATOCRIT 40 % (33-45); HEMOGLOBIN 13.2 g/dL (11.5-14.8); LYMPHOCYTES # (AUTO) 1.6 /CMM (0.8-4.8); MEAN CORPUSCULAR HGB CONC 33 g/dl (31.0-36.0); MEAN CORPUSCULAR VOLUME 91 fL (82-100); MONOCYTES # (AUTO) 0.9 /CMM (0.1-1.30); MONOCYTES % (AUTO) 9.8 % (2.0-12.0); NEUTROPHILS # (AUTO) 6.2 /CMM (1.8-8.9); PLATELET COUNT (AUTO) 249 /CMM (150-450); RED BLOOD CELL COUNT(AUTO) 4.34 MIL/uL (4.0-5.2)
[2019-11-27 08:58] LABS: CALCIUM, SERUM 9.4 mg/dL (8.5-10.1); POTASSIUM 4.2 mmol/L (3.5-5.1)
[2019-11-27 09:10] LABS: ALBUMIN 3.2 g/dL (3.4-5.0); BILIRUBIN,DIRECT 0.1 mg/dL (0.0-0.2); BILIRUBIN,TOTAL 0.4 mg/dL (0.2-1.0); TOTAL PROTEIN, SERUM 7.6 g/dL (6.4-8.2)
[2019-11-27] MEDS ORDERED: OMEG-178 PO (09:21)
[2019-11-27] MEDS ORDERED: FURO-145 PO (09:21)
[2019-11-27] MEDS ORDERED: VALS320T2 PO (09:21)
[2019-11-27] MEDS ORDERED: POTA10TA17 PO (09:21)
[2019-11-27] MEDS ORDERED: TURM500C9 PO (09:21)
[2019-11-27] MEDS ORDERED: ASPI-1169 PO (09:21)
[2019-11-27] MEDS ORDERED: GABA-534 PO (09:21)
[2019-11-27] MEDS ORDERED: ASCO-352 PO (09:21)
[2019-11-27] MEDS ORDERED: CARV20CP PO (09:21)
[2019-11-27] MEDS ORDERED: URSO300C12 PO (09:21)
[2019-11-27] MEDS ORDERED: EZET10TA16 PO (09:21)
[2019-11-27] MEDS ORDERED: CHOL100040 PO (09:21)
[2019-11-27 09:24] LABS: BILIRUBIN,URINE Negative (NEGATIVE); BLOOD, URINE Negative Ery/uL (NEGATIVE); COLOR,URINE Yellow (YELLOW); KETONES,URINE Negative (NEGATIVE); LEUKOCYTE ESTERASE ,URINE Negative (NEGATIVE); NITRITE, URINE Negative (NEGATIVE); PROTEIN,URINE Negative (NEGATIVE); UGLUCOSE Negative (NEGATIVE); UROBILINOGEN,URINE 0.2 EU/dL (0.2)
[2019-11-27] MEDS ORDERED: PROT10TA PO (09:24)
[2019-11-27] MEDS ORDERED: CLON1TAB12 PO (09:24)
[2019-11-27] MEDS ORDERED: CLON0.5T4 PO (09:24)
[2019-11-27 09:25] LABS: APPEARANCE,URINE CLEAR (CLEAR)
[2019-11-27] MEDS ORDERED: ACETAMINOPHEN 325 MG TABLET PO ONE (09:30)
[2019-11-27] MEDS ORDERED: TDAP [DIPH/PERTUSSIS/TET] 0.5 ML VIAL IM ONE ×2 (09:30→09:39)
[2019-11-27] MEDS ORDERED: BACITRACIN ZINC OINT PACKET 1 EA PACKET TP ONE (09:30)
--- NOTE | 2019-11-27 09:45 | NUR ---
PT REFUSED TDAP. STATES SHE IS UTD.
[2019-11-27] MEDS ORDERED: ACETAMINOPHEN 325 MG TABLET ONE (09:47)
--- NOTE | 2019-11-27 09:52 | NUR ---
RADIOLOGY AT BEDSIDE FOR L KNEE XRAY.
--- NOTE | 2019-11-27 11:03 | NUR ---
UNABLE TO AMBULATE. STILL C/O L KNEE PAIN AND UNABLE TO BEAR WEIGHT. VANESSA HAZEL AWARE.
--- NOTE | 2019-11-27 11:18 | NUR ---
[facility] CALLED. AWAITING HOSPITALIST CALL BACK.
--- NOTE | 2019-11-27 11:41 | NUR ---
NURSING SYLVIA MAYA CALLED FOR M/S BED.
--- NOTE | 2019-11-27 11:51 | NUR ---
NURSING SUP GAVE [phone].
--- NOTE | 2019-11-27 12:25 | NUR ---
REPORT GIVEN TO DARRIN WAGONER. PT AWAITING TRANSFER TO FLOOR.
[2019-11-27] MEDS ORDERED: clonazePAM 0.5 MG TABLET PO PRN (12:30)
[2019-11-27] MEDS ORDERED: clonazePAM 1 MG TABLET PO PRN (12:30)
[2019-11-27] MEDS ORDERED: Z GUARD REMEDY 2 OZ OINT TP PRN (12:30)
[2019-11-27] MEDS ORDERED: MAG HYDROX/AL HYDROX/SIMETH 30 ML UDC PO PRN (12:30)
[2019-11-27] MEDS ORDERED: ONDANSETRON HCL/PF 4 MG/2 ML VIAL IVP PRN (12:30)
[2019-11-27] MEDS ORDERED: MAGNESIUM HYDROXIDE 30 ML UDC PO PRN (12:30)
[2019-11-27] MEDS ORDERED: ZOLPIDEM TARTRATE 5 MG TABLET PO PRN (12:30)
[2019-11-27 13:00] VITALS: BP 153/76
[2019-11-27] MEDS: ASPIRIN 81 MG TAB.CHEW PO SCH (13:01)
[2019-11-27 16:00] VITALS: BP 155/71
[2019-11-27] MEDS: GABAPENTIN 300 MG CAPSULE PO SCH (17:30)
[2019-11-27] MEDS: PROTRIPTYLINE HCL 10 MG PO SCH ×2 (17:30→22:24)
[2019-11-27] MEDS: LamoTRIgine 100 MG TABLET PO SCH (17:30)
[2019-11-27] MEDS: URSODIOL 300 MG CAPSULE PO SCH (17:30)
[2019-11-27] MEDS: VALSARTAN 80 MG TABLET PO SCH (17:34)
[2019-11-27] MEDS: CARVEDILOL PHOSPHATE 20 MG PO SCH (18:14)
--- NOTE | 2019-11-27 18:48 | NUR ---
MS CIARAN END OF SHIFT SUMMARY NEW ADMIT ARRIVED 1300 VIA GURNEY IN STABLE CONDITION.PT IS A/O X4, AFEBRILE. NON-MONITORED, VSS. TOLERATING RA. RESPIRATIONS ARE EVEN AND UNLABORED, NOT IN ANY ACUTE DISTRESS NOTED. PT UNABLE TO AMBULATE AT THIS TIME, PENDING PT EVAL. TOLERATING PO, NO C/O N/V. DENIES ANY PAIN AT THIS TIME. RUIZ CATH IN PLACE, FREE OF KINKS AND DRAINING CLEAR/YELLOW URINE. ABRASIONS NOTED TO RIGHT 1ST DIGIT AND LEFT KNEE, SKIN TEARSZX TO RIGHT ARM AND CHEST, DISCOLORATION TO BUE, AND HEMATOMA TO FOREHEAD. PICTURES TAKEN AND PLACED N CHART. PT ABLE TO TURN SIDE TO SIDE USING SIDE RAILS. HOB KEPT ELEVATED. ALL NEEDS MET AND RENDERED. SAFETY MEASURES ARE IN PLACE. CALL LIGHT IS LEFT WITHIN REACH. WILL MONITOR AND CONTINUE POC.
--- NOTE | 2019-11-27 19:30 | NUR ---
RN PM OPENING NOTE MS WRITTEN REPORT RECIEVED. PT IS A/O X4 PT SEEN IN BED. RESPIRATIONS ARE EVEN AND UNLABORED, NOT IN ANY ACUTE DISTRESS. PT TOLERATING PO INTAKE, RUIZ CATH IN PLACE, FREE OF KINKS AND DRAINING CLEAR/YELLOW URINE. PT ABLE TO TURN SIDE TO SIDE USING SIDE RAILS. INDEPENTENTLY. SAFETY MEASURES ARE IN PLACE. CALL LIGHT IS LEFT WITHIN REACH. VERBALIZED UNDERSTANDING TO CALL FOR ASSISTANCE NEEDED.
[2019-11-27 20:00] VITALS: BP 143/88
[2019-11-27] MEDS: cetrizine 10 MG TABLET PO SCH (22:24)
[2019-11-27] MEDS: CHOLECALCIFEROL 1,000 UNIT TABLET (VIT D3) PO SCH (22:24)
[2019-11-27] MEDS: ACETAMINOPHEN 325 MG TABLET PO PRN (22:28)
--- NOTE | 2019-11-27 22:28 | NUR ---
ACETAMINOPHEN ADMINISTEREDE PER PATIENT REQUEST FOR MILD PAIN TO LEFT KNEE
[2019-11-28] MEDS: PROTRIPTYLINE HCL 10 MG PO SCH ×3 (05:08→21:30)
[2019-11-28] MEDS: ACETAMINOPHEN 325 MG TABLET PO PRN ×2 (05:10→13:22)
--- NOTE | 2019-11-28 05:10 | NUR ---
ACETAMINOPHEN ADMINISTEREDE PER PATIENT REQUEST FOR MILD HEADACHE 09/28.
[2019-11-28 06:32] LABS: BASOPHILS # (AUTO) 0.1 /CMM (0.0-0.2); BASOPHILS % (AUTO) 0.8 % (0.0-2.0); EOSINOPHILS % (AUTO) 2.9 % (0.0-6.0); HEMATOCRIT 37 % (33-45); HEMOGLOBIN 12.2 g/dL (11.5-14.8); LYMPHOCYTES # (AUTO) 1.4 /CMM (0.8-4.8); LYMPHOCYTES % (AUTO) 17.1 % (20.0-44.0); MEAN CORPUSCULAR HGB CONC 33 g/dl (31.0-36.0); MEAN CORPUSCULAR VOLUME 91 fL (82-100); MONOCYTES # (AUTO) 0.9 /CMM (0.1-1.30); MONOCYTES % (AUTO) 10.9 % (2.0-12.0); NEUTROPHILS # (AUTO) 5.7 /CMM (1.8-8.9); NEUTROPHILS % (AUTO) 68.3 % (43.0-81.0); PLATELET COUNT (AUTO) 253 /CMM (150-450); RED BLOOD CELL COUNT(AUTO) 4.08 MIL/uL (4.0-5.2); WHITE BLOOD COUNT (AUTO) 8.4 K/uL (4.3-11.0)
[2019-11-28 06:52] LABS: CALCIUM, SERUM 8.8 mg/dL (8.5-10.1); CREATININE 0.8 mg/dL (0.6-1.3); MAGNESIUM 1.9 mg/dL (1.8-2.4); PHOSPHORUS 3.9 mg/dL (2.5-4.9); POTASSIUM 4.1 mmol/L (3.5-5.1)
[2019-11-28 08:00] VITALS: BP 132/66
[2019-11-28] MEDS: FUROSEMIDE 20 MG TABLET PO SCH ×2 (09:00→09:14)
[2019-11-28] MEDS: POTASSIUM CHLORIDE 10 MEQ TABLET.SA PO SCH ×2 (09:00→09:15)
[2019-11-28] MEDS ORDERED: DHA PO SCH (09:00)
[2019-11-28] MEDS ORDERED: OMEGA PO SCH (09:00)
[2019-11-28] MEDS ORDERED: EPA PO SCH (09:00)
[2019-11-28] MEDS ORDERED: FISH OIL PO SCH (09:00)
[2019-11-28] MEDS ORDERED: Medication Not On Formulary EA (Turmeric Root Extract (Turmeric) 500 MG) PO SCH (09:00)
[2019-11-28] MEDS: ASPIRIN 81 MG TAB.CHEW PO SCH (09:12)
[2019-11-28] MEDS: GABAPENTIN 300 MG CAPSULE PO SCH ×2 (09:12→17:49)
[2019-11-28] MEDS: URSODIOL 300 MG CAPSULE PO SCH ×2 (09:13→17:50)
[2019-11-28] MEDS: VALSARTAN 80 MG TABLET PO SCH (09:13)
[2019-11-28] MEDS: EZETIMIBE 10 MG TABLET PO SCH (09:14)
[2019-11-28] MEDS: LamoTRIgine 100 MG TABLET PO SCH ×3 (09:14→17:49)
[2019-11-28] MEDS: MAGNESIUM OXIDE 400 MG TABLET PO SCH (09:14)
[2019-11-28] MEDS: CARVEDILOL PHOSPHATE 20 MG PO SCH ×2 (09:15→17:50)
[2019-11-28] MEDS: ASCORBIC ACID 500 MG TABLET PO SCH (09:18)
[2019-11-28 16:00] VITALS: BP 136/72
--- NOTE | 2019-11-28 18:00 | NUR ---
fresh drsg to chest skin tear and abrasion on rt. gr. toe.medicated x1 for headache with tylenol.
--- NOTE | 2019-11-28 19:53 | NUR ---
RN NOTES RECEIVED WRITTEN REPORT. PATIENT IS ALERT / ORIENTED X4 PT SEEN IN BED. RESPIRATIONS ARE EVEN AND UNLABORED, NOT IN ANY ACUTE DISTRESS NOTED. PT TOLERATING PO INTAKE, RUIZ CATH IN PLACE, PATENT, AND DRAINING CLEAR/YELLOW URINE.PATIENT ABLE TO TURN SIDE TO SIDE USING SIDE RAILS. INDEPENDENTLY. SAFETY MEASURES ARE IN PLACE. CALL LIGHT IS LEFT WITHIN EASY REACH. VERBALIZED UNDERSTANDING TO CALL FOR ASSISTANCE NEEDED. ASPIRATION PRECAUTION EMPHASIZED. ALL NEEDS ANTICIPATED. WILL CONTINUE TO MONITOR ACCORDINGLY.
[2019-11-28] MEDS: CHOLECALCIFEROL 1,000 UNIT TABLET (VIT D3) PO SCH (21:31)
[2019-11-28] MEDS: cetrizine 10 MG TABLET PO SCH (21:31)
[2019-11-29] MEDS: PROTRIPTYLINE HCL 10 MG PO SCH ×3 (05:05→20:42)
[2019-11-29] MEDS: ACETAMINOPHEN 325 MG TABLET PO PRN ×2 (06:09→16:21)
--- NOTE | 2019-11-29 06:43 | NUR ---
RN NOTES ALL NEEDS ATTENDED AND MET. ABLE TO REST AND SLEPT AT INTERVALS. PATIENT IS ALERT / ORIENTED X4 PT SEEN IN BED. RESPIRATIONS ARE EVEN AND UNLABORED, TYLENOL 650 MG GIVEN AT 0609 FOR COMPLAINTS OF GENERALIZED PAIN. TOLERATING PO INTAKE, RUIZ CATH IN PLACE, PATENT, AND DRAINING CLEAR/YELLOW URINE.PATIENT ABLE TO TURN SIDE TO SIDE USING SIDE RAILS. INDEPENDENTLY. SAFETY MEASURES ARE IN PLACE. CALL LIGHT IS LEFT WITHIN EASY REACH. VERBALIZED UNDERSTANDING TO CALL FOR ASSISTANCE NEEDED. ASPIRATION PRECAUTION EMPHASIZED. ALL NEEDS ANTICIPATED. WILL ENDORSE TO AM NURSE FOR CONTINUITY OF CARE.
[2019-11-29 07:10] LABS: BASOPHILS # (AUTO) 0.1 /CMM (0.0-0.2); EOSINOPHILS % (AUTO) 3.4 % (0.0-6.0); HEMATOCRIT 37 % (33-45); HEMOGLOBIN 12.2 g/dL (11.5-14.8); LYMPHOCYTES # (AUTO) 1.8 /CMM (0.8-4.8); LYMPHOCYTES % (AUTO) 20.8 % (20.0-44.0); MEAN CORPUSCULAR HGB CONC 33 g/dl (31.0-36.0); MEAN CORPUSCULAR VOLUME 91 fL (82-100); MONOCYTES # (AUTO) 0.8 /CMM (0.1-1.30); MONOCYTES % (AUTO) 9.4 % (2.0-12.0); NEUTROPHILS # (AUTO) 5.6 /CMM (1.8-8.9); NEUTROPHILS % (AUTO) 65.4 % (43.0-81.0); PLATELET COUNT (AUTO) 229 /CMM (150-450); RED BLOOD CELL COUNT(AUTO) 4.05 MIL/uL (4.0-5.2); WHITE BLOOD COUNT (AUTO) 8.6 K/uL (4.3-11.0)
[2019-11-29 07:36] LABS: CALCIUM, SERUM 8.5 mg/dL (8.5-10.1); CREATININE 0.8 mg/dL (0.6-1.3)
[2019-11-29 08:00] VITALS: BP 143/87
--- NOTE | 2019-11-29 08:00 | NUR ---
MS RN OPENING NOTES RECEIVED PT IN BED AWAKE ALERT AND ORIENTED X3-4. NO CARDIAC OR RESPIRATORY DISTRESS NOTED. NO SOB NOTED. SATURATING WELL ON ROOM AIR. NO COMPLAINTS OF PAIN OR DISCOMFORT AT THIS TIME. PT NOTED WITH RUIZ CATH. INTACT AND PATENT AND DRAINING WITH CLEAR YELLOW URINE. COLOSTOMY ALSO IN PLACE. COLOSTOMY DRESSING ALSO INTACT AND PATENT. NO STOOL NOTED IN BAG CURRENTLY. WILL MONITOR FOR OUTPUT. SAFETY AND FALL PRECAUTIONS IN PLACE. BED LOCKED AND IN LOW POSITION. SIDE RAILS UP. BED ALARM ON. CALL LIGHT WITHIN REACH. INSTRUCTED PT NOT TO GET UP FROM BED UNASSISTED. PT AGREED. WILL CONTINUE TO MONITOR.
[2019-11-29] MEDS: ASCORBIC ACID 500 MG TABLET PO SCH (08:50)
[2019-11-29] MEDS: MAGNESIUM OXIDE 400 MG TABLET PO SCH (08:50)
[2019-11-29] MEDS: POTASSIUM CHLORIDE 10 MEQ TABLET.SA PO SCH (08:50)
[2019-11-29] MEDS: LamoTRIgine 100 MG TABLET PO SCH ×3 (08:50→17:10)
[2019-11-29] MEDS: URSODIOL 300 MG CAPSULE PO SCH ×2 (08:50→17:10)
[2019-11-29] MEDS: VALSARTAN 80 MG TABLET PO SCH (08:50)
[2019-11-29] MEDS: GABAPENTIN 300 MG CAPSULE PO SCH ×2 (08:50→17:10)
[2019-11-29] MEDS: EZETIMIBE 10 MG TABLET PO SCH (08:50)
[2019-11-29] MEDS: FUROSEMIDE 20 MG TABLET PO SCH (08:50)
[2019-11-29] MEDS: ASPIRIN 81 MG TAB.CHEW PO SCH (08:50)
[2019-11-29] MEDS: CARVEDILOL PHOSPHATE 20 MG PO SCH ×2 (08:51→17:10)
--- NOTE | 2019-11-29 09:30 | NUR ---
AM MEDS/MED PASS PT PROVIDED WITH ALL AM MEDS DUE. ALL MEDS GIVEN WITHIN PARAMETERS. AROUND 9AM, DURING MEDICATION ADMINISTRATION, I PREPARED ALL PTS MEDICATIONS INFRONT OF THE PT, AND I TOOK THE PILLS OUT OF THE PACKAGING I WOULD PLACE IT INSIDE THE MEDICINE CUP, SO THAT I COULD EXPLAINED THE MEDS TO THE PT 1 BY 1. THEN DURING MEDICATION PREPARATION, I ACCIDENTALLY DROPPED ONE OF THE LAMICTAL PILL ON THE FLOOR. I PICKED UP THE PILL AND I PLACED IT ON ONE OF THE EMPTY MEDICINE CUPS. BEFORE I COULD SAY ANYTHING, THE PT ALREADY GOT UPSET AND STATED, "YOU DROPPED IT ON THE FLOOR AND YOU'RE GONNA GIVE IT TO ME?!". I POLITELY EXPLAINED TO MS. MEDEIROS, THAT I WAS NOT PLANNING ON GIVING HER THE PILL AND THAT I HAVE PLACED THE PILL IN A SEPARATE EMPTY CUP BECAUSE I WILL BE DISPOSING IT AND THAT I WILL GIVE HER A NEW ONE SOON AFTER I GIVE HER OTHER MEDICATIONS FOR NOW. PT STILL SEEMED TO BE SUSPICIOUS FOR SOME REASON. I DISPOSED THE DROPPED PILL IN THE DESIGNATED WASTED MEDICATION CONTAINERS AND BROUGHT A NEW LAMICTAL TABLET FOR THE PT. I SHOWED THE PT THE PILL WHICH WAS STILL INSIDE THE PACKAGING I GAVE IT TO HER. THEN, AFTER A COUPLE OF MINUTES, I RECEIVED A PHONE CALL FROM THE PT'S AND HE ASKED ME WHAT HAPPENED REGARDING THE DROPPED PILL. APPARENTLY THE PT TOLD HIM THAT I WAS GONNA GIVE THE PILL TO HER AFTER IT WAS DROPPED ON THE FLOOR. SO THEN I EXPLAINED TO THE PTS WHAT EXACTLY HAPPENED AND WAS VERY UNDERSTANDING, HE STATED, "I DO APOLOGIZE ABOUT THAT. SHE IS VERY PARTICULAR ABOUT EVERYTHING. AND SOMETIME SHE DOESNT LISTEN WHEN YOU EXPLAIN SOMETHING TO HER AND SOMETIMES SHE IS VERY SET IN HER OWN WAYS."
[2019-11-29 16:00] VITALS: BP 118/76
--- NOTE | 2019-11-29 17:30 | NUR ---
C/O HEADACHE PT C/O HEADACHE 10/29. PT ASKED FOR TYLENOL. ADMINISTERED TYLENOL 650MG PRN. RELIEVED AFTER 30MIN. PT STATES, 'ITS MUCH BETTER'.
--- NOTE | 2019-11-29 18:26 | NUR ---
MS RN CLOSING NOTES PT IN BED AWAKE ALERT AND ORIENTED X3-4. NO CARDIAC OR RESPIRATORY DISTRESS NOTED. NO SOB NOTED. SATURATING WELL ON ROOM AIR. NO COMPLAINTS OF PAIN OR DISCOMFORT AT THIS TIME. HEADACHE RELIEVED BY TYLENOL PER PT. PT NOTED WITH RUIZ CATH. INTACT AND PATENT AND DRAINING WITH CLEAR YELLOW URINE. COLOSTOMY ALSO IN PLACE. COLOSTOMY DRESSING ALSO INTACT AND PATENT. NO STOOL NOTED IN BAG CURRENTLY. WILL MONITOR FOR OUTPUT. SAFETY AND FALL PRECAUTIONS IN PLACE. BED LOCKED AND IN LOW POSITION. SIDE RAILS UP. BED ALARM ON. CALL LIGHT WITHIN REACH. INSTRUCTED PT NOT TO GET UP FROM BED UNASSISTED. PT AGREED. WILL CONTINUE TO MONITOR.
[2019-11-29 20:00] VITALS: BP 134/75
--- NOTE | 2019-11-29 20:00 | NUR ---
MS/RN OPENING NOTES RECEIVED PATIENT IN BED, AWAKE, ALERT X4, ABLE TO VERBALIZE NEEDS, ON ROOM AIR BREATHING EVEN AND UNLABORED, PROVIDED INFORMATION OF COVID 19 TESTING AND ABLE TO ACKNOWLEDGE IMPORTANCE , TO SWAB THE NOSTRIL. PATIENT REPORTED WANT TO REHABILITATE TO STRENGHTENED LEFT LEG, SKIN WARM TO TOUCH BUT WITH MULTIPLE SKIN ISSUES NOAH TO FALL. TO OBTAIN PHOTOS, REQUESTED TO HAVE PHOTO TAKEN IN AM. BED LOCKED, CALL LIGHTS WITHIN REACH. PROVIDED FLUIDS, IV ON RIGHT AC PATENT.
--- NOTE | 2019-11-29 20:05 | NUR ---
MS/RN NOTES PATIENT COLOSTOMY BAG CHANGED, OBSERVED PATIENT ABLE TO DO COLOSTOMY CARE. RUIZ CATHETER DRAINING MODERATE YELLOW COLORED URINE. PROVIDED WATER AT BEDSIDE. WILL MONITOR.
[2019-11-29] MEDS ORDERED: KEY,NONCONTROL,TO KEEP IN PYXI 1 EA MC ONE (20:36)
--- NOTE | 2019-11-29 22:00 | NUR ---
MS/RN NOTES PATIENT WITH PAIN AND SCHEDULED HOME MEDICATION FOR PAIN GIVEN. PATIENT TOLERATED WELL.
[2019-11-29] MEDS: CHOLECALCIFEROL 1,000 UNIT TABLET (VIT D3) PO SCH (22:03)
[2019-11-29] MEDS: cetrizine 10 MG TABLET PO SCH (22:03)
[2019-11-30 00:12] VITALS: BP 149/75
--- NOTE | 2019-11-30 04:00 | NUR ---
MS/RN NOTES PATIENT REQUESTED SCHEDULED HOME MEDICATION FOR PAIN TO BE GIVEN.TOLERATED WELL.
[2019-11-30] MEDS: PROTRIPTYLINE HCL 10 MG PO SCH ×3 (04:46→21:57)
--- NOTE | 2019-11-30 06:41 | NUR ---
324-2 MS/RN CLOSING NOTES PATIENT SLEPT DURING THE NIGHT. ATTENDED TO ALL NEEDS, MONITORED FOR ANY CHANGES, RESPIRATIONS EVEN AND UNLABORED, IV SITE PATENT. PARTICIPATIVE TO CARE. BED LOCED. CALL LIGHTS WITHIN REACH.
--- NOTE | 2019-11-30 07:05 | NUR ---
MS RN OPENING NOTES RECEIVED PT IN BED, AWAKE AT THIS TIME. HOB ELEVATED, AO X4, ABLE TO VERBALIZE NEEDS, PT ON RA. RESPIRATIONS EVEN AND UNLABORED, SKIN WARM TO TOUCH BUT WITH MULTIPLE SKIN ISSUES DUE TO FALL. IV ACCESS ON LAC G#22, INTACT AND PATENT. BED IN LOWEST LOCKED POSITION, BED ALARM ON, SIDE RAILS UP, CALL LIGHT WITHIN REACH. WILL CONTINUE TO MONITOR.
[2019-11-30 07:48] LABS: BASOPHILS # (AUTO) 0.1 /CMM (0.0-0.2); BASOPHILS % (AUTO) 0.7 % (0.0-2.0); HEMATOCRIT 36 % (33-45); LYMPHOCYTES # (AUTO) 1.5 /CMM (0.8-4.8); LYMPHOCYTES % (AUTO) 17.5 % (20.0-44.0); MEAN CORPUSCULAR HGB CONC 34 g/dl (31.0-36.0); MEAN CORPUSCULAR VOLUME 91 fL (82-100); MONOCYTES % (AUTO) 11.5 % (2.0-12.0); NEUTROPHILS # (AUTO) 5.6 /CMM (1.8-8.9); NEUTROPHILS % (AUTO) 66.3 % (43.0-81.0); PLATELET COUNT (AUTO) 224 /CMM (150-450); RED BLOOD CELL COUNT(AUTO) 3.94 MIL/uL (4.0-5.2); WHITE BLOOD COUNT (AUTO) 8.4 K/uL (4.3-11.0)
[2019-11-30 07:55] LABS: CALCIUM, SERUM 8.6 mg/dL (8.5-10.1); CREATININE 0.9 mg/dL (0.6-1.3); POTASSIUM 4.3 mmol/L (3.5-5.1)
[2019-11-30 08:29] VITALS: BP 159/84
[2019-11-30] MEDS: ASPIRIN 81 MG TAB.CHEW PO SCH (08:51)
[2019-11-30] MEDS: VALSARTAN 80 MG TABLET PO SCH (08:52)
[2019-11-30] MEDS: MAGNESIUM OXIDE 400 MG TABLET PO SCH (08:52)
[2019-11-30] MEDS: EZETIMIBE 10 MG TABLET PO SCH (08:53)
[2019-11-30] MEDS: URSODIOL 300 MG CAPSULE PO SCH ×2 (08:53→17:31)
[2019-11-30] MEDS: POTASSIUM CHLORIDE 10 MEQ TABLET.SA PO SCH (08:53)
[2019-11-30] MEDS: FUROSEMIDE 20 MG TABLET PO SCH (08:53)
[2019-11-30] MEDS: GABAPENTIN 300 MG CAPSULE PO SCH ×2 (08:53→17:21)
[2019-11-30] MEDS: CARVEDILOL PHOSPHATE 20 MG PO SCH ×2 (08:54→17:21)
[2019-11-30] MEDS: LamoTRIgine 100 MG TABLET PO SCH ×3 (08:54→17:21)
[2019-11-30] MEDS: ASCORBIC ACID 500 MG TABLET PO SCH (08:54)
--- NOTE | 2019-11-30 11:23 | NUR ---
WOUND CARE CONSULT: PT PRESENTS WITH BRUISING AND SKIN TEAR TO CHEST, BRUISING/DISCOLORATION TO ARMS AND FOREHEAD, WOUND TO RT FOOT AND SCARRING TO LEFT LEG, PRESENT ON ADMISSION. RECOMMEND DPM CONSULT. DR ROGEL NOTIFIED OF CONSULT REQUEST. PT IS INDEPENDENT WITH BED MOBILITY AND CONTINENT. COLOSTOMY NOTED. RECOMMENDATONS MADE FOR WOUND CARE OF SKIN TEAR TO CHEST. DISCUSSED WITH NURSING STAFF. WILL SEE PRN. MARTINEZ IN AGREEMENT WITH PLAN OF CARE. CURRENT NOREEN SCORE IS 19. Addendum: 11/30/19 at 1127 by SAKINA RAMIREZ WNDNU Amended: Links added.
[2019-11-30] MEDS: ACETAMINOPHEN 325 MG TABLET PO PRN (13:27)
[2019-11-30 16:13] VITALS: BP 124/78
--- NOTE | 2019-11-30 19:05 | NUR ---
MS RN CLOSING NOTES PT IN BED, AWAKE AT THIS TIME. HOB ELEVATED, AO X4, ABLE TO VERBALIZE NEEDS, PT ON RA. RESPIRATIONS EVEN AND UNLABORED, SKIN WARM TO TOUCH BUT WITH MULTIPLE SKIN ISSUES DUE TO FALL. IV ACCESS ON LAC G#22, INTACT AND PATENT. ALL NEEDS ATTENDED TO ANTICIPATED. WOUND CARE TREATMENT DONE PER ORDER. PT KEPT CLEAN AND DRY. BED IN LOWEST LOCKED POSITION, BED ALARM ON, SIDE RAILS UP, CALL LIGHT WITHIN REACH. WILL ENDORSE TO NIGHT NURSE FOR ALYCE
--- NOTE | 2019-11-30 19:25 | NUR ---
MS RN OPENING NOTES PATIENT AWAKE AND WATCHING TV IN BED. A/O X4. ON RA. NO S/S OF ACUTE RESPIRATORY DISTRESS OR C/O PAIN. IV PRESENT ON LEFT AC, SIZE 22, INTACT & PATENT, HEP LOCKED. CONTACT/DROPLET PRECAUTIONS IN PLACE FOR R/O COVID 19. RUIZ CATH PRESENT AND DRAINING WELL. COLOSTOMY BAG PRESENT, PATIENT ABLE TO PROVIDE SELF CARE. SAFETY MEASURES IN PLACE AND PATIENT'S NEEDS MET. BED LOCKED, ALARM ON, SIDE RAILS X2, CALL LIGHT WITHIN REACH. WILL CONTINUE TO MONITOR.
[2019-11-30 20:00] VITALS: BP 145/87
[2019-11-30] MEDS: CHOLECALCIFEROL 1,000 UNIT TABLET (VIT D3) PO SCH (21:56)
[2019-11-30] MEDS: cetrizine 10 MG TABLET PO SCH (21:57)
--- NOTE | 2019-11-30 23:15 | NUR ---
MS RN NOTES RECEIVED PHONE CALL FROM LAB. PER ASSISTANT EXECUTIVE HOUSEKEEPER PATIENT'S COVID TEST RESULTED NEGATIVE.
--- NOTE | 2019-11-30 23:45 | NUR ---
MS RN NOTES COLOSTOMY BAG CHANGED. PATIENT ABLE TO PROVIDE SELF CARE WITH STANDBY ASSIST.
[2019-12-01] MEDS: PROTRIPTYLINE HCL 10 MG PO SCH ×2 (04:50→14:16)
[2019-12-01] MEDS: ACETAMINOPHEN 325 MG TABLET PO PRN (04:54)
--- NOTE | 2019-12-01 06:34 | NUR ---
MS RN CLOSING NOTES PATIENT SLEEPING IN BED, EASY TO AWAKEN. A/O X4. ON RA. NO S/S OF ACUTE RESPIRATORY DISTRESS OR C/O PAIN. IV PRESENT ON LEFT AC, SIZE 22, INTACT & PATENT, HEP LOCKED. RUIZ CATH PRESENT AND DRAINING WELL, 1200 ML OF CLEAR YELLOW URINE EMPTIED. COLOSTOMY BAG PRESENT, PATIENT ABLE TO PROVIDE SELF CARE. WOUND CARE PROVIDED TO BRUISE ON UPPER CHEST. SAFETY MEASURES IN PLACE AND PATIENT'S NEEDS MET. BED LOCKED, ALARM ON, SIDE RAILS X2, CALL LIGHT WITHIN REACH. WILL ENDORSE TO DAY SHIFT NURSE PLAN OF CARE.
[2019-12-01 07:26] LABS: BASOPHILS # (AUTO) 0.1 /CMM (0.0-0.2); BASOPHILS % (AUTO) 0.9 % (0.0-2.0); EOSINOPHILS % (AUTO) 4.2 % (0.0-6.0); HEMATOCRIT 37 % (33-45); HEMOGLOBIN 12.1 g/dL (11.5-14.8); LYMPHOCYTES # (AUTO) 1.6 /CMM (0.8-4.8); LYMPHOCYTES % (AUTO) 17.6 % (20.0-44.0); MEAN CORPUSCULAR HGB CONC 33 g/dl (31.0-36.0); MEAN CORPUSCULAR VOLUME 91 fL (82-100); MONOCYTES % (AUTO) 11.3 % (2.0-12.0); NEUTROPHILS # (AUTO) 5.8 /CMM (1.8-8.9); PLATELET COUNT (AUTO) 233 /CMM (150-450); RED BLOOD CELL COUNT(AUTO) 4.04 MIL/uL (4.0-5.2); WHITE BLOOD COUNT (AUTO) 8.8 K/uL (4.3-11.0)
[2019-12-01 07:42] LABS: CALCIUM, SERUM 8.5 mg/dL (8.5-10.1); CREATININE 0.9 mg/dL (0.6-1.3); POTASSIUM 4.7 mmol/L (3.5-5.1)
[2019-12-01 08:00] VITALS: BP 151/79
[2019-12-01 08:51] VITALS: BP 151/79
[2019-12-01] MEDS: FUROSEMIDE 20 MG TABLET PO SCH (08:51)
[2019-12-01] MEDS: POTASSIUM CHLORIDE 10 MEQ TABLET.SA PO SCH (08:51)
[2019-12-01] MEDS: GABAPENTIN 300 MG CAPSULE PO SCH (08:51)
[2019-12-01] MEDS: URSODIOL 300 MG CAPSULE PO SCH (08:51)
[2019-12-01] MEDS: LamoTRIgine 100 MG TABLET PO SCH ×2 (08:51→14:16)
[2019-12-01] MEDS: VALSARTAN 80 MG TABLET PO SCH (08:51)
[2019-12-01] MEDS: ASPIRIN 81 MG TAB.CHEW PO SCH (08:51)
[2019-12-01] MEDS: ASCORBIC ACID 500 MG TABLET PO SCH (08:51)
[2019-12-01] MEDS: MAGNESIUM OXIDE 400 MG TABLET PO SCH (08:51)
[2019-12-01] MEDS: EZETIMIBE 10 MG TABLET PO SCH (08:51)
[2019-12-01] MEDS: CARVEDILOL PHOSPHATE 20 MG PO SCH (08:53)
--- NOTE | 2019-12-01 10:45 | NUR ---
cook removed.physical tx in rm.ambulating pt.
--- NOTE | 2019-12-01 12:30 | NUR ---
rn took photos of chest skin tear and abrasion on rt. toe,then refused any additional photos.
--- NOTE | 2019-12-01 15:45 | NUR ---
ambulance here given report,report called to facility.all papers signed including belonging sheet. hep lock out.meds obtained from pharmacy.taken to facility via amb.
== END 2019-12-01 15:50 | DRG 913 ==
LOC: ER 07:38 → MED 12:39
PROVIDERS: ADMIT Family Medicine; ATTEND Internal Medicine
DX: S09.90XA Unspecified injury of head, initial encounter (principal); N17.0 Acute kidney failure with tubular necrosis; I50.22 Chronic systolic (congestive) heart failure; Z68.43 Body mass index [BMI] 50.0-59.9, adult; E44.1 Mild protein-calorie malnutrition; I11.0 Hypertensive heart disease with heart failure; E78.5 Hyperlipidemia, unspecified; E66.01 Morbid (severe) obesity due to excess calories; Z96.652 Presence of left artificial knee joint; Z93.3 Colostomy status; Z95.2 Presence of prosthetic heart valve; Z88.0 Allergy status to penicillin; Z88.2 Allergy status to sulfonamides; E88.09 Other disorders of plasma-protein metabolism, not elsewhere classified; R73.9 Hyperglycemia, unspecified; F41.9 Anxiety disorder, unspecified; F32.9 Major depressive disorder, single episode, unspecified; Z91.81 History of falling; M19.072 Primary osteoarthritis, left ankle and foot; M19.071 Primary osteoarthritis, right ankle and foot; S99.822D Other specified injuries of left foot, subsequent encounter; S99.821D Other specified injuries of right foot, subsequent encounter; W18.30XD Fall on same level, unspecified, subsequent encounter; W18.30XA Fall on same level, unspecified, initial encounter; Y92.89 Other specified places as the place of occurrence of the external cause; K74.60 Unspecified cirrhosis of liver; K76.0 Fatty (change of) liver, not elsewhere classified; S00.81XA Abrasion of other part of head, initial encounter
CPT/HCPCS: 36415; 70450-TC; 71045-TC; 72125-TC; 72170-TC; 73564-TC; 73630-TC; 76700-TC; 80048-TC; 80061-TC; 80076-TC; 81000-TC; 82550-TC; 82977-TC; 83735-TC; 84100-TC; 85025-TC; 85730-TC; 86850-TC; 87081-TC; 90715; 93307-TC; 97110-TC; 97116-TC; 97530-TC; A6253; A6403; G0378

== ENCOUNTER 2020-07-04 11:22 | Inpatient (IN) | payer OTHER, MEDICARE ==
[~2020-07-04] VITALS: Ht 157.5 cm; Wt 127.9 kg
[~2020-07-04 11:22] MED LIST changes: -ACET325T53 PO; +ASCO-352 PO; -ASCO500C16 PO; +ASPI-1169 PO; -CARB15DR2 EACHEYE; +CARV20CP PO; -CARV6.252 PO; +CHOL100040 PO; +CLON0.5T4 PO; +CLON1TAB PO; +CLON1TAB12 PO; +EZET10TA6 PO; -EZET1TAB26 PO; -FERR325T23 PO; +FURO-145 PO; +GABA-534 PO; -HYDR-4076 PO; -HYDR25PO MC; -MELA3TAB41 PO; +OMEG-178 PO; -ONDA4TAB11 PO; -PANT40TA4 PO; +POTA10TA17 PO; +PROT10TA PO; -SIME80TA15 PO; -Simethicone PO; +TURM500C9 PO; -UBID200C32 PO; +VALS320T2 PO
--- NOTE | 2020-07-04 11:45 | NUR ---
[id number], from home, c/o right elbow pain s/p glf, -ko, 7/10 pain scale. Patient a/ox4, breathing even and unlabored, able to move hips and lower extremities. Changed into gown, attached to the monitoring analyst.
--- NOTE | 2020-07-04 11:55 | NUR ---
Patient taken to radiology.
[2020-07-04] MEDS ORDERED: ACETAMINOPHEN 325 MG TABLET PO ONE (13:30)
[2020-07-04] MEDS ORDERED: ACETAMINOPHEN 325 MG TABLET ONE (13:33)
--- NOTE | 2020-07-04 13:41 | NUR ---
PATIENT AMBULATORY WITH WALKER. BP ELEVATED 200/104, PATIENT DENIES PAIN. PATIENT STS SHE DIDN'T TAKE HER MORNING BP MEDICATIONS. DR. BERNAL AWARE AND INSTRUCTED PATIENT TO TAKE HER BLOOD PRESSURE WHEN SHE GETS HOME.
[2020-07-04] MEDS ORDERED: CLONIDINE HCL 0.1 MG TABLET ONE (13:55)
[2020-07-04] MEDS ORDERED: CLONIDINE HCL 0.1 MG TABLET PO ONE (14:00)
--- NOTE | 2020-07-04 15:13 | NUR ---
ATTEMPTED TO DISCHARGE PATIENT, BUT PATIENT UNABLE TO GET UP IN THE CAR. DR. BERNAL PRESENT, INSTRUCTED TO BRING THE PATIENT BACK TO THE [facility] AND TO ADMIT.
[2020-07-04 15:17] LABS: BILIRUBIN,URINE NEGATIVE (NEGATIVE); BLOOD, URINE NEGATIVE Ery/uL (NEGATIVE); COLOR,URINE YELLOW (YELLOW); LEUKOCYTE ESTERASE ,URINE NEGATIVE (NEGATIVE); NITRITE, URINE NEGATIVE (NEGATIVE); PH,URINE 6.5 (5.0-8.0); PROTEIN,URINE NEGATIVE (NEGATIVE); UGLUCOSE NEGATIVE (NEGATIVE); UROBILINOGEN,URINE 0.2 EU/dL (0.2)
[2020-07-04] MEDS ORDERED: CARV25TA2 PO (15:22)
[2020-07-04] MEDS ORDERED: LAMO100T2 PO (15:22)
[2020-07-04 15:34] LABS: BASOPHILS # (AUTO) 0.1 /CMM (0.0-0.2); BASOPHILS % (AUTO) 1.2 % (0.0-2.0); EOSINOPHILS % (AUTO) 0.9 % (0.0-6.0); HEMATOCRIT 37 % (33-45); HEMOGLOBIN 12.2 g/dL (11.5-14.8); LYMPHOCYTES # (AUTO) 2.2 /CMM (0.8-4.8); LYMPHOCYTES % (AUTO) 18.2 % (20.0-44.0); MEAN CORPUSCULAR HGB CONC 33 g/dl (31.0-36.0); MEAN CORPUSCULAR VOLUME 94 fL (82-100); MONOCYTES % (AUTO) 8.6 % (2.0-12.0); NEUTROPHILS # (AUTO) 8.6 /CMM (1.8-8.9); NEUTROPHILS % (AUTO) 71.1 % (43.0-81.0); PLATELET COUNT (AUTO) 280 /CMM (150-450); RED BLOOD CELL COUNT(AUTO) 3.98 MIL/uL (4.0-5.2); WHITE BLOOD COUNT (AUTO) 12.1 K/uL (4.3-11.0)
[2020-07-04 15:46] LABS: CALCIUM, SERUM 9.2 mg/dL (8.5-10.1); CARBON DIOXIDE 28 mmol/L (21-32); CHLORIDE 103 mmol/L (98-107); CREATININE 0.9 mg/dL (0.6-1.3); GLUCOSE 111 mg/dL (74-106); POTASSIUM 4.4 mmol/L (3.5-5.1); SODIUM SERUM 141 mmol/L (136-145); UREA NITROGEN, BLOOD 15 mg/dL (7-18)
[2020-07-04 15:58] LABS: ALANINE AMINOTRANSFERASE 23 U/L (12-78); ALBUMIN 3.5 g/dL (3.4-5.0); ALKALINE PHOSPHATASE 254 U/L (46-116); ASPARTATE AMINOTRANSFERASE 35 U/L (15-37); BILIRUBIN,DIRECT 0.2 mg/dL (0.0-0.2); BILIRUBIN,TOTAL 0.4 mg/dL (0.2-1.0); LIPASE 33 U/L (73-393); TOTAL PROTEIN, SERUM 7.8 g/dL (6.4-8.2)
--- NOTE | 2020-07-04 15:59 | NUR ---
PATIENT RESTING AT THIS TIME. NO DISTRESS NOTED. SEEN AND EVALUATED BY DR. JAYLA CHUN.
[2020-07-04] MEDS ORDERED: HYDROCODONE/APAP 5/325MG TABLET PO PRN (16:30)
[2020-07-04] MEDS ORDERED: MAG HYDROX/AL HYDROX/SIMETH 30 ML UDC PO PRN (16:30)
[2020-07-04] MEDS ORDERED: ZOLPIDEM TARTRATE 5 MG TABLET PO PRN (16:30)
[2020-07-04] MEDS ORDERED: ONDANSETRON HCL/PF 4 MG/2 ML VIAL IVP PRN (16:30)
[2020-07-04] MEDS ORDERED: MAGNESIUM HYDROXIDE 30 ML UDC PO PRN (16:30)
[2020-07-04] MEDS ORDERED: Z GUARD REMEDY 2 OZ OINT TP PRN (16:30)
--- NOTE | 2020-07-04 19:37 | NUR ---
TOOK OVER PT CARE. PT AAOX4, AWARE OF PLAN OF CARE. VSS.
--- NOTE | 2020-07-04 21:28 | NUR ---
REPORT GIVEN TO MARIZA WAGONER FOR ALYCE. PT TRANSFERED.
--- NOTE | 2020-07-04 21:35 | NUR ---
TELERN RECEIVED FROM ER A 79 Y/O FEMALE WITH CC OF PAIN ON RIGHT KNEE. S/P FALL PRIOR TO DC FROM ER. A/O X4 PAIN TOLERABLE FOR NOW. ALL NEEDS ATTENDED. ORIENTED TO ROOM FACILITIES. SR ON THE MONITOR TO CONTINUE
[2020-07-04 22:00] VITALS: BP 131/83
--- NOTE | 2020-07-05 00:30 | NUR ---
TELERN ALL DUE MEDS ADMINISTERD LATE. UNABLE TO TAKE PICTURE OF LEG AND OTHE SKIN ISSUES. WILL FOLLOW UP IN AM ONCE PATIENT IS READY.
[2020-07-05] MEDS: GABAPENTIN 300 MG CAPSULE PO SCH ×3 (01:09→16:54)
[2020-07-05] MEDS: LamoTRIgine 100 MG TABLET PO SCH ×3 (01:10→17:01)
[2020-07-05] MEDS: URSODIOL 300 MG CAPSULE PO SCH ×3 (01:10→17:01)
[2020-07-05] MEDS: CARVEDILOL 6.25 MG TABLET PO SCH ×3 (01:12→16:54)
[2020-07-05] MEDS: ENOXAPARIN SODIUM 40 MG/0.4 ML DISP.SYRIN SQ SCH ×2 (01:20→21:29)
[2020-07-05 05:30] VITALS: BP 155/70
[2020-07-05 06:02] LABS: BASOPHILS # (AUTO) 0.1 /CMM (0.0-0.2); HEMATOCRIT 33 % (33-45); HEMOGLOBIN 11.2 g/dL (11.5-14.8); LYMPHOCYTES # (AUTO) 1.8 /CMM (0.8-4.8); MEAN CORPUSCULAR HGB CONC 34 g/dl (31.0-36.0); MEAN CORPUSCULAR VOLUME 92 fL (82-100); MONOCYTES # (AUTO) 0.9 /CMM (0.1-1.30); NEUTROPHILS # (AUTO) 6.9 /CMM (1.8-8.9); PLATELET COUNT (AUTO) 268 /CMM (150-450); RED BLOOD CELL COUNT(AUTO) 3.56 MIL/uL (4.0-5.2); WHITE BLOOD COUNT (AUTO) 9.7 K/uL (4.3-11.0)
[2020-07-05 06:16] LABS: CALCIUM, SERUM 9.1 mg/dL (8.5-10.1); CARBON DIOXIDE 30 mmol/L (21-32); CHLORIDE 105 mmol/L (98-107); CREATININE 0.9 mg/dL (0.6-1.3); GLUCOSE 99 mg/dL (74-106); MAGNESIUM 1.9 mg/dL (1.8-2.4); PHOSPHORUS 4.6 mg/dL (2.5-4.9); POTASSIUM 3.5 mmol/L (3.5-5.1); SODIUM SERUM 144 mmol/L (136-145); UREA NITROGEN, BLOOD 15 mg/dL (7-18)
[2020-07-05 06:35] LABS: CHOLESTEROL 170 mg/dL (<200); HDL CHOLESTEROL 83 mg/dL (40-60); LDL 71 mg/dL (0-99); THYROID STIMULATING HORMONE 2.278 uIU/mL (0.358-3.74); TRIGLYCERIDES 77 mg/dL (30-150)
--- NOTE | 2020-07-05 07:07 | NUR ---
TELERN REMAINS SR ON THE MONITOR. RESTING QUIETLY
[2020-07-05 08:00] VITALS: BP 170/79
[2020-07-05] MEDS: ASCORBIC ACID 500 MG TABLET PO SCH (08:34)
[2020-07-05] MEDS: EZETIMIBE 10 MG TABLET PO SCH (08:34)
[2020-07-05] MEDS: ASPIRIN 81 MG TAB.CHEW PO SCH (08:34)
[2020-07-05] MEDS: VALSARTAN 80 MG TABLET PO SCH (08:35)
--- NOTE | 2020-07-05 09:33 | NUR ---
WOUND CARE CONSULT: PT PRESENTS WITH BRUISING/DISCOLORATION TO RT ARM, ABRASION TO RT ELBOW AND DRY ABRASION TO LEFT ELBOW, PRESENT ON ADMISSION. RECOMMENDATIONS MADE FOR SKIN PROTECTION. DISCUSSED WITH NURSING STAFF. PT IS CONTINENT AND ABLE TO ASSIST WITH TURNING/REPOSITIONING IN BED. MD IN AGREEMENT WITH PLAN OF CARE. Addendum: 07/05/20 at 0934 by SAKINA RAMIREZ WNDNU Amended: Links added.
[2020-07-05] MEDS ORDERED: CLONIDINE HCL 0.1 MG TABLET PO PRN (13:30)
[2020-07-05 16:00] VITALS: BP 144/74
--- NOTE | 2020-07-05 18:22 | NUR ---
Tele/RN - End of shift summary Patient in no acute distress, stable on room air, A/O x 4, denies pain, tele shows SR, colostomy in place. All needs attended. Will continue with current medical management.
--- NOTE | 2020-07-05 19:45 | NUR ---
RN OPENING NOTE RECEIVED PATIENT IN BED RESTING ALERT ORIENTED X4 VERBALLY RESPONSIVE NO SOB NOT ACUTE DISTRESS NOTED ON ROOM O2:96% IV SITE IS ON LEFT HAND,INFILTRATED,ON COLOSTOMY FOR BOWEL MOVEMENT,CONTINENT TO BLADDER,CALL LIGHT WITHIN REACH,SAFETY MEASURE IMPLEMENT CONTINUE TO MONITOR
[2020-07-05 20:00] VITALS: BP 150/68
[2020-07-05 20:37] VITALS: BP 159/68
[2020-07-06] VITALS: BP 111/51
[2020-07-06 00:40] VITALS: BP 111/51
[2020-07-06] MEDS: clonazePAM 0.5 MG TABLET PO PRN ×2 (02:39→09:47)
[2020-07-06] MEDS ORDERED: LORAZEPAM INJ 2 MG/ML VIAL ONE (03:49)
--- NOTE | 2020-07-06 03:50 | NUR ---
RN NOTE AT 02:50 PATIENT IN BED ANXIOUS AGITATED AND WANTS TO GO HOME,EXPLAINED TO HER SHE IS NOT ABLE TO WALK WAIT UNTIL MORNING HER WILL COME AND PICK HER UP SHE REFUSED,CALLED DR JAYLA CHUN WITH [facility] 0.5MG IM INJECTION ONE TIME ONLY NOTED AND CARRIED OUT,CALLED PATIENT HE DIDN'T PEDIATRIC OCCUPATIONAL THERAPIST PHONE LEFT MESSAGE CONTINUE TO MONITOR.
[2020-07-06 04:00] VITALS: BP 116/60
--- NOTE | 2020-07-06 07:17 | NUR ---
CIARAN DRAPER NOTE PATIENT IN BED SLEEPING KEPT CLEAN AND DRY KEPT COMFORTABLE,HER CALLED SPOKE WITH HIM MADE AWARE HER SITUATION,ENDORSE NEXT COMING SHIFT FOR CONTINUATION OF CARE.
[2020-07-06] MEDS: GABAPENTIN 300 MG CAPSULE PO SCH ×2 (08:32→16:56)
[2020-07-06] MEDS: ASCORBIC ACID 500 MG TABLET PO SCH (08:32)
[2020-07-06] MEDS: ASPIRIN 81 MG TAB.CHEW PO SCH (08:32)
[2020-07-06] MEDS: LamoTRIgine 100 MG TABLET PO SCH ×2 (08:33→17:21)
[2020-07-06] MEDS: URSODIOL 300 MG CAPSULE PO SCH ×2 (08:33→17:21)
[2020-07-06] MEDS: VALSARTAN 80 MG TABLET PO SCH (08:51)
[2020-07-06] MEDS: EZETIMIBE 10 MG TABLET PO SCH (08:51)
[2020-07-06] MEDS: CARVEDILOL 6.25 MG TABLET PO SCH ×2 (08:52→16:54)
--- NOTE | 2020-07-06 09:48 | NUR ---
TELE/RN PATIENT WAS CONFUSED AND ANXIOUS. ANXIOLYTIC PRN MED GIVEN.
--- NOTE | 2020-07-06 18:24 | NUR ---
TELE/RN CLOSING NOTE PATIENT IN BED. A/O X2-3. AFEBRILE. NO SIGNS OF RESPIRATORY DISTRESS, BREATHING EVEN AND UNLABORED. PATIENTS WAS CONFUSED AND AGITATED MOST OF THE TIME. REFUSED ALL TREATMENT THAT NEEDS TO BE DONE. NON COMPLIANT AND UNCOOPERATIVE. INFORMED HER FROM TIME TO TIME REGARDING HER BEHAVIOR. FALL PRECAUTIONS MAINTAINED. SITTER AT THE BEDSIDE FOR SAFETY. CALL LIGHT WITHIN REACH. WILL ENDORSE CONTINUITY OF CARE TO [facility] SHIFT
[2020-07-06 21:00] VITALS: BP 144/73
[2020-07-06] MEDS: ENOXAPARIN SODIUM 40 MG/0.4 ML DISP.SYRIN SQ SCH (21:00)
--- NOTE | 2020-07-06 22:09 | NUR ---
MS RN NOTE PATIENT REFUSED LOVENOX TO BE ADMINISTERED SCHEDULED DESPITE OF RISKS & BENEFITS EXPLANATIONS X 3.
[2020-07-06 23:10] VITALS: BP 141/75
--- NOTE | 2020-07-07 07:11 | NUR ---
TELE/RN CLOSING NOTE PATIENT IN BED. A/O X2-3, FORGETFUL AT TIMES. AFEBRILE. NO SIGNS OF RESPIRATORY DISTRESS, BREATHING EVEN AND UNLABORED. PATIENTS WAS CONFUSED AND AGITATED AT TIMES. REFUSED IV ACCESS. REFUSES ADL CARE, REFUSED COLOSTOMY BAG TO BE CHANGED BY RN, PATIENT CHANGED IT HERSELF. NON COMPLIANT AND UNCOOPERATIVE. ON 1:1 SITTER FOR SAFETY, ATTEMPTS TO GET OUT OF BED UNASSISTED, FALL RISK. FALL PRECAUTIONS MAINTAINED. SITTER AT THE BEDSIDE FOR SAFETY. CALL LIGHT WITHIN REACH. WILL ENDORSE CONTINUITY OF CARE TO MORNING SHIFT
--- NOTE | 2020-07-07 07:15 | NUR ---
RN-NOTES RECEIVED PATIENT AWAKE,ALERT WATCHING TV,NO ACUTE DISTRESS NOTED. CALL LIGHT WITHIN REACH.
[2020-07-07 07:20] LABS: CREATININE 0.7 mg/dL (0.6-1.3); POTASSIUM 3.4 mmol/L (3.5-5.1)
[2020-07-07 07:25] LABS: BASOPHILS # (AUTO) 0.1 /CMM (0.0-0.2); BASOPHILS % (AUTO) 0.6 % (0.0-2.0); EOSINOPHILS % (AUTO) 1.5 % (0.0-6.0); HEMATOCRIT 34 % (33-45); HEMOGLOBIN 11.3 g/dL (11.5-14.8); LYMPHOCYTES # (AUTO) 1.7 /CMM (0.8-4.8); LYMPHOCYTES % (AUTO) 16.9 % (20.0-44.0); MEAN CORPUSCULAR HGB CONC 33 g/dl (31.0-36.0); MEAN CORPUSCULAR VOLUME 92 fL (82-100); MONOCYTES % (AUTO) 9.8 % (2.0-12.0); NEUTROPHILS # (AUTO) 7.3 /CMM (1.8-8.9); NEUTROPHILS % (AUTO) 71.2 % (43.0-81.0); PLATELET COUNT (AUTO) 278 /CMM (150-450); RED BLOOD CELL COUNT(AUTO) 3.69 MIL/uL (4.0-5.2); WHITE BLOOD COUNT (AUTO) 10.2 K/uL (4.3-11.0)
[2020-07-07] MEDS ORDERED: POTASSIUM CHLORIDE 20 MEQ TAB.PRT.SR PO ONE (08:30)
[2020-07-07] MEDS: ASCORBIC ACID 500 MG TABLET PO SCH (09:43)
[2020-07-07] MEDS: URSODIOL 300 MG CAPSULE PO SCH ×2 (09:43→18:20)
[2020-07-07] MEDS: ASPIRIN 81 MG TAB.CHEW PO SCH (09:43)
[2020-07-07] MEDS: EZETIMIBE 10 MG TABLET PO SCH (09:43)
[2020-07-07] MEDS: GABAPENTIN 300 MG CAPSULE PO SCH ×2 (09:43→18:22)
[2020-07-07] MEDS: LamoTRIgine 100 MG TABLET PO SCH ×2 (09:43→18:20)
[2020-07-07] MEDS: VALSARTAN 80 MG TABLET PO SCH (09:54)
[2020-07-07] MEDS: CARVEDILOL 6.25 MG TABLET PO SCH ×2 (09:54→18:23)
[2020-07-07] MEDS ORDERED: POTASSIUM CHLORIDE 20 MEQ TAB.PRT.SR PO SCH ×2 (10:00→11:30)
[2020-07-07] MEDS: risperiDONE 1 MG TABLET PO SCH (13:17)
--- NOTE | 2020-07-07 17:30 | NUR ---
RN-NOTES DID CHANGE COLOSTOMY BAG.
--- NOTE | 2020-07-07 20:44 | NUR ---
RN -NOTES PATIENT WATCHING TV ,NO ACUTE DISTRESS NOTED. PATIENT WAS SEEN BY PT TODAY. ALL NEEDS ATTENDED AND ANTICIPATED CALL LIGHT WITHIN REACH.ON 1:1 SITTER FOR SAFETY . ENDORSE TO INCOMING NURSE FOR CONTINUITY OF CARE.
--- NOTE | 2020-07-07 20:46 | NUR ---
MS RN OPENING NOTE: PATIENT IN BED. ALERT AND ORIENTED X2, WITH EPISODES OF FORGETFULNESS. NO ACUTE DISTRESS NOTED. RESPIRATIONS ARE EVEN AND UNLABORED. ON 1:1 SITTER FOR SAFETY. SAFETY AND FALL PRECAUTIONS MAINTAINED. SITTER AT THE BEDSIDE FOR SAFETY. CALL LIGHT WITHIN REACH. WILL CONTINUE TO MONITOR.
[2020-07-07] MEDS: ENOXAPARIN SODIUM 40 MG/0.4 ML DISP.SYRIN SQ SCH (21:39)
[2020-07-07 22:28] VITALS: BP 121/70
[2020-07-07 22:29] VITALS: BP 164/77
[2020-07-08] MEDS: risperiDONE 1 MG TABLET PO SCH ×3 (00:39→21:57)
--- NOTE | 2020-07-08 06:12 | NUR ---
TELE/RN CLOSING NOTE PATIENT IN BED. A/O X2, WITH EPISODES OF FORGETFULNESS. REORIENTATION PROVIDED. NO ACUTE DISTRESS NOTED. BREATHING EVEN AND UNLABORED. REFUSED IV ACCESS. COLOSTOMY BAG CHANGED NOTED WITH LOOSE BM X1. ON 1:1 SITTER FOR SAFETY. FALL PRECAUTIONS MAINTAINED. SITTER AT THE BEDSIDE FOR SAFETY. CALL LIGHT WITHIN REACH. WILL ENDORSEE TO MORNING SHIFT FOR CONTINUITY OF CARE.
[2020-07-08 06:38] LABS: BASOPHILS # (AUTO) 0.1 /CMM (0.0-0.2); BASOPHILS % (AUTO) 0.8 % (0.0-2.0); EOSINOPHILS % (AUTO) 1.6 % (0.0-6.0); HEMATOCRIT 35 % (33-45); HEMOGLOBIN 11.6 g/dL (11.5-14.8); LYMPHOCYTES # (AUTO) 1.7 /CMM (0.8-4.8); LYMPHOCYTES % (AUTO) 16.3 % (20.0-44.0); MEAN CORPUSCULAR HGB CONC 33 g/dl (31.0-36.0); MEAN CORPUSCULAR VOLUME 93 fL (82-100); MONOCYTES % (AUTO) 10.2 % (2.0-12.0); NEUTROPHILS # (AUTO) 7.2 /CMM (1.8-8.9); NEUTROPHILS % (AUTO) 71.1 % (43.0-81.0); PLATELET COUNT (AUTO) 303 /CMM (150-450); RED BLOOD CELL COUNT(AUTO) 3.75 MIL/uL (4.0-5.2); WHITE BLOOD COUNT (AUTO) 10.2 K/uL (4.3-11.0)
[2020-07-08 07:06] LABS: CALCIUM, SERUM 9.2 mg/dL (8.5-10.1); CREATININE 0.8 mg/dL (0.6-1.3)
--- NOTE | 2020-07-08 07:50 | NUR ---
MS RN OPENING NOTES RECEIVED PATIENT RESTING IN BED. A/OX3, WITH EPISODES OF FORGETFULNESS. PATIENT ON RA WITH NO ACUTE RESPIRATORY DISTRESS NOTED, BREATHING EVEN AND UNLABORED. PT WITH 1:1 SITTER FOR SAFETY. NO C/O OF PAIN OR DISCOMFORT AT THIS TIME. NO IV ACESS IN PLACE. PATIENT CONTINUES TO REFUSE IV PLACED. PT HAS A COLOSTOMY BAG IN PLACE WITH COLOSTOMY BAG BROUGHT IN FROM HOME AT BEDSIDE. BED IS AT LOWEST POSITION AND LOCKED WITH SIDE RAILS UPX2 AND CALL LIGHT WITH IN REACH. ALL SAFETY MEASURES AND PRECAUTIONS MAINTAINED. WILL CONTINUE TO MONITOR
[2020-07-08] MEDS ORDERED: FUROSEMIDE 20 MG/2 ML VIAL IV ONE (09:00)
[2020-07-08] MEDS: URSODIOL 300 MG CAPSULE PO SCH ×2 (09:47→17:16)
[2020-07-08] MEDS: ASPIRIN 81 MG TAB.CHEW PO SCH (09:47)
[2020-07-08] MEDS: LamoTRIgine 100 MG TABLET PO SCH ×2 (09:49→17:16)
[2020-07-08] MEDS: VALSARTAN 80 MG TABLET PO SCH (09:49)
[2020-07-08] MEDS: ASCORBIC ACID 500 MG TABLET PO SCH (09:49)
[2020-07-08] MEDS: ACETAMINOPHEN 325 MG TABLET PO PRN (09:49)
[2020-07-08] MEDS: GABAPENTIN 300 MG CAPSULE PO SCH ×2 (09:49→17:16)
[2020-07-08] MEDS: EZETIMIBE 10 MG TABLET PO SCH (09:49)
[2020-07-08] MEDS: CARVEDILOL 6.25 MG TABLET PO SCH ×2 (09:56→17:17)
[2020-07-08] MEDS: FUROSEMIDE 40 MG TABLET PO SCH (11:36)
[2020-07-08] MEDS ORDERED: RISP1TAB7 PO (12:57)
--- NOTE | 2020-07-08 18:19 | NUR ---
MS CLOSING NOTES PATIENT RESTING IN BED. A/OX3, WITH EPISODES OF FORGETFULNESS. PATIENT ON RA WITH NO ACUTE RESPIRATORY DISTRESS NOTED, BREATHING EVEN AND UNLABORED. PT WITH 1:1 SITTER FOR SAFETY. PATIENT CONTINUES WITH NO IV ACCESS AND CONTINUES TO REFUSE IV PLACEMENT. PT WITH COLOSTOMY BAG IN PLACE.PATIENT AWAITING D/C [facility]NS[facility] TO [facility], POSSIBLE D/C TOMORROW. BED IS AT LOWEST POSITION AND LOCKED WITH SIDE RAILS UPX2 AND CALL LIGHT WITH IN REACH. ALL SAFETY MEASURES AND PRECAUTIONS MAINTAINED. WILL ENDORSE TO ONCOMING SHIFT.
[2020-07-08 20:00] VITALS: BP 162/99
[2020-07-08] MEDS: ENOXAPARIN SODIUM 40 MG/0.4 ML DISP.SYRIN SQ SCH (21:58)
[2020-07-09 08:25] LABS: BILIRUBIN,TOTAL 0.6 mg/dL (0.2-1.0); CALCIUM, SERUM 8.5 mg/dL (8.5-10.1); CREATININE 0.9 mg/dL (0.6-1.3); MAGNESIUM 1.9 mg/dL (1.8-2.4); PHOSPHORUS 5.2 mg/dL (2.5-4.9); POTASSIUM 3.6 mmol/L (3.5-5.1); TOTAL PROTEIN, SERUM 6.6 g/dL (6.4-8.2)
[2020-07-09 08:31] LABS: BASOPHILS # (AUTO) 0.1 /CMM (0.0-0.2); BASOPHILS % (AUTO) 0.7 % (0.0-2.0); EOSINOPHILS % (AUTO) 2.7 % (0.0-6.0); HEMATOCRIT 36 % (33-45); HEMOGLOBIN 11.9 g/dL (11.5-14.8); MEAN CORPUSCULAR HGB CONC 33 g/dl (31.0-36.0); MEAN CORPUSCULAR VOLUME 93 fL (82-100); MONOCYTES # (AUTO) 0.9 /CMM (0.1-1.30); MONOCYTES % (AUTO) 10.8 % (2.0-12.0); NEUTROPHILS # (AUTO) 5.5 /CMM (1.8-8.9); NEUTROPHILS % (AUTO) 62.8 % (43.0-81.0); PLATELET COUNT (AUTO) 302 /CMM (150-450); RED BLOOD CELL COUNT(AUTO) 3.86 MIL/uL (4.0-5.2); WHITE BLOOD COUNT (AUTO) 8.8 K/uL (4.3-11.0)
[2020-07-09] MEDS: ASPIRIN 81 MG TAB.CHEW PO SCH (08:36)
[2020-07-09] MEDS: ASCORBIC ACID 500 MG TABLET PO SCH (08:36)
[2020-07-09] MEDS: EZETIMIBE 10 MG TABLET PO SCH (08:38)
[2020-07-09] MEDS: FUROSEMIDE 40 MG TABLET PO SCH (08:38)
[2020-07-09] MEDS: LamoTRIgine 100 MG TABLET PO SCH (08:39)
[2020-07-09] MEDS: URSODIOL 300 MG CAPSULE PO SCH (08:39)
[2020-07-09] MEDS: GABAPENTIN 300 MG CAPSULE PO SCH (08:40)
[2020-07-09] MEDS: CARVEDILOL 6.25 MG TABLET PO SCH (08:41)
[2020-07-09 08:42] VITALS: BP 141/73
[2020-07-09] MEDS: VALSARTAN 80 MG TABLET PO SCH (08:42)
[2020-07-09] MEDS: risperiDONE 1 MG TABLET PO SCH (10:15)
[2020-07-09] MEDS: ACETAMINOPHEN 325 MG TABLET PO PRN (12:30)
--- NOTE | 2020-07-09 15:30 | NUR ---
RN MS NOTES PT IN BED, AWAKE, ALERT AND ORIENTED, DENIES PAIN OR ANY DISCOMFORT, BREATHING PATTERN NORMAL, CALL LIGHT WITHIN REACH, SEEN BY DR. CURIEL TODAY, DISCHARGE ORDER GIVEN, PT INFORMED, DISCHARGE AND MEDICATION INSTRUCTIONS GIVEN TO PT,VERBALIZED UNDERSTANDING, BELONGINGS ACCOUNTED FOR, PT REFUSED SKIN PHOTOS, PT'S INFORMED OF PT'S DISCHARGE, REPORT GIVEN TO DENIS WAGONER OF [facility], PICKED UP BY 2 AMBULANCE PERSONNEL, LEFT VIA GUERNEY IN STABLE CONDITION.
== END 2020-07-09 15:20 | DRG 563 ==
LOC: ER 11:37 → UNDOADMIN 20:25 → TRANSITION 20:25 → MED 21:18 → TELE 21:39 → MED 07-06 09:44
PROVIDERS: ATTEND Nurse Practitioner Acute Care
DX: S83.91XA Sprain of unspecified site of right knee, initial encounter (principal); Z68.43 Body mass index [BMI] 50.0-59.9, adult; F31.64 Bipolar disorder, current episode mixed, severe, with psychotic features; Y92.9 Unspecified place or not applicable; F41.9 Anxiety disorder, unspecified; E66.01 Morbid (severe) obesity due to excess calories; I50.9 Heart failure, unspecified; I11.0 Hypertensive heart disease with heart failure; E87.6 Hypokalemia; Z96.651 Presence of right artificial knee joint; Z79.899 Other long term (current) drug therapy; Z79.82 Long term (current) use of aspirin; W01.0XXA Fall on same level from slipping, tripping and stumbling without subsequent striking against object, initial encounter; E78.5 Hyperlipidemia, unspecified; Z91.81 History of falling; Z90.49 Acquired absence of other specified parts of digestive tract; Z98.890 Other specified postprocedural states; Z88.5 Allergy status to narcotic agent; Z88.0 Allergy status to penicillin; Z88.2 Allergy status to sulfonamides; Z91.018 Allergy to other foods; K74.60 Unspecified cirrhosis of liver; M85.80 Other specified disorders of bone density and structure, unspecified site; Z93.3 Colostomy status; Z87.19 Personal history of other diseases of the digestive system; M19.90 Unspecified osteoarthritis, unspecified site; D32.9 Benign neoplasm of meninges, unspecified; K43.5 Parastomal hernia without obstruction or gangrene; R26.9 Unspecified abnormalities of gait and mobility
CPT/HCPCS: 36415; 70450-TC; 71045-TC; 73080-TC; 73564-TC; 80048-TC; 80053-TC; 80061-TC; 80076-TC; 83690-TC; 83735-TC; 84100-TC; 84443-TC; 84484-TC; 85025-TC; 87081-TC; 93307-TC; 97110-TC; 97112-TC; 97116-TC; 97530-TC; C9803; G0378; J1650; J1940; J2060; J7030

== ENCOUNTER 2022-09-03 23:10 | Emergency (ER) | payer BC, OTHER ==
[~2022-09-03] VITALS: Ht 188 cm; Wt 111.1 kg
[~2022-09-03 23:10] MED LIST changes: -CARV20CP PO; +CARV25TA2 PO; -CLON1TAB PO; +EZET10TA16 PO; -EZET10TA6 PO; +LAMO100T2 PO; +RISP1TAB7 PO
[2022-09-03 23:40] VITALS: BP 168/73
--- NOTE | 2022-09-03 23:40 | NUR ---
BIBRA 878 C/O NOSE BLEED TODAY. -BLOOD THINNERS. STARTED NEW NEDICATIONS TODAY. NOSE BLEED IS ALREADY CONTROLLED. PLACED COMFORTABLY IN BED. AAOX4. ABLE TO MAKE NEEDS KNOWN. ATTACHED TO MONITOR. VITALS CHECKED.
--- NOTE | 2022-09-03 23:50 | NUR ---
SEEN BY DR MCCARTHY AT BEDSIDE
[2022-09-04] MEDS ORDERED: OXYMETAZOLINE HCL NASAL SPRAY 30 ML BOTTLE NS ONE ×2 (00:14)
== END 2022-09-04 01:07 | disposition home or self-care (01) ==
LOC: ER 23:11
DX: R04.0 Epistaxis (principal); I10 Essential (primary) hypertension; Z90.49 Acquired absence of other specified parts of digestive tract; Z90.89 Acquired absence of other organs; Z88.0 Allergy status to penicillin; Z88.2 Allergy status to sulfonamides; Z88.8 Allergy status to other drugs, medicaments and biological substances; Z79.899 Other long term (current) drug therapy

== ENCOUNTER 2023-12-04 17:37 | Inpatient (IN) | payer BC, MEDICARE ==
[~2023-12-04] VITALS: Ht 162.6 cm; Wt 107.0 kg
[2023-12-04] MEDS ORDERED: KETOROLAC TROMETHAMINE INJ 30 MG/ML VIAL ONE (17:59)
[2023-12-04] MEDS: KETOROLAC TROMETHAMINE INJ 60 MG/2 ML VIAL IM ONE (18:16)
[2023-12-04 21:36] LABS: BASOPHILS # (AUTO) 0.1 K/uL (0.0-0.2); BASOPHILS % (AUTO) 0.8 % (0.0-2.0); EOSINOPHILS # (AUTO) 0.2 K/uL (0.0-0.7); HEMATOCRIT 37 % (33-45); HEMOGLOBIN 12.3 g/dL (11.5-14.8); LYMPHOCYTES # (AUTO) 1.3 K/uL (0.8-4.8); MEAN CORPUSCULAR HEMOGLOBIN 30 PG (26.0-33.0); MEAN CORPUSCULAR HGB CONC 34 g/dl (31.0-36.0); MEAN CORPUSCULAR VOLUME 89 fL (82-100); MONOCYTES # (AUTO) 0.6 K/uL (0.1-1.30); MONOCYTES % (AUTO) 7.7 % (2.0-12.0); NEUTROPHILS # (AUTO) 6.1 K/uL (1.8-8.9); NEUTROPHILS % (AUTO) 73.5 % (43.0-81.0); PLATELET COUNT (AUTO) 231 K/uL (150-450); RED BLOOD CELL COUNT(AUTO) 4.11 MIL/uL (4.0-5.2); RED CELL DISTRIBUTION WIDTH 15.8 % (11.5-15.0); WHITE BLOOD COUNT (AUTO) 8.4 K/uL (4.3-11.0)
[2023-12-04 22:07] LABS: ALBUMIN 3.1 g/dL (3.4-5.0); BILIRUBIN,DIRECT 0.3 mg/dL (0.0-0.2); BILIRUBIN,TOTAL 0.5 mg/dL (0.2-1.0); CALCIUM, SERUM 9.6 mg/dL (8.5-10.1); CREATININE 0.9 mg/dL (0.6-1.3); TOTAL PROTEIN, SERUM 7.3 g/dL (6.4-8.2)
[2023-12-04] MEDS ORDERED: PANTOPRAZOLE 40 MG TABLET.DR PO ONE (23:00)
[2023-12-04] MEDS: PANTOPRAZOLE 40 MG TABLET.DR PO ONE (23:02)
[2023-12-05] VITALS: BP 158/82; TEMP 98.2; O2SAT 96
[2023-12-05] MEDS ORDERED: clonazePAM 0.5 MG TABLET PO PRN (01:30)
[2023-12-05] MEDS ORDERED: ONDANSETRON HCL/PF 4 MG/2 ML VIAL IVP PRN (01:30)
[2023-12-05] MEDS: risperiDONE 1 MG TABLET PO SCH (01:30)
[2023-12-05] MEDS ORDERED: ZOLPIDEM TARTRATE 5 MG TABLET PO PRN (01:30)
[2023-12-05] MEDS ORDERED: Z GUARD REMEDY 4 OZ OINT TP PRN (01:30)
[2023-12-05] MEDS ORDERED: MAGNESIUM HYDROXIDE 30 ML UDC PO PRN (01:30)
[2023-12-05] MEDS ORDERED: clonazePAM 1 MG TABLET PO PRN (01:30)
[2023-12-05] MEDS: MAG HYDROX/AL HYDROX/SIMETH 30 ML UDC PO PRN (04:19)
[2023-12-05 07:00] VITALS: BP 150/52; TEMP 98.8; O2SAT 94
[2023-12-05] MEDS: PANTOPRAZOLE 40 MG TABLET.DR PO SCH (08:30)
[2023-12-05] MEDS: ACETAMINOPHEN 325 MG TABLET PO PRN (08:45)
[2023-12-05] MEDS: MAGNESIUM OXIDE 400 MG TABLET PO SCH (08:46)
[2023-12-05] MEDS: VALSARTAN 80 MG TABLET PO SCH (08:46)
[2023-12-05] MEDS: FUROSEMIDE 20 MG TABLET PO SCH (08:47)
[2023-12-05] MEDS: POTASSIUM CHLORIDE 10 MEQ TABLET.SA PO SCH (08:47)
[2023-12-05] MEDS: ASPIRIN 81 MG TAB.CHEW PO SCH (08:47)
[2023-12-05] MEDS: CARVEDILOL 12.5 MG TABLET PO SCH (08:47)
[2023-12-05] MEDS: EZETIMIBE 10 MG TABLET PO SCH (08:47)
[2023-12-05] MEDS: ASCORBIC ACID 500 MG TABLET PO SCH (08:47)
[2023-12-05] MEDS: GABAPENTIN 300 MG CAPSULE PO SCH (08:47)
[2023-12-05] MEDS: LamoTRIgine 100 MG TABLET PO SCH (08:47)
[2023-12-05] MEDS: URSODIOL 300 MG CAPSULE PO SCH ×2 (08:53→17:35)
[2023-12-05] MEDS ORDERED: PROTRIPTYLINE HCL 10 MG PO SCH (09:00)
[2023-12-05] MEDS ORDERED: Medication Not On Formulary EA (Turmeric Root Extract (Turmeric) 500 MG) PO SCH (09:00)
[2023-12-05] MEDS ORDERED: CHOL100062 PO (10:08)
[2023-12-05] MEDS ORDERED: CLON1TAB PO (10:08)
[2023-12-05] MEDS ORDERED: AMLO10TA4 PO (10:08)
[2023-12-05] MEDS ORDERED: LUMA42CA PO (10:08)
[2023-12-05] MEDS ORDERED: LAMO200T2 PO ×2 (10:08)
[2023-12-05 16:13] VITALS: BP 155/54; TEMP 98.6; O2SAT 94
[2023-12-05] MEDS ORDERED: LamoTRIgine 100 MG TABLET PO SCH (18:00)
[2023-12-05 20:00] VITALS: BP 161/68; TEMP 98.6; O2SAT 96
[2023-12-05] MEDS ORDERED: CHOLECALCIFEROL 1,000 UNIT TABLET (VIT D3) PO SCH (22:00)
[2023-12-05] MEDS ORDERED: cetrizine 10 MG TABLET PO SCH (22:00)
[2023-12-06 07:00] VITALS: BP 159/64; TEMP 98.2; O2SAT 96
[2023-12-06 07:27] LABS: BASOPHILS # (AUTO) 0.1 K/uL (0.0-0.2); BASOPHILS % (AUTO) 1.1 % (0.0-2.0); EOSINOPHILS # (AUTO) 0.2 K/uL (0.0-0.7); EOSINOPHILS % (AUTO) 2.3 % (0.0-6.0); HEMATOCRIT 33 % (33-45); HEMOGLOBIN 11.3 g/dL (11.5-14.8); LYMPHOCYTES # (AUTO) 1.8 K/uL (0.8-4.8); MEAN CORPUSCULAR HEMOGLOBIN 30 PG (26.0-33.0); MEAN CORPUSCULAR HGB CONC 34 g/dl (31.0-36.0); MEAN CORPUSCULAR VOLUME 89 fL (82-100); MONOCYTES % (AUTO) 11.4 % (2.0-12.0); NEUTROPHILS # (AUTO) 5.4 K/uL (1.8-8.9); NEUTROPHILS % (AUTO) 64.2 % (43.0-81.0); PLATELET COUNT (AUTO) 215 K/uL (150-450); RED BLOOD CELL COUNT(AUTO) 3.76 MIL/uL (4.0-5.2); RED CELL DISTRIBUTION WIDTH 15.4 % (11.5-15.0); WHITE BLOOD COUNT (AUTO) 8.5 K/uL (4.3-11.0)
[2023-12-06 08:20] LABS: CALCIUM, SERUM 8.9 mg/dL (8.5-10.1); CARBON DIOXIDE 30 mmol/L (21-32); CHLORIDE 107 mmol/L (98-107); CREATININE 0.9 mg/dL (0.6-1.3); GLUCOSE 96 mg/dL (74-106); MAGNESIUM 2.1 mg/dL (1.8-2.4); PHOSPHORUS 4.3 mg/dL (2.5-4.9); POTASSIUM 3.5 mmol/L (3.5-5.1); SODIUM SERUM 142 mmol/L (136-145); UREA NITROGEN, BLOOD 17 mg/dL (7-18)
[2023-12-06 16:00] VITALS: BP 152/67; TEMP 98.6; O2SAT 94
[2023-12-06 20:00] VITALS: BP 148/64; TEMP 98.2; O2SAT 94
[2023-12-07 08:00] VITALS: TEMP 97.9; O2SAT 96
[2023-12-07 09:08] VITALS: BP 159/69
== END 2023-12-07 11:29 | disposition home or self-care (01) | DRG 552 ==
LOC: ER 17:45 → MED 22:59
PROVIDERS: ADMIT Nurse Practitioner Family; ATTEND Nurse Practitioner Acute Care
DX: M54.9 Dorsalgia, unspecified (principal); K56.600 Partial intestinal obstruction, unspecified as to cause; F41.9 Anxiety disorder, unspecified; E78.5 Hyperlipidemia, unspecified; F32.A Depression, unspecified; G47.00 Insomnia, unspecified; Z88.0 Allergy status to penicillin; Z88.2 Allergy status to sulfonamides; Z93.3 Colostomy status; I50.9 Heart failure, unspecified; I11.0 Hypertensive heart disease with heart failure; Z79.82 Long term (current) use of aspirin; R26.81 Unsteadiness on feet; Z91.81 History of falling
CPT/HCPCS: 36415; 72192-TC; 80048-TC; 80076-TC; 83690-TC; 83735-TC; 84100-TC; 85025-TC; 97110-TC; 97116-TC; 97530-TC; G0378; J1885